=== PATIENT | female | born 1955 | race Caucasian/White ===

== ENCOUNTER 2016-10-30 13:35 | Inpatient (IN) | payer OTHER ==
[~2016-10-30] VITALS: Ht 157.5 cm; Wt 95.8 kg
[~2016-10-30 13:35] MED LIST: AMIT50TA3 PO; ASPI-391; INSUINJ4 SQ; INSUINJ7 SC; IRON PO; LEVO88TA PO; LISI-729 PO; METF1000 PO; MINO100C22 PO; RANI300T2 PO; SIMV20TA2 PO
[2016-10-30] MEDS ORDERED: ONDANSETRON INJ 2 MG/ML 2 ML VIAL IV STA (13:48)
[2016-10-30] MEDS ORDERED: SODIUM CHLORIDE 0.9% 1000ML 500 ML IV STA (13:48)
--- NOTE | 2016-10-30 13:57 | EMERGENCY ROOM VISIT NOTE ---
History Report prepared by Shonibvidal: Ember Francis Under the Supervision of: Dr. Topher Hayes M.D. First contact with patient: 13:40 Chief Complaint: ABDOMINAL PAIN Stated Complaint: ABD PAIN/ NAUSEA History of Present Illness The patient is a 60 year old female who presents to the Emergency Room with complaints of persistent abdominal pain for the past 2 weeks. She has also been nauseous and experiencing "dry heaves", but has not actually vomited. She underwent hernia surgery on October 07, 2016, by Dr. Sheth at [facility] in [place]. She saw him this morning for a recheck and states he told her the surgical incisions look good and she was not given any specific instructions for her abdominal pain and nausea. She notes she was placed on water pills 1 week ago for increased edema after surgery. She has been moving her bowels normally. She denies any fevers or urinary symptoms. The patient does admit to some increased coughing. She denies taking any daily blood thinners and denies any history of PE's or DVT's. The patient is diabetic and notes ever since her hernia surgery, her BSG has been running "over 200 in the mornings". 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 A total of 10 systems reviewed and were otherwise negative. Past Medical & Surgical Medical Problems: (1) Diabetes mellitus, type 2 (2) Diastolic CHF, chronic (3) Dyslipidemia (4) Dyspepsia (5) Fatty liver (6) GERD (gastroesophageal reflux disease) (7) Hiatal hernia (8) History of gastric ulcer (9) Hypertension (10) Hypothyroidism (11) Iron deficiency anemia (12) Migraine headache (13) Osteoarthritis (14) Rosacea (15) Sleep apnea Surgical Problems: (1) Status post bilateral oophorectomy (2) Status post cholecystectomy (3) Status post hernia repair (4) Status post hysterectomy (5) Status post panniculectomy (6) Status post repair of ventral hernia (7) Status post tonsillectomy Family History Cancer Diabetes mellitus Gallbladder disease Heart disease Hypertension Social History Smoking Status: Never Smoker Alcohol Use: none Drug Use: none Marital Status: single Housing Status: lives with family Occupation Status: unemployed Current/Historical Medications Scheduled Amitriptyline Hcl (Amitriptyline Hcl), 100 MG PO HS Ferrous Sulfate (Ferrous Sulfate), 325 MG PO DAILY Furosemide (Furosemide), 20 MG PO DAILY Insulin Aspart (Novolog), UNITS SC TIDM Insulin Glargine (Lantus), 28 UNITS SC QPM Levothyroxine Sodium (Synthroid), 100 MCG PO DAILY Lisinopril (Zestril), 5 MG PO QAM Metformin Hcl (Glucophage), 1,000 MG PO BID Minocycline (Minocin), 100 MG PO QAM Mupirocin 2% (Bactroban 2%), 1 APPLN EXT UD Simvastatin (Zocor), 20 MG PO HS Scheduled PRN Acetaminophen (Tylenol), 1,000 MG PO Q8 PRN for Pain Ibuprofen (Motrin), 600 MG PO TID PRN for Pain Ranitidine Hcl (Zantac), 300 MG PO DAILY PRN for Heartburn Tramadol (Ultram), 50 MG PO Q6 PRN for Pain Miscellaneous Medications Triamcinolone Acetonide (Topic (Triamcinolone Acet 0.025%) Allergies Coded Allergies: Doxycycline (Verified Allergy, Unknown, Hives., 10/30/16) Reported by PT/[facility] record. Metronidazole (Verified Allergy, Unknown, Hives., 10/30/16) Reported by PT/[facility] record. Naproxen (Verified Allergy, Unknown, ., 10/30/16) Physical Exam Vital Signs Date Time Temp Pulse Resp B/P (MAP) Pulse Ox O2 Delivery O2 Flow Rate FiO2 10/30/16 19:43 89 18 109/71 100 Room Air 10/30/16 18:50 95 18 121/73 100 Room Air 10/30/16 16:50 103 18 124/71 100 Room Air 10/30/16 14:30 91 24 109/69 100 Room Air 10/30/16 13:43 99 10/30/16 13:40 36.8 98 22 107/78 100 Room Air Physical Exam GENERAL: Patient is in no acute distress. HEENT: No acute trauma, normocephalic atraumatic, mucous membranes moist, no nasal congestion, no scleral icterus. NECK: No stridor, no adenopathy, no meningismus, trachea is midline. LUNGS: Scattered crackles, breath sounds equal, no wheezing. HEART: 2/6 systolic murmur with a mild tachycardia, and regular rhythm. ABDOMEN: Large lower abdominal wall incision stretching from left to right. In the center, over the pelvis, there is erythema and some warmth, with a fullness , consistent with a possible hematoma, no drainage seen. Abdomen is otherwise soft and nontender. Bowel sounds are positive. MICKY drains to both lateral aspects of her incision with serous fluid drainage. EXTREMITIES: No cyanosis, moderate bilateral pedal edema without cellulitis, full range of motion of all the joints without pain or difficulty, no signs for acute trauma. NEUROLOGIC: Oriented x 3, no acute motor or sensory deficits, no focal weakness. SKIN: No rash, no jaundice, no diaphoresis. Medical Decision & Procedures ER Provider Diagnostic Interpretation: Radiology results as stated below per my review and radiologist interpretation: CHEST ONE VIEW PORTABLE CLINICAL HISTORY: ABDOMINAL PAIN/GI pain COMPARISON STUDY: 12/25/2013 FINDINGS: Fixed lateral hernia. Small left pleural effusion. Lungs otherwise appear clear. IMPRESSION: Hiatal hernia. Very small left effusion. Electronically signed by: Kenneth Johnson M.D. 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 Edema. surgery, edema COMPARISON STUDY: None. FINDINGS: There is normal compressibility, flow, and augmentation within the bilateral lower extremity deep venous systems. IMPRESSION: No DVT within the right or left lower extremity. Electronically signed by: Kenneth Johnson M.D. 10/30/2016 3:[address] OF THE ABDOMEN AND PELVIS WITH CONTRAST CLINICAL HISTORY: Abdominal pain. Possible abscess. COMPARISON STUDY: None. TECHNIQUE: Following IV administration of 93 mL of Optiray-320, axial images of the abdomen and pelvis were obtained from the lung bases to the proximal femurs. Images were reviewed in the axial, sagittal, and coronal planes. IV contrast was administered without complication. CT DOSE: 1416.66 mGy.cm FINDINGS: Visualized portions of the lower chest demonstrate a large hiatal hernia with intrathoracic stomach. Lower lobe opacity suggests atelectasis. There is a possible segmental pulmonary embolus within the right middle lobe shown on image 13 of 476. There is fatty infiltration of the liver. There is no biliary ductal dilatation status post cholecystectomy. There is borderline splenomegaly. The adrenal glands, kidneys and pancreas are unremarkable. No peripancreatic infiltration. There is pancreatic glandular atrophy. There is no hydronephrosis. There are extensive post surgical findings of the anterior abdominal wall with surgical drains in place. There is extensive subcutaneous edema as well as edema along anterior abdominal wall. There is no soft tissue gas. No rim-enhancing fluid collection is identified to suggest an abscess. There is sigmoid diverticulosis without evidence for acute diverticulitis. No suspicious osseous lesions are identified. Apparent filling defects within the groin veins favor mixing artifact. The pannus was not imaged in its entirety. IMPRESSION: 1. Extensive postoperative findings of the anterior abdominal wall with surgical drains in place. Subcutaneous edema and edema along the anterior abdominal wall with no rim-enhancing fluid collection to suggest abscess. The edema may reflect postsurgical change or cellulitis. 2. Possible segmental pulmonary embolus within the right middle lobe. A PE protocol CT could be obtained. 3. Large hiatal hernia with intrathoracic stomach. 4. Apparent filling defects within bilateral groin veins. The symmetry favors mixing artifact. Thrombus could appear similar although is considered less likely given symmetry. Electronically signed by: Gael Esquivel M.D. 10/30/2016 5:05 PM Laboratory Results 10/30/16 13:20 Red Blood Count 3.75, Mean Corpuscular Volume 80.3, Mean Corpuscular Hemoglobin 24.5, Mean Corpuscular Hemoglobin Concent 30.6, Mean Platelet Volume 10.8, Neutrophils (%) (Auto) 84.1, Lymphocytes (%) (Auto) 6.2, Monocytes (%) (Auto) 7.8, Eosinophils (%) (Auto) 1.4, Basophils (%) (Auto) 0.1, Neutrophils # (Auto) 7.19, Lymphocytes # (Auto) 0.53, Monocytes # (Auto) 0.67, Eosinophils # (Auto) 0.12, Basophils # (Auto) 0.01 10/30/16 13:20 Test 10/30/16 13:20 10/30/16 14:15 10/30/16 14:25 White Blood Count 8.55 K/uL (4.8-10.8) Red Blood Count 3.75 M/uL (4.2-5.4) Hemoglobin 9.2 g/dL (12.0-16.0) Hematocrit 30.1 % (37-47) Mean Corpuscular Volume 80.3 fL (80-100) Mean Corpuscular Hemoglobin 24.5 pg (25-34) Mean Corpuscular Hemoglobin Concent 30.6 g/dl (32-36) Platelet Count 292 K/uL (130-400) Mean Platelet Volume 10.8 fL (7.4-10.4) Neutrophils (%) (Auto) 84.1 % Lymphocytes (%) (Auto) 6.2 % Monocytes (%) (Auto) 7.8 % Eosinophils (%) (Auto) 1.4 % Basophils (%) (Auto) 0.1 % Neutrophils # (Auto) 7.19 K/uL (1.4-6.5) Lymphocytes # (Auto) 0.53 K/uL (1.2-3.4) Monocytes # (Auto) 0.67 K/uL (0.11-0.59) Eosinophils # (Auto) 0.12 K/uL (0-0.5) Basophils # (Auto) 0.01 K/uL (0-0.2) RDW Standard Deviation 44.5 fL (36.4-46.3) RDW Coefficient of Variation 15.2 % (11.5-14.5) Immature Granulocyte % (Auto) 0.4 % Immature Granulocyte # (Auto) 0.03 K/uL (0.00-0.02) Prothrombin Time 11.0 SECONDS (9.0-12.0) Prothromb Time International Ratio 1.0 (0.9-1.1) Activated Partial Thromboplast Time 26.1 SECONDS (21.0-31.0) Partial Thromboplastin Ratio 1.0 Anion Gap 12.0 mmol/L (3-11) Est Creatinine Clear Calc Drug Dose 49.1 ml/min Estimated GFR () 51.3 Estimated GFR (Non- 44.2 BUN/Creatinine Ratio 9.5 (10-20) Calcium Level 7.7 mg/dl (8.5-10.1) Total Bilirubin 0.3 mg/dl (0.2-1) Aspartate Amino Transf (AST/SGOT) 19 U/L (15-37) Alanine Aminotransferase (ALT/SGPT) 12 U/L (12-78) Alkaline Phosphatase 84 U/L (45-117) Troponin I < 0.015 ng/ml (0-0.045) Total Protein 6.8 gm/dl (6.4-8.2) Albumin 2.1 gm/dl (3.4-5.0) Globulin 4.7 gm/dl (2.5-4.0) Albumin/Globulin Ratio 0.4 (0.9-2) Lipase 80 U/L (73-393) Chemistry Specimen Hemolysis Bedside Lactic Acid Venous 1.61 mmol/L (0.90-1.70) Urine Color DK YELLOW Urine Appearance CLOUDY (CLEAR) Urine pH 5.0 (4.5-7.5) Urine Specific [place] 1.027 (1.000-1.030) Urine Protein 1+ (NEG) Urine Glucose (UA) NEG (NEG) Urine Ketones TRACE (NEG) Urine Occult Blood NEG (NEG) Urine Nitrite NEG (NEG) Urine Bilirubin NEG (NEG) Urine Urobilinogen NEG (NEG) Urine Leukocyte Esterase NEG (NEG) Urine WBC (Auto) 5-10 /hpf (0-5) Urine RBC (Auto) 0-4 /hpf (0-4) Urine Hyaline Casts (Auto) >30 /lpf (0-5) Urine Epithelial Cells (Auto) >30 /lpf (0-5) Urine Bacteria (Auto) NEG (NEG) Urine Renal Epithelial Cells 0-5 /lpf (0-5) Urine Pathogenic Casts 1-5 WBC CASTS /lpf (0) Laboratory results reviewed by me. Medications Administered Medications (Trade) Dose Ordered Sig/Kamla Route Start Time Stop Time Status Last Admin Dose Admin Sodium Chloride 500 ml @ 999 mls/hr Q31M STAT IV 10/30/16 13:48 10/30/16 14:18 DC 10/30/16 14:42 999 MLS/HR Ondansetron HCl (Zofran Inj) 4 mg NOW STAT IV 10/30/16 13:48 10/30/16 13:51 DC 10/30/16 14:43 4 MG Piperacillin Sod/ Tazobactam Sod (Zosyn Iv) 4.5 gm NOW STAT IV 10/30/16 17:27 10/30/16 17:29 DC 10/30/16 17:49 4.5 GM Tramadol HCl (Ultram Tab) 50 mg STK-MED ONCE .ROUTE 10/30/16 19:47 10/30/16 19:48 DC 10/30/16 19:47 50 MG ECG Indication: abdominal pain Rate (beats per minute): 97 Rhythm: normal sinus (normal sinus rhythm) Findings: no acute ischemic change, no ectopy ED Course 1344: The patient was evaluated in room A10. A complete history and physical exam was performed. 1348: Zofran 4 mg IV, NSS 500 ml @ 999 mls/hr IV. 1720: I reevaluated the patient. She is resting comfortably. I discussed my recommendation that she remain in the hospital for further evaluation and management and she verbalized complete understanding and agreement. 1727: Zosyn 4.5 gm IV. 1803: I discussed the patients case with Dr. Mcghee, [facility] Hospitalist. The patient will be further evaluated. Medical Decision Medication Reconciliation: I attest that I have personally reviewed the patient' s current medication list. Blood Pressure Screening: Patient was found to have normal blood pressure on screening and does not require follow-up. The differential diagnoses considered include bowel obstruction, intraabdominal abscess, abdominal wall hematoma, UTI, pneumonia, pancreatitis, DVT and musculoskeletal pain. There is no leukocytosis. The patient is anemic with a hemoglobin of 9-this is a drop for her based on our previous testing. There was no significant electrolyte abnormality or kidney failure. No hepatitis. There was no coagulopathy. Urinalysis shows contamination, no obvious infection. Blood cultures are pending. Chest x-ray does not show pneumonia or CHF. EKG shows a normal sinus rhythm, no acute ischemia. Cardiac enzyme testing times one is not consistent with acute cardiac injury. Lower extremity ultrasound does not show evidence for DVT. Abdominal and pelvis CT shows a possible hematoma or seroma along the abdominal wall, cellulitis was questioned. No evidence for bowel obstruction or for intra-abdominal abscess. A possible PE was noted on the abdominal and pelvis CT scan. Lactic acid level was not elevated making bowel ischemia less likely. There is no evidence for pancreatitis. The patient received IV saline, IV Zofran. She was given IV Zosyn as antibiotic coverage. The patient appears to have a cellulitis in the area of her surgical wound. There may be an underlying hematoma or phlegmon. She is anemic. She has a possible PE by CT scan. Further workup in the hospital, further care in the hospital is required. I did speak to the patient and case management. The on- call hospitalist was consulted. Consults Time Called: 174 Consulting Physician: Hattie Lester Hospitalist Returned Call: [phone] I discussed the patients case with Hattie Lester. The patient will be further evaluated. Impression Primary Impression: Abdominal wall cellulitis Additional Impressions: Anemia Pulmonary embolism Scribe Attestation The scribe's documentation has been prepared under my direction and personally reviewed by me in its entirety. I confirm that the note above accurately reflects all work, treatment, procedures, and medical decision making performed by me. Departure Information Dispostion Being Evaluated By Hospitalist Referrals Moni Mejía M.D. (PCP) Patient Instructions [facility] Problem Qualifiers
[2016-10-30] MEDS ORDERED: OPTIRAY 320 IV PRN (14:00)
[2016-10-30 14:10] LABS: BASO % 0.1 %; BASO ABS # 0.01 K/uL (0-0.2); COMPLETE YES; EOS % 1.4 %; HEMATOCRIT 30.1 % (37-47); IG% 0.4 %; LYMPH % 6.2 %; LYMPH ABS # 0.53 K/uL (1.2-3.4); MEAN CELL VOLUME 80.3 fL (80-100); MEAN CORPUSCULAR HEMOGLOBIN 24.5 pg (25-34); MEAN CORPUSCULAR HGB CONC 30.6 g/dl (32-36); MEAN PLATELET VOLUME 10.8 fL (7.4-10.4); MONO % 7.8 %; NEUT % 84.1 %; PLATELET COUNT 292 K/uL (130-400); RED BLOOD COUNT 3.75 M/uL (4.2-5.4); WHITE BLOOD COUNT 8.55 K/uL (4.8-10.8)
[2016-10-30] MEDS ORDERED: IBUP-1450 PO (14:20)
[2016-10-30] MEDS ORDERED: TRIA0.022 (14:20)
[2016-10-30] MEDS ORDERED: INSDGI SC (14:20)
[2016-10-30] MEDS ORDERED: TRAM-10 PO (14:20)
[2016-10-30] MEDS ORDERED: BCTCR/30 EXT (14:20)
[2016-10-30] MEDS ORDERED: NVLG SC (14:20)
[2016-10-30] MEDS ORDERED: LEVO100T PO (14:20)
[2016-10-30] MEDS ORDERED: FERR325T5 PO (14:20)
[2016-10-30] MEDS ORDERED: ACET-1256 PO (14:20)
[2016-10-30 14:33] LABS: ALB/GLOB RATIO 0.4 (0.9-2); ALKALINE PHOSPHATASE 84 U/L (45-117); ALT/SGPT 12 U/L (12-78); AST/SGOT 19 U/L (15-37); BLOOD UREA NITROGEN 12 mg/dl (7-18); BUN/CREATININE RATIO 9.5 (10-20); CARBON DIOXIDE 26 mmol/L (21-32); CHLORIDE 96 mmol/L (98-107); GLUCOSE 205 mg/dl (70-99); POTASSIUM 4.4 mmol/L (3.5-5.1); SODIUM 134 mmol/L (136-145)
--- NOTE | 2016-10-30 14:38 | DIAGNOSTIC IMAGING REPORT ---
CHEST ONE VIEW PORTABLE CLINICAL HISTORY: ABDOMINAL PAIN/GI pain COMPARISON STUDY: 12/25/2013 FINDINGS: Fixed lateral hernia. Small left pleural effusion. Lungs otherwise appear clear. IMPRESSION: Hiatal hernia. Very small left effusion. Electronically signed by: Kenneth Johnson M.D. 10/30/2016 2:36 PM Dictated Date/Time: 10/30/2016 2:36 PM
[2016-10-30 15:05] LABS: URINE APPEARANCE CLOUDY (CLEAR); URINE COLOR DK YELLOW; URINE EPITHELIAL CELL AUTO >30 /lpf (0-5); URINE NITRITE NEG (NEG); URINE SPECIFIC GRAVITY 1.027 (1.000-1.030); UROBILINOGEN NEG (NEG); ZZURINE CULT IF INDIC CATH NO
[2016-10-30 15:13] LABS: REVIEW REQ? YES
[2016-10-30 15:14] LABS: MANUAL MICROSCOPIC REQUIRED? NO
[2016-10-30 15:15] LABS: URINE BILIRUBIN NEG (NEG)
[2016-10-30 15:33] LABS: URINE PATH CASTS 1-5 WBC CASTS /lpf (0)
--- NOTE | 2016-10-30 15:38 | DIAGNOSTIC IMAGING REPORT ---
BILATERAL LOWER EXTREMITY VENOUS DOPPLER HISTORY: Pain. Edema. surgery, edema COMPARISON STUDY: None. FINDINGS: There is normal compressibility, flow, and augmentation within the bilateral lower extremity deep venous systems. IMPRESSION: No DVT within the right or left lower extremity. Electronically signed by: Kenneth Johnson M.D. 10/30/2016 3:37 PM Dictated Date/Time: 10/30/2016 3:36 PM
--- NOTE | 2016-10-30 17:06 | DIAGNOSTIC IMAGING REPORT ---
CT OF THE ABDOMEN AND PELVIS WITH CONTRAST CLINICAL HISTORY: Abdominal pain. Possible abscess. COMPARISON STUDY: None. TECHNIQUE: Following IV administration of 93 mL of Optiray-320, axial images of the abdomen and pelvis were obtained from the lung bases to the proximal femurs. Images were reviewed in the axial, sagittal, and coronal planes. IV contrast was administered without complication. CT DOSE: 1416.66 mGy.cm FINDINGS: Visualized portions of the lower chest demonstrate a large hiatal hernia with intrathoracic stomach. Lower lobe opacity suggests atelectasis. There is a possible segmental pulmonary embolus within the right middle lobe shown on image 13 of 476. There is fatty infiltration of the liver. There is no biliary ductal dilatation status post cholecystectomy. There is borderline splenomegaly. The adrenal glands, kidneys and pancreas are unremarkable. No peripancreatic infiltration. There is pancreatic glandular atrophy. There is no hydronephrosis. There are extensive post surgical findings of the anterior abdominal wall with surgical drains in place. There is extensive subcutaneous edema as well as edema along anterior abdominal wall. There is no soft tissue gas. No rim-enhancing fluid collection is identified to suggest an abscess. There is sigmoid diverticulosis without evidence for acute diverticulitis. No suspicious osseous lesions are identified. Apparent filling defects within the groin veins favor mixing artifact. The pannus was not imaged in its entirety. IMPRESSION: 1. Extensive postoperative findings of the anterior abdominal wall with surgical drains in place. Subcutaneous edema and edema along the anterior abdominal wall with no rim-enhancing fluid collection to suggest abscess. The edema may reflect postsurgical change or cellulitis. 2. Possible segmental pulmonary embolus within the right middle lobe. A PE protocol CT could be obtained. 3. Large hiatal hernia with intrathoracic stomach. 4. Apparent filling defects within bilateral groin veins. The symmetry favors mixing artifact. Thrombus could appear similar although is considered less likely given symmetry. Electronically signed by: Gael Esquivel M.D. 10/30/2016 5:05 PM Dictated Date/Time: 10/30/2016 4:46 PM
[2016-10-30 17:16] LABS: CALCIUM 7.7 mg/dl (8.5-10.1)
[2016-10-30] MEDS ORDERED: PIPERACILLIN/TAZOBACTAM 4.5 GM/100ML D5W IV STA (17:27)
[2016-10-30] MEDS ORDERED: ONDANSETRON INJ 2 MG/ML 2 ML VIAL IV PRN (18:15)
[2016-10-30] MEDS ORDERED: LSX20 PO (18:58)
--- NOTE | 2016-10-30 19:40 | History and Physical ---
History & Physical Date & Time of Service: Oct 30, 2016 at 18:15 . Chief Complaint: chills, nausea, weakness . Primary Care Physician: Moni Mejía M.D. . History of Present Illness Source: patient, family, clinic records, hospital records 60-year-old female followed by Dr. Mejía. History of diastolic CHF, hypertension, diabetes mellitus type 2, and other problems noted below. Ventral hernia repair and panniculectomy performed at [facility] on 10/07/16. Patient was discharged to home on 10/16/16 on antibiotics and bilateral abdominal drains. Antibiotics were discontinued about a week ago due to diarrhea. Seen in clinic last week because of lower extremity edema and started on furosemide. This morning she was seen for postsurgical follow-up in Surgery Clinic in [place]. On the way home she felt weak, nauseated, experienced chills. She came to the ED for evaluation. Family noted that drainage from abdominal drains is somewhat cloudy at times. Family notes erythema around left abdominal drain and around lower abdominal incision. No drainage from incision. No apparent fever at home. Diarrhea has improved since stopping antibiotics last week, but she had loose stools in the ED today. No melena or hematochezia. No dysuria or hematuria. She has noted occasional nonproductive cough and some dyspnea on exertion. No angina or pleuritic chest pain. Lower extremity edema has improved since starting furosemide last week. . Past Medical/Surgical History Chronic and Resolved Medical Problems: (1) Diabetes mellitus, type 2 Status: Chronic (2) Diastolic CHF, chronic Status: Chronic (3) Dyslipidemia Status: Chronic (4) Dyspepsia Status: Chronic (5) Fatty liver Status: Chronic (6) GERD (gastroesophageal reflux disease) Status: Chronic (7) Hiatal hernia Status: Chronic (8) History of gastric ulcer Status: Chronic (9) Hypertension Status: Chronic (10) Hypothyroidism Status: Chronic (11) Iron deficiency anemia Status: Chronic (12) Migraine headache Status: Chronic (13) Osteoarthritis Status: Chronic (14) Rosacea Status: Chronic (15) Sleep apnea Status: Chronic Surgical Problems: (1) Status post bilateral oophorectomy Status: Chronic (2) Status post cholecystectomy Status: Chronic (3) Status post hernia repair Permanent Comment: ventral hernia repairs 2008 + 2016 Status: Chronic (4) Status post hysterectomy Status: Chronic (5) Status post [place]ic[place] [facility] [place]. Christensen Status: Chronic (6) Status post repair of ventral hernia [place] [facility] [place]. Rivera Status: Chronic (7) Status post tonsillectomy Status: Chronic . Family History Cancer Diabetes mellitus Gallbladder disease Heart disease Hypertension Social History Smoking Status: Never Smoker Alcohol Use: none Drug Use: none Marital Status: single Occupational Status: unemployed Immunizations History of Influenza Vaccine: Yes History of Pneumococcal: Yes Multi-Drug Resistant Organisms History of MDRO: No Allergies Coded Allergies: Doxycycline (Verified Allergy, Unknown, Hives., 10/30/16) Reported by PT/[facility] record. Metronidazole (Verified Allergy, Unknown, Hives., 10/30/16) Reported by PT/[facility] record. Naproxen (Verified Allergy, Unknown, ., 10/30/16) Home Medications Scheduled Amitriptyline Hcl (Amitriptyline Hcl), 100 MG PO HS Ferrous Sulfate (Ferrous Sulfate), 325 MG PO DAILY Furosemide (Furosemide), 20 MG PO DAILY Insulin Aspart (Novolog), UNITS SC TIDM Insulin Glargine (Lantus), 28 UNITS SC QPM Levothyroxine Sodium (Synthroid), 100 MCG PO DAILY Lisinopril (Zestril), 5 MG PO QAM Metformin Hcl (Glucophage), 1,000 MG PO BID Minocycline (Minocin), 100 MG PO QAM Mupirocin 2% (Bactroban 2%), 1 APPLN EXT UD Simvastatin (Zocor), 20 MG PO HS Scheduled PRN Acetaminophen (Tylenol), 1,000 MG PO Q8 PRN for Pain Ibuprofen (Motrin), 600 MG PO TID PRN for Pain Ranitidine Hcl (Zantac), 300 MG PO DAILY PRN for Heartburn Tramadol (Ultram), 50 MG PO Q6 PRN for Pain Miscellaneous Medications Triamcinolone Acetonide (Topic (Triamcinolone Acet 0.025%) Review of Systems Constitutional: + chills, No fever Eyes: No worsening of vision, No diplopia ENT: No nasal symptoms, No sore throat Respiratory: + problem reported (as noted above in HPI) Cardiovascular: + problem reported (as noted above in HPI) Abdomen: + problem reported (as noted above in HPI) Musculoskeletal: + joint pain, + muscle pain Genitourinary - Female: + problem reported (as noted above in HPI) Neurologic: + problem reported (migraine headaches, diabetic neuropathy) Psychiatric: + insomnia Endocrine: + problem reported (blood sugars running high), No excessive thirst , No excessive urination Integumentary: + problem reported (as noted above in HPI) Physical Exam Vital Signs Date Time Temp Pulse Resp B/P (MAP) Pulse Ox O2 Delivery O2 Flow Rate FiO2 10/30/16 18:50 95 18 121/73 100 Room Air 10/30/16 16:50 103 18 124/71 100 Room Air 10/30/16 14:30 91 24 109/69 100 Room Air 10/30/16 13:43 99 10/30/16 13:40 36.8 98 22 107/78 100 Room Air General Appearance: no apparent distress, + obese Head: normocephalic, atraumatic Eyes: normal inspection, PERRL, EOMI, sclerae normal, + pertinent finding ( conjunctivae pale) ENT: hearing grossly normal, pharynx normal, + pertinent finding (upper dentures) Neck: supple, no adenopathy, thyroid normal, trachea midline Respiratory/Chest: lungs clear, normal breath sounds, no respiratory distress, no accessory muscle use Cardiovascular: regular rate, rhythm, normal peripheral pulses, + systolic murmur (II/ systolic murmur at base), + pertinent finding (neck veins difficult to assess; 3+ pretibial edema; capillary refill toes ~ 2 sec) Abdomen/GI: normal bowel sounds, non tender, soft, no organomegaly (no palpable masses), + pertinent finding (bilateral surgical drains) Extremities/Musculoskelatal: + pertinent finding (no calf tenderness) Neurologic/Psych: arc welder II-XII nml as tested (PERRL, EOMI, no facial palsy, no dysarthria), no motor/sensory deficits (motor strength extremities grossly intact), alert, oriented x 3 Skin: + pertinent finding (erythema, induration, tenderness surrounding left drain site; lower abdominal incision with eschar and surrounding erythema and induration) Lymphatic: no adenopathy (cervical) Diagnostics Laboratory Results Results Past 24 Hours Test 10/30/16 13:20 10/30/16 14:15 10/30/16 14:25 Range/Units White Blood Count 8.55 4.8-10.8 K/uL Red Blood Count 3.75 4.2-5.4 M/uL Hemoglobin 9.2 12.0-16.0 g/dL Hematocrit 30.1 37-47 % Mean Corpuscular Volume 80.3 80-100 fL Mean Corpuscular Hemoglobin 24.5 25-34 pg Mean Corpuscular Hemoglobin Concent 30.6 32-36 g/dl Platelet Count 292 130-400 K/uL Mean Platelet Volume 10.8 7.4-10.4 fL Neutrophils (%) (Auto) 84.1 % Lymphocytes (%) (Auto) 6.2 % Monocytes (%) (Auto) 7.8 % Eosinophils (%) (Auto) 1.4 % Basophils (%) (Auto) 0.1 % Neutrophils # (Auto) 7.19 1.4-6.5 K/uL Lymphocytes # (Auto) 0.53 1.2-3.4 K/uL Monocytes # (Auto) 0.67 0.11-0.59 K/uL Eosinophils # (Auto) 0.12 0-0.5 K/uL Basophils # (Auto) 0.01 0-0.2 K/uL RDW Standard Deviation 44.5 36.4-46.3 fL RDW Coefficient of Variation 15.2 11.5-14.5 % Immature Granulocyte % (Auto) 0.4 % Immature Granulocyte # (Auto) 0.03 0.00-0.02 K/uL Prothrombin Time 11.0 9.0-12.0 SECONDS Prothromb Time International Ratio 1.0 0.9-1.1 Activated Partial Thromboplast Time 26.1 21.0-31.0 SECONDS Partial Thromboplastin Ratio 1.0 Sodium Level 134 136-145 mmol/L Potassium Level 4.4 3.5-5.1 mmol/L Chloride Level 96 98-107 mmol/L Carbon Dioxide Level 26 21-32 mmol/L Anion Gap 12.0 3-11 mmol/L Blood Urea Nitrogen 12 7-18 mg/dl Creatinine 1.30 0.60-1.20 mg/dl Est Creatinine Clear Calc Drug Dose 49.1 ml/min Estimated GFR () 51.3 Estimated GFR (Non- 44.2 BUN/Creatinine Ratio 9.5 10-20 Random Glucose 205 70-99 mg/dl Calcium Level 7.7 8.5-10.1 mg/dl Total Bilirubin 0.3 0.2-1 mg/dl Aspartate Amino Transf (AST/SGOT) 19 15-37 U/L Alanine Aminotransferase (ALT/SGPT) 12 12-78 U/L Alkaline Phosphatase 84 45-117 U/L Troponin I < 0.015 0-0.045 ng/ml Total Protein 6.8 6.4-8.2 gm/dl Albumin 2.1 3.4-5.0 gm/dl Globulin 4.7 2.5-4.0 gm/dl Albumin/Globulin Ratio 0.4 0.9-2 Lipase 80 73-393 U/L Chemistry Specimen Hemolysis Bedside Lactic Acid Venous 1.61 0.90-1.70 mmol/L Urine Color DK YELLOW Urine Appearance CLOUDY CLEAR Urine pH 5.0 4.5-7.5 Urine Specific [place] 1.027 1.000-1.030 Urine Protein 1+ NEG Urine Glucose (UA) NEG NEG Urine Ketones TRACE NEG Urine Occult Blood NEG NEG Urine Nitrite NEG NEG Urine Bilirubin NEG NEG Urine Urobilinogen NEG NEG Urine Leukocyte Esterase NEG NEG Urine WBC (Auto) 5-10 0-5 /hpf Urine RBC (Auto) 0-4 0-4 /hpf Urine Hyaline Casts (Auto) >30 0-5 /lpf Urine Epithelial Cells (Auto) >30 0-5 /lpf Urine Bacteria (Auto) NEG NEG Urine Renal Epithelial Cells 0-5 0-5 /lpf Urine Pathogenic Casts 1-5 WBC CASTS 0 /lpf Microbiology Results 10/30/16 Blood Culture, Received Pending 10/30/16 Blood Culture, Received Pending 10/30/16 Urine Culture, Received Pending 10/30/16 Gram Stain, Received Pending 10/30/16 Bacterial Culture, Received Pending 10/30/16 Gram Stain, Received Pending 10/30/16 Bacterial Culture, Received Pending Diagnostic Radiology CHEST ONE VIEW PORTABLE IMPRESSION: Hiatal hernia. Very small left effusion. Electronically signed by: Kenneth Johnson M.D. 10/30/2016 2:[address] ABDOMEN + PELVIS IMPRESSION: 1. Extensive postoperative findings of the anterior abdominal wall with surgical drains in place. Subcutaneous edema and edema along the anterior abdominal wall with no rim-enhancing fluid collection to suggest abscess. The edema may reflect postsurgical change or cellulitis. 2. Possible segmental pulmonary embolus within the right middle lobe. A PE protocol CT could be obtained. 3. Large hiatal hernia with intrathoracic stomach. 4. Apparent filling defects within bilateral groin veins. The symmetry favors mixing artifact. Thrombus could appear similar although is considered less likely given symmetry. Electronically signed by: Gael Esquivel M.D. 10/30/2016 5:05 PM BILATERAL LOWER EXTREMITY VENOUS DOPPLER IMPRESSION: No DVT within the right or left lower extremity. Electronically signed by: Kenneth Johnson M.D. 10/30/2016 3:37 PM . EKG EKG performed at 14:15 reviewed and showed normal sinus rhythm versus possible ectopic atrial rhythm at 97/minute, baseline artifact, no significant ST or T- wave abnormalities. . Impression Assessment and Plan ABDOMINAL WALL CELLULITIS Ventral hernia repair and panniculectomy performed at [facility] on 10/07/16. Patient presented to ED with chills, weakness, nausea. Examination as noted above suggest abdominal wall cellulitis. Does not appear to be septic. No fever or leukocytosis in ED. Serum lactate < 2. Hemodynamically stable. Blood cultures were obtained in ED and patient was started on IV antibiotic with piperacillin/tazobactam. Will add IV daptomycin for broader coverage. Check Gram stain and culture of drainage from surgical drains. Consult Infectious Disease. Consult General Surgery. POSSIBLE UTI No urinary symptoms. UA shows 5-10 WBCs, 15 WBC casts, no apparent bacteria. Check urine culture. IV daptomycin and piperacillin/tazobactam as noted above. POSSIBLE PULMONARY EMBOLISM Possible segmental pulmonary embolism right middle lobe incidentally noted on CT of abdomen. Patient experiencing nonproductive cough and dyspnea, but no pleuritic chest pain. Venous duplex of lower extremities negative for DVT. Cannot do CTA of chest at this time due to contrast demonstration with CT of abdomen and pelvis. Furthermore, patient is on metformin therapy. Therefore, will start anticoagulation with SQ enoxaparin pending additional data and further consultation. DIASTOLIC CHF Chronic left ventricular systolic heart failure per previous echocardiograms. Experiencing increasing lower extremity edema postoperatively. Started on furosemide last week. Edema has improved, but persists. No radiographic evidence of CHF per chest x-ray. Hold furosemide due to current infection and demonstration of IV contrast. Diuresis PRN. HYPERTENSION Continue lisinopril with hold parameters. SLEEP APNEA Continue nocturnal O2. GERD Continue ranitidine. DIARRHEA Check stools for Clostridium difficile. DM TYPE 2 Not well-controlled. Check hemoglobin A1c. Hold metformin. Lantus + NovoLog per protocol. HYPOTHYROIDISM Continue levothyroxine. DYSLIPIDEMIA Hold statin while receiving daptomycin. ANEMIA History of chronic iron deficiency anemia, but H/H lower than baseline probably secondary to recent surgery and apparent infection. Follow H/H. VTE PROPHYLAXIS SQ enoxaparin for possible pulmonary embolism as discussed above. RESUSCITATION STATUS Discussed with patient and her family. She does not have a living will. Her sister has healthcare power of contracts attorney. She would like resuscitation attempted in the event of a cardiopulmonary arrest if there is a reasonable chance of a meaningful recovery, but does not want prolonged extraordinary measures if prognosis is poor. Therefore, code status = "Level 1" (full resuscitation). DISPOSITION Hemodynamically stable. Admit to Med-Surg Unit. Discharge disposition to be determined. Internal Medicine follow-up with Dr. Mejía. Surgery follow-up with Dr. Rivera. . VTE Prophylaxis VTE Risk Assessment Done? Y/N: Yes Risk Level: Moderate Given or contraindicated: Enoxaparin (Lovenox)SQ
[2016-10-30] MEDS ORDERED: TRAMADOL HCL 50 MG TAB ONE (19:47)
[2016-10-30 20:40] VITALS: BP 103/71; PULSE 86; TEMP 36.6; Ht 157.5 cm; Wt 95.8 kg
[2016-10-30 20:57] VITALS: BP 103/71; PULSE 86; TEMP 36.6; O2SAT 100
[2016-10-30] MEDS ORDERED: GLUCAGON FOR INJ 1 MG VIAL SQ PRN (21:00)
[2016-10-30] MEDS ORDERED: GLUCOSE 40% GEL 15 GM TUBE PO PRN (21:00)
[2016-10-30] MEDS ORDERED: GLUCOSE 10 TABS/TUBE PO PRN (21:00)
[2016-10-30] MEDS ORDERED: DEXTROSE 50% 50 ML SYR IV PRN (21:00)
[2016-10-30] MEDS ORDERED: PIPERACILL/TAZOBAC CONSULT ACTIVE PRN (21:30)
[2016-10-30] MEDS: INSULIN ASPART 100 UNITS/ML 3 ML PEN SC SCH (22:00)
[2016-10-30] MEDS ORDERED: ENOXAPARIN 100 MG/1ML SYR SQ SCH (22:00)
[2016-10-30] MEDS: AMITRIPTYLINE HCL 100 MG TAB PO SCH (22:19)
[2016-10-30] MEDS: INSULIN GLARGINE SOLOSTAR 100 UNITS/ML 3 ML PEN SC SCH (22:36)
[2016-10-30 22:59] VITALS: BP 103/69; PULSE 79; TEMP 36.7; O2SAT 98
[2016-10-30] MEDS: DAPTOmycin IV 400 MG in SODIUM CHLORIDE 0.9% 50ML 50 ML IV SCH (22:59)
[2016-10-30] MEDS: PIPERACILL/TAZOBAC IV 4.5 GM in DEXTROSE 5% 100ML 100 ML IV SCH (23:42)
[2016-10-31] MEDS: PIPERACILL/TAZOBAC IV 4.5 GM in DEXTROSE 5% 100ML 100 ML IV SCH ×3 (05:43→22:37)
[2016-10-31] MEDS: LEVOTHYROXINE 100 MCG TAB PO SCH (05:43)
[2016-10-31 06:13] LABS: HEMATOCRIT 27.8 % (37-47); MEAN CELL VOLUME 79.4 fL (80-100); MEAN CORPUSCULAR HGB CONC 30.2 g/dl (32-36); MEAN PLATELET VOLUME 10.5 fL (7.4-10.4); PLATELET COUNT 264 K/uL (130-400); WHITE BLOOD COUNT 4.96 K/uL (4.8-10.8)
[2016-10-31 06:54] LABS: ESTIMATED AVERAGE GLUCOSE 154 mg/dl; HA1C FLAG Normal (Normal)
[2016-10-31 06:55] LABS: BUN/CREATININE RATIO 10.5 (10-20); C-REACTIVE PROTEIN 11.5 mg/dl (0-0.29); CALCIUM 7.1 mg/dl (8.5-10.1); CREATININE 0.86 mg/dl (0.60-1.20); POTASSIUM 3.9 mmol/L (3.5-5.1)
[2016-10-31 07:21] VITALS: BP 112/72; PULSE 101; TEMP 36.8; O2SAT 100
[2016-10-31 07:41] LABS: FERRITIN 37.8 ng/ml (8.0-388.0)
[2016-10-31] MEDS: HEPARIN 25,000 UNIT/500ML D5W 500 ML IV PRN ×5 (08:13→23:05)
[2016-10-31] MEDS: RANITIDINE HCL 150 MG TAB PO SCH (08:17)
[2016-10-31] MEDS: LISINOPRIL 5 MG TAB PO SCH (08:18)
[2016-10-31 08:28] LABS: BASO % 0.2 %; BASO ABS # 0.01 K/uL (0-0.2); EOS % 4.5 %; HEMATOCRIT 27.8 % (37-47); LYMPH % 11.1 %; LYMPH ABS # 0.61 K/uL (1.2-3.4); MEAN CELL VOLUME 79.4 fL (80-100); MEAN CORPUSCULAR HEMOGLOBIN 24.6 pg (25-34); MEAN PLATELET VOLUME 10.3 fL (7.4-10.4); NEUT % 76.2 %; PLATELET COUNT 283 K/uL (130-400); WHITE BLOOD COUNT 5.52 K/uL (4.8-10.8)
[2016-10-31 08:33] LABS: INR 1.1 (0.9-1.1); PARTIAL THROMBOPLASTIN RATIO 1.1; PROTHROMBIN TIME (PATIENT) 11.5 SECONDS (9.0-12.0)
[2016-10-31 08:45] LABS: MEAN CORPUSCULAR HGB CONC 30.9 g/dl (32-36)
[2016-10-31 08:50] LABS: COMPLETE YES
--- NOTE | 2016-10-31 09:11 | Pre-Operative Consultation ---
History General Date of Service: Oct 31, 2016. Stated Complaint: weakness HPI HPI: The patient is a 60 year old female who underwent combined incisional hernia repair/ panniculectomy with Ching Rivera/ Amparo in [place] on 10/07/16. She was on postop abx but stopped these 1 wk ago due to diarrhea. She was seen for her postop appt with Dr. Rivera but on her way home, felt weak, dizzy, lightheaded. Presented to the ER at [facility] for evaluation. No drainage from incisions. She still has MICKY x [address] - output has been too high for removal. Fluid color has been red with occasional clots. No pus that she has noted. Has pain at incision as expected. No fevers noted. Historian: patient Risk Assessment Daily beta zhang use?: Yes Problem List Medical Problems: (1) Abdominal wall cellulitis Status: Acute (2) Anemia Status: Acute Medical & Surgical History Past Medical History: Past Medical/Surgical History Chronic and Resolved Medical Problems: (1) Diabetes mellitus, type 2 Status: Chronic (2) Diastolic CHF, chronic Status: Chronic (3) Dyslipidemia Status: Chronic (4) Dyspepsia Status: Chronic (5) Fatty liver Status: Chronic (6) GERD (gastroesophageal reflux disease) Status: Chronic (7) Hiatal hernia Status: Chronic (8) History of gastric ulcer Status: Chronic (9) Hypertension Status: Chronic (10) Hypothyroidism Status: Chronic (11) Iron deficiency anemia Status: Chronic (12) Migraine headache Status: Chronic (13) Osteoarthritis Status: Chronic (14) Rosacea Status: Chronic (15) Sleep apnea Status: Chronic Past Surgical History: Surgical Problems: (1) Status post bilateral oophorectomy Status: Chronic (2) Status post cholecystectomy Status: Chronic (3) Status post hernia repair Permanent Comment: ventral hernia repairs 2008 + 2016 Status: Chronic (4) Status post hysterectomy Status: Chronic (5) Status post panniculectomy Permanent Comment: [facility] [place]/07/16 Dr. Christensen Status: Chronic (6) Status post repair of ventral hernia Permanent Comment: [facility] [place] 10/07/16 Dr. Rivera Status: Chronic (7) Status post tonsillectomy Status: Chronic Family History Family History: Cancer Diabetes mellitus Gallbladder disease Heart disease Hypertension Social History Hx Tobacco Use In Past Year?: No Smoking Status: Never Smoker Alcohol: none Drug Use: none Marital status: single Occupation status: unemployed Immunizations Have You Had Influenza Vaccine: Yes History of Pneumococcal: Yes Allergies Allergies: Coded Allergies: Doxycycline (Verified Allergy, Unknown, Hives., 10/30/16) Reported by PT/[facility] record. Metronidazole (Verified Allergy, Unknown, Hives., 10/30/16) Reported by PT/[facility] record. Naproxen (Verified Allergy, Unknown, ., 10/30/16) Medications Current Inpatient Medications Current Inpatient Medications Medications (Trade) Dose Ordered Sig/Kamla Route Start Time Stop Time Status Last Admin Dose Admin Ioversol (Optiray 320) 125 ml UD PRN IV 10/30/16 14:00 11/03/16 13:59 Acetaminophen (Tylenol Tab) 650 mg Q4H PRN PO 10/30/16 18:15 11/29/16 18:14 Ondansetron HCl (Zofran Inj) 4 mg Q6H PRN IV 10/30/16 18:15 11/29/16 18:14 Amitriptyline HCl (Elavil Tab) 100 mg HS PO 10/30/16 22:00 11/29/16 21:59 10/30/16 22:19 100 MG Insulin Aspart (novoLOG ASPART) ACHS SC 10/30/16 22:00 11/29/16 21:59 Insulin Glargine (Lantus Solostar Pen) 28 unit HS SC 10/30/16 22:00 11/29/16 21:59 10/30/16 22:36 28 UNIT Levothyroxine Sodium (Synthroid Tab) 100 mcg DAILYBB PO 10/31/16 06:00 11/30/16 05:59 10/31/16 05:43 100 MCG Lisinopril (Zestril Tab) 5 mg QAM PO 10/31/16 09:00 11/30/16 08:59 10/31/16 08:18 5 MG Ranitidine HCl (zANTac TAB) 300 mg DAILY PO 10/31/16 09:00 11/30/16 08:59 10/31/16 08:17 300 MG Tramadol HCl (Ultram Tab) 50 mg Q6H PRN PO 10/30/16 19:15 11/29/16 19:14 Piperacillin Sod/ Tazobactam Sod 4.5 gm/Dextrose 120 ml @ 30 mls/hr Q8H IV 10/30/16 22:00 11/09/16 21:59 10/31/16 05:43 30 MLS/HR Daptomycin 400 mg/ Sodium Chloride 58 ml @ 100 mls/hr DAILY@2100 IV 10/30/16 21:30 11/09/16 21:29 10/30/16 22:59 100 MLS/HR Glucose (Glucose 40% Gel) 15-30 GRAMS 15 GRAMS... UD PRN PO 10/30/16 21:00 11/29/16 20:59 Glucose (Glucose Chew Tab) 4-8 Tablets 4 Tabl... UD PRN PO 10/30/16 21:00 11/29/16 20:59 Dextrose (Dextrose 50% 50ML Syringe) 25-50ML OF 50% DW IV FOR... UD PRN IV 10/30/16 21:00 11/29/16 20:59 Glucagon (Glucagon Inj) 1 mg UD PRN SQ 10/30/16 21:00 11/29/16 20:59 Piperacillin Sod/ Tazobactam Sod (Consult) 1 ea UD PRN N/A 10/30/16 21:30 11/29/16 21:29 Heparin Sodium/ Dextrose 500 ml @ 25 mls/hr Q20H PRN IV 10/31/16 07:45 11/30/16 07:44 10/31/16 08:13 25 MLS/HR Review of Systems Review of Systems Review of Systems ROS: denies productive cough, did have lower extremity swelling following surgery for which she was started on lasix, no chest pain Physical Exam Physical Exam General Appearance: + other (Obese), No distress Ears, Nose, Throat: + normal ENT inspection Respiratory: No accessory muscle use, No decreased breath sounds Cardiovascular: No abnormal rate Neurologic/Psychiatric: No abnormal residential case manager II-XII, No abnormal gait Skin Characteristics: + other (panniculectomy incision with eschar at mid portion, dependent edema, induration and erythema at left MICKY site, no drainable fluid. Maceration of left side of incision. ) Diagnostics Labs Labs Results Past 24 Hours Test 10/30/16 13:20 10/30/16 14:15 10/30/16 14:25 10/30/16 22:25 Range/Units White Blood Count 8.55 4.8-10.8 K/uL Red Blood Count 3.75 4.2-5.4 M/uL Hemoglobin 9.2 12.0-16.0 g/dL Hematocrit 30.1 37-47 % Mean Corpuscular Volume 80.3 80-100 fL Mean Corpuscular Hemoglobin 24.5 25-34 pg Mean Corpuscular Hemoglobin Concent 30.6 32-36 g/dl Platelet Count 292 130-400 K/uL Mean Platelet Volume 10.8 7.4-10.4 fL Neutrophils (%) (Auto) 84.1 % Lymphocytes (%) (Auto) 6.2 % Monocytes (%) (Auto) 7.8 % Eosinophils (%) (Auto) 1.4 % Basophils (%) (Auto) 0.1 % Neutrophils # (Auto) 7.19 1.4-6.5 K/uL Lymphocytes # (Auto) 0.53 1.2-3.4 K/uL Monocytes # (Auto) 0.67 0.11-0.59 K/uL Eosinophils # (Auto) 0.12 0-0.5 K/uL Basophils # (Auto) 0.01 0-0.2 K/uL RDW Standard Deviation 44.5 36.4-46.3 fL RDW Coefficient of Variation 15.2 11.5-14.5 % Immature Granulocyte % (Auto) 0.4 % Immature Granulocyte # (Auto) 0.03 0.00-0.02 K/uL Prothrombin Time 11.0 9.0-12.0 SECONDS Prothromb Time International Ratio 1.0 0.9-1.1 Activated Partial Thromboplast Time 26.1 21.0-31.0 SECONDS Partial Thromboplastin Ratio 1.0 Sodium Level 134 136-145 mmol/L Potassium Level 4.4 3.5-5.1 mmol/L Chloride Level 96 98-107 mmol/L Carbon Dioxide Level 26 21-32 mmol/L Anion Gap 12.0 3-11 mmol/L Blood Urea Nitrogen 12 7-18 mg/dl Creatinine 1.30 0.60-1.20 mg/dl Est Creatinine Clear Calc Drug Dose 49.1 ml/min Estimated GFR () 51.3 Estimated GFR (Non- 44.2 BUN/Creatinine Ratio 9.5 10-20 Random Glucose 205 70-99 mg/dl Calcium Level 7.7 8.5-10.1 mg/dl Total Bilirubin 0.3 0.2-1 mg/dl Aspartate Amino Transf (AST/SGOT) 19 15-37 U/L Alanine Aminotransferase (ALT/SGPT) 12 12-78 U/L Alkaline Phosphatase 84 45-117 U/L Troponin I < 0.015 0-0.045 ng/ml Total Protein 6.8 6.4-8.2 gm/dl Albumin 2.1 3.4-5.0 gm/dl Globulin 4.7 2.5-4.0 gm/dl Albumin/Globulin Ratio 0.4 0.9-2 Lipase 80 73-393 U/L Chemistry Specimen Hemolysis Bedside Lactic Acid Venous 1.61 0.90-1.70 mmol/L Urine Color DK YELLOW Urine Appearance CLOUDY CLEAR Urine pH 5.0 4.5-7.5 Urine Specific Sperry 1.027 1.000-1.030 Urine Protein 1+ NEG Urine Glucose (UA) NEG NEG Urine Ketones TRACE NEG Urine Occult Blood NEG NEG Urine Nitrite NEG NEG Urine Bilirubin NEG NEG Urine Urobilinogen NEG NEG Urine Leukocyte Esterase NEG NEG Urine WBC (Auto) 5-10 0-5 /hpf Urine RBC (Auto) 0-4 0-4 /hpf Urine Hyaline Casts (Auto) >30 0-5 /lpf Urine Epithelial Cells (Auto) >30 0-5 /lpf Urine Bacteria (Auto) NEG NEG Urine Renal Epithelial Cells 0-5 0-5 /lpf Urine Pathogenic Casts 1-5 WBC CASTS 0 /lpf Bedside Glucose 141 70-90 mg/dl Test 10/31/16 05:40 10/31/16 08:00 10/31/16 08:13 Range/Units White Blood Count 4.96 5.52 4.8-10.8 K/uL Red Blood Count 3.50 3.50 4.2-5.4 M/uL Hemoglobin 8.4 8.6 12.0-16.0 g/dL Hematocrit 27.8 27.8 37-47 % Mean Corpuscular Volume 79.4 79.4 80-100 fL Mean Corpuscular Hemoglobin 24.0 24.6 25-34 pg Mean Corpuscular Hemoglobin Concent 30.2 30.9 32-36 g/dl RDW Standard Deviation 43.3 43.7 36.4-46.3 fL RDW Coefficient of Variation 15.1 15.0 11.5-14.5 % Platelet Count 264 283 130-400 K/uL Mean Platelet Volume 10.5 10.3 7.4-10.4 fL Sodium Level 136 136-145 mmol/L Potassium Level 3.9 3.5-5.1 mmol/L Chloride Level 99 98-107 mmol/L Carbon Dioxide Level 28 21-32 mmol/L Anion Gap 9.0 3-11 mmol/L Blood Urea Nitrogen 9 7-18 mg/dl Creatinine 0.86 0.60-1.20 mg/dl Est Creatinine Clear Calc Drug Dose 74.2 ml/min Estimated GFR () 84.5 Estimated GFR (Non- 72.9 BUN/Creatinine Ratio 10.5 10-20 Random Glucose 133 70-99 mg/dl Estimated Average Glucose 154 mg/dl Hemoglobin A1c 7.0 4.5-5.6 % Calcium Level 7.1 8.5-10.1 mg/dl Iron Level 17 35-150 mcg/dl Total Iron Binding Capacity 223 250-450 mcg/dl Transferrin 169 200-360 mg/dl Transferrin % Saturation 7 15-50 % Ferritin 37.8 8.0-388.0 ng/ml C-Reactive Protein 11.50 0-0.29 mg/dl Neutrophils (%) (Auto) 76.2 % Lymphocytes (%) (Auto) 11.1 % Monocytes (%) (Auto) 8.0 % Eosinophils (%) (Auto) 4.5 % Basophils (%) (Auto) 0.2 % Neutrophils # (Auto) 4.21 1.4-6.5 K/uL Lymphocytes # (Auto) 0.61 1.2-3.4 K/uL Monocytes # (Auto) 0.44 0.11-0.59 K/uL Eosinophils # (Auto) 0.25 0-0.5 K/uL Basophils # (Auto) 0.01 0-0.2 K/uL Immature Granulocyte % (Auto) 0.0 % Immature Granulocyte # (Auto) 0.00 0.00-0.02 K/uL Red Blood Cell Morphology Unremarkable Prothrombin Time 11.5 9.0-12.0 SECONDS Prothromb Time International Ratio 1.1 0.9-1.1 Activated Partial Thromboplast Time 27.3 21.0-31.0 SECONDS Partial Thromboplastin Ratio 1.1 D-Dimer 5350 0-500 ug/L FEU Bedside Glucose 262 70-90 mg/dl Microbiology Results 10/30/16 Blood Culture, Received Pending 10/30/16 Blood Culture, Received Pending 10/30/16 Urine Culture, Received Pending 10/30/16 Gram Stain - Final, Resulted 10/30/16 Bacterial Culture, Resulted Pending 10/30/16 Gram Stain - Final, Resulted 10/30/16 Bacterial Culture, Resulted Pending Lab Interpretation Lab Interpretation: labs were reviewed Diagnostic Radiology Diagnostic Radiology CT scan shows no sign of abscess. As expected, postop change with swelling/ induration in lower abdomen - ? cellulitis. Impression Assessment and Plan Assessment and Plan 60 yr old woman s/p panniculectomy/ incisional hernia repair on 10/07/16 with cellulitis. No sign of abscess or drainable fluid. Incision is getting macerated from skin on skin while she is sitting. Would replace dry dressings over incision. Drains are not infected currently and output is too high to remove. Agree with IV abx with plans to convert to PO when her cellulitis improves. Thank you for the consult.
--- NOTE | 2016-10-31 09:17 | PULMONARY CONSULTATION ---
DATE OF CONSULTATION: 10/31/2016 DATE OF CONSULTATION: 10/31/2016. TIME: 8:00 a.m. REPORT OF CONSULTATION: The patient was seen in room 352 bed 2. HISTORY OF PRESENT ILLNESS: She is a 60-year-old female who is being seen for possible pulmonary embolism. Her history is that she underwent an abdominal hernia repair and panniculectomy on 10/07/2016 at [facility]. She has been having recurring episodes of abdominal pain for the last couple of weeks. She has had some nausea and dry heaves. She had noticed some increased peripheral edema. This was treated initially with diuretic. She saw her surgeon yesterday. Subsequently, later in the day, she was feeling very weak. She also had nausea and some chills. This prompted her coming to the Emergency Room. As part of her evaluation, she underwent a CAT scan of the abdomen and pelvis. This study was done with contrast and had suggested the possibility of a pulmonary embolism in the right middle lobe. The patient admits to being more short of breath than normal since her surgery. She states that at home she has a large stairway of about 20 steps. Whereas she used to be able to walk up the steps without stopping, she is now stopping 3-[address] up. Likewise, she is also somewhat short of breath walking from room to room in her home. This was not the case prior to surgery. She has not had any chest pain. She has noticed a cough since surgery. It is dry. It is generally worse during the day. She has noticed some pain in her right and left calf area. She did have a venous Doppler last evening that was negative. The patient has not had any prior pulmonary problems. There is no history of deep vein thrombosis or pulmonary embolism. She denies asthma, emphysema, tuberculosis, pneumonia or pleurisy. She does carry a history of sleep apnea but is only using nighttime oxygen. PAST MEDICAL HISTORY: 1. Hypertension. 2. Hyperlipidemia. 3. Diabetes type 2. 4. Diastolic CHF. 5. GERD. 6. Hiatal hernia. 7. Gastric ulcer about 4 years ago. 8. Fatty liver. 9. Hypothyroidism. 10. Anemia which was iron deficiency. 11. Migraine headaches. 12. DJD. 13. Sleep apnea as noted previously. PAST SURGICAL HISTORY: 1. Hysterectomy. 2. Right and left oophorectomy. 3. Cholecystectomy. 4. Tonsillectomy. 5. Hernia repair 2008. 6. Hernia and panniculectomy September 2016. SOCIAL HISTORY: Tobacco never. ETOH -- None. ALLERGIES: LISTED ALLERGIES TO DOXYCYCLINE, METRONIDAZOLE, NAPROXEN. FAMILY HISTORY: Father age 60 thyroid cancer and had a brain aneurysm. Mother age 62 heart disease. REVIEW OF SYSTEMS: GENERAL: The patient's energy level has been lower than normal since surgery. There has been no syncope or near syncope. She has had no difficulty with urination. Remainder of the review of systems is otherwise negative except as noted above in history of present illness. MEDICATIONS AT HOME: 1. Tylenol p.r.n. 2. Amitriptyline 100 mg at bedtime. 3. Ferrous sulfate 325 mg daily. 4. Furosemide 20 mg daily. 5. Ibuprofen p.r.n. 6. NovoLog insulin. 7. Lantus insulin. 8. Levothyroxine 100 mcg daily. 9. Lisinopril 5 mg daily. 10. Metformin 1000 mg b.i.d. 11. Minocycline 100 mg daily. 12. Bactroban. 13. Ranitidine 300 mg p.r.n. 14. Simvastatin 20 mg at bedtime. 15. Tramadol 50 mg p.r.n. 16. Triamcinolone topical. PHYSICAL EXAMINATION: VITAL SIGNS: The patient is a pleasant 60-year-old female who was cooperative, alert and oriented. She did not appear short of breath and she did not appear in any distress. Her weight is 95.8 kilograms with a BMI of 38.6. HEAD, EYES, EARS, NOSE, AND THROAT: Pupils were reactive to light. She appears to be developing cataracts. Nares were clear. Mouth exam showed dentures on top. She has a few of her own teeth on the bottom. There is moderate crowding in the posterior pharynx. NECK: She has a very short neck. No lymphadenopathy was palpable. CHEST: Normal expansion. HEART: Heart rate was 96 per minute. The rhythm was regular. Blood pressure is 112/72. Her respiratory rate was 18 breaths per minute. LUNGS: The lung millan were clear bilaterally. Oxygen saturation on room air was 97% taken by myself. ABDOMEN: Obese. She has a very large scar across the lower abdominal region from side to side and there are drains on each side. There is also a more vertical scar near the midline. There is moderate erythema in the area of the incisions. Bowel sounds were heard. The upper abdomen was fairly soft. The degree of tenderness in the abdomen seemed appropriate for someone with surgery recently with a very large scar. EXTREMITIES: Revealed +1 to +2 edema bilaterally. She does complain of some tenderness in the area of the calves. There is no pain however with dorsiflexion of the foot. The patient's chest x-ray showed a hiatal hernia. One cannot clearly visualize the left hemidiaphragm and the possibility of an effusion exists. A CAT scan of the abdomen and pelvis was done. This showed extensive postoperative findings of the anterior abdominal wall with some degree of subcutaneous edema. The possibility of pulmonary embolism in the right middle lobe was noted. Hiatal hernia was noted with stomach essentially in the thoracic area. LABORATORY DATA: Admission white count was 8.55. Hemoglobin was 9.2. Platelets were 292,000. Today CBC shows a white count of 4.96 with a hemoglobin of 8.4 and platelets 264,000. Coags were normal. Urinalysis showed +1 protein, 5-10 WBCs, greater than 30 hyaline casts, negative bacteria. Electrolytes today show sodium 136, potassium 3.9, chloride 99, bicarbonate 28. BUN was 9 with a creatinine of 0.86. C-reactive protein was elevated at 11.5. Serum iron was 17 with total iron binding capacity of 223. Ferritin was 37.8. Hemoglobin A1c was 7.0. Troponin was negative. EKG showed a possible ectopic atrial rhythm. There was nonspecific ST and T-wave changes. This was unchanged compared with 2014. IMPRESSIONS: 1. Possible right middle lobe pulmonary embolism. 2. Status post ventral hernia repair and panniculectomy. 3. Obesity. 4. Obstructive sleep apnea by history. COMMENTS AND RECOMMENDATIONS: The patient seems clinically stable. She is not tachycardic. She is not hypoxic. She does complain of dyspnea with exertion. I agree with the plan of waiting until it is safe to do a CT angio of the chest. This likely requires at least 48 hours. I think that study should be done to make a definitive determination if she has had pulmonary embolism or not. I am going to order a D-dimer which I do not think has been done. It likely will be elevated as would be expected under her postoperative circumstances. However, if D-dimer is absolutely normal, it would certainly make it much less likely that she has pulmonary embolic disease. Would continue with the anticoagulants until a definitive determination has been made. Thank you for asking me to assist in her care.
--- NOTE | 2016-10-31 09:51 | Progress Note ---
Progress Note Date of Service Oct 31, 2016. Progress Note ID Consult Dictated #[id number] A/P: 1. Abd wound infection -Continue current abx, follow culture results -Surgery consult pending -Will follow, thank you
--- NOTE | 2016-10-31 10:36 | INFECT. DISEASE CONSULTATION ---
DATE OF CONSULTATION: 10/31/2016 DATE OF CONSULTATION: 10/31/2016. REQUESTING PHYSICIAN: Dr. Mcghee. HISTORY OF PRESENT ILLNESS: This is a 60-year-old female who was admitted after she had weakness while coming back from a surgical appointment in [place]. She recently underwent a ventral hernia repair as well as panniculectomy on 10/07/2016. She has had surgical drains in place. She was reportedly on Keflex at home but stopped about a week ago secondary to diarrhea. Within the last week she has had worsening lethargy and she has noted that the drainage has become more cloudy. She recently had a followup with her surgeons in [place] but was not placed back on antibiotics. She is complaining of abdominal pain. She denies any fevers or chills. Because of her weakness she was sent to the ER for evaluation. Her drains remain in place. She was started empirically on Zosyn and daptomycin. She is tolerating these antibiotics well. She currently denies any nausea, vomiting, diarrhea or abdominal pain. She is eating breakfast on my examination and appears comfortable. She denies any chest pain, cough or shortness of breath. A Gram stain from the wound culture obtained in the ER is showing many gram negative rods, but is pending. Blood and urine cultures are pending as well. Her white blood cell count is within normal limits. Her urinalysis has only 5-10 WBCs with no bacteria. The CAT scan did show edema but no drainable collection. All remaining review of systems are reviewed and are unremarkable. PAST MEDICAL HISTORY: Significant for type 2 diabetes, CHF, dyslipidemia, dyspepsia, fatty liver, GERD, hiatal hernia, gastric ulcers, hypertension, hypothyroidism, iron deficiency anemia, migraines, osteoarthritis, rosacea and obstructive sleep apnea. PAST SURGICAL HISTORY: Significant for bilateral nephrectomy, cholecystectomy, hernia repair, hysterectomy, panniculectomy, ventral hernia repair and tonsillectomy. FAMILY HISTORY: Noncontributory. SOCIAL HISTORY: Negative for alcohol use, drug use and tobacco use. ALLERGIES: DOXYCYCLINE, METRONIDAZOLE, AND NAPROXEN. CURRENT MEDICATIONS: Include lisinopril, Zantac, Synthroid, Elavil, insulin, Zosyn, daptomycin, tramadol, Tylenol, Zofran. PHYSICAL EXAMINATION: VITAL SIGNS: She is afebrile, pulse 101, respiratory rate is 18, blood pressure is 112/72, oxygen saturation is 100% on room air. GENERAL: She is awake, alert and oriented x3. She is in no acute distress. HEAD, EYES, EARS, NOSE, AND THROAT: Mucous membranes are moist. Extraocular muscles are intact. HEART: Regular. LUNGS: Clear. ABDOMEN: Abdomen is soft and nondistended. Abdominal binder is in place. This was removed. Drains do have cloudy fluid. There is no open area of wound dehiscence. There is minimal erythema suprapubically. This is nontender to palpation. LABORATORY STUDIES: CBC today reveals a white blood cell count of 5.5, hemoglobin 8.6, platelets are 283. Chemistry panel reveals a sodium of 136, potassium 3.9, chloride 99, bicarbonate 28, BUN 9, creatinine 0.8, glucose is 133. CRP is 11.5. LFTs were within normal limits on admission. Urinalysis is unremarkable. Wound cultures, blood cultures and urine cultures are pending. Venous Dopplers were negative for DVT. CT of the abdomen is as reviewed previously. ASSESSMENT AND PLAN: Abdominal wound infection with gram negative rods. She will be maintained on broad-spectrum antibiotics pending the results of further cultures. A surgical evaluation is pending as well. Thank you for this consultation.
[2016-10-31] MEDS: INSULIN ASPART 100 UNITS/ML 3 ML PEN SC SCH ×4 (10:51→21:33)
[2016-10-31 14:32] LABS: PARTIAL THROMBOPLASTIN RATIO 1.2
[2016-10-31] MEDS ORDERED: HEPARIN IV BOLUS 5,000 UNIT in SYRINGE 0 ML IV ONE (15:00)
[2016-10-31 15:26] VITALS: BP 104/69; PULSE 95; TEMP 36.6; O2SAT 100
--- NOTE | 2016-10-31 20:31 | Progress Note ---
Medicine Progress Note Date & Time of Visit: Oct 31, 2016 at 15:17 . Subjective Feels better today. No fever or chills. Cough improved. No dyspnea. No pleuritic chest pain. No anginal symptoms. Nausea resolved. No emesis. Diarrhea improved. No urinary symptoms. . Objective Last 8 Hrs Date Time Temp Pulse Resp B/P (MAP) Pulse Ox O2 Delivery O2 Flow Rate FiO2 10/31/16 07:26 Room Air 10/31/16 07:21 36.8 101 18 112/72 (85) 100 Room Air Physical Exam: General- no distress Neck- Lungs- clear to auscultation Heart- regular, no gallop appreciated Abdomen- obese, soft, nontender; lower abdominal incision and drain sites bandaged Extremities- 3+ pretibial edema Neuro- alert, oriented . Laboratory Results: Last 24 Hours Test 10/30/16 22:25 10/31/16 05:40 10/31/16 08:00 10/31/16 08:13 Bedside Glucose 141 mg/dl 262 mg/dl White Blood Count 4.96 K/uL 5.52 K/uL Red Blood Count 3.50 M/uL 3.50 M/uL Hemoglobin 8.4 g/dL 8.6 g/dL Hematocrit 27.8 % 27.8 % Mean Corpuscular Volume 79.4 fL 79.4 fL Mean Corpuscular Hemoglobin 24.0 pg 24.6 pg Mean Corpuscular Hemoglobin Concent 30.2 g/dl 30.9 g/dl RDW Standard Deviation 43.3 fL 43.7 fL RDW Coefficient of Variation 15.1 % 15.0 % Platelet Count 264 K/uL 283 K/uL Mean Platelet Volume 10.5 fL 10.3 fL Sodium Level 136 mmol/L Potassium Level 3.9 mmol/L Chloride Level 99 mmol/L Carbon Dioxide Level 28 mmol/L Anion Gap 9.0 mmol/L Blood Urea Nitrogen 9 mg/dl Creatinine 0.86 mg/dl Est Creatinine Clear Calc Drug Dose 74.2 ml/min Estimated GFR () 84.5 Estimated GFR (Non- 72.9 BUN/Creatinine Ratio 10.5 Random Glucose 133 mg/dl Estimated Average Glucose 154 mg/dl Hemoglobin A1c 7.0 % Calcium Level 7.1 mg/dl Iron Level 17 mcg/dl Total Iron Binding Capacity 223 mcg/dl Transferrin 169 mg/dl Transferrin % Saturation 7 % Ferritin 37.8 ng/ml C-Reactive Protein 11.50 mg/dl Neutrophils (%) (Auto) 76.2 % Lymphocytes (%) (Auto) 11.1 % Monocytes (%) (Auto) 8.0 % Eosinophils (%) (Auto) 4.5 % Basophils (%) (Auto) 0.2 % Neutrophils # (Auto) 4.21 K/uL Lymphocytes # (Auto) 0.61 K/uL Monocytes # (Auto) 0.44 K/uL Eosinophils # (Auto) 0.25 K/uL Basophils # (Auto) 0.01 K/uL Immature Granulocyte % (Auto) 0.0 % Immature Granulocyte # (Auto) 0.00 K/uL Red Blood Cell Morphology Unremarkable Prothrombin Time 11.5 SECONDS Prothromb Time International Ratio 1.1 Activated Partial Thromboplast Time 27.3 SECONDS Partial Thromboplastin Ratio 1.1 D-Dimer 5350 ug/L FEU Vitamin B12 Level 180 pg/mL Folate 13.08 ng/mL Test 10/31/16 09:50 10/31/16 12:00 10/31/16 14:15 Stool Occult Blood NEGATIVE Bedside Glucose 175 mg/dl Activated Partial Thromboplast Time 31.3 SECONDS Partial Thromboplastin Ratio 1.2 Date/Time Source Procedure Growth Status 10/31/16 09:50 Stool C.difficile Toxin B Gene (PCR) - Final No C. difficile toxin B gene detected Complete 10/30/16 18:55 Drainage-Deep Abdomin, Right Lower Quadrant Gram Stain - Final Resulted 10/30/16 18:55 Bacterial Culture - Preliminary Gram Negative Bacilli Resulted 10/30/16 18:55 Drainage-Deep Abdomen, Left Lower Quadrant Gram Stain - Final Resulted 10/30/16 18:55 Bacterial Culture - Preliminary Probable Pseudomonas Species Resulted Assessment & Plan ABDOMINAL WALL CELLULITIS Ventral hernia repair and panniculectomy performed at [facility] on 10/07/16. Patient presented to ED with chills, weakness, nausea. Examination suggested abdominal wall cellulitis. Did not appear to be septic. Blood cultures were obtained in ED and patient was started on IV antibiotic with piperacillin/tazobactam. IV daptomycin added for broader coverage. Check Gram stain and culture of drainage from surgical drains. Infectious Disease and General Surgery consulted. Afebrile today. Continue IV daptomycin and piperacillin/tazobactam pending culture results. POSSIBLE UTI No urinary symptoms. UA shows 5-10 WBCs, 15 WBC casts, no apparent bacteria. Urine culture pending. Continue IV daptomycin and piperacillin/tazobactam pending culture results. POSSIBLE PULMONARY EMBOLISM Possible segmental pulmonary embolism right middle lobe incidentally noted on CT of abdomen. Patient experiencing nonproductive cough and dyspnea, but no pleuritic chest pain. Venous duplex of lower extremities negative for DVT. Cannot do CTA of chest at this time due to contrast demonstration with CT of abdomen and pelvis. Furthermore, patient is on metformin therapy. Therefore, started anticoagulation with SQ enoxaparin pending additional data and further consultation. H/H fell this morning, so anticoagulation changed to IV heparin in case patient is experiencing any GI blood loss. DIASTOLIC CHF Chronic left ventricular systolic heart failure per previous echocardiograms. Experiencing increasing lower extremity edema postoperatively. Started on furosemide last week. Edema has improved, but persists. No radiographic evidence of CHF per chest x-ray. Hold furosemide due to current infection and demonstration of IV contrast. Diuresis PRN. HYPERTENSION Continue lisinopril with hold parameters. SLEEP APNEA Continue nocturnal O2. GERD Continue ranitidine. DIARRHEA Stool specimen for -[id number]- C. difficile negative. [correction MARIBETH 08:33] DM TYPE 2 Not recently well-controlled. Hemoglobin A1c = 7. Hold metformin. Lantus + NovoLog per protocol. HYPOTHYROIDISM Continue levothyroxine. DYSLIPIDEMIA Hold statin while receiving daptomycin. ANEMIA History of chronic iron deficiency anemia, but H/H lower than baseline probably secondary to recent surgery and apparent infection. Serum iron and transferrin saturation low. B12 low. Stool heme-negative. Continue iron supplementation. Initiate -a- -1-2- B12 supplementation. [correction MARIBETH 11/01/16 08:33] Follow H/H. VTE PROPHYLAXIS Initially received SQ enoxaparin for possible pulmonary embolism as discussed above. Now receiving IV unfractionated heparin. RESUSCITATION STATUS Full code as outlined in admission H&P. DISPOSITION Expected discharge to home. Internal Medicine follow-up with Dr. Mejía. Surgery follow-up with Dr. Rivera. . Current Inpatient Medications: Current Inpatient Medications Medications (Trade) Dose Ordered Sig/Kamla Route Start Time Stop Time Status Last Admin Dose Admin Ioversol (Optiray 320) 125 ml UD PRN IV 10/30/16 14:00 11/03/16 13:59 Acetaminophen (Tylenol Tab) 650 mg Q4H PRN PO 10/30/16 18:15 11/29/16 18:14 Ondansetron HCl (Zofran Inj) 4 mg Q6H PRN IV 10/30/16 18:15 11/29/16 18:14 Amitriptyline HCl (Elavil Tab) 100 mg HS PO 10/30/16 22:00 11/29/16 21:59 10/30/16 22:19 100 MG Insulin Aspart (novoLOG ASPART) ACHS SC 10/30/16 22:00 11/29/16 21:59 10/31/16 12:48 2 UNITS Insulin Glargine (Lantus Solostar Pen) 28 unit HS SC 10/30/16 22:00 11/29/16 21:59 10/30/16 22:36 28 UNIT Levothyroxine Sodium (Synthroid Tab) 100 mcg DAILYBB PO 10/31/16 06:00 11/30/16 05:59 10/31/16 05:43 100 MCG Lisinopril (Zestril Tab) 5 mg QAM PO 10/31/16 09:00 11/30/16 08:59 10/31/16 08:18 5 MG Ranitidine HCl (zANTac TAB) 300 mg DAILY PO 10/31/16 09:00 11/30/16 08:59 10/31/16 08:17 300 MG Tramadol HCl (Ultram Tab) 50 mg Q6H PRN PO 10/30/16 19:15 11/29/16 19:14 Piperacillin Sod/ Tazobactam Sod 4.5 gm/Dextrose 120 ml @ 30 mls/hr Q8H IV 10/30/16 22:00 11/09/16 21:59 10/31/16 13:55 30 MLS/HR Daptomycin 400 mg/ Sodium Chloride 58 ml @ 100 mls/hr DAILY@2100 IV 10/30/16 21:30 11/09/16 21:29 10/30/16 22:59 100 MLS/HR Glucose (Glucose 40% Gel) 15-30 GRAMS 15 GRAMS... UD PRN PO 10/30/16 21:00 11/29/16 20:59 Glucose (Glucose Chew Tab) 4-8 Tablets 4 Tabl... UD PRN PO 10/30/16 21:00 11/29/16 20:59 Dextrose (Dextrose 50% 50ML Syringe) 25-50ML OF 50% DW IV FOR... UD PRN IV 10/30/16 21:00 11/29/16 20:59 Glucagon (Glucagon Inj) 1 mg UD PRN SQ 10/30/16 21:00 11/29/16 20:59 Piperacillin Sod/ Tazobactam Sod (Consult) 1 ea UD PRN N/A 10/30/16 21:30 11/29/16 21:29 Heparin Sodium/ Dextrose 500 ml @ 30 mls/hr [id number] PRN IV 10/31/16 07:45 11/30/16 07:44 10/31/16 15:02 30 MLS/HR
[2016-10-31 21:23] LABS: PARTIAL THROMBOPLASTIN RATIO 1.4
[2016-10-31] MEDS: AMITRIPTYLINE HCL 100 MG TAB PO SCH (21:29)
[2016-10-31] MEDS: INSULIN GLARGINE SOLOSTAR 100 UNITS/ML 3 ML PEN SC SCH (21:33)
[2016-10-31] MEDS: DAPTOmycin IV 400 MG in SODIUM CHLORIDE 0.9% 50ML 50 ML IV SCH (21:36)
[2016-10-31] MEDS ORDERED: HEPARIN IV BOLUS 5,000 UNIT in SYRINGE 0 ML IV STA (22:16)
[2016-10-31 22:56] VITALS: BP 99/65; PULSE 95; TEMP 36.5; O2SAT 100
[2016-11-01] MEDS: HEPARIN 25,000 UNIT/500ML D5W 500 ML IV PRN ×4 (01:24→23:08)
[2016-11-01 04:27] LABS: HEMATOCRIT 27.2 % (37-47); MEAN CELL VOLUME 79.3 fL (80-100); MEAN CORPUSCULAR HEMOGLOBIN 23.6 pg (25-34); MEAN CORPUSCULAR HGB CONC 29.8 g/dl (32-36); MEAN PLATELET VOLUME 10.5 fL (7.4-10.4); PLATELET COUNT 277 K/uL (130-400); RED BLOOD COUNT 3.43 M/uL (4.2-5.4); WHITE BLOOD COUNT 5.37 K/uL (4.8-10.8)
[2016-11-01 04:42] LABS: BUN/CREATININE RATIO 8.4 (10-20); CALCIUM 7.3 mg/dl (8.5-10.1); CREATININE 0.88 mg/dl (0.60-1.20); POTASSIUM 4.3 mmol/L (3.5-5.1)
[2016-11-01 04:48] LABS: PARTIAL THROMBOPLASTIN RATIO 1.9
[2016-11-01] MEDS: PIPERACILL/TAZOBAC IV 4.5 GM in DEXTROSE 5% 100ML 100 ML IV SCH ×3 (05:54→21:17)
[2016-11-01] MEDS: LEVOTHYROXINE 100 MCG TAB PO SCH (05:58)
[2016-11-01 07:37] VITALS: BP 107/67; PULSE 76; TEMP 36.8; O2SAT 98
--- NOTE | 2016-11-01 08:32 | Progress Note ---
Medicine Progress Note Date & Time of Visit: Nov 01, 2016 at 07:40 . Subjective Afebrile. Occasional nonproductive cough. No SOB. No pleuritic chest pain. No anginal symptoms. Persistent dependent edema. No N/V. Persistent loose stools. No urinary symptoms. . Objective Last 8 Hrs Date Time Temp Pulse Resp B/P (MAP) Pulse Ox O2 Delivery O2 Flow Rate FiO2 11/01/16 07:37 36.8 76 16 107/67 (80) 98 Room Air 11/01/16 07:20 Room Air Physical Exam: General- no distress Neck- no JVD Lungs- clear to auscultation Heart- regular, no gallop appreciated Abdomen- obese, soft, nontender; lower abdominal incision and drain sites bandaged Extremities- 3+ pretibial edema; no calf tenderness Neuro- alert, oriented . Laboratory Results: Last 24 Hours Test 10/31/16 09:50 10/31/16 12:00 10/31/16 14:15 10/31/16 16:58 Stool Occult Blood NEGATIVE Bedside Glucose 175 mg/dl 152 mg/dl Activated Partial Thromboplast Time 31.3 SECONDS Partial Thromboplastin Ratio 1.2 Test 10/31/16 20:37 10/31/16 21:00 11/01/16 04:15 Bedside Glucose 199 mg/dl Activated Partial Thromboplast Time 35.8 SECONDS 49.0 SECONDS Partial Thromboplastin Ratio 1.4 1.9 White Blood Count 5.37 K/uL Red Blood Count 3.43 M/uL Hemoglobin 8.1 g/dL Hematocrit 27.2 % Mean Corpuscular Volume 79.3 fL Mean Corpuscular Hemoglobin 23.6 pg Mean Corpuscular Hemoglobin Concent 29.8 g/dl RDW Standard Deviation 44.0 fL RDW Coefficient of Variation 15.0 % Platelet Count 277 K/uL Mean Platelet Volume 10.5 fL Sodium Level 138 mmol/L Potassium Level 4.3 mmol/L Chloride Level 101 mmol/L Carbon Dioxide Level 32 mmol/L Anion Gap 5.0 mmol/L Blood Urea Nitrogen 7 mg/dl Creatinine 0.88 mg/dl Est Creatinine Clear Calc Drug Dose 72.5 ml/min Estimated GFR () 82.2 Estimated GFR (Non- 70.9 BUN/Creatinine Ratio 8.4 Random Glucose 119 mg/dl Calcium Level 7.3 mg/dl Date/Time Source Procedure Growth Status 10/31/16 09:50 Stool C.difficile Toxin B Gene (PCR) - Final No C. difficile toxin B gene detected Complete Assessment & Plan ABDOMINAL WALL CELLULITIS Ventral hernia repair and panniculectomy performed at [facility] on 10/07/16. Patient presented to ED with chills, weakness, nausea. Examination suggested abdominal wall cellulitis. Did not appear to be septic. Blood cultures were obtained in ED and patient was started on IV antibiotic with piperacillin/tazobactam. IV daptomycin added for broader coverage. Infectious Disease and General Surgery consulted. No drainable abscess. Blood cultures negative so far. Urine culture negative so far. Cultures from abdominal surgical drains growing probable Pseudomonas sp. Afebrile today. Continue IV daptomycin and piperacillin/tazobactam pending culture results. Day # 3. POSSIBLE UTI No urinary symptoms. UA shows 5-10 WBCs, 15 WBC casts, no apparent bacteria. Urine culture negative so far. Continue IV daptomycin and piperacillin/tazobactam pending final culture results. POSSIBLE PULMONARY EMBOLISM Possible segmental pulmonary embolism right middle lobe incidentally noted on CT of abdomen. Patient experiencing nonproductive cough and dyspnea, but no pleuritic chest pain. Venous duplex of lower extremities negative for DVT. Could not do CTA of chest immediately due to contrast demonstration with CT of abdomen and pelvis. Started anticoagulation with SQ enoxaparin pending additional data and further consultation. Changed to IV heparin in case patient is experiencing any GI blood loss. Serum creatinine stable. Check CTA today to clarify whether or not patient has thromboembolic disease. DIASTOLIC CHF Chronic left ventricular systolic heart failure per previous echocardiograms. Experiencing increasing lower extremity edema postoperatively. Started on furosemide last week. Edema has improved, but persists. No radiographic evidence of CHF per chest x-ray. Hold furosemide due to current infection and demonstration of IV contrast. Diurese PRN. HYPERTENSION Continue lisinopril with hold parameters. SLEEP APNEA Continue nocturnal O2. GERD Continue ranitidine. DIARRHEA Stool specimen for C. difficile negative. DM TYPE 2 Not recently well-controlled, probably due to infection. Hemoglobin A1c = 7. Hold metformin. Lantus + NovoLog per protocol. FBS today = 119. HYPOTHYROIDISM Continue levothyroxine. DYSLIPIDEMIA Hold statin while receiving daptomycin. ANEMIA History of chronic iron deficiency anemia, but H/H lower than baseline probably secondary to recent surgery and apparent infection. Serum iron and transferrin saturation low. B12 low. Stool heme-negative. Continue iron supplementation. Initiate B 12 supplementation. Hgb this morning = 8.1. Follow H/H. VTE PROPHYLAXIS Initially received SQ enoxaparin for possible pulmonary embolism as discussed above. Now receiving IV unfractionated heparin. RESUSCITATION STATUS Full code as outlined in admission H&P. DISPOSITION Expected discharge to home. Internal Medicine follow-up with Dr. Mejía. Surgery follow-up with Dr. Rivera. . Consultants: ID with Dr. Lewis General Surgery with Dr. Ace Pulmonary with Dr. Hdz . Procedures: CT abdomen + pelvis venous duplex lower extremities IV antibiotics . Current Inpatient Medications: Current Inpatient Medications Medications (Trade) Dose Ordered Sig/Kamla Route Start Time Stop Time Status Last Admin Dose Admin Ioversol (Optiray 320) 125 ml UD PRN IV 10/30/16 14:00 11/03/16 13:59 Acetaminophen (Tylenol Tab) 650 mg Q4H PRN PO 10/30/16 18:15 11/29/16 18:14 Ondansetron HCl (Zofran Inj) 4 mg Q6H PRN IV 10/30/16 18:15 11/29/16 18:14 Amitriptyline HCl (Elavil Tab) 100 mg HS PO 10/30/16 22:00 11/29/16 21:59 10/31/16 21:29 100 MG Insulin Aspart (novoLOG ASPART) ACHS SC 10/30/16 22:00 11/29/16 21:59 10/31/16 21:33 1 UNITS Insulin Glargine (Lantus Solostar Pen) 28 unit HS SC 10/30/16 22:00 11/29/16 21:59 10/31/16 21:33 28 UNIT Levothyroxine Sodium (Synthroid Tab) 100 mcg DAILYBB PO 10/31/16 06:00 11/30/16 05:59 11/01/16 05:58 100 MCG Lisinopril (Zestril Tab) 5 mg QAM PO 10/31/16 09:00 11/30/16 08:59 10/31/16 08:18 5 MG Ranitidine HCl (zANTac TAB) 300 mg DAILY PO 10/31/16 09:00 11/30/16 08:59 10/31/16 08:17 300 MG Tramadol HCl (Ultram Tab) 50 mg Q6H PRN PO 10/30/16 19:15 11/29/16 19:14 Piperacillin Sod/ Tazobactam Sod 4.5 gm/Dextrose 120 ml @ 30 mls/hr Q8H IV 10/30/16 22:00 11/09/16 21:59 11/01/16 05:54 30 MLS/HR Daptomycin 400 mg/ Sodium Chloride 58 ml @ 100 mls/hr DAILY@2100 IV 10/30/16 21:30 11/09/16 21:29 10/31/16 21:36 100 MLS/HR Glucose (Glucose 40% Gel) 15-30 GRAMS 15 GRAMS... UD PRN PO 10/30/16 21:00 11/29/16 20:59 Glucose (Glucose Chew Tab) 4-8 Tablets 4 Tabl... UD PRN PO 10/30/16 21:00 11/29/16 20:59 Dextrose (Dextrose 50% 50ML Syringe) 25-50ML OF 50% DW IV FOR... UD PRN IV 10/30/16 21:00 11/29/16 20:59 Glucagon (Glucagon Inj) 1 mg UD PRN SQ 10/30/16 21:00 11/29/16 20:59 Piperacillin Sod/ Tazobactam Sod (Consult) 1 ea UD PRN N/A 10/30/16 21:30 11/29/16 21:29 Heparin Sodium/ Dextrose 500 ml @ 35 mls/hr [id number] PRN IV 10/31/16 07:45 11/30/16 07:44 11/01/16 06:57 35 MLS/HR
[2016-11-01] MEDS: RANITIDINE HCL 150 MG TAB PO SCH (08:58)
[2016-11-01] MEDS: LISINOPRIL 5 MG TAB PO SCH (08:58)
[2016-11-01] MEDS: INSULIN ASPART 100 UNITS/ML 3 ML PEN SC SCH ×4 (09:02→20:48)
[2016-11-01] MEDS: TRAMADOL HCL 50 MG TAB PO PRN (09:58)
--- NOTE | 2016-11-01 10:40 | Surgery Progress Note ---
Surgery Progress Note Date of Service Nov 01, 2016. Subjective Feels better. Admitting symptoms of weakness/ dizziness resolved. No fevers. No wound drainage. Objective Vital Signs: Date Time Temp Pulse Resp B/P (MAP) Pulse Ox O2 Delivery O2 Flow Rate FiO2 11/01/16 07:37 36.8 76 16 107/67 (80) 98 Room Air 11/01/16 07:20 Room Air 10/31/16 23:30 Room Air 10/31/16 22:56 36.5 95 20 99/65 (76) 100 Room Air 10/31/16 15:45 Room Air 10/31/16 15:26 36.6 95 16 104/69 (81) 100 Room Air Physical Exam: MICKY drainage (serosanguinous) Incision(s): findings (improved erythema and induration at left MICKY and mid abdomen site.) Laboratory Results: Results Past 24 Hours Test 10/31/16 12:00 10/31/16 14:15 10/31/16 16:58 10/31/16 20:37 Range/Units Bedside Glucose 175 152 199 70-90 mg/dl Activated Partial Thromboplast Time 31.3 21.0-31.0 SECONDS Partial Thromboplastin Ratio 1.2 Test 10/31/16 21:00 11/01/16 04:15 11/01/16 08:22 Range/Units Activated Partial Thromboplast Time 35.8 49.0 21.0-31.0 SECONDS Partial Thromboplastin Ratio 1.4 1.9 White Blood Count 5.37 4.8-10.8 K/uL Red Blood Count 3.43 4.2-5.4 M/uL Hemoglobin 8.1 12.0-16.0 g/dL Hematocrit 27.2 37-47 % Mean Corpuscular Volume 79.3 80-100 fL Mean Corpuscular Hemoglobin 23.6 25-34 pg Mean Corpuscular Hemoglobin Concent 29.8 32-36 g/dl RDW Standard Deviation 44.0 36.4-46.3 fL RDW Coefficient of Variation 15.0 11.5-14.5 % Platelet Count 277 130-400 K/uL Mean Platelet Volume 10.5 7.4-10.4 fL Sodium Level 138 136-145 mmol/L Potassium Level 4.3 3.5-5.1 mmol/L Chloride Level 101 98-107 mmol/L Carbon Dioxide Level 32 21-32 mmol/L Anion Gap 5.0 3-11 mmol/L Blood Urea Nitrogen 7 7-18 mg/dl Creatinine 0.88 0.60-1.20 mg/dl Est Creatinine Clear Calc Drug Dose 72.5 ml/min Estimated GFR () 82.2 Estimated GFR (Non- 70.9 BUN/Creatinine Ratio 8.4 10-20 Random Glucose 119 70-99 mg/dl Calcium Level 7.3 8.5-10.1 mg/dl Bedside Glucose 121 70-90 mg/dl Assessment & Plan Improving cellulitis. Continue IV abx and then can switch to PO on discharge. Emphasized importance of staying on abx while her drains are in place. continue dry dressings over the wound. OK to d/c from surgical standpoint once medical issues resolved.
--- NOTE | 2016-11-01 11:12 | PULMONARY PROGRESS NOTE ---
DATE: 11/01/2016 TIME: 07:50 a.m. SUBJECTIVE: The patient is not experiencing any shortness of breath. She denies any cough or sputum production. She did not sleep well last night. She describes herself as a very light sleeper. I discussed with her the fact that having sleep apnea often results in disturbed nocturnal sleep. She does not believe it was an anxiety related situation. OBJECTIVE: GENERAL: The patient appears comfortable. Temperature is 36.8. ENT: Exam is unchanged from prior. HEART: Heart rate is 76 per minute. The rhythm is regular. Blood pressure is 107/67. LUNGS: Lung millan were clear bilaterally. Saturation today is 98% on room air. ABDOMEN: The upper abdomen is relatively soft. Bowel sounds are present. The drains are in place in the lower abdominal regions bilaterally. It is notable that the drainage cultures are positive for gram negative bacilli and suggestive for a probable pseudomonas. EXTREMITIES: Reveal +1 nonpitting edema bilaterally. LABORATORY DATA: White count today is 5.37. Hemoglobin is 8.1. Platelets are 277,000. PTT this morning is 49. D-dimer done yesterday was 5350. BUN today is 7 with a creatinine of 0.88. Electrolytes show sodium 138, potassium 4.3, chloride 101, bicarbonate 32. IMPRESSIONS: 1. Rule out pulmonary embolism. 2. Shortness of breath since her surgery. 3. Obesity. 4. Obstructive sleep apnea-untreated. COMMENTS: The patient clinically seems stable today. Case was discussed with Dr. Mcghee. She will be scheduled for the CT angio of the chest later today. Her creatinines are normal and it will have been almost 48 hours since her prior CAT scan of the abdomen. This should answer the question as to whether she has pulmonary embolic disease or not.
[2016-11-01] MEDS ORDERED: OPTIRAY 320 IV PRN (13:15)
--- NOTE | 2016-11-01 14:49 | DIAGNOSTIC IMAGING REPORT ---
CHEST CTA for PULMONARY ARTERIES CT DOSE: 720.14 mGy.cm HISTORY: Atypical chest pain. TECHNIQUE: Multiaxial CT images of the chest were performed following the intravenous administration of contrast to evaluate the pulmonary arteries. Maximal intensity projection images were also obtained. COMPARISON STUDY: Abdomen and pelvis CT 10/30/2016. FINDINGS: There are few small scattered nonocclusive filling defects seen within the segmental pulmonary arteries of the right upper lobe and right middle lobe. These demonstrate a peripheral location and may represent chronic rather than acute pulmonary embolus. No evidence for an aortic dissection. Hepatic steatosis. The visualized spleen and right adrenal gland are unremarkable. The left adrenal gland is not identified. Large hiatus hernia containing the entire stomach. No mediastinal or hilar lymphadenopathy. No fractures within the visualized osseous structures. No pleural effusions. No pneumothorax. Bibasilar linear densities likely represent subsegmental atelectasis. IMPRESSION: There are few small scattered nonocclusive filling defects seen within the segmental pulmonary arteries of the right upper lobe and right middle lobe. These demonstrate a peripheral location and may represent chronic rather than acute pulmonary embolus. Electronically signed by: Sarbjit Giron M.D. 11/01/2016 2:48 PM Dictated Date/Time: 11/01/2016 2:42 PM
[2016-11-01 15:08] VITALS: BP 113/73; PULSE 89; TEMP 36.8; O2SAT 99
[2016-11-01] MEDS: DAPTOmycin IV 400 MG in SODIUM CHLORIDE 0.9% 50ML 50 ML IV SCH (20:35)
[2016-11-01] MEDS: AMITRIPTYLINE HCL 100 MG TAB PO SCH (20:35)
[2016-11-01] MEDS: INSULIN GLARGINE SOLOSTAR 100 UNITS/ML 3 ML PEN SC SCH (20:47)
[2016-11-01 23:08] VITALS: BP 127/79; PULSE 75; TEMP 36.8; O2SAT 95
[2016-11-01 23:16] VITALS: BP 107/70; PULSE 80; TEMP 36.7; O2SAT 98
[2016-11-02 06:00] LABS: HEMATOCRIT 25.8 % (37-47); MEAN CELL VOLUME 79.9 fL (80-100); MEAN CORPUSCULAR HEMOGLOBIN 24.8 pg (25-34); MEAN PLATELET VOLUME 10.6 fL (7.4-10.4); PLATELET COUNT 290 K/uL (130-400); RED BLOOD COUNT 3.23 M/uL (4.2-5.4)
[2016-11-02 06:08] LABS: PARTIAL THROMBOPLASTIN RATIO 1.4
[2016-11-02] MEDS: LEVOTHYROXINE 100 MCG TAB PO SCH (06:26)
[2016-11-02] MEDS: PIPERACILL/TAZOBAC IV 4.5 GM in DEXTROSE 5% 100ML 100 ML IV SCH (06:26)
[2016-11-02 06:33] LABS: BUN/CREATININE RATIO 5.5 (10-20); CALCIUM 7.7 mg/dl (8.5-10.1); CREATININE 0.84 mg/dl (0.60-1.20); POTASSIUM 4.3 mmol/L (3.5-5.1)
[2016-11-02] MEDS: HEPARIN 25,000 UNIT/500ML D5W 500 ML IV PRN ×7 (06:41→23:06)
[2016-11-02] MEDS ORDERED: HEPARIN IV BOLUS 5,000 UNIT in SYRINGE 0 ML IV STA (06:55)
[2016-11-02 07:50] VITALS: BP 137/84; PULSE 94; TEMP 36.4; O2SAT 98
[2016-11-02 08:53] VITALS: BP 117/76
[2016-11-02] MEDS: LISINOPRIL 5 MG TAB PO SCH (08:53)
[2016-11-02] MEDS: INSULIN ASPART 100 UNITS/ML 3 ML PEN SC SCH ×4 (08:58→20:50)
[2016-11-02] MEDS: RANITIDINE HCL 150 MG TAB PO SCH (08:59)
--- NOTE | 2016-11-02 10:04 | Pulmonology Progress Note ---
Pulmonary Progress Note Date of Service Nov 02, 2016. Attending Dr. Berry Subjective Denies any symptoms of dyspnea with the exception of chronic orthopnea for which she states she wear O2 via NC at home. Refuses CPAP or nasal mask. Denies any cough or chest pain. Reports some abdominal pain today. Anxious for MICKY drain removal. Objective 60-yo female admitted through the ER 10/30/16 with 2-week h/o abdominal pain and nausea s/p hernia repair and panniculectomy 10/07/16. Prior records were reviewed. PMHx includes: DM II, diastolic HF, DLD, GERD, h/o gastric ulcer, HTN, Hypothyroid, Fe-deficiency anemia, migraine headache and sleep apnea (on nocturnal O2). She is a life-long non-smoker. 10/07/16 patient underwent abdominal hernia [place] [facility] [place] [facility]16[place]16. She presented to [facility] ER with 2-week h/o abdominal pain and nausea. W/U suggestive abdominal cellulitis with wound culture + gama sensitive pseudominas. GI w/u noted filling defects in the pulmonary arteries and CTA completed ? acute vs chronic right middle lobe segmental PE (as below) - CXR 10/30/16: hiatal hernia, small left sided pleural effusion. - Venous Doppler 10/30/16: 10/30/16: no DVT - CT Abdomen/Pelvis: post-operative changes with subQ edema. Possible segmental PE in the RML. Large hiatal hernia. Filling defects in bilateral groind veins favoring mixing artifact. - CTA 11/01/16: few small scattered nonocclusive filling defects in the segmental pulmonary arteries of the RUL and RML - may be chronic rather than acute PE. Large hiatal hernia> No adenopathy. -Abdominal cultures: RLQ/LLQ: pseudomonas aeruginosa - gama sensitive Today: - 98% RA - Afebrile, HD stable - Hgb/Hct/Plts: 4.10/8/25.8/290 Physical Exam: Constitutional: WDWN obese elderly female sitting in chair at bedside. No acute distress. Head: + facial symmetry Eyes: Pale conjunctiva. EOMi, PERRLA, no injection Mouth: Moist mucous membranes Respiratory: Incorrect use of bedside incentive spirometer. No wheeze, rales or rhonchi. BS equal bilaterally. CV: RRR, no MRG.Warm and perfused peripherally : Bilateral MICKY drain + serosanguineous fluid MSK/Extremities: moving and developed symmetrically. Bilateral +1 edema. Non- tender. No erythema. Neurologic: A&O. Good data recall. Appropriate affect. Assessment & Plan 60-yo female admitted with pseudomonas cultured from post-surgical abdominal wound. W/U with incidental finding of chronic RML PE: 1. Unable to determine if chronic vs acute RML PE but this would be provoked with recent surgery and infection - would recommend minimum 3-month anticoagulation 2. Sleep apnea: re-trial treatment recommended, patient refused and will continue nocturnal nasal cannula as prescribed 3. Patient imaging consistent with very large hiatal hernia - would recommend f/ u with GI as outpatient Case discussed with Dr. Berry Patient reviewed and plan agreed with. Data Medications: Current Inpatient Medications Medications (Trade) Dose Ordered Sig/Kamla Route Start Time Stop Time Status Last Admin Dose Admin Ioversol (Optiray 320) 125 ml UD PRN IV 10/30/16 14:00 11/03/16 13:59 Acetaminophen (Tylenol Tab) 650 mg Q4H PRN PO 10/30/16 18:15 11/29/16 18:14 Ondansetron HCl (Zofran Inj) 4 mg Q6H PRN IV 10/30/16 18:15 11/29/16 18:14 Amitriptyline HCl (Elavil Tab) 100 mg HS PO 10/30/16 22:00 11/29/16 21:59 11/01/16 20:35 100 MG Insulin Aspart (novoLOG ASPART) ACHS SC 10/30/16 22:00 11/29/16 21:59 11/02/16 08:58 3 UNITS Insulin Glargine (Lantus Solostar Pen) 28 unit HS SC 10/30/16 22:00 11/29/16 21:59 11/01/16 20:47 28 UNIT Levothyroxine Sodium (Synthroid Tab) 100 mcg DAILYBB PO 10/31/16 06:00 11/30/16 05:59 11/02/16 06:26 100 MCG Lisinopril (Zestril Tab) 5 mg QAM PO 10/31/16 09:00 11/30/16 08:59 10/31/16 08:18 5 MG Ranitidine HCl (zANTac TAB) 300 mg DAILY PO 10/31/16 09:00 11/30/16 08:59 11/02/16 08:59 300 MG Tramadol HCl (Ultram Tab) 50 mg Q6H PRN PO 10/30/16 19:15 11/29/16 19:14 11/01/16 09:58 50 MG Piperacillin Sod/ Tazobactam Sod 4.5 gm/Dextrose 120 ml @ 30 mls/hr Q8H IV 10/30/16 22:00 11/09/16 21:59 11/02/16 06:26 30 MLS/HR Daptomycin 400 mg/ Sodium Chloride 58 ml @ 100 mls/hr DAILY@2100 IV 10/30/16 21:30 11/09/16 21:29 11/01/16 20:35 100 MLS/HR Glucose (Glucose 40% Gel) 15-30 GRAMS 15 GRAMS... UD PRN PO 10/30/16 21:00 11/29/16 20:59 Glucose (Glucose Chew Tab) 4-8 Tablets 4 Tabl... UD PRN PO 10/30/16 21:00 11/29/16 20:59 Dextrose (Dextrose 50% 50ML Syringe) 25-50ML OF 50% DW IV FOR... UD PRN IV 10/30/16 21:00 11/29/16 20:59 Glucagon (Glucagon Inj) 1 mg UD PRN SQ 10/30/16 21:00 11/29/16 20:59 Piperacillin Sod/ Tazobactam Sod (Consult) 1 ea UD PRN N/A 10/30/16 21:30 11/29/16 21:29 Heparin Sodium/ Dextrose 500 ml @ 40 mls/hr [id number] PRN IV 10/31/16 07:45 11/30/16 07:44 11/02/16 07:19 40 MLS/HR Ioversol (Optiray 320) 111 ml UD PRN IV 11/01/16 13:15 11/05/16 13:14 Vital Signs: Date Time Temp Pulse Resp B/P (MAP) Pulse Ox O2 Delivery O2 Flow Rate FiO2 11/02/16 08:53 117/76 (90) 11/02/16 07:50 36.4 94 20 137/84 (101) 98 Room Air 11/02/16 07:22 Room Air 11/01/16 23:55 Nasal Cannula 2.0 11/01/16 23:16 36.7 80 16 107/70 (82) 98 Nasal Cannula 2.0 11/01/16 15:40 Room Air 11/01/16 15:08 36.8 89 16 113/73 (86) 99 Room Air Laboratory Results: Last 24 Hours Test 11/01/16 12:34 11/01/16 17:07 11/01/16 20:39 11/02/16 05:20 Bedside Glucose 164 mg/dl 202 mg/dl 219 mg/dl White Blood Count 4.10 K/uL Red Blood Count 3.23 M/uL Hemoglobin 8.0 g/dL Hematocrit 25.8 % Mean Corpuscular Volume 79.9 fL Mean Corpuscular Hemoglobin 24.8 pg Mean Corpuscular Hemoglobin Concent 31.0 g/dl RDW Standard Deviation 44.4 fL RDW Coefficient of Variation 15.1 % Platelet Count 290 K/uL Mean Platelet Volume 10.6 fL Activated Partial Thromboplast Time 37.4 SECONDS Partial Thromboplastin Ratio 1.4 Sodium Level 138 mmol/L Potassium Level 4.3 mmol/L Chloride Level 102 mmol/L Carbon Dioxide Level 29 mmol/L Anion Gap 7.0 mmol/L Blood Urea Nitrogen 5 mg/dl Creatinine 0.84 mg/dl Est Creatinine Clear Calc Drug Dose 75.9 ml/min Estimated GFR () 86.9 Estimated GFR (Non- 75.0 BUN/Creatinine Ratio 5.5 Random Glucose 179 mg/dl Calcium Level 7.7 mg/dl Test 11/02/16 08:10 Bedside Glucose 202 mg/dl
[2016-11-02] MEDS: TRAMADOL HCL 50 MG TAB PO PRN ×2 (10:06→21:14)
--- NOTE | 2016-11-02 11:25 | Progress Note ---
Subjective Date of Service: Nov 02, 2016. Subjective Pt evaluation today including: conversation w/ patient, physical exam, chart review, lab review pt OOB to chair, some pain llq but otherwise pt has no complaints. afebrile. tolerating abx. still with loose stool but c diff negative. culture from abd growing pseudomonas x 2. blood cultures negative. afebrile. no cp, sob, n/v, denies bloody stool. pt unclear if she is to follow with surgery in [place] for drain removal. states less drainage from b/l abd drains. all remaining ros reviewed and are negative. cta done, ? chronic pe. Problem List Medical Problems: (1) Abdominal wall cellulitis Status: Acute (2) Anemia Status: Acute (3) Pulmonary embolism Status: Acute Objective Vital Signs Date Time Temp Pulse Resp B/P (MAP) Pulse Ox O2 Delivery O2 Flow Rate FiO2 11/02/16 08:53 117/76 (90) 11/02/16 07:50 36.4 94 20 137/84 (101) 98 Room Air 11/02/16 07:22 Room Air 11/01/16 23:55 Nasal Cannula 2.0 11/01/16 23:16 36.7 80 16 107/70 (82) 98 Nasal Cannula 2.0 11/01/16 15:40 Room Air 11/01/16 15:08 36.8 89 16 113/73 (86) 99 Room Air Physical Exam General Appearance: WD/WN, no apparent distress Eyes: normal inspection, EOMI Neck: supple Respiratory/Chest: lungs clear, normal breath sounds, no respiratory distress Cardiovascular: regular rate, rhythm, no edema Abdomen: non tender, soft Extremities: non-tender, normal inspection, no pedal edema Neurologic/Psychiatric: alert, oriented x 3 Skin: normal color Comments: abd drain in place, min serosang draiange, no purulence noted. dressing c/d/i, no surrounding erythema, warmth, tenderness Laboratory Results Item Value Date Time Blood Culture - Preliminary Resulted 10/30/16 1405 Blood NO GROWTH TO DATE. Blood Culture - Preliminary Resulted 10/30/16 1410 Blood NO GROWTH TO DATE. Gram Stain - Final Resulted 10/30/16 1855 Drainage-Deep Abdomen, Left Lower Quadrant Gram Stain - Final Resulted 10/30/16 1855 Drainage-Deep Abdomin, Right Lower Quadrant C.difficile Toxin B Gene (PCR) - Final Complete 10/31/16 0950 Stool No C. difficile toxin B gene detected Gram Stain - Final Resulted 10/30/16 1855 Drainage-Deep Abdomin, Right Lower Quadrant Gram Stain - Final Resulted 10/30/16 1855 Drainage-Deep Abdomen, Left Lower Quadrant Last 24 Hours Test 11/01/16 12:34 11/01/16 17:07 11/01/16 20:39 11/02/16 05:20 Bedside Glucose 164 mg/dl 202 mg/dl 219 mg/dl White Blood Count 4.10 K/uL Red Blood Count 3.23 M/uL Hemoglobin 8.0 g/dL Hematocrit 25.8 % Mean Corpuscular Volume 79.9 fL Mean Corpuscular Hemoglobin 24.8 pg Mean Corpuscular Hemoglobin Concent 31.0 g/dl RDW Standard Deviation 44.4 fL RDW Coefficient of Variation 15.1 % Platelet Count 290 K/uL Mean Platelet Volume 10.6 fL Activated Partial Thromboplast Time 37.4 SECONDS Partial Thromboplastin Ratio 1.4 Sodium Level 138 mmol/L Potassium Level 4.3 mmol/L Chloride Level 102 mmol/L Carbon Dioxide Level 29 mmol/L Anion Gap 7.0 mmol/L Blood Urea Nitrogen 5 mg/dl Creatinine 0.84 mg/dl Est Creatinine Clear Calc Drug Dose 75.9 ml/min Estimated GFR () 86.9 Estimated GFR (Non- 75.0 BUN/Creatinine Ratio 5.5 Random Glucose 179 mg/dl Calcium Level 7.7 mg/dl Test 11/02/16 08:10 Bedside Glucose 202 mg/dl Assessment and Plan (1) Post-operative infection Assessment & Plan: will change abx to levaquin and leiws for ? anaerobic involvement. will give min 14days, encourage probiotics. will need outpt surgery eval, likely in [place], to address drains. ok for d/c when medically stable. (2) Panniculitis
[2016-11-02] MEDS: ACETAMINOPHEN 325 MG TAB PO PRN (11:40)
[2016-11-02] MEDS: LEVOFLOXACIN 500 MG TAB PO SCH (12:44)
[2016-11-02 13:47] LABS: PARTIAL THROMBOPLASTIN RATIO 1.6
[2016-11-02] MEDS ORDERED: HEPARIN IV BOLUS 3,000 UNIT in SYRINGE 0 ML IV SCH (14:30)
[2016-11-02 14:57] VITALS: BP 119/78; PULSE 85; TEMP 36.5; O2SAT 100
[2016-11-02] MEDS ORDERED: WARFARIN SOD 10 MG TAB PO ONE (16:00)
[2016-11-02] MEDS ORDERED: FUROSEMIDE INJ 40 MG in SYRINGE 0 ML IV SCH (16:00)
[2016-11-02] MEDS: AMITRIPTYLINE HCL 100 MG TAB PO SCH (20:29)
[2016-11-02] MEDS: INSULIN GLARGINE SOLOSTAR 100 UNITS/ML 3 ML PEN SC SCH (20:52)
[2016-11-02 21:07] LABS: PARTIAL THROMBOPLASTIN RATIO 1.7
[2016-11-02] MEDS ORDERED: HEPARIN IV BOLUS 3,000 UNIT in SYRINGE 0 ML IV ONE (21:30)
[2016-11-02 22:47] VITALS: BP 124/89; PULSE 76; TEMP 36.7; O2SAT 100
--- NOTE | 2016-11-02 22:54 | Progress Note ---
Medicine Progress Note Date & Time of Visit: Nov 02, 2016 at 15:24 . Subjective Generally feels much better. No fever or chills. Minimal cough, no dyspnea. No pleuritic chest pain. No chest pain. Persistent dependent edema. No nausea, vomiting, diarrhea. No dysuria or hematuria. . Objective Last 8 Hrs Date Time Temp Pulse Resp B/P (MAP) Pulse Ox O2 Delivery O2 Flow Rate FiO2 11/02/16 14:57 36.5 85 18 119/78 (92) 100 Room Air 11/02/16 08:53 117/76 (90) 11/02/16 07:50 36.4 94 20 137/84 (101) 98 Room Air Physical Exam: General- no distress Neck- no JVD Lungs- clear to auscultation Heart- regular, no gallop appreciated Abdomen- obese, soft, nontender; lower abdominal incision and drain sites bandaged Extremities- 3+ pretibial edema; no calf tenderness Neuro- alert, oriented . Laboratory Results: Last 24 Hours Test 11/01/16 17:07 11/01/16 20:39 11/02/16 05:20 11/02/16 08:10 Bedside Glucose 202 mg/dl 219 mg/dl 202 mg/dl White Blood Count 4.10 K/uL Red Blood Count 3.23 M/uL Hemoglobin 8.0 g/dL Hematocrit 25.8 % Mean Corpuscular Volume 79.9 fL Mean Corpuscular Hemoglobin 24.8 pg Mean Corpuscular Hemoglobin Concent 31.0 g/dl RDW Standard Deviation 44.4 fL RDW Coefficient of Variation 15.1 % Platelet Count 290 K/uL Mean Platelet Volume 10.6 fL Activated Partial Thromboplast Time 37.4 SECONDS Partial Thromboplastin Ratio 1.4 Sodium Level 138 mmol/L Potassium Level 4.3 mmol/L Chloride Level 102 mmol/L Carbon Dioxide Level 29 mmol/L Anion Gap 7.0 mmol/L Blood Urea Nitrogen 5 mg/dl Creatinine 0.84 mg/dl Est Creatinine Clear Calc Drug Dose 75.9 ml/min Estimated GFR () 86.9 Estimated GFR (Non- 75.0 BUN/Creatinine Ratio 5.5 Random Glucose 179 mg/dl Calcium Level 7.7 mg/dl Test 11/02/16 11:59 11/02/16 13:20 Bedside Glucose 214 mg/dl Activated Partial Thromboplast Time 41.6 SECONDS Partial Thromboplastin Ratio 1.6 Assessment & Plan ABDOMINAL WALL CELLULITIS Ventral hernia repair and panniculectomy performed at [facility] on 10/07/16. Patient presented to ED with chills, weakness, nausea. Examination suggested abdominal wall cellulitis. Did not appear to be septic. Blood cultures were obtained in ED and patient was started on IV antibiotic with piperacillin/tazobactam. IV daptomycin added for broader coverage. Infectious Disease and General Surgery consulted. Blood cultures negative. Cultures from both abdominal drains growing Pseudomonas aeruginosa, sensitive to quinolones and other antibiotics tested. Transition to oral therapy with levofloxacin recommended; recommended duration of treatment at least 14 days or longer if surgical drains remain in place. ABNORMAL UA No urinary symptoms. UA shows 5-10 WBCs, 15 WBC casts, no apparent bacteria. Urine culture negative. POSSIBLE PULMONARY EMBOLISM Possible segmental pulmonary embolism right middle lobe incidentally noted on CT of abdomen. Patient experiencing nonproductive cough and dyspnea, but no pleuritic chest pain. Venous duplex of lower extremities negative for DVT. Could not do CTA of chest initially because of IV contrast administered with CT of abdomen and pelvis. Therefore, started anticoagulation with SQ enoxaparin pending additional data and further consultation. H/H fell, so anticoagulation changed to IV heparin. CTA 11/01 demonstrated bilateral segmental thrombi. Discuss with Pulmonary Medicine. Anticoagulation recommended for 3 months. Treatment options discussed with patient and her sister. Warfarin therapy preferred over DOACs due to lower-cost and reversibility. Start warfarin today. Continue IV heparin for now with tentative transition to SQ enoxaparin if H/H remained stable. Will need at least 5 days of overlapping therapy with warfarin / IV heparin-SQ enoxaparin. DIASTOLIC CHF Chronic left ventricular systolic heart failure per previous echocardiograms. May have component of right-sided heart failure as well from underlying pulmonary disease. Started on furosemide the week prior to admission. No radiographic evidence of CHF per chest x-ray. Held furosemide due to current infection and demonstration of IV contrast. Persistent 3+ edema. Restart furosemide, initially intravenously. HYPERTENSION Continue lisinopril with hold parameters. SLEEP APNEA Continue nocturnal O2. GERD Continue ranitidine. DIARRHEA Stool specimen for C. difficile negative. DM TYPE 2 Not recently well-controlled. Hemoglobin A1c = 7. Hold metformin. Lantus + NovoLog per protocol. Fasting blood sugar today = 202. HYPOTHYROIDISM Continue levothyroxine. DYSLIPIDEMIA Hold statin while receiving daptomycin. ANEMIA History of chronic iron deficiency anemia, but H/H lower than baseline probably secondary to recent surgery and apparent infection. Serum iron and transferrin saturation low. B12 low. Stool heme-negative on 10/31. Last colonoscopy 2014. Continue iron supplementation. Initiate B12 supplementation. Follow H/H closely while receiving anticoagulants. VTE PROPHYLAXIS Initially received SQ enoxaparin for possible pulmonary embolism as discussed above. Now receiving IV unfractionated heparin. RESUSCITATION STATUS Full code as outlined in admission H&P. DISPOSITION Expected discharge to home. Internal Medicine follow-up with Dr. Mejía. Surgery follow-up with Dr. Rivera. . Consultants: ID with Dr. Lewis General Surgery with Dr. Ace Pulmonary with Dr. Hdz . Procedures: CT abdomen + pelvis venous duplex lower extremities IV antibiotics . Current Inpatient Medications: Current Inpatient Medications Medications (Trade) Dose Ordered Sig/Kamla Route Start Time Stop Time Status Last Admin Dose Admin Ioversol (Optiray 320) 125 ml UD PRN IV 10/30/16 14:00 11/03/16 13:59 Acetaminophen (Tylenol Tab) 650 mg Q4H PRN PO 10/30/16 18:15 11/29/16 18:14 11/02/16 11:40 650 MG Ondansetron HCl (Zofran Inj) 4 mg Q6H PRN IV 10/30/16 18:15 11/29/16 18:14 Amitriptyline HCl (Elavil Tab) 100 mg HS PO 10/30/16 22:00 11/29/16 21:59 11/01/16 20:35 100 MG Insulin Aspart (novoLOG ASPART) ACHS SC 10/30/16 22:00 11/29/16 21:59 11/02/16 12:47 5 UNITS Insulin Glargine (Lantus Solostar Pen) 28 unit HS SC 10/30/16 22:00 11/29/16 21:59 11/01/16 20:47 28 UNIT Levothyroxine Sodium (Synthroid Tab) 100 mcg DAILYBB PO 10/31/16 06:00 11/30/16 05:59 11/02/16 06:26 100 MCG Lisinopril (Zestril Tab) 5 mg QAM PO 10/31/16 09:00 11/30/16 08:59 10/31/16 08:18 5 MG Ranitidine HCl (zANTac TAB) 300 mg DAILY PO 10/31/16 09:00 11/30/16 08:59 11/02/16 08:59 300 MG Tramadol HCl (Ultram Tab) 50 mg Q6H PRN PO 10/30/16 19:15 11/29/16 19:14 11/02/16 10:06 50 MG Glucose (Glucose 40% Gel) 15-30 GRAMS 15 GRAMS... UD PRN PO 10/30/16 21:00 11/29/16 20:59 Glucose (Glucose Chew Tab) 4-8 Tablets 4 Tabl... UD PRN PO 10/30/16 21:00 11/29/16 20:59 Dextrose (Dextrose 50% 50ML Syringe) 25-50ML OF 50% DW IV FOR... UD PRN IV 10/30/16 21:00 11/29/16 20:59 Glucagon (Glucagon Inj) 1 mg UD PRN SQ 10/30/16 21:00 11/29/16 20:59 Heparin Sodium/ Dextrose 500 ml @ 43 mls/hr [id number] PRN IV 10/31/16 07:45 11/30/16 07:44 11/02/16 15:20 43 MLS/HR Ioversol (Optiray 320) 111 ml UD PRN IV 11/01/16 13:15 11/05/16 13:14 Levofloxacin (Levaquin Tab) 500 mg DAILY@11 PO 11/02/16 12:00 11/12/16 11:59 11/02/16 12:44 500 MG Heparin Sodium (Porcine) 3000 unit/Syringe 3 ml @ 10 mls/min TODAY@1430 IV 11/02/16 14:30 11/02/16 16:00 11/02/16 14:36 10 MLS/MIN
[2016-11-03 04:13] LABS: INR 1.1 (0.9-1.1); PARTIAL THROMBOPLASTIN RATIO 2.5
[2016-11-03 04:18] LABS: BUN/CREATININE RATIO 4.9 (10-20); CREATININE 0.92 mg/dl (0.60-1.20); POTASSIUM 4.7 mmol/L (3.5-5.1)
[2016-11-03] MEDS: LEVOTHYROXINE 100 MCG TAB PO SCH (05:27)
[2016-11-03] MEDS: HEPARIN 25,000 UNIT/500ML D5W 500 ML IV PRN ×3 (07:12→18:57)
[2016-11-03 07:57] VITALS: BP 122/70; PULSE 80; TEMP 36.6; O2SAT 100
[2016-11-03 08:00] VITALS: O2SAT 100
[2016-11-03 08:50] VITALS: O2SAT 100
[2016-11-03] MEDS: RANITIDINE HCL 150 MG TAB PO SCH (09:11)
[2016-11-03] MEDS: LISINOPRIL 5 MG TAB PO SCH (09:11)
[2016-11-03] MEDS: FUROSEMIDE INJ 40 MG in SYRINGE 0 ML IV SCH ×2 (09:12→15:13)
[2016-11-03] MEDS: CYANOCOBALAMIN 500 MCG TAB (VIT B-12) PO SCH (09:12)
[2016-11-03 09:15] VITALS: BP 129/82
[2016-11-03] MEDS: INSULIN ASPART 100 UNITS/ML 3 ML PEN SC SCH ×4 (09:22→21:09)
[2016-11-03] MEDS: LEVOFLOXACIN 500 MG TAB PO SCH (11:18)
[2016-11-03] MEDS: FERROUS SULFATE 325 MG TAB PO SCH (11:18)
[2016-11-03] MEDS: ACETAMINOPHEN 325 MG TAB PO PRN (15:13)
[2016-11-03] MEDS: WARFARIN SOD 5 MG TAB PO SCH (15:13)
[2016-11-03 15:37] VITALS: BP 106/71; PULSE 94; TEMP 36.9; O2SAT 100
--- NOTE | 2016-11-03 16:13 | Progress Note ---
Internal Med Progress Note Date of Service: Nov 03, 2016. Provider Documentation: SUBJECTIVE: sitting on the chair comfortably afebrile no sob eating ok no cough OBJECTIVE: Vital Signs-as noted below Exam: General-alert and oriented. Not in distress ENT-normal hearing Neck-no neck masses Lungs-cta b/l no wheezing or crackles Heart-s1 and s2 heard regular no murmurs Abdomen-soft bowel sounds present has drains and dressing no distension Extremities-no edema no erythema Neuro-alert and oriented moves extremities Lab data as noted below. ASSESSMENT & PLAN: ABDOMINAL WALL CELLULITIS s/p Ventral hernia repair and panniculectomy performed at [facility] on 10/07/16 and still has drains. Supposed to follow at [facility] .. presented with abdominal wall cellulitis was started on Zosyn and daptomycin cultures from both drains growing pseudomonas ID on board and recommended 14 days of Levaquin and longer if drains are still kept. ABNORMAL UA No urinary symptoms. Urine culture negative. POSSIBLE PULMONARY EMBOLISM Possible segmental pulmonary embolism right middle lobe incidentally noted on CT of abdomen. Patient experiencing nonproductive cough and dyspnea, but no pleuritic chest pain. Venous duplex of lower extremities - No DVT. CTA 11/01 demonstrated bilateral segmental thrombi. Dr. Mcghee Discussed with Pulmonary Medicine and anticoagulation recommended for 3 months. on iv heparin and Coumadin Plan for Lovenox bridge on discharge DIASTOLIC CHF Chronic left ventricular diastolic heart failure per previous echocardiograms. possible right-sided heart failure as well from underlying pulmonary disease. Recently started on furosemide the week prior to admission. initially Lasix was held due to current infection and demonstration of IV contrast. Persistent 3+ edema. Restarted with iv Lasix. Will monitor HYPERTENSION On lisinopril with hold parameters. SLEEP APNEA Continue nocturnal O2. GERD Continue ranitidine. DIARRHEA Stool specimen for C. difficile negative. DM TYPE 2 Hemoglobin A1c = 7. Holding metformin. On Lantus + NovoLog per protocol. Fasting blood sugar today = 165. Will monitor HYPOTHYROIDISM Continue levothyroxine. DYSLIPIDEMIA Holding statin ANEMIA History of chronic iron deficiency anemia, but H/H lower than baseline could be secondary to recent surgery and apparent infection. Serum iron and transferrin saturation low. B12 low at 180. Stool heme-negative on 10/31. Last colonoscopy 2014. Continue iron supplementation. Initiated B12 supplementation. Will follow H/H closely while receiving anticoagulants. VTE PROPHYLAXIS currently on IV unfractionated heparin. RESUSCITATION STATUS Full code as outlined in admission H&P. DISPOSITION possible d/c in am on lovenox bridge Internal Medicine follow-up with Dr. Mejía. Surgery follow-up with Dr. Rivera. . Consultants: ID with Dr. Lewis General Surgery with Dr. Ace Pulmonary with Dr. Hdz . Vital Signs: Date Time Temp Pulse Resp B/P (MAP) Pulse Ox O2 Delivery O2 Flow Rate FiO2 11/03/16 09:15 129/82 (98) 11/03/16 08:50 100 Room Air 11/03/16 08:00 100 Room Air 11/03/16 07:57 36.6 80 16 122/70 (87) 100 Room Air 11/02/16 23:45 Nasal Cannula 2.0 11/02/16 22:47 36.7 76 14 124/89 (101) 100 Nasal Cannula 2.0 11/02/16 17:00 Room Air Lab Results: Results Past 24 Hours Test 11/02/16 16:56 11/02/16 20:17 11/02/16 20:38 11/03/16 03:45 Range/Units Bedside Glucose 181 225 70-90 mg/dl Activated Partial Thromboplast Time 44.3 64.1 21.0-31.0 SECONDS Partial Thromboplastin Ratio 1.7 2.5 Prothrombin Time 12.0 9.0-12.0 SECONDS Prothromb Time International Ratio 1.1 0.9-1.1 Sodium Level 138 136-145 mmol/L Potassium Level 4.7 3.5-5.1 mmol/L Chloride Level 100 98-107 mmol/L Carbon Dioxide Level 33 21-32 mmol/L Anion Gap 5.0 3-11 mmol/L Blood Urea Nitrogen 5 7-18 mg/dl Creatinine 0.92 0.60-1.20 mg/dl Est Creatinine Clear Calc Drug Dose 69.3 ml/min Estimated GFR () 77.9 Estimated GFR (Non- 67.2 BUN/Creatinine Ratio 4.9 10-20 Random Glucose 165 70-99 mg/dl Calcium Level 8.0 8.5-10.1 mg/dl Test 11/03/16 07:56 11/03/16 11:53 Range/Units Bedside Glucose 164 224 70-90 mg/dl
--- NOTE | 2016-11-03 17:30 | Pulmonology Progress Note ---
Pulmonary Progress Note Date of Service Nov 03, 2016. Attending Dr. Del Castillo Subjective Feels ok, up in chair, no respiratory difficulty Objective General: Obese, NAD HEENT: NC/AT Lungs: clear, distant breath sounds CVS: distant heart sounds, regular Abd: Obese, 2 MICKY drains in inferior part Ext: B/l trace edema Assessment & Plan 60-yo female admitted with pseudomonas cultured from post-surgical abdominal wound. W/U with incidental finding of chronic RML and RUL PE: Plan: Needs anticoagulation for three months Currently on heparin drip, started on Coumadin To be discharged on Lovenox bridging to Coumadin Reconsult pulmonary as needed. Data Medications: Current Inpatient Medications Medications (Trade) Dose Ordered Sig/Kamla Route Start Time Stop Time Status Last Admin Dose Admin Acetaminophen (Tylenol Tab) 650 mg Q4H PRN PO 10/30/16 18:15 11/29/16 18:14 11/03/16 15:13 650 MG Ondansetron HCl (Zofran Inj) 4 mg Q6H PRN IV 10/30/16 18:15 11/29/16 18:14 Amitriptyline HCl (Elavil Tab) 100 mg HS PO 10/30/16 22:00 11/29/16 21:59 11/02/16 20:29 100 MG Insulin Aspart (novoLOG ASPART) ACHS SC 10/30/16 22:00 11/29/16 21:59 11/03/16 13:33 5 UNITS Insulin Glargine (Lantus Solostar Pen) 28 unit HS SC 10/30/16 22:00 11/29/16 21:59 11/02/16 20:52 28 UNIT Levothyroxine Sodium (Synthroid Tab) 100 mcg DAILYBB PO 10/31/16 06:00 11/30/16 05:59 11/03/16 05:27 100 MCG Lisinopril (Zestril Tab) 5 mg QAM PO 10/31/16 09:00 11/30/16 08:59 11/03/16 09:11 5 MG Ranitidine HCl (zANTac TAB) 300 mg DAILY PO 10/31/16 09:00 11/30/16 08:59 11/03/16 09:11 300 MG Tramadol HCl (Ultram Tab) 50 mg Q6H PRN PO 10/30/16 19:15 11/29/16 19:14 11/02/16 21:14 50 MG Glucose (Glucose 40% Gel) 15-30 GRAMS 15 GRAMS... UD PRN PO 10/30/16 21:00 11/29/16 20:59 Glucose (Glucose Chew Tab) 4-8 Tablets 4 Tabl... UD PRN PO 10/30/16 21:00 11/29/16 20:59 Dextrose (Dextrose 50% 50ML Syringe) 25-50ML OF 50% DW IV FOR... UD PRN IV 10/30/16 21:00 11/29/16 20:59 Glucagon (Glucagon Inj) 1 mg UD PRN SQ 10/30/16 21:00 11/29/16 20:59 Heparin Sodium/ Dextrose 500 ml @ 46 mls/hr [id number] PRN IV 10/31/16 07:45 11/30/16 07:44 11/03/16 15:06 46 MLS/HR Ioversol (Optiray 320) 111 ml UD PRN IV 11/01/16 13:15 11/05/16 13:14 Levofloxacin (Levaquin Tab) 500 mg DAILY@11 PO 11/02/16 12:00 11/12/16 11:59 11/03/16 11:18 500 MG Furosemide 40 mg/ Syringe 4 ml @ 4 mls/min BID@0900,1500 IV 11/03/16 09:00 12/03/16 08:59 11/03/16 15:13 4 MLS/MIN Warfarin Sodium (Coumadin Tab) 5 mg DAILY@16 PO 11/03/16 16:00 12/03/16 15:59 11/03/16 15:13 5 MG Ferrous Sulfate (Feosol Tab) 325 mg DAILY@1200 PO 11/03/16 12:00 12/03/16 11:59 11/03/16 11:18 325 MG Cyanocobalamin (Vitamin B-12 Tab) 1,000 mcg QAM PO 11/03/16 09:00 12/03/16 08:59 11/03/16 09:12 1,000 MCG I & O: 24-Hour Column 11/04/16 08:00 Intake Total 1142 ml Output Total 830 ml Balance 312 ml Vital Signs: Date Time Temp Pulse Resp B/P (MAP) Pulse Ox O2 Delivery O2 Flow Rate FiO2 11/03/16 15:37 36.9 94 16 106/71 (83) 100 Room Air 11/03/16 09:15 129/82 (98) 11/03/16 08:50 100 Room Air 11/03/16 08:00 100 Room Air 11/03/16 07:57 36.6 80 16 122/70 (87) 100 Room Air 11/02/16 23:45 Nasal Cannula 2.0 11/02/16 22:47 36.7 76 14 124/89 (101) 100 Nasal Cannula 2.0 Laboratory Results: Last 24 Hours Test 11/02/16 20:17 11/02/16 20:38 11/03/16 03:45 11/03/16 07:56 Bedside Glucose 225 mg/dl 164 mg/dl Activated Partial Thromboplast Time 44.3 SECONDS 64.1 SECONDS Partial Thromboplastin Ratio 1.7 2.5 Prothrombin Time 12.0 SECONDS Prothromb Time International Ratio 1.1 Sodium Level 138 mmol/L Potassium Level 4.7 mmol/L Chloride Level 100 mmol/L Carbon Dioxide Level 33 mmol/L Anion Gap 5.0 mmol/L Blood Urea Nitrogen 5 mg/dl Creatinine 0.92 mg/dl Est Creatinine Clear Calc Drug Dose 69.3 ml/min Estimated GFR () 77.9 Estimated GFR (Non- 67.2 BUN/Creatinine Ratio 4.9 Random Glucose 165 mg/dl Calcium Level 8.0 mg/dl Test 11/03/16 11:53 Bedside Glucose 224 mg/dl
[2016-11-03] MEDS: TRAMADOL HCL 50 MG TAB PO PRN (20:58)
[2016-11-03] MEDS: AMITRIPTYLINE HCL 100 MG TAB PO SCH (20:58)
[2016-11-03] MEDS: INSULIN GLARGINE SOLOSTAR 100 UNITS/ML 3 ML PEN SC SCH (21:09)
[2016-11-03 23:13] VITALS: BP 101/69; PULSE 97; TEMP 36.4; O2SAT 100
[2016-11-04] MEDS: LEVOTHYROXINE 100 MCG TAB PO SCH (05:29)
[2016-11-04] MEDS: HEPARIN 25,000 UNIT/500ML D5W 500 ML IV PRN ×2 (05:43→07:14)
[2016-11-04 07:16] LABS: HEMATOCRIT 29.3 % (37-47); MEAN CELL VOLUME 79.4 fL (80-100); MEAN CORPUSCULAR HEMOGLOBIN 23.8 pg (25-34); MEAN PLATELET VOLUME 10.6 fL (7.4-10.4); PLATELET COUNT 328 K/uL (130-400); RED BLOOD COUNT 3.69 M/uL (4.2-5.4); WHITE BLOOD COUNT 5.38 K/uL (4.8-10.8)
[2016-11-04 07:37] VITALS: BP 108/72; PULSE 90; TEMP 36.7; O2SAT 98
[2016-11-04 07:39] VITALS: O2SAT 98
[2016-11-04 07:47] LABS: INR 1.5 (0.9-1.1); PARTIAL THROMBOPLASTIN RATIO 2.5; PROTHROMBIN TIME (PATIENT) 15.9 SECONDS (9.0-12.0)
[2016-11-04 07:54] LABS: BUN/CREATININE RATIO 6.9 (10-20); CALCIUM 8.3 mg/dl (8.5-10.1); CREATININE 0.94 mg/dl (0.60-1.20); POTASSIUM 4.1 mmol/L (3.5-5.1)
[2016-11-04] MEDS: FUROSEMIDE INJ 40 MG in SYRINGE 0 ML IV SCH ×2 (08:41→15:00)
[2016-11-04] MEDS: CYANOCOBALAMIN 500 MCG TAB (VIT B-12) PO SCH (08:41)
[2016-11-04] MEDS: RANITIDINE HCL 150 MG TAB PO SCH (08:41)
[2016-11-04] MEDS: LISINOPRIL 5 MG TAB PO SCH (08:45)
[2016-11-04] MEDS: INSULIN ASPART 100 UNITS/ML 3 ML PEN SC SCH ×2 (08:48→13:22)
[2016-11-04] MEDS: LEVOFLOXACIN 500 MG TAB PO SCH (10:31)
[2016-11-04] MEDS ORDERED: ENOXAPARIN 150 MG/1ML SYR SQ ONE (11:15)
[2016-11-04] MEDS: FERROUS SULFATE 325 MG TAB PO SCH (11:33)
[2016-11-04] MEDS ORDERED: CMD5 PO (13:56)
[2016-11-04] MEDS ORDERED: VTMB12 PO (13:56)
[2016-11-04] MEDS ORDERED: LVQ500 PO (13:56)
--- NOTE | 2016-11-04 14:04 | Discharge Instructions ---
Discharge Instructions Date of Service Nov 04, 2016. Admission Reason for Admission: Abdominal Wall Cellulitis Discharge Discharge Diagnosis / Problem: abdominal wall cellulitis Discharge Goals Goal(s): Decrease discomfort, Improve function Activity Recommendations Activity Limitations: resume your previous activity . Instructions / Follow-Up Instructions / Follow-Up FOLLOWUP WITH FAMILY DOCTOR ON October AT 9:05AM FOLLOWUP WITH SURGERY AT [place] SCHEDULED TOMORROW. TO CONTINUE ANTIBIOTIC LEVAQUIN FOR TOTAL 14 DAYS AND LONGER IF DRAINS ARE NOT REMOVED. COUMADIN 5MG PO DAILY UNTIL FURTHER ADVICE FROM COUMADIN CLINIC. LOVENOX SHOTS 150MG SUBCUTANEOUS DAILY UNTIL ADVISED TO STOP BY COUMADIN CLINIC. LAB: PT/INR IN 2 DAYS AND FOLLOW RESULTS WITH COUMADIN CLINIC. WILL NOTIFY COUMADIN CLINIC. TO TAKE IRON SUPPLEMENTS AND VITAMIN B12 SUPPLEMENTS FOR IRON AND VITAMIN B12 DEFICIENCY AND ANEMIA Call your Primary Care doctor if any of the following symptoms or problems start or get worse: * Shortness of breath or difficulty breathing * Wake up at night short of breath * Chest pain * Cough * Swelling of your hands, feet, or legs * More fatigued or tired with your normal activity * Palpitations - sudden fast heart beats WEIGHT * Weigh yourself every morning after using the bathroom. * Use the same scale. * Wear the same amount of clothing. * Write your weight down on a chart. * Call your Primary Care doctor if you gain more than 2-3 pounds in 1-2 days. MEDICATIONS * Use this discharge instruction sheet for medication instructions. * Take your medications at the time your doctor ordered. * Do not skip a dose of your medicines. * If you miss a dose of medicine, take it as soon as possible, but DO NOT DOUBLE A DOSE. * Read your medicine information when you get home. * Know all of the side effects of your medicine. If in doubt, ask your pharmacist * Call your Primary Care doctor's office if you have any side effects. * Be sure all of your doctors know what medicine and herbs you take (including cold, flu, and herbal medicine). Take the following with you to your follow-up doctor appointments: * Weight Chart * Medication List * List of questions Do not drink excessive alcohol, beer or wine. Current Hospital Diet Patient's current hospital diet: Diabetes Type 2 Diet Discharge Diet Recommended Diet: Diabetes Type 2 Diet Pending Studies Studies pending at discharge: no Laboratory Results Hemoglobin A1c Test 10/31/16 05:40 Range/Units Estimated Average Glucose 154 mg/dl Hemoglobin A1c 7.0 H 4.5-5.6 % Medical Emergencies . Who to Call and When: Call 911 or go to the Emergency Room if: * If at any time you feel your situation is an emergency * You have tightness or pain in your chest that does not go away with rest or Nitroglycerin * You are very short of breath even with rest . Non-Emergent Contact Non-Emergency issues call your: Primary Care Provider . . "Provider Documentation" section prepared by Zac Olson. . VTE Core Measure Inpt VTE Proph given/why not?: Enoxaparin (Lovenox)SQ
[2016-11-04] MEDS ORDERED: LVNIS150 SC (14:06)
[2016-11-04 15:08] VITALS: BP 111/76; PULSE 100; TEMP 36.7; O2SAT 98
[2016-11-04 15:43] VITALS: BP 111/76; PULSE 100; TEMP 36.7; O2SAT 98
[2016-11-04] MEDS: WARFARIN SOD 5 MG TAB PO SCH (16:04)
--- NOTE | 2016-11-04 18:35 | Progress Note ---
Internal Med Progress Note Date of Service: Nov 04, 2016. Provider Documentation: SUBJECTIVE: sitting on the chair comfortably afebrile eating ok no sob one of the drains came out yesterday ok for discharge OBJECTIVE: Vital Signs-as noted below Exam: General-alert and oriented. Not in distress ENT-normal hearing Neck-no neck masses Lungs-cta b/l no wheezing or crackles Heart-s1 and s2 heard regular no murmurs Abdomen-soft bowel sounds present has drains and dressing no distension Extremities-no edema no erythema Neuro-alert and oriented moves extremities Lab data as noted below. ASSESSMENT & PLAN: ABDOMINAL WALL CELLULITIS s/p Ventral hernia repair and panniculectomy performed at [facility] on 10/07/16 and still has drains. Supposed to follow at [facility] .. presented with abdominal wall cellulitis was started on Zosyn and daptomycin cultures from both drains growing pseudomonas ID on board and recommended 14 days of Levaquin and longer if drains are still kept. f/u with pcp ABNORMAL UA No urinary symptoms. Urine culture negative. POSSIBLE PULMONARY EMBOLISM Possible segmental pulmonary embolism right middle lobe incidentally noted on CT of abdomen. Patient experiencing nonproductive cough and dyspnea, but no pleuritic chest pain. Venous duplex of lower extremities - No DVT. CTA 11/01 demonstrated bilateral segmental thrombi. Dr. Mcghee Discussed with Pulmonary Medicine and anticoagulation recommended for 3 months. on iv heparin and Coumadin discharged on Lovenox bridge and Coumadin close f/u with Coumadin clinic DIASTOLIC CHF Chronic left ventricular diastolic heart failure per previous echocardiograms. possible right-sided heart failure as well from underlying pulmonary disease. Recently started on furosemide the week prior to admission. initially Lasix was held due to current infection and demonstration of IV contrast. Persistent 3+ edema. Restarted with iv Lasix. d/c on home lasix f/u with pcp HYPERTENSION On lisinopril with hold parameters. SLEEP APNEA Continue nocturnal O2. GERD Continue ranitidine. DIARRHEA Stool specimen for C. difficile negative. DM TYPE 2 Hemoglobin A1c = 7. Holding metformin. On Lantus + NovoLog per protocol. d/c on home meds HYPOTHYROIDISM Continue levothyroxine. DYSLIPIDEMIA statin ANEMIA History of chronic iron deficiency anemia, but H/H lower than baseline could be secondary to recent surgery and apparent infection. Serum iron and transferrin saturation low. B12 low at 180. Stool heme-negative on 10/31. Last colonoscopy 2014. Continue iron supplementation. Initiated B12 supplementation. Will follow H/H closely while receiving anticoagulants. Discharged home with home health f/u with [facility] in am followup with pcp Vital Signs: Date Time Temp Pulse Resp B/P (MAP) Pulse Ox O2 Delivery O2 Flow Rate FiO2 11/04/16 15:43 36.7 100 16 98 Room Air 11/04/16 15:08 36.7 100 16 111/76 (88) 98 Room Air 11/04/16 08:15 Room Air 11/04/16 07:39 98 Room Air 11/04/16 07:37 36.7 90 16 108/72 (84) 98 Room Air 11/03/16 23:13 36.4 97 16 101/69 (80) 100 Nasal Cannula 2.0 11/03/16 19:00 Room Air Lab Results: Results Past 24 Hours Test 11/03/16 20:45 11/04/16 06:55 11/04/16 08:02 11/04/16 11:59 Range/Units Bedside Glucose 273 185 186 70-90 mg/dl White Blood Count 5.38 4.8-10.8 K/uL Red Blood Count 3.69 4.2-5.4 M/uL Hemoglobin 8.8 12.0-16.0 g/dL Hematocrit 29.3 37-47 % Mean Corpuscular Volume 79.4 80-100 fL Mean Corpuscular Hemoglobin 23.8 25-34 pg Mean Corpuscular Hemoglobin Concent 30.0 32-36 g/dl RDW Standard Deviation 42.8 36.4-46.3 fL RDW Coefficient of Variation 14.9 11.5-14.5 % Platelet Count 328 130-400 K/uL Mean Platelet Volume 10.6 7.4-10.4 fL Prothrombin Time 15.9 9.0-12.0 SECONDS Prothromb Time International Ratio 1.5 0.9-1.1 Activated Partial Thromboplast Time 66.1 21.0-31.0 SECONDS Partial Thromboplastin Ratio 2.5 Sodium Level 137 136-145 mmol/L Potassium Level 4.1 3.5-5.1 mmol/L Chloride Level 98 98-107 mmol/L Carbon Dioxide Level 29 21-32 mmol/L Anion Gap 10.0 3-11 mmol/L Blood Urea Nitrogen 6 7-18 mg/dl Creatinine 0.94 0.60-1.20 mg/dl Est Creatinine Clear Calc Drug Dose 67.9 ml/min Estimated GFR () 75.9 Estimated GFR (Non- 65.5 BUN/Creatinine Ratio 6.9 10-20 Random Glucose 193 70-99 mg/dl Calcium Level 8.3 8.5-10.1 mg/dl
--- NOTE | 2016-11-04 19:08 | Discharge Summary ---
Discharge Summary Date of Service Nov 04, 2016. Discharge Summary Admission Date: Oct 30, 2016 at 18:15 Discharge Date: Nov 04, 2016 Discharge Disposition: Home Principal Diagnosis: ABDOMINAL WALL CELLULITIS PULMONARY EMBOLISM Secondary Diagnoses/Problems: (1) Diabetes mellitus, type 2 Status: Chronic (2) Diastolic CHF, chronic Status: Chronic (3) Dyslipidemia Status: Chronic (4) Dyspepsia Status: Chronic (5) Fatty liver Status: Chronic (6) GERD (gastroesophageal reflux disease) Status: Chronic (7) Hiatal hernia Status: Chronic (8) History of gastric ulcer Status: Chronic (9) Hypertension Status: Chronic (10) Hypothyroidism Status: Chronic (11) Iron deficiency anemia Status: Chronic (12) Migraine headache Status: Chronic (13) Osteoarthritis Status: Chronic (14) Rosacea Status: Chronic (15) Sleep apnea Status: Chronic Procedures: CT abdomen + pelvis venous duplex lower extremities IV antibiotics . Consultations: ID with Dr. Lewis General Surgery with Dr. Ace Pulmonary with Dr. Hdz . Medication Reconciliation New Medications: Enoxaparin (Lovenox) 150 Mg/1 Ml Inj 150 MG SC DAILY for 7 Days Cyanocobalamin (Vitamin B-12) 500 Mcg Tab 1000 MCG PO QAM, #30 TAB 3 Refills Levofloxacin (Levofloxacin) 500 Mg Tab 500 MG PO DAILY@11 for 12 Days, TAB Warfarin Sod (Coumadin) 5 Mg Tab 5 MG PO DAILY@16, #30 TAB 2 Refills Continued Medications: Acetaminophen (Tylenol) 500 Mg Tab 1000 MG PO Q8 PRN for Pain, TAB Amitriptyline Hcl (Amitriptyline Hcl) 50 Mg Tab 100 MG PO HS Ferrous Sulfate (Ferrous Sulfate) 325 Mg Tab 325 MG PO DAILY Furosemide (Furosemide) 20 Mg Tab 20 MG PO DAILY Insulin Aspart (Novolog) 100 Units/Ml Inj UNITS SC TIDM SLIDING SCALE Insulin Glargine (Lantus) 100 Unit/Ml Inj 28 UNITS SC QPM Levothyroxine Sodium (Synthroid) 100 Mcg Tab 100 MCG PO DAILY, TAB Lisinopril (Zestril) 5 Mg Tab 5 MG PO QAM, TAB Metformin Hcl (Glucophage) 1,000 Mg Tab 1000 MG PO BID, TAB Mupirocin 2% (Bactroban 2%) 30 Gm Cr 1 APPLN EXT UD, TUBE Ranitidine Hcl (Zantac) 300 Mg Tab 300 MG PO DAILY PRN for Heartburn, TAB Simvastatin (Zocor) 20 Mg Tab 20 MG PO HS, TAB Tramadol (Ultram) 50 Mg Tab 50 MG PO Q6 PRN for Pain, TAB Triamcinolone Acetonide (Topic (Triamcinolone Acet 0.025%) 0.025 % Lot Discontinued Medications: Ibuprofen (Motrin) 600 Mg Tab 600 MG PO TID PRN for Pain, #15 TAB Minocycline (Minocin) 100 Mg Cap 100 MG PO QAM, CAP Admission Information HPI (per Admitting provider): 60-year-old female followed by Dr. Mejía. History of diastolic CHF, hypertension, diabetes mellitus type 2, and other problems noted below. Ventral hernia repair and panniculectomy performed at [facility] on 10/07/16. Patient was discharged to home on 10/16/16 on antibiotics and bilateral abdominal drains. Antibiotics were discontinued about a week ago due to diarrhea. Seen in clinic last week because of lower extremity edema and started on furosemide. This morning she was seen for postsurgical follow-up in Surgery Clinic in [place]. On the way home she felt weak, nauseated, experienced chills. She came to the ED for evaluation. Family noted that drainage from abdominal drains is somewhat cloudy at times. Family notes erythema around left abdominal drain and around lower abdominal incision. No drainage from incision. No apparent fever at home. Diarrhea has improved since stopping antibiotics last week, but she had loose stools in the ED today. No melena or hematochezia. No dysuria or hematuria. She has noted occasional nonproductive cough and some dyspnea on exertion. No angina or pleuritic chest pain. Lower extremity edema has improved since starting furosemide last week. . Physical Exam (per Admitting): General Appearance: no apparent distress, + obese Head: normocephalic, atraumatic Eyes: normal inspection, PERRL, EOMI, sclerae normal, + pertinent finding ( conjunctivae pale) ENT: hearing grossly normal, pharynx normal, + pertinent finding (upper dentures) Neck: supple, no adenopathy, thyroid normal, trachea midline Respiratory/Chest: lungs clear, normal breath sounds, no respiratory distress, no accessory muscle use Cardiovascular: regular rate, rhythm, normal peripheral pulses, + systolic murmur (II/ systolic murmur at base), + pertinent finding (neck veins difficult to assess; 3+ pretibial edema; capillary refill toes ~ 2 sec) Abdomen/GI: normal bowel sounds, non tender, soft, no organomegaly (no palpable masses), + pertinent finding (bilateral surgical drains) Extremities/Musculoskelatal: + pertinent finding (no calf tenderness) Neurologic/Psych: ultrasonic hand solderer II-XII nml as tested (PERRL, EOMI, no facial palsy, no dysarthria), no motor/sensory deficits (motor strength extremities grossly intact), alert, oriented x 3 Skin: + pertinent finding (erythema, induration, tenderness surrounding left drain site; lower abdominal incision with eschar and surrounding erythema and induration) Lymphatic: no adenopathy (cervical) Hospital Course ABDOMINAL WALL CELLULITIS s/p Ventral hernia repair and panniculectomy performed at [facility] on 10/07/16 and still has drains. Supposed to follow at [place] coming .. presented with abdominal wall cellulitis was started on Zosyn and daptomycin cultures from both drains growing pseudomonas ID on board and recommended 14 days of Levaquin and longer if drains are still kept. f/u with pcp ABNORMAL UA No urinary symptoms. Urine culture negative. POSSIBLE PULMONARY EMBOLISM Possible segmental pulmonary embolism right middle lobe incidentally noted on CT of abdomen. Patient experiencing nonproductive cough and dyspnea, but no pleuritic chest pain. Venous duplex of lower extremities - No DVT. CTA 11/01 demonstrated bilateral segmental thrombi. Dr. Mcghee Discussed with Pulmonary Medicine and anticoagulation recommended for 3 months. on iv heparin and Coumadin discharged on Lovenox bridge and Coumadin close f/u with Coumadin clinic DIASTOLIC CHF Chronic left ventricular diastolic heart failure per previous echocardiograms. possible right-sided heart failure as well from underlying pulmonary disease. Recently started on furosemide the week prior to admission. initially Lasix was held due to current infection and demonstration of IV contrast. Persistent 3+ edema. Restarted with iv Lasix. d/c on home lasix f/u with pcp HYPERTENSION On lisinopril with hold parameters. SLEEP APNEA Continue nocturnal O2. GERD Continue ranitidine. DIARRHEA Stool specimen for C. difficile negative. DM TYPE 2 Hemoglobin A1c = 7. Holding metformin. On Lantus + NovoLog per protocol. d/c on home meds HYPOTHYROIDISM Continue levothyroxine. DYSLIPIDEMIA statin ANEMIA History of chronic iron deficiency anemia, but H/H lower than baseline could be secondary to recent surgery and apparent infection. Serum iron and transferrin saturation low. B12 low at 180. Stool heme-negative on 10/31. Last colonoscopy 2014. Continue iron supplementation. Initiated B12 supplementation. Will follow H/H closely while receiving anticoagulants. Discharged home with home health f/u with [place] surgery in am followup with pcp Total time spent on discharge = 40 MINUTES This includes examination of the patient, discharge planning, medication reconciliation, and communication with other providers. Discharge Instructions Discharge Instructions Date of Service Nov 04, 2016. Admission Reason for Admission: Abdominal Wall Cellulitis Discharge Discharge Diagnosis / Problem: abdominal wall cellulitis Discharge Goals Goal(s): Decrease discomfort, Improve function Activity Recommendations Activity Limitations: resume your previous activity . Instructions / Follow-Up Instructions / Follow-Up FOLLOWUP WITH FAMILY DOCTOR ON October AT 9:05AM FOLLOWUP WITH SURGERY AT [place] [place] SCHEDULED TOMORROW. TO CONTINUE ANTIBIOTIC LEVAQUIN FOR TOTAL 14 DAYS AND LONGER IF DRAINS ARE NOT REMOVED. COUMADIN 5MG PO DAILY UNTIL FURTHER ADVICE FROM COUMADIN CLINIC. LOVENOX SHOTS 150MG SUBCUTANEOUS DAILY UNTIL ADVISED TO STOP BY COUMADIN CLINIC. LAB: PT/INR IN 2 DAYS AND FOLLOW RESULTS WITH COUMADIN CLINIC. WILL NOTIFY COUMADIN CLINIC. TO TAKE IRON SUPPLEMENTS AND VITAMIN B12 SUPPLEMENTS FOR IRON AND VITAMIN B12 DEFICIENCY AND ANEMIA Call your Primary Care doctor if any of the following symptoms or problems start or get worse: * Shortness of breath or difficulty breathing * Wake up at night short of breath * Chest pain * Cough * Swelling of your hands, feet, or legs * More fatigued or tired with your normal activity * Palpitations - sudden fast heart beats WEIGHT * Weigh yourself every morning after using the bathroom. * Use the same scale. * Wear the same amount of clothing. * Write your weight down on a chart. * Call your Primary Care doctor if you gain more than 2-3 pounds in 1-2 days. MEDICATIONS * Use this discharge instruction sheet for medication instructions. * Take your medications at the time your doctor ordered. * Do not skip a dose of your medicines. * If you miss a dose of medicine, take it as soon as possible, but DO NOT DOUBLE A DOSE. * Read your medicine information when you get home. * Know all of the side effects of your medicine. If in doubt, ask your pharmacist * Call your Primary Care doctor's office if you have any side effects. * Be sure all of your doctors know what medicine and herbs you take (including cold, flu, and herbal medicine). Take the following with you to your follow-up doctor appointments: * Weight Chart * Medication List * List of questions Do not drink excessive alcohol, beer or wine. Current Hospital Diet Patient's current hospital diet: Diabetes Type 2 Diet Discharge Diet Recommended Diet: Diabetes Type 2 Diet Pending Studies Studies pending at discharge: no Laboratory Results Hemoglobin A1c Test 10/31/16 05:40 Range/Units Estimated Average Glucose 154 mg/dl Hemoglobin A1c 7.0 H 4.5-5.6 % Medical Emergencies . Who to Call and When: Call 911 or go to the Emergency Room if: * If at any time you feel your situation is an emergency * You have tightness or pain in your chest that does not go away with rest or Nitroglycerin * You are very short of breath even with rest . Non-Emergent Contact Non-Emergency issues call your: Primary Care Provider . . "Provider Documentation" section prepared by Zac Olson. . VTE Core Measure Inpt VTE Proph given/why not?: Enoxaparin (Lovenox)SQ
--- NOTE | 2016-11-05 12:51 | EDITING REQUIRED CODING QUERY ---
CODING QUERY To promote full compliance with coding requirements relating to patient care, provider participation is requested in all cases of dependency case manager uncertainty. Please assist us with the question(s) below: Coding Question(s): Please clarify regarding the Pulmonary Embolism. ( ) The Pulmonary Embolism is Acute ( ) This is a complication resulting from the recent surgery ( ) This is not a complication resulting from the recent surgery ( ) The Pulmonary Embolism is Chronic but provoked to be Acute by the surgery ( ) This is a complication resulting from the recent surgery ( ) This is not a complication resulting from the recent surgery ( x ) The Pulmonary Embolism is Chronic only Physician's Response(s): Thank you Porsha Lozano Principal Diagnosis: "_that condition established after study, to be chiefly responsible for occasioning the admission of the patient to the hospital for care." Co-Existing Principal Diagnosis: "_when two or more diagnoses equally meet the criteria for principal diagnosis as determined by the circumstances of admission, diagnostic work up, and/or therapy provided, and the Alphabetic Index, Tabular List, or another coding guideline does not provide sequencing direction, any one of the diagnoses may be sequenced first." "When the physician has documented what appears to be a current diagnosis in the body of the record, but has not included the diagnosis in the final diagnostic statement, the physician should be asked whether the diagnosis should be added." (Source Coding [facility] 2 QTR90. p3-4)
--- NOTE | 2016-11-05 12:52 | EDITING REQUIRED CODING QUERY ---
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 Please assist us with the question(s) below: Coding Question(s): Please clarify regarding the Abdominal Wall Cellulitis. ( ) This is a complication of the recent surgery (x ) This is not a complication of the recent surgery Physician's Response(s): Thank you Porsha Lozano Principal Diagnosis: "_that condition established after study, to be chiefly responsible for occasioning the admission of the patient to the hospital for care." Co-Existing Principal Diagnosis: "_when two or more diagnoses equally meet the criteria for principal diagnosis as determined by the circumstances of admission, diagnostic work up, and/or therapy provided, and the Alphabetic Index, Tabular List, or another coding guideline does not provide sequencing direction, any one of the diagnoses may be sequenced first." "When the physician has documented what appears to be a current diagnosis in the body of the record, but has not included the diagnosis in the final diagnostic statement, the physician should be asked whether the diagnosis should be added." ([facility] 2 QTR90. p3-4)
[2017-01-27] MEDS ORDERED: LEVO-17 PO (23:49)
== END 2016-11-04 16:07 | disposition home health service (06) | DRG 176 ==
LOC: EDBD 13:35 → C.EDA 13:38 → C.MSW 18:15 → CANRESERV 18:29 → ENRESERV 18:29
PROVIDERS: ADMIT Hospitalist; ATTEND Internal Medicine
DX: I27.82 Chronic pulmonary embolism (principal); L03.311 Cellulitis of abdominal wall; I50.32 Chronic diastolic (congestive) heart failure; M79.3 Panniculitis, unspecified; B96.5 Pseudomonas (aeruginosa) (mallei) (pseudomallei) as the cause of diseases classified elsewhere; R19.7 Diarrhea, unspecified; D50.9 Iron deficiency anemia, unspecified; E11.9 Type 2 diabetes mellitus without complications; I11.0 Hypertensive heart disease with heart failure; E78.5 Hyperlipidemia, unspecified; E03.9 Hypothyroidism, unspecified; L71.9 Rosacea, unspecified; G43.909 Migraine, unspecified, not intractable, without status migrainosus; K21.9 Gastro-esophageal reflux disease without esophagitis; G47.33 Obstructive sleep apnea (adult) (pediatric); E66.9 Obesity, unspecified; Z51.81 Encounter for therapeutic drug level monitoring; Z79.899 Other long term (current) drug therapy; Z68.38 Body mass index [BMI] 38.0-38.9, adult; Z79.4 Long term (current) use of insulin; Z83.3 Family history of diabetes mellitus; Z82.49 Family history of ischemic heart disease and other diseases of the circulatory system

== ENCOUNTER 2016-11-06 22:25 | Emergency (ER) | payer OTHER ==
[~2016-11-06] VITALS: Ht 157.5 cm; Wt 91.1 kg
[~2016-11-06 22:25] MED LIST changes: +ACET-1256 PO; -ASPI-391; +BCTCR/30 EXT; +CMD5 PO; +FERR325T5 PO; +INSDGI SC; -INSUINJ4 SQ; -INSUINJ7 SC; -IRON PO; +LEVO100T PO; -LEVO88TA PO; +LSX20 PO; +LVNIS150 SC; +LVQ500 PO; -MINO100C22 PO; +NVLG SC; +TRAM-10 PO; +TRIA0.022; +VTMB12 PO
[2016-11-06 22:41] VITALS: TEMP 36.5; Ht 157.5 cm; Wt 91.1 kg
[2016-11-06] MEDS ORDERED: ONDANSETRON INJ 2 MG/ML 2 ML VIAL IV STA (22:45)
[2016-11-06] MEDS ORDERED: FENTANYL CITRATE INJ 50 MCG/1 ML 2 ML VIAL IV STA (22:45)
[2016-11-06 22:51] VITALS: O2SAT 96
[2016-11-06] MEDS ORDERED: OPTIRAY 320 IV PRN (23:00)
--- NOTE | 2016-11-06 23:08 | DIAGNOSTIC IMAGING REPORT ---
SINGLE VIEW CHEST CLINICAL HISTORY: Upper abdominal pain. FINDINGS: An AP, portable, upright chest radiograph is compared to study dated 10/30/2016 and correlated with chest CT dated 11/01/2016. The examination is degraded by portable technique, large body habitus, and patient rotation. The cardiomediastinal silhouette is unremarkable. There is atherosclerotic calcification of the thoracic aorta. A large hiatal hernia is unchanged. There are low lung volumes with basilar atelectasis. Chronic interstitial thickening is unchanged. No airspace consolidation, large pleural effusion, or pneumothorax is seen. The skeletal structures are osteopenic. The bony thorax is grossly intact. Cholecystectomy clips are seen in the right upper quadrant. IMPRESSION: 1. Low lung volumes with no acute cardiopulmonary abnormality. 2. Large hiatal hernia. Electronically signed by: Topher Stuart M.D. 11/06/2016 11:07 PM Dictated Date/Time: 11/06/2016 11:05 PM
[2016-11-06 23:13] LABS: BASO % 0.3 %; BASO ABS # 0.02 K/uL (0-0.2); COMPLETE YES; EOS % 3.2 %; IG% 0.8 %; LYMPH % 15.1 %; LYMPH ABS # 1.19 K/uL (1.2-3.4); MEAN CELL VOLUME 77.5 fL (80-100); MEAN CORPUSCULAR HGB CONC 29.7 g/dl (32-36); MEAN PLATELET VOLUME 10.2 fL (7.4-10.4); MONO % 9.5 %; NEUT % 71.1 %; PLATELET COUNT 361 K/uL (130-400); WHITE BLOOD COUNT 7.89 K/uL (4.8-10.8)
[2016-11-06 23:31] LABS: INR 2.2 (0.9-1.1); PARTIAL THROMBOPLASTIN RATIO 1.8; PROTHROMBIN TIME (PATIENT) 24.7 SECONDS (9.0-12.0)
[2016-11-06 23:34] LABS: BLOOD UREA NITROGEN 12 mg/dl (7-18); BUN/CREATININE RATIO 11.5 (10-20); CALCIUM 8.5 mg/dl (8.5-10.1); CARBON DIOXIDE 24 mmol/L (21-32); CHLORIDE 101 mmol/L (98-107); GLUCOSE 144 mg/dl (70-99); MAGNESIUM 1.3 mg/dl (1.8-2.4); POTASSIUM 3.9 mmol/L (3.5-5.1); SODIUM 136 mmol/L (136-145)
[2016-11-06 23:39] LABS: ALB/GLOB RATIO 0.5 (0.9-2); ALKALINE PHOSPHATASE 74 U/L (45-117); ALT/SGPT 11 U/L (12-78); AST/SGOT 10 U/L (15-37)
--- NOTE | 2016-11-07 00:35 | DIAGNOSTIC IMAGING REPORT ---
CT SCAN OF THE ABDOMEN AND PELVIS WITH IV CONTRAST CLINICAL HISTORY: Nausea. Recent hernia surgery. COMPARISON STUDY: Abdominal CT dated 10/30/2016. TECHNIQUE: Following the IV administration of 93 cc of Optiray 320, CT scan of the abdomen and pelvis is performed from the lung bases to the proximal femora. Images are reviewed in the axial, sagittal, and coronal planes. IV contrast was administered without complication. Automated dose control exposure was utilized. The examination is degraded by streak artifact from the patient's arms which could not be elevated above the abdomen or pelvis. CT DOSE: 1891.93 mGy.cm FINDINGS: Lung bases: The heart is normal in size and without pericardial effusion. The coronary arteries are densely calcified. There is atelectasis at the left lung base secondary to a large hiatal hernia. The lung bases are otherwise clear. Segmental pulmonary emboli are again seen in the right middle lobe. These are better characterized on prior examinations. Liver: The contrast-enhanced liver is mildly enlarged measuring over 18 cm in length. The liver demonstrates diffusely diminished attenuation consistent with hepatic steatosis. There is no intrahepatic biliary ductal dilatation. The hepatic veins and portal veins are patent. Gallbladder: Surgically absent noting clips in the gallbladder fossa. Spleen: The spleen is enlarged, measuring 15.7 cm in length. Pancreas: Atrophic and grossly unremarkable. Adrenal glands: Unremarkable. Kidneys: The contrast enhanced kidneys demonstrate cortical atrophy and are without hydronephrosis. The kidneys enhance symmetrically. Abdominal vasculature: The abdominal aorta is normal in course and caliber noting mild atherosclerotic calcification. Apparent filling defects are identified within the right common femoral vein. Stomach and bowel: There is a large hiatal hernia, with the majority of the stomach located in the thoracic cavity. The duodenum is normal in configuration. There is no bowel obstruction. The appendix is not well visualized. Peritoneum: There is no intraperitoneal free air or abdominal ascites. Abdominal wall: Again seen is extensive postoperative change involving the ventral pelvic wall. Surgical drains have been removed from 10/30/2016. Foci of subcutaneous gas are now identified within the ventral abdominopelvic pannus and there is associated inflammatory stranding within the subcutaneous fat. There is a pocket of fluid in the right ventral pelvic pannus seen on axial image #361 which measures approximately 7.5 x 3 cm. A pocket of fluid in the left ventral pelvic pannus image #353 measures approximately 6.5 x 2 cm. There is induration and soft tissue thickening seen overlying the hips an in the gluteal region bilaterally. Lymphadenopathy: None. Pelvic viscera: The bladder is normal as visualized. The uterus is surgically absent. No adnexal lesion is seen. Skeletal structures: The skeletal structures are osteopenic. There is mild lumbosacral spondylosis. No lytic or blastic lesions are seen. IMPRESSION: 1. Again seen is extensive postoperative change involving the ventral pelvic wall. Surgical drains have been removed from 10/30/2016. 2. There is significant subcutaneous gas present throughout the ventral pelvic pannus, new from previous. There are also pockets of fluid identified within the ventral pelvic pannus bilaterally as detailed above. These are located at the sites of the previous surgical drains, and although these likely represent seromas/liquefied hematomas the sterility cannot be assessed by CT and abscess would be impossible to exclude. Clinical correlation will be required. 3. No acute intraperitoneal abnormality is seen. 4. Hepatomegaly and hepatic steatosis. 5. Splenomegaly. 6. Large hiatal hernia with intrathoracic stomach. 7. An apparent filling defect is again seen within the right common femoral vein. This may represent mixing artifact. A recent ultrasound for DVT was negative. 8. Segmental right middle lobe pulmonary emboli are again noted. 9. Additional findings as above. Electronically signed by: Topher Stuart M.D. 11/07/2016 12:34 AM Dictated Date/Time: 11/07/2016 12:17 AM
[2016-11-07] MEDS ORDERED: PIPERACILLIN/TAZOBACTAM 4.5 GM/100ML D5W IV STA (00:58)
[2016-11-07] MEDS ORDERED: MAGNESIUM SULFATE 1GM / D5W 1 GM BAG IV STA (03:32)
--- NOTE | 2016-11-07 04:38 | EMERGENCY ROOM VISIT NOTE ---
History First contact with patient: 22:34 Chief Complaint: ABDOMINAL PAIN Stated Complaint: AB PAIN, NAUSEA Nursing Triage Summary: NAUSEA WITH ABD PAIN WORSE TODAY HAD HERNIA SURGERY IN [place]PT[place] AT [facility] History of Present Illness The patient is a 60 year old female who presents to the Emergency Room with complaints of right-sided abdominal pain with nausea and subjective fever and chills today who had hernia surgery on October 07 at [place] with a panniculectomy. Patient was discharged in an antibiotics and then stopped them initiate diarrhea and then developed a cellulitis to the abdominal wall and was hospitalized in this facility for several days and discharged on the . Patient is currently on Levaquin. She also is on Coumadin as they saw blood clots in her lung while in the hospital. She describes pain as aching, ranging in severity 7 out of 10 and nothing makes it better or worse. Patient denies chest pain, dyspnea, cough, congestion, neck pain, urinary symptoms. She states the cellulitis on the abdominal wall is improving. Both MICKY drains are out now. The last one fell out yesterday. Review of Systems See HPI for pertinent positives & negatives. A total of 10 systems reviewed and were otherwise negative. Past Medical/Surgical History Medical Problems: (1) Diabetes mellitus, type 2 (2) Diastolic CHF, chronic (3) Dyslipidemia (4) Dyspepsia (5) Fatty liver (6) GERD (gastroesophageal reflux disease) (7) Hiatal hernia (8) History of gastric ulcer (9) Hypertension (10) Hypothyroidism (11) Iron deficiency anemia (12) Migraine headache (13) Osteoarthritis (14) Panniculitis (15) Post-operative infection (16) Rosacea (17) Sleep apnea Surgical Problems: (1) Status post bilateral oophorectomy (2) Status post cholecystectomy (3) Status post hernia repair (4) Status post hysterectomy (5) Status post panniculectomy (6) Status post repair of ventral hernia (7) Status post tonsillectomy Family History Cancer Diabetes mellitus Gallbladder disease Heart disease Hypertension Social History Smoking Status: Never Smoker Alcohol Use: none Drug Use: none Marital Status: single Housing Status: lives with family Occupation Status: unemployed Current/Historical Medications Scheduled Amitriptyline Hcl (Amitriptyline Hcl), 100 MG PO HS Cyanocobalamin (Vitamin B-12), 1,000 MCG PO QAM Enoxaparin (Lovenox), 150 MG SC DAILY Ferrous Sulfate (Ferrous Sulfate), 325 MG PO DAILY Furosemide (Furosemide), 20 MG PO DAILY Insulin Aspart (Novolog), UNITS SC TIDM Insulin Glargine (Lantus), 28 UNITS SC QPM Levofloxacin (Levofloxacin), 500 MG PO DAILY@11 Levothyroxine Sodium (Synthroid), 100 MCG PO DAILY Lisinopril (Zestril), 5 MG PO QAM Metformin Hcl (Glucophage), 1,000 MG PO BID Mupirocin 2% (Bactroban 2%), 1 APPLN EXT UD Simvastatin (Zocor), 20 MG PO HS Warfarin Sod (Coumadin), 5 MG PO DAILY@16 Scheduled PRN Acetaminophen (Tylenol), 1,000 MG PO Q8 PRN for Pain Ranitidine Hcl (Zantac), 300 MG PO DAILY PRN for Heartburn Tramadol (Ultram), 50 MG PO Q6 PRN for Pain Miscellaneous Medications Triamcinolone Acetonide (Topic (Triamcinolone Acet 0.025%) Allergies Coded Allergies: Doxycycline (Verified Allergy, Intermediate, Hives., 11/06/16) Reported by PT/[facility] record. Metronidazole (Verified Allergy, Intermediate, Hives., 11/06/16) Reported by PT/[facility] record. Naproxen (Verified Allergy, Unknown, ., 11/06/16) Physical Exam Vital Signs Date Time Temp Pulse Resp B/P (MAP) Pulse Ox O2 Delivery O2 Flow Rate FiO2 11/07/16 04:08 100 20 105/79 99 Room Air 11/07/16 02:55 100 11/07/16 02:23 100 20 111/74 97 Room Air 11/07/16 01:39 102 20 114/78 99 Room Air 11/07/16 00:17 102 96 122/73 96 Room Air 11/06/16 23:11 97 20 116/69 93 Room Air 11/06/16 22:51 96 Room Air 11/06/16 22:41 36.5 109 16 116/60 96 Room Air 11/06/16 22:37 98 Physical Exam VITALS: Vitals are noted on the nurse's note and reviewed by myself. Vital signs mile tachycardic. GENERAL: Pleasant female who appears in pain, in no acute distress, nondiaphoretic, well-developed well-nourished. SKIN: The skin was without rashes, erythema, edema, or bruising. There is no tenting of the skin. Capillary reflex less than 2 seconds. HEAD: Normocephalic atraumatic. EARS: External auditory canals clear, tympanic membranes pearly moran without erythema or effusion bilaterally. EYES: Pupils equal round and reactive to light and accommodation. Conjunctivae without injection, sclerae without icterus. Extraocular movements intact. NOSE: Patent, turbinates without inflammation or discharge. No sinus tenderness. MOUTH: Mucous membranes moist. Pharynx without erythema or exudate. Uvula midline. Airway patent. Tongue does not deviate. NECK: Supple without nuchal rigidity. No lymphadenopathy. No thyromegaly. Cervical spine is nontender. No JVD. HEART: Regular rate and rhythm LUNGS: Clear to auscultation bilaterally without wheezes, rales or rhonchi. No dullness to percussion. No retractions or accessory muscle use. ABDOMEN: Positive bowel sounds x 4. Normal tympanic percussion. Soft, tender to palpation right side of abdomen with surgical site to the pannus erythematous improved per patient, without masses or organomegaly. Hagen sign negative. No guarding or rebound tenderness. MUSCULOSKELETAL: No muscle atrophy, erythema, noted. NEURO: Patient was alert and oriented to person place and time. Normal sensation to light and sharp touch. No focal neurological deficits. Medical Decision & Procedures Laboratory Results 11/06/16 23:00 Red Blood Count 4.00, Mean Corpuscular Volume 77.5, Mean Corpuscular Hemoglobin 23.0, Mean Corpuscular Hemoglobin Concent 29.7, Mean Platelet Volume 10.2, Neutrophils (%) (Auto) 71.1, Lymphocytes (%) (Auto) 15.1, Monocytes (%) (Auto) 9.5, Eosinophils (%) (Auto) 3.2, Basophils (%) (Auto) 0.3, Neutrophils # (Auto) 5.62, Lymphocytes # (Auto) 1.19, Monocytes # (Auto) 0.75, Eosinophils # (Auto) 0.25, Basophils # (Auto) 0.02 11/06/16 23:00 Test 11/06/16 23:00 11/06/16 23:05 White Blood Count 7.89 K/uL (4.8-10.8) Red Blood Count 4.00 M/uL (4.2-5.4) Hemoglobin 9.2 g/dL (12.0-16.0) Hematocrit 31.0 % (37-47) Mean Corpuscular Volume 77.5 fL (80-100) Mean Corpuscular Hemoglobin 23.0 pg (25-34) Mean Corpuscular Hemoglobin Concent 29.7 g/dl (32-36) Platelet Count 361 K/uL (130-400) Mean Platelet Volume 10.2 fL (7.4-10.4) Neutrophils (%) (Auto) 71.1 % Lymphocytes (%) (Auto) 15.1 % Monocytes (%) (Auto) 9.5 % Eosinophils (%) (Auto) 3.2 % Basophils (%) (Auto) 0.3 % Neutrophils # (Auto) 5.62 K/uL (1.4-6.5) Lymphocytes # (Auto) 1.19 K/uL (1.2-3.4) Monocytes # (Auto) 0.75 K/uL (0.11-0.59) Eosinophils # (Auto) 0.25 K/uL (0-0.5) Basophils # (Auto) 0.02 K/uL (0-0.2) RDW Standard Deviation 43.0 fL (36.4-46.3) RDW Coefficient of Variation 15.1 % (11.5-14.5) Immature Granulocyte % (Auto) 0.8 % Immature Granulocyte # (Auto) 0.06 K/uL (0.00-0.02) Prothrombin Time 24.7 SECONDS (9.0-12.0) Prothromb Time International Ratio 2.2 (0.9-1.1) Activated Partial Thromboplast Time 45.7 SECONDS (21.0-31.0) Partial Thromboplastin Ratio 1.8 Anion Gap 11.0 mmol/L (3-11) Est Creatinine Clear Calc Drug Dose 62.0 ml/min Estimated GFR () 70.4 Estimated GFR (Non- 60.8 BUN/Creatinine Ratio 11.5 (10-20) Calcium Level 8.5 mg/dl (8.5-10.1) Magnesium Level 1.3 mg/dl (1.8-2.4) Total Bilirubin 0.2 mg/dl (0.2-1) Aspartate Amino Transf (AST/SGOT) 10 U/L (15-37) Alanine Aminotransferase (ALT/SGPT) 11 U/L (12-78) Alkaline Phosphatase 74 U/L (45-117) Troponin I < 0.015 ng/ml (0-0.045) Total Protein 6.5 gm/dl (6.4-8.2) Albumin 2.3 gm/dl (3.4-5.0) Globulin 4.2 gm/dl (2.5-4.0) Albumin/Globulin Ratio 0.5 (0.9-2) Bedside Lactic Acid Venous 1.37 mmol/L (0.90-1.70) Medications Administered Medications (Trade) Dose Ordered Sig/Kamla Route Start Time Stop Time Status Last Admin Dose Admin Fentanyl Citrate (Fentanyl Inj) 50 mcg NOW STAT IV 11/06/16 22:45 11/06/16 22:48 DC 11/06/16 23:10 50 MCG Ondansetron HCl (Zofran Inj) 4 mg NOW STAT IV 11/06/16 22:45 11/06/16 22:49 DC 11/06/16 23:09 4 MG Piperacillin Sod/ Tazobactam Sod (Zosyn Iv) 4.5 gm NOW STAT IV 11/07/16 00:58 11/07/16 00:59 DC 11/07/16 01:39 4.5 GM Magnesium Sulfate (Magnesium Sulfate) 2 gm NOW STAT IV 11/07/16 03:32 11/07/16 03:33 DC 11/07/16 03:32 2 GM ED Course Prior records/ancillary studies reviewed. Triage Nursing notes reviewed. Additional history obtained from family. The patient's history was concerning for abdominal pain. Differential diagnosis: Etiologies such as a surgical complication, appendicitis, diverticulitis, PUD, biliary pathology, UTI, pancreatitis, obstruction, mesenteric ischemia, aortic pathology, infections, inflammatory bowel disease, renal colic, as well as others were entertained. Physical examination findings: As above. ER treatment provided: Zosyn, fentanyl, Zofran On reassessment the patient felt better. Diagnostics interpreted by me: ECG: Normal sinus, no acute ST-T wave changes, occasional PVC, rate of 96. Impression normal sinus rhythm with occasional PVCs interpreted by myself The labs revealed improving H&H with mild anemia. No leukocytosis Imaging studies: Chest x-ray with no acute consolidation, pneumothorax or free air CT SCAN OF THE ABDOMEN AND PELVIS WITH IV CONTRAST CLINICAL HISTORY: Nausea. Recent hernia surgery. COMPARISON STUDY: Abdominal CT dated 10/30/2016. TECHNIQUE: Following the IV administration of 93 cc of Optiray 320, CT scan of the abdomen and pelvis is performed from the lung bases to the proximal femora. Images are reviewed in the axial, sagittal, and coronal planes. IV contrast was administered without complication. Automated dose control exposure was utilized. The examination is degraded by streak artifact from the patient's arms which could not be elevated above the abdomen or pelvis. CT DOSE: 1891.93 mGy.cm FINDINGS: Lung bases: The heart is normal in size and without pericardial effusion. The coronary arteries are densely calcified. There is atelectasis at the left lung base secondary to a large hiatal hernia. The lung bases are otherwise clear. Segmental pulmonary emboli are again seen in the right middle lobe. These are better characterized on prior examinations. Liver: The contrast-enhanced liver is mildly enlarged measuring over 18 cm in length. The liver demonstrates diffusely diminished attenuation consistent with hepatic steatosis. There is no intrahepatic biliary ductal dilatation. The hepatic veins and portal veins are patent. Gallbladder: Surgically absent noting clips in the gallbladder fossa. Spleen: The spleen is enlarged, measuring 15.7 cm in length. Pancreas: Atrophic and grossly unremarkable. Adrenal glands: Unremarkable. Kidneys: The contrast enhanced kidneys demonstrate cortical atrophy and are without hydronephrosis. The kidneys enhance symmetrically. Abdominal vasculature: The abdominal aorta is normal in course and caliber noting mild atherosclerotic calcification. Apparent filling defects are identified within the right common femoral vein. Stomach and bowel: There is a large hiatal hernia, with the majority of the stomach located in the thoracic cavity. The duodenum is normal in configuration. There is no bowel obstruction. The appendix is not well visualized. Peritoneum: There is no intraperitoneal free air or abdominal ascites. Abdominal wall: Again seen is extensive postoperative change involving the ventral pelvic wall. Surgical drains have been removed from 10/30/2016. Foci of subcutaneous gas are now identified within the ventral abdominopelvic pannus and there is associated inflammatory stranding within the subcutaneous fat. There is a pocket of fluid in the right ventral pelvic pannus seen on axial image #361 which measures approximately 7.5 x 3 cm. A pocket of fluid in the left ventral pelvic pannus image #353 measures approximately 6.5 x 2 cm. There is induration and soft tissue thickening seen overlying the hips an in the gluteal region bilaterally. Lymphadenopathy: None. Pelvic viscera: The bladder is normal as visualized. The uterus is surgically absent. No adnexal lesion is seen. Skeletal structures: The skeletal structures are osteopenic. There is mild lumbosacral spondylosis. No lytic or blastic lesions are seen. IMPRESSION: 1. Again seen is extensive postoperative change involving the ventral pelvic wall. Surgical drains have been removed from 10/30/2016. 2. There is significant subcutaneous gas present throughout the ventral pelvic pannus, new from previous. There are also pockets of fluid identified within the ventral pelvic pannus bilaterally as detailed above. These are located at the sites of the previous surgical drains, and although these likely represent seromas/liquefied hematomas the sterility cannot be assessed by CT and abscess would be impossible to exclude. Clinical correlation will be required. 3. No acute intraperitoneal abnormality is seen. 4. Hepatomegaly and hepatic steatosis. 5. Splenomegaly. 6. Large hiatal hernia with intrathoracic stomach. 7. An apparent filling defect is again seen within the right common femoral vein. This may represent mixing artifact. A recent ultrasound for DVT was negative. 8. Segmental right middle lobe pulmonary emboli are again noted. 9. Additional findings as above. Electronically signed by: Topher Stuart M.D. Consultation: A consultation was placed with the Dr. Franklin. The case was discussed and diagnostics were reviewed. He recommends transfer to [place] where the initial surgery was done. I spoke to [place] surgery, Dr. Prater and accepts transfer of this patient. Patient is transferred to [place] in stable condition. Exam and history seem consistent with abdominal pain most likely postsurgical infection and complication. Patient was started on antibiotics. There are new fluid collections on CT imaging. She is exquisitely tender to palpation on the abdominal exam. She is medicated as above and felt much better. She was transferred to [place] the [facility] in stable condition. Patient was agreeable to treatment plan.By the evaluation outlined above emergent etiologies such as appendicitis, diverticulitis, PUD, biliary pathology, UTI, pancreatitis, obstruction, mesenteric ischemia, aortic pathology, inflammatory bowel disease , renal colic, as well as others were deemed relatively unlikely. The pt informed about the findings as listed above. All questions were answered and pleased with the treatment. Case reviewed with my attending Medical Decision As above Impression Primary Impression: Postoperative infection Additional Impressions: Abdominal pain Intra-abdominal infection Departure Information Dispostion Transfer Acute Care Facility Condition [facility] Referrals Moni Mejía M.D. (PCP) Patient Instructions My [facility] Problem Qualifiers Primary Impression: Postoperative infection Encounter type: initial encounter Qualified Codes: T81.4XXA - Infection following a procedure, initial encounter
[2016-11-07 07:40] VITALS: BP 104/69; PULSE 93; O2SAT 98
[2017-01-27] MEDS ORDERED: LEVO-17 PO (23:49)
== END 2016-11-07 07:42 | disposition short-term general hospital (02) ==
LOC: EDBD 22:25 → C.EDB 22:27
DX: T81.4XXA Infection following a procedure, initial encounter (principal); Y83.8 Other surgical procedures as the cause of abnormal reaction of the patient, or of later complication, without mention of misadventure at the time of the procedure; Z79.01 Long term (current) use of anticoagulants; Z79.2 Long term (current) use of antibiotics; E11.9 Type 2 diabetes mellitus without complications; I50.32 Chronic diastolic (congestive) heart failure; E78.5 Hyperlipidemia, unspecified; K76.0 Fatty (change of) liver, not elsewhere classified; K21.9 Gastro-esophageal reflux disease without esophagitis; I10 Essential (primary) hypertension; E03.9 Hypothyroidism, unspecified; M19.90 Unspecified osteoarthritis, unspecified site; G47.30 Sleep apnea, unspecified; Z90.49 Acquired absence of other specified parts of digestive tract; Z90.710 Acquired absence of both cervix and uterus; Z80.9 Family history of malignant neoplasm, unspecified; Z83.3 Family history of diabetes mellitus; Z82.49 Family history of ischemic heart disease and other diseases of the circulatory system; Z79.4 Long term (current) use of insulin; Z79.899 Other long term (current) drug therapy

== ENCOUNTER 2016-11-23 23:03 | Emergency (ER) | payer OTHER ==
[~2016-11-23] VITALS: Ht 157.5 cm; Wt 86.0 kg
[2016-11-23 23:13] VITALS: TEMP 36.8; Ht 157.5 cm; Wt 86.0 kg
[2016-11-23] MEDS ORDERED: METOCLOPRAMIDE HCL INJ 5 MG/ML 2 ML VIAL IV STA (23:39)
[2016-11-23] MEDS ORDERED: SODIUM CHLORIDE 0.9% 1000ML 1,000 ML IV STA (23:39)
--- NOTE | 2016-11-23 23:39 | EMERGENCY ROOM VISIT NOTE ---
History Report prepared by Lorraine: Snow Regalado Under the Supervision of: Dr. Jason Wray M.D. First contact with patient: 23:09 Chief Complaint: ABDOMINAL PAIN Stated Complaint: BACK PAIN Nursing Triage Summary: patient presents via EMS with c/o RLQ abdominal pain / redness. patient states in September she had hernia repair. Patient states last week she was here and diagnosed with sepsis at repair site and was sent to [place] and placed on antibiotics. patient states she is done taking antibiotics but drainage from hernia repair site has been increasing and patient has increased pain. History of Present Illness The patient is a 60 year old female who presents to the Emergency Room with complaints of constant right lower quadrant abdominal pain. She states that she had a hernia repair in September and that her abdomen has been weeping from that area. She states that the weeping has been so bad that it runs down her legs and her bandage had to be changed 9 times today. The patient also complains of lower back pain. She takes Coumadin for blood clots in her lungs but did not take the medication today. She has been diaphoretic but denies having a fever. Source of History: patient Position: abdomen (RLQ) Quality: other (hernia repair) Timing: constant Associated Symptoms: + diaphoresis, + back pain (lower), No fevers Review of Systems See HPI for pertinent positives & negatives. A total of 10 systems reviewed and were otherwise negative. Past Medical & Surgical Medical Problems: (1) Diabetes mellitus, type 2 (2) Diastolic CHF, chronic (3) Dyslipidemia (4) Dyspepsia (5) Fatty liver (6) GERD (gastroesophageal reflux disease) (7) Hiatal hernia (8) History of gastric ulcer (9) Hypertension (10) Hypothyroidism (11) Iron deficiency anemia (12) Migraine headache (13) Osteoarthritis (14) Panniculitis (15) Post-operative infection (16) Rosacea (17) Sleep apnea Surgical Problems: (1) Status post bilateral oophorectomy (2) Status post cholecystectomy (3) Status post hernia repair (4) Status post hysterectomy (5) Status post panniculectomy (6) Status post repair of ventral hernia (7) Status post tonsillectomy Family History Cancer Diabetes mellitus Gallbladder disease Heart disease Hypertension Social History Smoking Status: Never Smoker Alcohol Use: none Drug Use: none Marital Status: single Housing Status: lives with family Occupation Status: unemployed Current/Historical Medications Scheduled Amitriptyline Hcl (Amitriptyline Hcl), 100 MG PO HS Cyanocobalamin (Vitamin B-12), 1,000 MCG PO DAILY Ferrous Sulfate (Ferrous Sulfate), 325 MG PO DAILY Furosemide (Furosemide), 20 MG PO DAILY Insulin Aspart (Novolog), UNITS SC TIDM Insulin Glargine (Lantus), 28 UNITS SC QPM Levothyroxine Sodium (Synthroid), 100 MCG PO DAILY Lisinopril (Zestril), 5 MG PO QAM Metformin Hcl (Glucophage), 1,000 MG PO BID Mupirocin 2% (Bactroban 2%), 1 APPLN EXT UD Simvastatin (Zocor), 20 MG PO HS Triamcinolone Acetonide (Topic (Triamcinolone Acet 0.025%), 1 APPLN TOP BID Warfarin Sodium (Coumadin), 5 MG PO Q2D Warfarin Sodium (Coumadin), 2.5 MG PO Q2D Scheduled PRN Acetaminophen (Tylenol), 1,000 MG PO Q8 PRN for Pain Ranitidine Hcl (Zantac), 300 MG PO DAILY PRN for Heartburn Tramadol (Ultram), 50 MG PO Q6 PRN for Pain Allergies Coded Allergies: Doxycycline (Verified Allergy, Intermediate, Hives., 11/23/16) Reported by PT/[facility] record. Metronidazole (Verified Allergy, Intermediate, Hives., 11/23/16) Reported by PT/[facility] record. Naproxen (Verified Allergy, Unknown, ., 11/23/16) Physical Exam Vital Signs Date Time Temp Pulse Resp B/P (MAP) Pulse Ox O2 Delivery O2 Flow Rate FiO2 11/24/16 02:41 99 20 126/89 100 11/24/16 02:13 99 20 121/80 100 Room Air 11/24/16 01:01 90 20 142/80 99 Room Air 11/23/16 23:41 107 11/23/16 23:13 36.8 105 20 126/84 94 Room Air Physical Exam GENERAL: Patient is a healthy-appearing well-nourished female HEAD: Normocephalic atraumatic EYES: Ocular movements intact pupils equal and react to light OROPHARYNX mucous membranes are moist no exudates present no erythema or edema present NECK: Supple no nuchal rigidity CHEST: Good equal expansion LUNGS: Clear and equal to auscultation CARDIAC: Normal S1 and S2 ABDOMEN: Soft nontender no guarding. Serosanguineous fluid leaking out of abdomen. BACK: No CVA tenderness EXTREMITIES: No pain upon palpation normal muscle strength in all groups no clubbing cyanosis or edema NEURO: Patient is following commands and answering questions appropriately. Alert and oriented x3 Cranial Nerves 2-12 grossly intact Medical Decision & Procedures ER Provider Diagnostic Interpretation: Radiology results as stated below per my review and radiologist interpretation: CT ABDOMEN & PELVIS: Prior 11/07/16. CT L spine also today. Stable large hiatal hernia. Normal small appendix. No free air, free fluid. No bowel obstruction. Fatty liver, cholecystectomy, splenomegaly. Hysterectomy. As on the prior, soft tissue gas and edema of the pannus. Gas collections and small amount of fluid collections in the lateral aspect of the pannus bilaterally have mildly decreased. Similar lower body wall edema. Radiology results as stated below per my review and radiologist interpretation: CT L SPINE: CT abdomen and pelvis today and 11/07/16. No acute fracture or malalignment. Mild multilevel degenerative changes. mild anterolisthesis of L4 on 5. No severe central canal or foraminal stenosis. Moderate central canal stenosis at L4-5. Small sclerotic lesion in the L4 vertebral body, likely benign. Laboratory Results 11/24/16 00:05 Red Blood Count 4.31, Mean Corpuscular Volume 73.1, Mean Corpuscular Hemoglobin 21.8, Mean Corpuscular Hemoglobin Concent 29.8, Mean Platelet Volume 10.2, Neutrophils (%) (Auto) 67.3, Lymphocytes (%) (Auto) 21.8, Monocytes (%) (Auto) 7.9, Eosinophils (%) (Auto) 2.5, Basophils (%) (Auto) 0.3, Neutrophils # (Auto) 4.01, Lymphocytes # (Auto) 1.30, Monocytes # (Auto) 0.47, Eosinophils # (Auto) 0.15, Basophils # (Auto) 0.02 11/24/16 00:05 Test 11/24/16 00:05 11/24/16 00:13 11/24/16 03:20 White Blood Count 5.96 K/uL (4.8-10.8) Red Blood Count 4.31 M/uL (4.2-5.4) Hemoglobin 9.4 g/dL (12.0-16.0) Hematocrit 31.5 % (37-47) Mean Corpuscular Volume 73.1 fL (80-100) Mean Corpuscular Hemoglobin 21.8 pg (25-34) Mean Corpuscular Hemoglobin Concent 29.8 g/dl (32-36) Platelet Count 353 K/uL (130-400) Mean Platelet Volume 10.2 fL (7.4-10.4) Neutrophils (%) (Auto) 67.3 % Lymphocytes (%) (Auto) 21.8 % Monocytes (%) (Auto) 7.9 % Eosinophils (%) (Auto) 2.5 % Basophils (%) (Auto) 0.3 % Neutrophils # (Auto) 4.01 K/uL (1.4-6.5) Lymphocytes # (Auto) 1.30 K/uL (1.2-3.4) Monocytes # (Auto) 0.47 K/uL (0.11-0.59) Eosinophils # (Auto) 0.15 K/uL (0-0.5) Basophils # (Auto) 0.02 K/uL (0-0.2) RDW Standard Deviation 42.0 fL (36.4-46.3) RDW Coefficient of Variation 15.6 % (11.5-14.5) Immature Granulocyte % (Auto) 0.2 % Immature Granulocyte # (Auto) 0.01 K/uL (0.00-0.02) Red Blood Cell Morphology Unremarkable Prothrombin Time 22.2 SECONDS (9.0-12.0) Prothromb Time International Ratio 2.0 (0.9-1.1) Est Creatinine Clear Calc Drug Dose 78.1 ml/min Estimated GFR () 96.6 Estimated GFR (Non- 83.3 BUN/Creatinine Ratio 13.1 (10-20) Calcium Level 8.7 mg/dl (8.5-10.1) Total Bilirubin 0.1 mg/dl (0.2-1) Direct Bilirubin < 0.1 mg/dl (0-0.2) Aspartate Amino Transf (AST/SGOT) 10 U/L (15-37) Alanine Aminotransferase (ALT/SGPT) 15 U/L (12-78) Alkaline Phosphatase 76 U/L (45-117) Total Protein 6.6 gm/dl (6.4-8.2) Albumin 2.6 gm/dl (3.4-5.0) Lipase 158 U/L (73-393) Bedside Hemoglobin 9.9 g/dl (12.0-16.0) Bedside Hematocrit 29 % (37-47) Bedside Sodium 138 mEq/L (135-144) Bedside Potassium 4.0 mEq/L (3.3-5.0) Bedside Chloride 98 mEq/L (101-112) Bedside Total CO2 26 mEq/l (24-31) Anion Gap 19.0 mmol/L (16-25) Bedside Blood Urea Nitrogen 10 mg/dl (7-18) Bedside Creatinine 0.7 mg/dl (0.6-1.3) Bedside Glucose (other) 95 mg/dl (70-99) Bedside Ionized Calcium (Camille) 1.09 mmol/l (1.12-1.32) Labs reviewed by ED physician. Medications Administered Medications (Trade) Dose Ordered Sig/[facility] Route Start Time Stop Time Status Last Admin Dose Admin Sodium Chloride 1,000 ml @ 999 mls/hr Q1H1M STAT IV 11/23/16 23:39 11/24/16 00:39 DC 11/24/16 00:44 999 MLS/HR Metoclopramide HCl (Reglan Inj) 10 mg NOW STAT IV 11/23/16 23:39 11/23/16 23:42 DC 11/24/16 00:43 10 MG ED Course 2331: Past medical records reviewed. The patient was evaluated in room C6. A complete history and physical examination was performed. 2339: Ordered Reglan Inj 10 mg IV, Sodium Chloride 1,000 ml @ 999 mls/hr IV. 0256: I discussed the patient's case with Dr. Ragsdale, he has agreed to evaluate the patient for further management and care. He will accept the patient in [place]. Medical Decision Differential diagnosis: Etiologies such as appendicitis, diverticulitis, PUD, biliary pathology, UTI, pancreatitis, obstruction, mesenteric ischemia, aortic pathology, infections, inflammatory bowel disease, renal colic, as well as others were entertained. This 60-year-old female who presents emergency department complaining of leaking fluid from her pannus. The patient has had change her bandages 9 times today and there is free fluid flowing on exam. This was sent for culture. An IV was established, patient given normal saline bolus, Zofran, morphine. Repeat examination revealed improvement patient's symptoms. The patient was on the way to [facility] however came to [facility] due to the vomiting. She was sent for a CAT scan the abdomen pelvis. This was delayed due to a large delay in stat read reading films. I did discuss the patient's case with the surgical team and [place] who readily accepted the patient. Consults Time Called: 0230 Consulting Physician: Dr. Ragsdale Returned Call: 0256 I discussed the patient's case with Dr. Ragsdale, he has agreed to evaluate the patient for further management and care. He will accept the patient in [place]. Impression Primary Impression: Panniculitis Scribe Attestation The scribe's documentation has been prepared under my direction and personally reviewed by me in its entirety. I confirm that the note above accurately reflects all work, treatment, procedures, and medical decision making performed by me. Departure Information Dispostion Transfer Acute Care Facility Referrals Trina Dial D.O. (PCP) Patient Instructions [facility]
[2016-11-23] MEDS ORDERED: OPTIRAY 320 IV PRN (23:45)
[2016-11-23] MEDS ORDERED: WARF5TAB90 PO (23:58)
[2016-11-23] MEDS ORDERED: CYAN10005 PO (23:59)
[2016-11-24] MEDS ORDERED: TRMO2580 TOP (00:01)
[2016-11-24 00:26] LABS: ISTAT CREATININE 0.7 mg/dl (0.6-1.3); ISTAT HEMOGLOBIN 9.9 g/dl (12.0-16.0); ISTAT IONIZED CALCIUM 1.09 mmol/l (1.12-1.32)
[2016-11-24 00:49] LABS: PROTHROMBIN TIME (PATIENT) 22.2 SECONDS (9.0-12.0)
[2016-11-24 00:55] LABS: BASO % 0.3 %; BASO ABS # 0.02 K/uL (0-0.2); EOS % 2.5 %; HEMATOCRIT 31.5 % (37-47); IG% 0.2 %; LYMPH % 21.8 %; MEAN CELL VOLUME 73.1 fL (80-100); MEAN CORPUSCULAR HEMOGLOBIN 21.8 pg (25-34); MEAN CORPUSCULAR HGB CONC 29.8 g/dl (32-36); MEAN PLATELET VOLUME 10.2 fL (7.4-10.4); MONO % 7.9 %; NEUT % 67.3 %; PLATELET COUNT 353 K/uL (130-400); RED BLOOD COUNT 4.31 M/uL (4.2-5.4); WHITE BLOOD COUNT 5.96 K/uL (4.8-10.8)
[2016-11-24 01:01] LABS: ALT/SGPT 15 U/L (12-78); BLOOD UREA NITROGEN 10 mg/dl (7-18); BUN/CREATININE RATIO 13.1 (10-20); CALCIUM 8.7 mg/dl (8.5-10.1); CARBON DIOXIDE 27 mmol/L (21-32); CHLORIDE 103 mmol/L (98-107); CREATININE 0.77 mg/dl (0.60-1.20); GLUCOSE 94 mg/dl (70-99); POTASSIUM 4.1 mmol/L (3.5-5.1); SODIUM 140 mmol/L (136-145)
[2016-11-24 01:04] LABS: ALKALINE PHOSPHATASE 76 U/L (45-117); AST/SGOT 10 U/L (15-37)
[2016-11-24 01:27] LABS: COMPLETE YES
[2016-11-24 03:32] LABS: URINE APPEARANCE CLEAR (CLEAR); URINE BILIRUBIN NEG (NEG); URINE COLOR YELLOW; URINE NITRITE NEG (NEG); URINE SPECIFIC GRAVITY > 1.045 (1.000-1.030); UROBILINOGEN NEG (NEG)
[2016-11-24] MEDS ORDERED: MoRPHine SULFATE 4 MG/ML 1 ML CARP\\VIAL IV STA (03:40)
[2016-11-24] MEDS ORDERED: ONDANSETRON INJ 2 MG/ML 2 ML VIAL IV STA (03:40)
[2016-11-24 03:50] LABS: MANUAL MICROSCOPIC REQUIRED? NO; REVIEW REQ? NO
[2016-11-24 06:21] VITALS: O2SAT 97
--- NOTE | 2016-11-24 07:00 | DIAGNOSTIC IMAGING REPORT ---
LUMBAR SPINE WITHOUT HISTORY:60 yearsFemalePt c/o low back pain COMPARISON: CT abdomen and pelvis 10/30/2016 TECHNIQUE: Multiple axial CT images of the lumbar spine were obtained without contrast. Coronal and sagittal reformatted images were obtained from the axial data set and submitted for review. FINDINGS: The bones are moderately demineralized. There is 4 mm anterolisthesis of L4 on L5, likely on a degenerative basis as there is moderate to severe facet arthropathy at this interspace. Mild to moderate intervertebral disc space narrowing is seen at several levels along with endplate spurring. No compression deformity. The transverse processes are intact. The imaged sacrum also appears intact. Degenerative changes are present at the sacroiliac joints. 9 x 9 mm sclerotic lesion involving the central posterior aspect of the L4 vertebral body appears benign without aggressive features. There is atherosclerosis of the aorta. No gross intra-abdominal or intrapelvic abnormality identified. T11-T12: Facet arthropathy and small broad-based posterior disc bulge without significant central canal stenosis. There is resultant mild foraminal narrowing bilaterally. T12-L1: Mild intervertebral disc space narrowing with broad-based posterior disc bulge and facet arthropathy causes effacement of the ventral thecal sac without central canal or foraminal narrowing identified. L1-L2: Mild intervertebral disc space narrowing with facet arthropathy. No central canal or foraminal narrowing. L2-L3: Circumferential annular disc bulge with facet arthropathy causes mild central canal narrowing. The neuroforamen appear patent. L3-L4: Intervertebral disc space narrowing with circumferential annular disc bulge, posterior spondylitic spurring and moderate facet arthropathy causes effacement of the ventral thecal sac. No central canal or foraminal narrowing. L4-L5: Disc space uncovering with anterolisthesis as above. Broad-based posterior disc bulge and moderate to severe facet arthropathy is present along with ligamentum flavum redundancy causing mild to moderate central canal and mild inferior right foraminal narrowing. The left foramen appears patent. L5-S1: Mild intervertebral disc space narrowing with posterior spondylitic spurring, ligamentum flavum redundancy and moderate to severe facet arthropathy. No central canal or foraminal narrowing. IMPRESSION: 1. No acute fracture or dislocation of the lumbar spine. 2. 4 mm anterolisthesis of L4 on L5 is likely on a degenerative basis as there is moderate to severe facet arthropathy at this level. 3. Multilevel discogenic degeneration as above without severe stenosis identified. The above report was generated using voice recognition software. It may contain grammatical, syntax or spelling errors. Electronically signed by: Lewis Moreno 11/24/2016 6:59 AM Dictated Date/Time: 11/24/2016 6:51 AM
[2016-11-24 07:25] VITALS: BP 133/100; PULSE 84
--- NOTE | 2016-11-24 07:30 | DIAGNOSTIC IMAGING REPORT ---
ABD/PELVIS IV CONTRAST ONLY HISTORY:60 yearsFemalePt c/o large amount of fluid leakage COMPARISON: CT abdomen and pelvis 11/07/2016 and 10/30/2016. TECHNIQUE: Multiple axial CT images of the abdomen and pelvis were obtained following the intravenous administration of 125 mL Optiray 320. FINDINGS: There is mild subsegmental atelectasis and/or pleural parenchymal scarring of the basal left lower lobe. Coronary arterial calcifications are partially imaged. There is no gross pneumoperitoneum. Prior cholecystectomy. Spleen is mildly enlarged measuring up to 13 cm in length. There is moderate to severe pancreatic atrophy. Right adrenal gland appears normal. There is a 10 x 8 mm soft tissue attenuating nodule of the left adrenal gland which is nonspecific and unchanged from comparison. Statistically this favors a benign entity. Bilateral kidneys are within normal limits. Urinary bladder is unremarkable. Prior hysterectomy. The abdominal aorta is mildly tortuous with moderate degree of atherosclerotic plaquing. There is no bulky retroperitoneal adenopathy identified. There is a large hiatal hernia containing mesenteric fat and the majority of the stomach. This appears unchanged. There is no bowel obstruction. Prior appendectomy. Multiple postsurgical changes are again seen along the abdominal wall. Air beneath the handiness over the central and bilateral aspects of the abdominal wall are again seen with associated phlegmonous change. No drainable collections are identified. These findings have slightly improved from comparison study dated 11/07/2016. The bones appear intact. There is 4 mm anterolisthesis of L4 on L5 which is likely on a degenerative basis. IMPRESSION: 1. No acute intra-abdominal or intrapelvic abnormality identified. 2. Large amount of subcutaneous air and phlegmonous change along the lower anterior abdominal wall has mildly improved from comparison study dated 11/07/2016. No drainable fluid collections are identified at this time. 3. Unchanged large hiatal hernia with partially intrathoracic stomach. 4. 10 x 8 mm soft tissue attenuating nodule of the left adrenal gland is nonspecific. Statistically this would favor a benign etiology. 5. Additional incidental findings as above. The above report was generated using voice recognition software. It may contain grammatical, syntax or spelling errors. Electronically signed by: Lewis Moreno 11/24/2016 7:29 AM Dictated Date/Time: 11/24/2016 7:20 AM
--- NOTE | 2016-11-25 14:52 | Pharmacy Progress Note ---
ED Pharmacist Culture FollowUp Date of Service: Nov 25, 2016. 1 of 2 BLCX's is growing gram positive cocci, preliminary cx reported to be alpha-hemolytic strep (not strep pn or enterococcus), thus likely viridans strep. The patient had been transferred to [facility] yesterday for RLQ abdominal pain, redness and increased drainage following hernia repair site infection. I contacted [facility] today to determine if the patient was still admitted there which she was. I spoke with RN on unit [id number] and faxed both these BLCX results along with wound cx results (fax: [phone]). No further action required from ED standpoint.
--- NOTE | 2016-11-26 11:15 | Pharmacy Progress Note ---
ED Pharmacist Culture FollowUp Date of Service: Nov 26, 2016. Abdominal wound cx finalized today. It grew staph aureus which finalized today as MRSA. Corynebacterium sp is also growing in the culture. Yesterday I had faxed the preliminary wound cx results and blood cx results to [facility]. I did contact [facility] again today and spoke with staff in Dr Rivera 's office (surgery). The patient is still an inpatient. I faxed the finalized wound cx (which has sensitivities reported) to Dr Rivera's office (fax: ). No further action required.
[2017-01-27] MEDS ORDERED: LEVO-17 PO (23:49)
== END 2016-11-24 07:44 | disposition short-term general hospital (02) ==
LOC: EDBD 23:03 → C.EDC 23:05 → C.EDA 11-24 07:44
DX: M79.3 Panniculitis, unspecified (principal); E11.9 Type 2 diabetes mellitus without complications; K76.0 Fatty (change of) liver, not elsewhere classified; I11.0 Hypertensive heart disease with heart failure; K21.9 Gastro-esophageal reflux disease without esophagitis; K44.9 Diaphragmatic hernia without obstruction or gangrene; D50.9 Iron deficiency anemia, unspecified; G43.909 Migraine, unspecified, not intractable, without status migrainosus; M19.90 Unspecified osteoarthritis, unspecified site; G47.30 Sleep apnea, unspecified; Z80.9 Family history of malignant neoplasm, unspecified; Z83.3 Family history of diabetes mellitus; Z83.79 Family history of other diseases of the digestive system; Z82.49 Family history of ischemic heart disease and other diseases of the circulatory system; Z79.4 Long term (current) use of insulin; Z79.01 Long term (current) use of anticoagulants; Z79.899 Other long term (current) drug therapy

== ENCOUNTER 2017-02-08 22:39 | Emergency (ER) | payer OTHER ==
[~2017-02-08] VITALS: Ht 157.5 cm; Wt 75.4 kg
[~2017-02-08 22:39] MED LIST changes: -CMD5 PO; +CYAN10005 PO; +LEVO-17 PO; -LVNIS150 SC; -LVQ500 PO; -TRIA0.022; +TRMO2580 TOP; -VTMB12 PO; +WARF5TAB90 PO
[2017-02-08 22:51] VITALS: TEMP 36.9; Ht 157.5 cm; Wt 75.4 kg
[2017-02-08 23:34] LABS: BASO % 0.3 %; BASO ABS # 0.02 K/uL (0-0.2); EOS % 2.2 %; HEMATOCRIT 31.5 % (37-47); IG% 0.1 %; LYMPH % 12.1 %; LYMPH ABS # 0.92 K/uL (1.2-3.4); MEAN CELL VOLUME 71.3 fL (80-100); MEAN CORPUSCULAR HEMOGLOBIN 22.6 pg (25-34); MEAN CORPUSCULAR HGB CONC 31.7 g/dl (32-36); MEAN PLATELET VOLUME 10.2 fL (7.4-10.4); NEUT % 78.3 %; PLATELET COUNT 276 K/uL (130-400); RED BLOOD COUNT 4.42 M/uL (4.2-5.4); WHITE BLOOD COUNT 7.59 K/uL (4.8-10.8)
[2017-02-08] MEDS ORDERED: INSDGIPEN SC (23:38)
[2017-02-08] MEDS ORDERED: FURO20TA PO (23:38)
[2017-02-08] MEDS ORDERED: CYAN500T PO (23:43)
[2017-02-08] MEDS ORDERED: SENN-61 PO (23:43)
[2017-02-08] MEDS ORDERED: FERR325T5 PO (23:44)
[2017-02-08] MEDS ORDERED: OXGN (23:44)
[2017-02-08 23:45] LABS: POINT OF CARE TROPONIN I < 0.030 ng/ml (0-0.045)
[2017-02-08] MEDS ORDERED: ACET325T96 PO (23:47)
[2017-02-08] MEDS ORDERED: ASCO500C43 PO (23:50)
[2017-02-08 23:52] LABS: ALT/SGPT 15 U/L (12-78); AST/SGOT 10 U/L (15-37); BLOOD UREA NITROGEN 30 mg/dl (7-18); BUN/CREATININE RATIO 21.7 (10-20); CALCIUM 8.6 mg/dl (8.5-10.1); CARBON DIOXIDE 26 mmol/L (21-32); CHLORIDE 107 mmol/L (98-107); GLUCOSE 144 mg/dl (70-99); SODIUM 142 mmol/L (136-145)
[2017-02-08 23:57] LABS: ALB/GLOB RATIO 0.6 (0.9-2); ALKALINE PHOSPHATASE 72 U/L (45-117)
[2017-02-08] MEDS ORDERED: SODIUM CHLORIDE 0.9% 1000ML 1,000 ML IV STA (23:57)
[2017-02-09 00:20] LABS: ANISOCYTOSIS PRESENT; COMPLETE YES; MICROCYTOSIS PRESENT; POLYCHROMASIA 1+
[2017-02-09 00:38] VITALS: BP 110/65; PULSE 96; O2SAT 100
[2017-02-09] MEDS ORDERED: OXYC-57 PO (00:39)
--- NOTE | 2017-02-09 00:41 | EMERGENCY ROOM VISIT NOTE ---
History First contact with patient: 22:57 Chief Complaint: SHOULDER PAIN Stated Complaint: PAIN IN LF SHOULDER INTO LF SIDE OF NECK History of Present Illness The patient is a 61 year old female who presents to the Emergency Room with complaints of left neck and shoulder pain. The patient states that she has had pain radiating from the left neck into the shoulder and anterior chest for the past few days. She reports the pain is slightly worse with movement of the shoulder. She reports she also has right lower abdominal pain. She had a hiatal hernia surgery in September and now has a wound VAC in the right lower abdomen. She states she has had pain since the wound VAC was placed and this is unchanged. She saw wound care in [facility] today and they stated that everything seems to be healing appropriately. She does report a history of blood clots in the lungs which were found during her hospitalization. She stopped her anticoagulants a few days ago. She denies any recent leg pain or swelling. She is not a smoker. Review of Systems A complete 10 point review of systems was reviewed with the patient with pertinent positives and negatives as per history of present illness. All else were negative. Past Medical/Surgical History Medical Problems: (1) Diabetes mellitus, type 2 (2) Diastolic CHF, chronic (3) Dyslipidemia (4) Dyspepsia (5) Fatty liver (6) GERD (gastroesophageal reflux disease) (7) Hiatal hernia (8) History of gastric ulcer (9) Hypertension (10) Hypothyroidism (11) Iron deficiency anemia (12) Migraine headache (13) Osteoarthritis (14) Panniculitis (15) Post-operative infection (16) Rosacea (17) Sleep apnea Surgical Problems: (1) Status post bilateral oophorectomy (2) Status post cholecystectomy (3) Status post hernia repair (4) Status post hysterectomy (5) Status post panniculectomy (6) Status post repair of ventral hernia (7) Status post tonsillectomy Family History Cancer Diabetes mellitus Gallbladder disease Heart disease Hypertension Social History Smoking Status: Never Smoker Alcohol Use: none Drug Use: none Marital Status: single Housing Status: lives with family Occupation Status: unemployed Current/Historical Medications Scheduled Amitriptyline Hcl (Amitriptyline Hcl), 100 MG PO HS Ascorbic Acid (Vitamin C 500 mg), 500 MG PO DAILY Cyanocobalamin (Vitamin B-12), 500 MCG PO DAILY Ferrous Sulfate (Ferrous Sulfate), 325 MG PO BID Furosemide (Lasix), 20 MG PO DAILY Home O2 Therapy (Oxygen), 2 LITERS NA HS Insulin Aspart (Novolog), 10 UNITS SC TIDM Insulin Glargine (Lantus Solostar), 28 UNITS SC QPM Levofloxacin (Levaquin), 1 TAB PO DAILY Levothyroxine Sodium (Synthroid), 100 MCG PO DAILY Lisinopril (Zestril), 5 MG PO QAM Metformin Hcl (Glucophage), 1,000 MG PO BID Senna (Senokot), 1 TAB PO DAILY Simvastatin (Zocor), 20 MG PO HS Scheduled PRN Acetaminophen Tab (Tylenol), 650 MG PO UD PRN for Pain Oxycodone/Acetaminophen 5MG/325MG (Percocet 5MG/325MG), 1 TAB PO Q4H PRN for Pain Ranitidine Hcl (Zantac), 300 MG PO DAILY PRN for Heartburn Allergies Coded Allergies: Doxycycline (Verified Allergy, Intermediate, Hives., 02/08/17) Reported by PT/[facility] record. Metronidazole (Verified Allergy, Intermediate, Hives., 02/08/17) Reported by PT/[facility] record. Naproxen (Verified Allergy, Unknown, ., 02/08/17) Physical Exam Vital Signs Date Time Temp Pulse Resp B/P (MAP) Pulse Ox O2 Delivery O2 Flow Rate FiO2 02/09/17 00:38 96 18 110/65 100 Room Air 02/09/17 00:04 99 18 110/65 97 Room Air 02/08/17 22:51 36.9 108 18 107/75 100 Room Air Physical Exam VITALS: Vitals are noted on the nurse's note and reviewed by myself. Vital signs stable. GENERAL: This is a 61-year-old female, in no acute distress, nondiaphoretic, well-developed well-nourished. SKIN: There is a wound VAC in place in the right lower abdomen. No surrounding erythema or swelling. EARS: External auditory canals clear, tympanic membranes pearly moran without erythema or effusion bilaterally. EYES: Pupils equal round and reactive to light and accommodation. Conjunctivae without injection, sclerae without icterus. MOUTH: Mucous membranes moist. Tonsils are not enlarged. Pharynx without erythema or exudate. NECK: Supple without nuchal rigidity. No lymphadenopathy. No tenderness of the cervical spine. There is vague tenderness of the left cervical paraspinal muscles. HEART: Regular rate and rhythm without murmurs gallops or rubs. LUNGS: Clear to auscultation bilaterally without wheezes, rales or rhonchi. No retractions or accessory muscle use. ABDOMEN: Soft, no significant tenderness to palpation. Wound VAC in place in the right lower abdomen. MUSCULOSKELETAL: Vague tenderness in the left anterior shoulder. Full range of motion of the shoulder. NEURO: Patient was alert and oriented to person place and time. Normal sensation to light and sharp touch. Medical Decision & Procedures ER Provider Diagnostic Interpretation: CHEST X-RAY: Cardiomegaly. No infiltrate. Appears unchanged from previous. Laboratory Results 02/08/17 23:20 Red Blood Count 4.42, Mean Corpuscular Volume 71.3, Mean Corpuscular Hemoglobin 22.6, Mean Corpuscular Hemoglobin Concent 31.7, Mean Platelet Volume 10.2, Neutrophils (%) (Auto) 78.3, Lymphocytes (%) (Auto) 12.1, Monocytes (%) (Auto) 7.0, Eosinophils (%) (Auto) 2.2, Basophils (%) (Auto) 0.3, Neutrophils # (Auto) 5.94, Lymphocytes # (Auto) 0.92, Monocytes # (Auto) 0.53, Eosinophils # (Auto) 0.17, Basophils # (Auto) 0.02 02/08/17 23:20 Test 02/08/17 23:20 02/08/17 23:28 White Blood Count 7.59 K/uL (4.8-10.8) Red Blood Count 4.42 M/uL (4.2-5.4) Hemoglobin 10.0 g/dL (12.0-16.0) Hematocrit 31.5 % (37-47) Mean Corpuscular Volume 71.3 fL (80-100) Mean Corpuscular Hemoglobin 22.6 pg (25-34) Mean Corpuscular Hemoglobin Concent 31.7 g/dl (32-36) Platelet Count 276 K/uL (130-400) Mean Platelet Volume 10.2 fL (7.4-10.4) Neutrophils (%) (Auto) 78.3 % Lymphocytes (%) (Auto) 12.1 % Monocytes (%) (Auto) 7.0 % Eosinophils (%) (Auto) 2.2 % Basophils (%) (Auto) 0.3 % Neutrophils # (Auto) 5.94 K/uL (1.4-6.5) Lymphocytes # (Auto) 0.92 K/uL (1.2-3.4) Monocytes # (Auto) 0.53 K/uL (0.11-0.59) Eosinophils # (Auto) 0.17 K/uL (0-0.5) Basophils # (Auto) 0.02 K/uL (0-0.2) RDW Standard Deviation 57.5 fL (36.4-46.3) RDW Coefficient of Variation 22.4 % (11.5-14.5) Immature Granulocyte % (Auto) 0.1 % Immature Granulocyte # (Auto) 0.01 K/uL (0.00-0.02) Polychromasia 1+ Anisocytosis PRESENT Microcytosis PRESENT Anion Gap 9.0 mmol/L (3-11) Est Creatinine Clear Calc Drug Dose 39.6 ml/min Estimated GFR () 46.6 Estimated GFR (Non- 40.2 BUN/Creatinine Ratio 21.7 (10-20) Calcium Level 8.6 mg/dl (8.5-10.1) Total Bilirubin 0.2 mg/dl (0.2-1) Aspartate Amino Transf (AST/SGOT) 10 U/L (15-37) Alanine Aminotransferase (ALT/SGPT) 15 U/L (12-78) Alkaline Phosphatase 72 U/L (45-117) Total Creatine Kinase 35 U/L (26-192) Creatine Kinase MB < 0.5 ng/ml (0.5-3.6) Creatine Kinase MB Ratio (0-3.0) Total Protein 7.5 gm/dl (6.4-8.2) Albumin 2.9 gm/dl (3.4-5.0) Globulin 4.6 gm/dl (2.5-4.0) Albumin/Globulin Ratio 0.6 (0.9-2) Lipase 193 U/L (73-393) Bedside D-Dimer 245 ng/mlFEU (0-450) Bedside Troponin I < 0.030 ng/ml (0-0.045) Medications Administered Medications (Trade) Dose Ordered Sig/Kamla Route Start Time Stop Time Status Last Admin Dose Admin Sodium Chloride 1,000 ml @ 999 mls/hr Q1H1M STAT IV 02/08/17 23:57 02/09/17 00:57 DC 02/09/17 00:04 999 MLS/HR Oxycodone/ Acetaminophen (Percocet 5/ 325MG Home Pack) 1 homepack UD ONCE PO 02/09/17 00:45 02/09/17 00:46 DC 02/09/17 00:54 1 HOMEPACK ECG Rate (beats per minute): 102 Rhythm: sinus tachycardia Findings: no acute ischemic change, no ectopy ED Course The patient was evaluated as above. Labs were drawn and IV access was obtained. Patient was medicated with 1 L normal saline solution. Patient was reevaluated and findings were discussed. Discharge instructions were reviewed with the patient. The patient verbalized understanding of my assessment and treatment plan and was discharged home in good condition. Medical Decision Differential diagnosis includes ACS, PE, musculoskeletal pain, referred abdominal pain, infection, among others. The patient is a 61-year-old female who presents today complaining of left shoulder pain. Labs were unremarkable for the patient. She does have a stable anemia. Creatinine is mildly elevated 1.4 and patient was advised to have this rechecked. A d-dimer was checked due to the patient's tachycardia and history of pulmonary embolism and was not elevated. Troponin was not elevated. EKG showed no acute ischemic changes. Pain is reproducible on palpation and may be due to cervical radiculopathy or muscular strain. Patient was given a home pack of OxyIR and a prescription for this as well. She was referred to her primary care provider for further evaluation and encouraged to return if she has any worsening or new/concerning symptoms. The patient's case was reviewed with Dr. Jean, ED attending physician, who agreed with my assessment and treatment plan. Based on the patient's presentation and work up, I feel the patient is stable for outpatient treatment. The patient was educated to return to the emergency department for any worsening of their current condition or new/concerning symptoms. She will follow up with her PCP. Medication reconciliation: I attest that I have personally reviewed the patient 's current medication list. Blood pressure screening: Patient was found to have normal blood pressure on screening and does not require follow-up. [place] Drug Monitoring Program Search Results: patient reviewed within database Impression Primary Impression: Left shoulder pain Departure Information Dispostion Home / Self-Care Condition GOOD Prescriptions Oxycodone/Acetaminophen 5MG/325MG (PERCOCET 5MG/325MG) Tab 1 TAB PO Q4H Y for Pain, #12 TAB For Initial Treatment Prov: Staci Hawthorne PA-C 02/09/17 Referrals Trina Dial D.O. (PCP) Patient Instructions [facility] Additional Instructions You have been prescribed Percocet to be used for pain control. Take 1-2 tablets every 4-6 hours as needed for pain. This is a narcotic medication. You cannot drive or consume alcohol while on this medicine. This medicine should only be used for pain that cannot be controlled with [id number] pain medicines. Drink plenty of fluids. Your creatinine was found to be elevated and should be rechecked by her primary care provider. Call your primary care provider tomorrow morning to schedule a follow-up appointment. Return to the emergency department with any worsening or new/concerning symptoms. Problem Qualifiers Primary Impression: Left shoulder pain Chronicity: acute Qualified Codes: M25.512 - Pain in left shoulder
[2017-02-09] MEDS ORDERED: PERCOCET HOME PACK PO ONE (00:45)
--- NOTE | 2017-02-09 06:03 | DIAGNOSTIC IMAGING REPORT ---
CHEST ONE VIEW PORTABLE CLINICAL HISTORY: left shoulder/ neck pain pain COMPARISON STUDY: 11/06/2016 FINDINGS: Fixed hiatal hernia. Possible small left effusion. Mild cardiomegaly. Lungs otherwise are clear. IMPRESSION: Hiatal hernia. Mildly cardio megaly. Small left effusion. The above report was generated using voice recognition software. It may contain grammatical, syntax or spelling errors. Electronically signed by: Kenneth Johnson M.D. 02/09/2017 6:02 AM Dictated Date/Time: 02/09/2017 6:01 AM
== END 2017-02-09 00:55 | disposition home or self-care (01) ==
LOC: C.EDB 22:40 → C.EDC 02-09 00:55
DX: M25.512 Pain in left shoulder (principal); E11.9 Type 2 diabetes mellitus without complications; I50.32 Chronic diastolic (congestive) heart failure; I11.0 Hypertensive heart disease with heart failure; E78.5 Hyperlipidemia, unspecified; K21.9 Gastro-esophageal reflux disease without esophagitis; K76.0 Fatty (change of) liver, not elsewhere classified; E03.9 Hypothyroidism, unspecified; M19.90 Unspecified osteoarthritis, unspecified site; G47.30 Sleep apnea, unspecified; L71.9 Rosacea, unspecified; Z90.710 Acquired absence of both cervix and uterus; Z90.49 Acquired absence of other specified parts of digestive tract; Z90.722 Acquired absence of ovaries, bilateral; Z80.9 Family history of malignant neoplasm, unspecified; Z83.3 Family history of diabetes mellitus; Z82.49 Family history of ischemic heart disease and other diseases of the circulatory system; Z79.4 Long term (current) use of insulin; Z79.899 Other long term (current) drug therapy

== ENCOUNTER 2021-08-16 19:56 | Inpatient (IN) ==
[2021-08-16] MEDS: NITROGLYCERIN SL 0.4 MG/TAB TAB SL PRN ×2 (20:25→20:43)
[2021-08-16 20:30] LABS: Basophils # (auto) 0.02 K/uL (0-0.2); Basophils % (auto) 0.3 %; Eosinophils # (auto) 0.22 K/uL (0-0.5); Eosinophils % (auto) 2.9 %; Hematocrit (blood only) 43.7 % (37-47); Hemoglobin 14.8 g/dL (12.0-16.0); Immature Granulocytes # (auto) 0.02 K/uL (0.00-0.02); Immature Granulocytes % (auto) 0.3 %; Lymphocytes # (auto) 1.69 K/uL (1.2-3.4); Lymphocytes % (auto) 22.6 %; Mean Corpuscular Hemoglobin 29.5 pg (25-34); Mean Corpuscular Hgb Conc 33.9 g/dL (32-36); Mean Corpuscular Volume 87.1 fL (80-100); Mean Platelet Volume 11.6 fL (7.4-10.4); Monocytes # (auto) 0.49 K/uL (0.11-0.59); Monocytes % (auto) 6.5 %; Neutrophils # (auto) 5.05 K/uL (1.4-6.5); Neutrophils % (auto) 67.4 %; Platelet Count 228 K/uL (130-400); RDW Coefficient of Variation 13.8 % (11.5-14.5); RDW Standard Deviation 43.2 fL (36.4-46.3); Red Blood Count 5.02 M/uL (4.2-5.4); White Blood Count 7.49 K/uL (4.8-10.8)
--- NOTE | 2021-08-16 20:33 | XRay Report ---
XR chest 1V portable HISTORY: 65 years-old Female Chest Pain acute atypical chest pain COMPARISON: Chest radiograph 02/25/2020, CT abdomen and pelvis 11/10/2018. TECHNIQUE: Portable AP view of the chest FINDINGS: Cardiomegaly. Large hiatal hernia with chronic left hemidiaphragmatic elevation. Atherosclerosis of t he thoracic aorta. There is no pneumothorax, large pleural effusion or overt pulmonary edema. There i s unchanged blunting of the lateral left costophrenic angle. IMPRESSION: 1. Cardiomegaly without acute process. 2. Large hiatal hernia with chronic left hemidiaphragmatic elevation. ACT 112: Negative or not required by law. The above report was generated using voice recognition software. It may contain grammatical, syntax o r spelling errors. Electronically signed by: Tomas Moreno M.D. 08/16/2021 8:31 PM
--- NOTE | 2021-08-16 20:39 | Emergency Department Note ---
History of Present Illness General Chief Complaint: Chest Pain Stated Complaint: CHEST PAIN Time Seen by Provider: 08/16/21 20:02 History of Present Illness Provider Complaint: chest pain Onset (ago): day(s) 3 Duration: intermittent Onset: during rest Pain Location: left chest Pain Radiation: none Severity: moderate Current Pain Intensity: 8 Quality: + aching and + dull Relieved By: + nothing Exacerbated By: + nothing Context: + history of DVT/PE; no recent illness, no recent surgery, no recent immobilization, no recent travel or no trauma/injury Associated symptoms: no vomiting, no diaphoresis, no dyspnea, no syncope, no palpitations, no fever, no cough or no leg swelling Treatments prior to arrival: aspirin Home Medications Medication Instructions Recorded Confirmed Type amitriptyline 100 mg tablet 100 mg PO HS 11/09/18 08/16/21 History atorvastatin 20 mg tablet 20 mg PO DAILY 11/09/18 08/16/21 History furosemide 20 mg tablet (Lasix) 20 mg PO QAM 11/09/18 08/16/21 History insulin aspart U-100 100 unit/mL 14 unit SUBCUT TIDM 11/09/18 08/16/21 History subcutaneous solution (Novolog U-100 Insulin aspart) insulin glargine 100 unit/mL 50 unit SUBCUT HS 11/09/18 08/16/21 History subcutaneous solution (Lantus U-100 Insulin) levothyroxine 100 mcg tablet 100 mcg PO DAILYBB 11/09/18 08/16/21 History metformin 500 mg tablet 500 mg PO BIDM 11/09/18 08/16/21 History minocycline 100 mg tablet 100 mg PO QAM 11/09/18 08/16/21 History dicyclomine 10 mg capsule 10 mg PO TID PRN 02/25/20 08/16/21 History omeprazole 20 mg capsule,delayed 20 mg PO QAM 02/25/20 08/16/21 History release docusate sodium 100 mg capsule 100 mg PO BID 08/16/21 08/16/21 History ferrous sulfate 325 mg (65 mg 325 mg PO DAILY 08/16/21 08/16/21 History iron) tablet (iron) lisinopril 10 mg tablet 10 mg PO QAM 08/16/21 08/16/21 History polyethylene glycol 3350 17 17 g PO DAILY PRN 08/16/21 08/16/21 History gram/dose oral powder (Miralax) Allergies Allergy/AdvReac Type Severity Reaction Status Date / Time adhesive tape Allergy Intermediate large welts Verified 08/16/21 20:30 doxycycline Allergy Intermediate Hives Verified 08/16/21 20:30 lactose Allergy Intermediate Gastrointestinal Verified 08/16/21 20:30 Upset lorazepam Allergy Intermediate elevated Verified 08/16/21 20:30 BS, elevated BP, Dry Heaves metronidazole Allergy Intermediate Hives Verified 08/16/21 20:30 naproxen Allergy Intermediate Hives Verified 08/16/21 20:30 Past Med/Surg History Medical History (Updated 08/16/21 @ 22:05 by Joe Nava) Anemia Chronic diarrhea reason for colonoscopy Congestive heart failure Depression Diabetes type 2, controlled Dyslipidemia Fatty liver Gastric ulcer GERD (gastroesophageal reflux disease) Hiatal hernia Hypertension Hypothyroidism Migraine On home oxygen therapy 2L at hs via N/C Osteoarthritis Osteoporosis Sleep apnea 2L at hs via N/C Surgical History History of colonoscopy History of dilatation and curettage History of esophagogastroduodenoscopy (EGD) History of hysterectomy with unilateral oophorectomy History of surgical removal of ganglion cyst right wrist History of tonsillectomy History of tooth extraction all upper teeth removed/most of lower teeth removed History of ventral hernia repair x2 S/P cholecystectomy Family History Father Family history of diabetes mellitus Mother Family history of diabetes mellitus Other No family history of adverse response to anesthesia Social History Smoking Status: Never smoker Second Hand Exposure: No; Hx Alcohol Use: No Hx Substance Use: No Preferred Language: [place] Communication Ability: Effective 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 Beliefs That Will Affect Care: None Current Living Situation: Family Feels Safe at Home: Yes Assistive Devices: Denture - Upper, Glasses and Oxygen - at Night Review of Systems A total of 10 systems reviewed and were otherwise negative Physical Exam Vital Signs Vital Signs - 24 hr 08/16/21 20:10 08/16/21 20:12 08/16/21 20:30 Temperature 36.8 C Temperature Source Oral Pulse Rate 112 H 99 H 111 H Pulse Rate from SpO2 Sensor 98 H Respiratory Rate 15 20 21 Respiratory Effort / Characteristics Respiratory Depth Respiratory Pattern Blood Pressure 147/102 H 139/78 Blood Pressure Mean 117 98 Blood Pressure Position Lying Pulse Oximetry 100 99 100 Oxygen Delivery Method Room Air Room Air Sepsis Recent Fever Within 48 Hours No Sepsis New/Unexplained Change in Mental Status No Sepsis Action Taken by Nursing No Action Required 08/16/21 20:37 08/16/21 20:45 08/16/21 21:30 Temperature Temperature Source Pulse Rate 106 H Pulse Rate from SpO2 Sensor Respiratory Rate 18 18 Respiratory Effort / Characteristics Non-Labored Respiratory Depth Normal Respiratory Pattern Regular Blood Pressure 118/80 Blood Pressure Mean 92 Blood Pressure Position Pulse Oximetry 100 99 Oxygen Delivery Method Room Air Room Air Sepsis Recent Fever Within 48 Hours Sepsis New/Unexplained Change in Mental Status Sepsis Action Taken by Nursing Physical Exam GENERAL: She is oriented to person, place, and time. She appears well-developed and well-nourished. She does not appear distressed. HENT: Exam performed. -Head: Normocephalic and atraumatic. -Right Ear: External ear normal. No mastoid tenderness. -Left Ear: External ear normal. No mastoid tenderness. -Mouth/Throat: The oropharynx is clear and moist. No trismus in the jaw. No dental abscesses or uvula swelling. No oropharyngeal exudate or tonsillar abscesses. EYES: Conjunctivae and EOM are normal. Pupils are equal, round, and reactive to light. Right eye exhibits no discharge. Left eye exhibits no discharge. No scleral icterus. NECK: Normal range of motion. Neck supple. No JVD present. No spinous process tenderness present. No carotid bruit present. No rigidity. No tracheal deviation and normal range of motion present. No Brudzinski's sign and no Kernig's sign noted. CV: Normal rate, regular rhythm, normal heart sounds and intact distal pulses. There is no peripheral edema. Palpable radial pulses bue. PULM/CHEST: Effort normal and breath sounds normal. No respiratory distress. No stridor. She has no wheezes. She has no rales. -Chest Wall: She exhibits no tenderness. ABD: The abdomen is soft. Bowel sounds are normal. She has no distension. No mass is present. There is no tenderness. There is no rebound, no guarding, no Hagen's sign and no tenderness at McBurney's point. Rovsig negative MUSC/SKEL: Normal range of motion. There is no peripheral edema, tenderness or deformity. LYMPH: No cervical adenopathy. NEURO: She is alert and oriented to person, place, and time. She has normal strength. No cranial nerve deficit or sensory deficit. Coordination and gait normal. GCS eye subscore is 4. GCS verbal subscore is 5. GCS motor subscore is 6. Cerebellar tests wnl. SKIN: Skin is warm and dry. She is not diaphoretic. PSYCH: She has a normal mood and affect. Behavior is normal. Judgment and thought content normal. Course Course 2002: The patient was evaluated in room A11. A complete history and physical exam was performed Cardiac monitoring: An order was placed for continuous cardiac monitoring. The monitor shows a rate of 100 with sinus rhythm 2200: Vital signs stable. Labs within normal limits with the exception of a positive D-dimer, CTA of the chest negative for PE. Patient's pain got better after sublingual nitroglycerin. [facility] notified Administered Medications Nitroglycerin (Nitroglycerin Sl 0.4 Mg/Tab Tab) 0.4 mg SL UD PRN PRN Reason: Chest Pain Stop: 09/15/21 20:08 Last Admin: 08/16/21 20:43 Dose: 0.4 mg Documented by: [id number] Admin: 08/16/21 20:25 Dose: 0.4 mg Documented by: [id number] Discontinued Medications Ioversol (Optiray 320 125ml) 120 ml IV ONCE ONE Stop: 08/16/21 21:09 Last Admin: 08/16/21 21:09 Dose: 120 ml Documented by: [id number] Morphine Sulfate (Morphine Sulfate 2 Mg/Ml Carp) 2 mg IV NOW STA Stop: 08/16/21 21:24 Last Admin: 08/16/21 21:32 Dose: 2 mg Documented by: [id number] Medical Decision Making Laboratory Data Result diagrams: 08/16/21 20:18 08/16/21 20:18 Labs: Lab Results 08/16/21 08/16/21 08/16/21 Range/Units 20:18 20:18 20:18 WBC 7.49 (4.8-10.8) K/uL RBC 5.02 (4.2-5.4) M/uL Hgb 14.8 (12.0-16.0) g/dL Hct 43.7 (37-47) % MCV 87.1 (80-100) fL MCH 29.5 (25-34) pg MCHC 33.9 (32-36) g/dL RDW Std Deviation 43.2 (36.4-46.3) fL RDW Coeff of Primitivo 13.8 (11.5-14.5) % Plt Count 228 (130-400) K/uL MPV 11.6 H (7.4-10.4) fL Immature Gran % (Auto) 0.3 % Neut % (Auto) 67.4 % Lymph % (Auto) 22.6 % Kemper % (Auto) 6.5 % Eos % (Auto) 2.9 % Baso % (Auto) 0.3 % Neut # (Auto) 5.05 (1.4-6.5) K/uL Lymph # (Auto) 1.69 (1.2-3.4) K/uL Kemper # (Auto) 0.49 (0.11-0.59) K/uL Eos # (Auto) 0.22 (0-0.5) K/uL Baso # (Auto) 0.02 (0-0.2) K/uL Immature Gran # (Auto) 0.02 (0.00-0.02) K/uL PT 9.7 (9.0-12.0) Seconds INR 0.9 (0.9-1.1) APTT 22.8 (21.0-31.0) Seconds PTT Ratio 0.8 D-Dimer 1310 H* (0-500) ug/L FEU Sodium 138 (136-145) mmol/L Potassium 3.8 (3.5-5.1) mmol/L Chloride 102 (98-107) mmol/L Carbon Dioxide 27 (21-32) mmol/L Anion Gap 9 (3-11) BUN 23 (6-23) mg/dl Creatinine 1.48 H (0.6-1.2) mg/dl Est Cr Clr Drug Dosing Not Reportable Est GFR ( Amer) 42.3 ml/min Est GFR (Non-Af Amer) 36.5 ml/min BUN/Creatinine Ratio 15.5 (10-20) Glucose 105 H (70-99(Fasting)) mg/dl Calcium 9.0 (8.5-10.1) mg/dl Total Creatine Kinase 69 (26-192) U/L Troponin I < 0.03 (0-0.04) ng/ml Lipase 50 (11-82) U/L SARS-CoV-2, RNA, NAAT (NEGATIVE) 08/16/21 Range/Units 21:37 WBC (4.8-10.8) K/uL RBC (4.2-5.4) M/uL Hgb (12.0-16.0) g/dL Hct (37-47) % MCV (80-100) fL MCH (25-34) pg MCHC (32-36) g/dL RDW Std Deviation (36.4-46.3) fL RDW Coeff of Primitivo (11.5-14.5) % Plt Count (130-400) K/uL MPV (7.4-10.4) fL Immature Gran % (Auto) % Neut % (Auto) % Lymph % (Auto) % Kemper % (Auto) % Eos % (Auto) % Baso % (Auto) % Neut # (Auto) (1.4-6.5) K/uL Lymph # (Auto) (1.2-3.4) K/uL Kemper # (Auto) (0.11-0.59) K/uL Eos # (Auto) (0-0.5) K/uL Baso # (Auto) (0-0.2) K/uL Immature Gran # (Auto) (0.00-0.02) K/uL PT (9.0-12.0) Seconds INR (0.9-1.1) APTT (21.0-31.0) Seconds PTT Ratio D-Dimer (0-500) ug/L FEU Sodium (136-145) mmol/L Potassium (3.5-5.1) mmol/L Chloride (98-107) mmol/L Carbon Dioxide (21-32) mmol/L Anion Gap (3-11) BUN (6-23) mg/dl Creatinine (0.6-1.2) mg/dl Est Cr Clr Drug Dosing Est GFR ( Amer) ml/min Est GFR (Non-Af Amer) ml/min BUN/Creatinine Ratio (10-20) Glucose (70-99(Fasting)) mg/dl Calcium (8.5-10.1) mg/dl Total Creatine Kinase (26-192) U/L Troponin I (0-0.04) ng/ml Lipase (11-82) U/L SARS-CoV-2, RNA, NAAT NEGATIVE (NEGATIVE) Imaging Data Chest x-ray: Radiologist's impression: XR chest 1V portable HISTORY: 65 years-old Female Chest Pain acute atypical chest pain COMPARISON: Chest radiograph 02/25/2020, CT abdomen and pelvis 11/10/2018. TECHNIQUE: Portable AP view of the chest FINDINGS: Cardiomegaly. Large hiatal hernia with chronic left hemidiaphragmatic elevation. Atherosclerosis of the thoracic aorta. There is no pneumothorax, large pleural effusion or overt pulmonary edema. There is unchanged blunting of the lateral left costophrenic angle. IMPRESSION: 1. Cardiomegaly without acute process. 2. Large hiatal hernia with chronic left hemidiaphragmatic elevation. ACT 112: Negative or not required by law. The above report was generated using voice recognition software. It may contain grammatical, syntax or spelling errors. Electronically signed by: Tomas Moreno M.D. 08/16/2021 8:31 PM Dictated:08/16/212028 Transcribed: 08/16/212028 CT scan - chest: Radiologist's impression: CT angio chest PE protocol CT DOSE: 674.75 mGy.cm HISTORY: 65 years-old Female with ro PE. Acute shortness of breath TECHNIQUE: Multiple CTA images of the chest were obtained after the intravenous administration of 120 ml Optiray. Coronal and sagittal MIPS were obtained from the axial data set and were submitted for review. All measurements were obtained according to NASCET criteria. A dose lowering technique was utilized adhering to the principles of ALARA. COMPARISON: Chest radiograph of same day, CTA chest 11/10/2018 FINDINGS: CTA: The heart is normal in size. There is no pericardial effusion. Extensive coronary artery calcifications. Atherosclerosis of the thoracic aorta without aneurysm or dissection. Unremarkable pulmonary artery. CT CHEST: No thyroid nodule. Nonspecific mildly enlarged paratracheal lymph node on image 154 measures 10 mm, likely physiologic. No pneumothorax, large pleural effusion or overt pulmonary edema. Chronic left hemidiaphragmatic elevation with large hiatal hernia. Left basilar atelectasis. No suspicious pulmonary nodules identified. There are a few fissural nodules measuring up to 3 mm which are likely benign. Central airways are patent. No acute process of the imaged upper abdomen. Hepatomegaly with probable hepatic steatosis. Unremarkable soft tissues. Degenerative changes of the shoulders and spine. No acute fracture or destructive bone lesion. IMPRESSION: 1. No acute intrathoracic abnormality. No pulmonary emboli. 2. Chronic left hemidiaphragmatic elevation with large hiatal hernia. 3. Mild left basilar atelectasis. ACT 112: Negative or not required by law. The above report was generated using voice recognition software. It may contain grammatical, syntax or spelling errors. Electronically signed by: Tomas Moreno M.D. 08/16/2021 9:22 PM Dictated:08/16/212115 Transcribed: 08/16/212115 ECG Data Additional Comments: EKG #1 at 2002: Sinus arrhythmia with a rate of 97. NE 176 QRS [address] elevation or ST depression. EKG #2 at 2030: Sinus arrhythmia with a rate of 107. NE 178 QRS [address] elevation or ST depression. MDM Narrative Vital signs stable. Labs within normal limits with the exception of a positive D-dimer, CTA of the chest negative for PE. Patient's pain got better after sublingual nitroglycerin. Patient will be admitted to the [facility] hospitalist team Dr. Olson notified Impression & Plan Chest pain Discharge Plan Visit Data Chief Complaint: Chest Pain Stated Complaint: CHEST PAIN ED Provider: Joe Nava Discharge Problem: Chest pain Patient Disposition: Being Evaluated by Hospitalist Forms Stand Alone Forms: [facility] Prescriptions Prescriptions: No Action omeprazole 20 mg capsule,delayed release(DR/EC) 20 mg PO QAM RF: 0 dicyclomine 10 mg capsule 10 mg PO TID PRN (Reason: ABD PAIN) RF: 0 metformin 500 mg Tablet 500 mg PO BIDM RF: 0 atorvastatin 20 mg Tablet 20 mg PO DAILY RF: 0 Lantus U-100 Insulin 100 unit/mL Solution 50 unit SUBCUT HS RF: 0 levothyroxine 100 mcg Tablet 100 mcg PO DAILYBB RF: 0 insulin aspart U-100 [Novolog U-100 Insulin aspart] 100 unit/mL Solution 14 unit SUBCUT TIDM RF: 0 furosemide [Lasix] 20 mg Tablet 20 mg PO QAM RF: 0 amitriptyline 100 mg Tablet 100 mg PO HS RF: 0 minocycline 100 mg Tablet 100 mg PO QAM RF: 0 ferrous sulfate [iron] 325 mg (65 mg iron) Tablet 325 mg PO DAILY RF: 0 lisinopril 10 mg tablet 10 mg PO QAM RF: 0 docusate sodium 100 mg Capsule 100 mg PO BID RF: 0 polyethylene glycol 3350 [Miralax] 17 gram/dose Powder 17 g PO DAILY PRN (Reason: Constipation) RF: 0 Referrals Referrals: Trina Dial DO [Primary Care Provider] -
[2021-08-16 20:42] LABS: INR 0.9 (0.9-1.1); Partial Thromboplastin Ratio 0.8; Partial Thromboplastin Time 22.8 Seconds (21.0-31.0); Prothrombin Time 9.7 Seconds (9.0-12.0)
[2021-08-16 20:43] LABS: D Dimer 1310 ug/L FEU (0-500)
[2021-08-16 20:50] LABS: Anion Gap 9 (3-11); BUN Creatinine Ratio 15.5 (10-20); Blood Urea Nitrogen 23 mg/dl (6-23); Carbon Dioxide 27 mmol/L (21-32); Chloride 102 mmol/L (98-107); Creatine Kinase 69 U/L (26-192); Est GFR (African American) 42.3 ml/min; Est GFR (Non-African American) 36.5 ml/min; Glucose 105 mg/dl (70-99(Fasting)); Lipase 50 U/L (11-82); Potassium 3.8 mmol/L (3.5-5.1); Sodium 138 mmol/L (136-145)
[2021-08-16 20:52] LABS: Troponin I < 0.03 ng/ml (0-0.04)
[2021-08-16] MEDS ORDERED: OPTIRAY 320 125ml IV ONE (21:08)
[2021-08-16] MEDS ORDERED: MoRPHine SULFATE 2 MG/ML CARP IV STA (21:23)
--- NOTE | 2021-08-16 21:24 | CT Scan Report ---
CT angio chest PE protocol CT DOSE: 674.75 mGy.cm HISTORY: 65 years-old Female with ro PE. Acute shortness of breath TECHNIQUE: Multiple CTA images of the chest were obtained after the intravenous administration of 120 ml Optiray. Coronal and sagittal MIPS were obtained from the axial data set and were submitted for review. All measurements were obtained according to NASCET criteria. A dose lowering technique was u tilized adhering to the principles of ALARA. COMPARISON: Chest radiograph of same day, CTA chest 11/10/2018 FINDINGS: CTA: The heart is normal in size. There is no pericardial effusion. Extensive coronary artery calcificatio ns. Atherosclerosis of the thoracic aorta without aneurysm or dissection. Unremarkable pulmonary jhonny ry. CT CHEST: No thyroid nodule. Nonspecific mildly enlarged paratracheal lymph node on image 154 measures 10 mm, l ikely physiologic. No pneumothorax, large pleural effusion or overt pulmonary edema. Chronic left hem idiaphragmatic elevation with large hiatal hernia. Left basilar atelectasis. No suspicious pulmonary nodules identified. There are a few fissural nodules measuring up to 3 mm which are likely benign. Ce ntral airways are patent. No acute process of the imaged upper abdomen. Hepatomegaly with probable hepatic steatosis. Unremarka ble soft tissues. Degenerative changes of the shoulders and spine. No acute fracture or destructive b one lesion. IMPRESSION: 1. No acute intrathoracic abnormality. No pulmonary emboli. 2. Chronic left hemidiaphragmatic elevation with large hiatal hernia. 3. Mild left basilar atelectasis. ACT 112: Negative or not required by law. The above report was generated using voice recognition software. It may contain grammatical, syntax o r spelling errors. Electronically signed by: Tomas Moreno M.D. 08/16/2021 9:22 PM
[2021-08-16] MEDS ORDERED: ONDANSETRON INJ 2 MG/ML 2 ML VIAL IV STA (21:59)
[2021-08-16] MEDS ORDERED: ACETAMINOPHEN 325 MG TAB PO PRN (23:42)
[2021-08-16] MEDS ORDERED: NITROGLYCERIN SL 0.4 MG/TAB TAB SL PRN (23:42)
[2021-08-16] MEDS ORDERED: DICYCLOMINE HCL 10 MG CAP PO PRN (23:42)
[2021-08-16] MEDS ORDERED: POLYETHYLENE (MIRALAX) 17 GM PACK PO PRN ×2 (23:42)
[2021-08-16] MEDS ORDERED: MoRPHine SULFATE 2 MG/ML CARP IV PRN (23:42)
[2021-08-16] MEDS ORDERED: Nursing to Pharmacy Communication SCH (23:45)
[2021-08-16] MEDS ORDERED: INSULIN GLARGINE SOLOSTAR 100 UNITS/ML 3 ML PEN SC STA (23:53)
[2021-08-17] MEDS ORDERED: CARBOHYDRATES FOR HYPOGLYCEMIA PO PRN (00:15)
[2021-08-17] MEDS ORDERED: DEXTROSE 50% 50 ML SYRINGE IV PRN (00:15)
[2021-08-17] MEDS ORDERED: GLUCOSE 40% GEL 15 GM TUBE PO PRN (00:15)
[2021-08-17] MEDS ORDERED: GLUCAGON FOR INJ 1 MG VIAL IM PRN (00:15)
[2021-08-17] MEDS ORDERED: GLUCOSE 10 TABS/TUBE PO PRN (00:15)
[2021-08-17] MEDS: INSULIN ASPART PER UNIT SC SCH ×5 (00:36→20:54)
[2021-08-17] MEDS ORDERED: INSULIN ASPART PER UNIT SC SCH (01:00)
--- NOTE | 2021-08-17 01:17 | History and Physical Report ---
DATE OF ADMISSION: 08/16/2021. CHIEF COMPLAINT: Chest pain. HISTORY OF PRESENT ILLNESS: This is a 65-year-old female with a past medical history significant for type 2 diabetes, hyperlipidemia, hypothyroidism, obesity hypoventilation syndrome, diastolic CHF, hypertension, sinus arrhythmia, GERD, nonalcoholic fatty liver disease, stage III chronic kidney disease, hiatal hernia, osteoporosis, migraine, obesity, who presents with chest pain. The patient says for the last 3 days, she is having left-sided chest pain, constant sharp pain, about 8/10 in severity, associated with some nausea. In the ER, initial workup was negative. She was treated with morphine and nitro. The pain is improving. She has always had headaches, no dizziness, no blurred visions, no earache, no runny nose, no sore throat, no cough, no fevers. She gets short of breath on exertion. Once in a while she gets sweating. No abdominal pain. She has ongoing constipation and diarrhea, uses stool softener. Denies any blood in stool or black stool. Normal bladder movements. No swelling in the legs. Sleeping okay. ALLERGIES: TO ADHESIVE TAPE, DOXYCYCLINE, LACTULOSE, LORAZEPAM, METRONIDAZOLE, NAPROXEN. PAST MEDICAL HISTORY: As mentioned above. PAST SURGICAL HISTORY: Colonoscopy, drainage of abdominal abscess, EGD with biopsy, excision of excessive skin and subcutaneous tissue including lipectomy, abdominal infraumbilical panniculectomy, implantation of mesh with incisional ventral hernia, laparoscopic cholecystectomy, right wrist ganglion cyst removed, bilateral removal of the ovaries, tonsillectomy, total hysterectomy. MEDICATIONS: The patient is on amitriptyline 100 mg p.o. at bedtime, atorvastatin 20 mg p.o. daily, dicyclomine 10 mg p.o. t.i.d. p.r.n., Colace 100 mg p.o. b.i.d., ferrous sulfate 325 mg p.o. daily, Lasix 20 mg p.o. a.m., insulin NovoLog 40 units subcutaneous t.i.d. with meals, Lantus 50 units subcutaneous at bedtime, levothyroxine 100 mcg p.o. daily, lisinopril 10 mg p.o. a.m., metformin 500 mg p.o. b.i.d., minocycline 100 mg p.o. a.m., omeprazole 20 mg p.o. daily, MiraLax 17 g p.o. daily p.r.n. FAMILY HISTORY: Significant for father had thyroid cancer, heart disorder; mother has heart disorder, diabetes. SOCIAL HISTORY: Lives with her sister. No smoking, no alcohol, no drug use. REVIEW OF SYSTEMS: As per HPI. Rest of review of systems is negative. PHYSICAL EXAMINATION: GENERAL: The patient is obese, not in acute distress. VITAL SIGNS: Temperature 36.8, pulse 106, respiratory rate 18, blood pressure 113/88, oxygen 100% on room air. HEENT: Pupils equal, round and reactive to light. Oral mucosa moist. NECK: No JVD, no neck masses. CARDIOVASCULAR: S1 and S2 heard. Regular rate and rhythm. No murmur, no gallop. RESPIRATORY SYSTEM: Normal AP diameter. No accessory muscle use. No wheezing, no crackles. ABDOMEN: Soft, bowel sounds present, nontender, no distention. CENTRAL NERVOUS SYSTEM: Cranial nerves II through XII grossly intact, nonfocal. EXTREMITIES: No edema, no erythema. LABORATORY DATA: WBC 7.4, hemoglobin 14.8, hematocrit 43.7, platelets 228. PT 9.7, INR 0.9, APTT 22.8. D-dimer 1310. Sodium 138, potassium 3.8, chloride 102, bicarbonate 27, BUN 23, creatinine 1.4, serum glucose 105, calcium 9, total creatine kinase 69. Troponin I less than 0.03, lipase 50. SARS-CoV-2 rapid test negative. IMAGING DATA: CT of the chest, no PE, chronic left hemidiaphragmatic elevation with large hiatal hernia, mild left basilar atelectasis. Chest x-ray, cardiomegaly without acute process. Large hiatal hernia with chronic left hemidiaphragmatic elevation. EKG: Sinus tachycardia with premature supraventricular complexes, rate of 107. ASSESSMENT AND PLAN: This 65-year-old female presents with chest pain. 1. Chest pain: Rule out acute coronary syndrome. Initial workup is negative. D-dimer is elevated, but CT chest, no PE. Risk factors of age, obesity, diabetes, hypertension. Will follow serial enzymes, echo. Keep her n.p.o. Consult cardiology in the a.m. for further recommendations. 2. History of diabetes: Placed on insulin sliding scale. Continue Lantus 50 units subcutaneous at bedtime. If the patient continues to be n.p.o., we will cut her Lantus dose Follow HbA1c level. Follow the blood sugars. 3. Hypertension: Continue lisinopril. We will monitor blood pressure. 4. Gastroesophageal reflux disease: On omeprazole. 5. Hyperlipidemia: Continue statin. 6. Diastolic congestive heart failure: on Lasix and lisinopril We will monitor for any volume overload. 7. Chronic kidney disease stage III: Presently with creatinine of 1.4. Baseline creatinine is 1.3. We will follow the repeat labs. 8. Deep venous thrombosis prophylaxis: SCDs. DISPOSITION: Monitor in the med tele. PT/OT prior to discharge. Social service to help with discharge planning. Job ID: [id number] JAYRO
[2021-08-17] MEDS: ONDANSETRON INJ 2 MG/ML 2 ML VIAL IV PRN ×2 (05:26→12:43)
[2021-08-17] MEDS: LEVOTHYROXINE SODIUM 100 MCG TABLET PO SCH (05:28)
[2021-08-17 05:29] LABS: Basophils # (auto) 0.02 K/uL (0-0.2); Basophils % (auto) 0.3 %; Eosinophils # (auto) 0.19 K/uL (0-0.5); Eosinophils % (auto) 2.6 %; Hematocrit (blood only) 40.6 % (37-47); Hemoglobin 13.5 g/dL (12.0-16.0); Immature Granulocytes # (auto) 0.02 K/uL (0.00-0.02); Immature Granulocytes % (auto) 0.3 %; Lymphocytes % (auto) 26.4 %; Mean Corpuscular Hgb Conc 33.3 g/dL (32-36); Mean Corpuscular Volume 87.1 fL (80-100); Mean Platelet Volume 11.7 fL (7.4-10.4); Monocytes % (auto) 8.3 %; Neutrophils # (auto) 4.48 K/uL (1.4-6.5); Neutrophils % (auto) 62.1 %; Platelet Count 220 K/uL (130-400); RDW Coefficient of Variation 13.9 % (11.5-14.5); RDW Standard Deviation 43.6 fL (36.4-46.3); Red Blood Count 4.66 M/uL (4.2-5.4); White Blood Count 7.21 K/uL (4.8-10.8)
[2021-08-17 06:19] LABS: BUN Creatinine Ratio 17.1 (10-20); Calcium 8.3 mg/dl (8.5-10.1); Creatinine Clr Calc Pharmacy 46.9 ml/min; Est GFR (African American) 52.9 ml/min; Est GFR (Non-African American) 45.7 ml/min; Magnesium 1.6 mg/dl (1.7-2.4); Potassium 4.2 mmol/L (3.5-5.1)
[2021-08-17] MEDS: ATORVASTATIN 20 MG TAB PO SCH (08:54)
[2021-08-17] MEDS: FERROUS SULFATE 325 MG TAB PO SCH (08:54)
[2021-08-17] MEDS: FUROSEMIDE 20 MG TAB PO SCH (08:54)
[2021-08-17] MEDS: DOCUSATE SODIUM 100 MG CAP PO SCH ×3 (08:54→20:57)
[2021-08-17] MEDS: PANTOprazole 40 MG TAB PO SCH (08:55)
[2021-08-17] MEDS: lisinopril 10 MG TAB PO SCH (08:55)
--- NOTE | 2021-08-17 10:08 | Electrocardiogram Report ---
Test Reason : Blood Pressure : / mmHG Vent. Rate : 107 BPM Atrial Rate : 107 BPM P-R Int : 178 ms QRS Dur : 078 ms QT Int : 346 ms P-R-T Axes : 031 004 073 degrees QTc Int : 461 ms Sinus tachycardia with Premature supraventricular complexes Septal infarct (cited on or before 06-NOV-2016) Abnormal ECG When compared with ECG of 16-AUG-2021 20:03, (unconfirmed) Premature supraventricular complexes are now Present Confirmed by José Jean ([id number]) on 08/17/2021 10:08:44 AM Referred By: REFERRED SELF Confirmed By:José Jean
--- NOTE | 2021-08-17 10:08 | Electrocardiogram Report ---
Test Reason : Blood Pressure : / mmHG Vent. Rate : 097 BPM Atrial Rate : 097 BPM P-R Int : 176 ms QRS Dur : 072 ms QT Int : 348 ms P-R-T Axes : -20 -09 064 degrees QTc Int : 441 ms Normal sinus rhythm with sinus arrhythmia Possible Septal infarct (cited on or before 06-NOV-2016) Abnormal ECG When compared with ECG of 25-FEB-2020 05:40, No significant change was found Confirmed by José Jean ([id number]) on 08/17/2021 10:08:31 AM Referred By: REFERRED SELF Confirmed By:José Jean
--- NOTE | 2021-08-17 10:16 | Electrocardiogram Report ---
Test Reason : Blood Pressure : / mmHG Vent. Rate : 095 BPM Atrial Rate : 095 BPM P-R Int : 188 ms QRS Dur : 078 ms QT Int : 380 ms P-R-T Axes : 000 032 074 degrees QTc Int : 477 ms Sinus rhythm with PVC's in a trigeminal pattern Low voltage QRS Septal infarct (cited on or before 06-NOV-2016) Abnormal ECG When compared with ECG of 16-AUG-2021 20:31, (unconfirmed) Premature ventricular complexes are now Present Premature supraventricular complexes are no longer Present Confirmed by José Jean ([id number]) on 08/17/2021 10:16:46 AM Referred By: REFERRED SELF Confirmed By:José Jean
--- NOTE | 2021-08-17 13:46 | Cardiology Consultation ---
Date of Consultation August 17, 2021 Assessment & Plan (1) Chest pain: (2) Diabetes mellitus, type 2: The patient's cardiac markers are negative. Her EKG shows no acute changes. Echocardiogram although not the best quality shows normal LV function. Her chest pain has been going on for 3 to 4 days and is very reproducible with palpation of the left chest wall and she states it increases with deep inspiration and movement. I think this is noncardiac. I do not believe any additional cardiac testing is indicated at this time. She does have a large hiatal hernia on the left side which I do not believe at this time is contributing. I would start her on analgesics and nonsteroidals for chest wall pain. Please reconsult us if necessary otherwise the patient can be discharged per the hospitalist service. History of Present Illness Attending Physician: José Luis Tinoco MD History of Present Illness This is a 65-year-old diabetic female with a history of a large hiatal hernia with left hemidiaphragm elevation who has had continuous left-sided chest pain for the past 3 to 4 days nonstop. She describes it as a dull ache. It is increased with inspiration and movement. No shortness of breath or dyspnea. No heart palpitations or tachycardia. Since admission her cardiac markers have been negative. Echocardiogram indicates normal LV function and no wall motion abnormalities. EKG shows acute changes that would suggest cardiac ischemia. There are a few PVCs which are unifocal and most likely benign on the EKGs. She has had no significant arrhythmias on telemetry. Her pain is very reproducible with palpation of the anterior and left-side of her chest. Allergies Allergy/AdvReac Type Severity Reaction Status Date / Time adhesive tape Allergy Intermediate large welts Verified 08/16/21 20:30 doxycycline Allergy Intermediate Hives Verified 08/16/21 20:30 lactose Allergy Intermediate Gastrointestinal Verified 08/16/21 20:30 Upset lorazepam Allergy Intermediate elevated Verified 08/16/21 20:30 BS, elevated BP, [place]aves metronidazole Allergy Intermediate Hives Verified 08/16/21 20:30 naproxen Allergy Intermediate Hives Verified 08/16/21 20:30 Home Medications Medication Instructions Recorded Confirmed Type amitriptyline 100 mg tablet 100 mg PO HS 11/09/18 08/16/21 History atorvastatin 20 mg tablet 20 mg PO DAILY 11/09/18 08/16/21 History furosemide 20 mg tablet (Lasix) 20 mg PO QA 11/09/18 08/16/21 History insulin aspart U-100 100 unit/mL 14 unit SUBCUT TIDM 11/09/18 08/16/21 History subcutaneous solution (Novolog U-100 Insulin aspart) insulin glargine 100 unit/mL 50 unit SUBCUT HS 11/09/18 08/16/21 History subcutaneous solution (Lantus U-100 Insulin) levothyroxine 100 mcg tablet 100 mcg PO DAILYBB 11/09/18 08/16/21 History metformin 500 mg tablet 500 mg PO BIDM 11/09/18 08/16/21 History minocycline 100 mg tablet 100 mg PO QAM 11/09/18 08/16/21 History dicyclomine 10 mg capsule 10 mg PO TID PRN 02/25/20 08/16/21 History omeprazole 20 mg capsule,delayed 20 mg PO QAM 02/25/20 08/16/21 History release docusate sodium 100 mg capsule 100 mg PO BID 08/16/21 08/16/21 History ferrous sulfate 325 mg (65 mg 325 mg PO DAILY 08/16/21 08/16/21 History iron) tablet (iron) lisinopril 10 mg tablet 10 mg PO QAM 08/16/21 08/16/21 History polyethylene glycol 3350 17 17 g PO DAILY PRN 08/16/21 08/16/21 History gram/dose oral powder (Miralax) Patient History Medical History Anemia Chronic diarrhea reason for colonoscopy Congestive heart failure Depression Diabetes type 2, controlled Dyslipidemia Fatty liver Gastric ulcer GERD (gastroesophageal reflux disease) Hiatal hernia Hypertension Hypothyroidism Migraine On home oxygen therapy 2L at hs via N/C Osteoarthritis Osteoporosis Sleep apnea 2L at hs via N/C Surgical History History of colonoscopy History of dilatation and curettage History of esophagogastroduodenoscopy (EGD) History of hysterectomy with unilateral oophorectomy History of surgical removal of ganglion cyst right wrist History of tonsillectomy History of tooth extraction all upper teeth removed/most of lower teeth removed History of ventral hernia repair x2 S/P cholecystectomy Family History Father Family history of diabetes mellitus Mother Family history of diabetes mellitus Other No family history of adverse response to anesthesia Social History Smoking Status: Never smoker Second Hand Exposure: No; Hx Alcohol Use: No Hx Substance Use: No Preferred Language: Sami Communication Ability: Effective 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 All other 10 point review of systems are negative. Physical Exam Physical Exam: General: no acute distress and stated age Head: normocephalic, no masses, lesions, tenderness or abnormalities Eyes: conjunctiva are pink and non-injected, sclera clear Neck: supple, no adenopathy, no bruits, normal jugular venous pulse, no hepatojugular reflux Chest: normal shape and normal respiratory effort Lungs: clear to auscultation and percussion Cardiac Exam: - regular rate & rhythm, no murmurs gallops or rubs - normal S1, normal S2 Pulses: 2(+) throughout Abdomen: abdomen soft, non-tender, no abnormal masses and no hepatosplenomegaly Musculoskeletal: no gait disturbance, no joint inflammation, no deforming arthritis Extremities: no edema and no cyanosis Neuro: grossly normal exam Results & Data ([facility]) Vital Signs (Past 12 Hours) Vital Signs Temp Pulse Pulse Resp BP Pulse Ox 08/17/21 11:11 36.7 C 86 18 121/75 100 08/17/21 07:57 95 H 08/17/21 07:24 36.4 C L 85 18 106/67 100 08/17/21 02:28 36.8 C 97 H 18 94/62 L 99 Laboratory Results Laboratory Results - last 24 hr 08/16/21 08/16/21 08/16/21 20:18 20:18 20:18 WBC 7.49 RBC 5.02 Hgb 14.8 Hct 43.7 MCV 87.1 MCH 29.5 MCHC 33.9 RDW Std Deviation 43.2 RDW Coeff of Primitivo 13.8 Plt Count 228 MPV 11.6 H Immature Gran % (Auto) 0.3 Neut % (Auto) 67.4 Lymph % (Auto) 22.6 Orange % (Auto) 6.5 Eos % (Auto) 2.9 Baso % (Auto) 0.3 Neut # (Auto) 5.05 Lymph # (Auto) 1.69 Orange # (Auto) 0.49 Eos # (Auto) 0.22 Baso # (Auto) 0.02 Immature Gran # (Auto) 0.02 PT 9.7 INR 0.9 APTT 22.8 PTT Ratio 0.8 D-Dimer 1310 H* Sodium 138 Potassium 3.8 Chloride 102 Carbon Dioxide 27 Anion Gap 9 BUN 23 Creatinine 1.48 H Est Cr Clr Drug Dosing Not Reportable Est GFR ( Amer) 42.3 Est GFR (Non-Af Amer) 36.5 BUN/Creatinine Ratio 15.5 Glucose 105 H POC Glucose Estimat Average Glucose Hemoglobin A1c Calcium 9.0 Magnesium Total Creatine Kinase 69 Troponin I < 0.03 Lipase 50 SARS-CoV-2, RNA, NAAT 08/16/21 08/16/21 08/17/21 21:37 23:31 05:15 WBC RBC Hgb Hct MCV MCH MCHC RDW Std Deviation RDW Coeff of Primitivo Plt Count MPV Immature Gran % (Auto) Neut % (Auto) Lymph % (Auto) Orange % (Auto) Eos % (Auto) Baso % (Auto) Neut # (Auto) Lymph # (Auto) Orange # (Auto) Eos # (Auto) Baso # (Auto) Immature Gran # (Auto) PT INR APTT PTT Ratio D-Dimer Sodium Potassium Chloride Carbon Dioxide Anion Gap BUN Creatinine Est Cr Clr Drug Dosing Est GFR ( Amer) Est GFR (Non-Af Amer) BUN/Creatinine Ratio Glucose POC Glucose 180 H Estimat Average Glucose Hemoglobin A1c Calcium Magnesium Total Creatine Kinase Troponin I < 0.03 Lipase SARS-CoV-2, RNA, NAAT NEGATIVE 08/17/21 08/17/21 08/17/21 05:15 05:15 05:15 WBC 7.21 RBC 4.66 Hgb 13.5 Hct 40.6 MCV 87.1 MCH 29.0 MCHC 33.3 RDW Std Deviation 43.6 RDW Coeff of Primitivo 13.9 Plt Count 220 MPV 11.7 H Immature Gran % (Auto) 0.3 Neut % (Auto) 62.1 Lymph % (Auto) 26.4 Orange % (Auto) 8.3 Eos % (Auto) 2.6 Baso % (Auto) 0.3 Neut # (Auto) 4.48 Lymph # (Auto) 1.90 Orange # (Auto) 0.60 H Eos # (Auto) 0.19 Baso # (Auto) 0.02 Immature Gran # (Auto) 0.02 PT INR APTT PTT Ratio D-Dimer Sodium 140 Potassium 4.2 Chloride 105 Carbon Dioxide 26 Anion Gap 9 BUN 21 Creatinine 1.23 H Est Cr Clr Drug Dosing 46.9 Est GFR ( Amer) 52.9 Est GFR (Non-Af Amer) 45.7 BUN/Creatinine Ratio 17.1 Glucose 133 H POC Glucose Estimat Average Glucose Pending Hemoglobin A1c Pending Calcium 8.3 L Magnesium 1.6 L Total Creatine Kinase Troponin I Lipase SARS-CoV-2, RNA, NAAT 08/17/21 08/17/21 08/17/21 05:27 08:49 11:32 WBC RBC Hgb Hct MCV MCH MCHC RDW Std Deviation RDW Coeff of Primitivo Plt Count MPV Immature Gran % (Auto) Neut % (Auto) Lymph % (Auto) Orange % (Auto) Eos % (Auto) Baso % (Auto) Neut # (Auto) Lymph # (Auto) Orange # (Auto) Eos # (Auto) Baso # (Auto) Immature Gran # (Auto) PT INR APTT PTT Ratio D-Dimer Sodium Potassium Chloride Carbon Dioxide Anion Gap BUN Creatinine Est Cr Clr Drug Dosing Est GFR ( Amer) Est GFR (Non-Af Amer) BUN/Creatinine Ratio Glucose POC Glucose 143 H 165 H Estimat Average Glucose Hemoglobin A1c Calcium Magnesium Total Creatine Kinase Troponin I < 0.03 Lipase SARS-CoV-2, RNA, NAAT Medications Administered Current Inpatient Medications Acetaminophen (Acetaminophen 325 Mg Tab) 650 mg PO Q4H PRN PRN Reason: Pain or Fever Stop: 09/15/21 23:41 Amitriptyline HCl (Amitriptyline Hcl 100 Mg Tab) 100 mg PO HS RUFINO Stop: 09/16/21 20:59 Atorvastatin Calcium (Atorvastatin 20 Mg Tab) 20 mg PO DAILY [facility] Stop: 09/16/21 08:59 Last Admin: 08/17/21 08:54 Dose: 20 mg Documented by: Dextrose (Dextrose 50% 50 Ml Syringe) 25 - 50 ml IV UD PRN; Protocol PRN Reason: Hypoglycemia Protocol Stop: 09/16/21 00:14 Dicyclomine HCl (Dicyclomine Hcl 10 Mg Cap) 10 mg PO TID PRN PRN Reason: ABD PAIN Stop: 09/15/21 23:41 Docusate Sodium (Docusate Sodium 100 Mg Cap) 100 mg PO BID RUFINO Stop: 09/16/21 08:59 Last Admin: 08/17/21 08:56 Dose: Not Given Documented by: Ferrous Sulfate (Ferrous Sulfate 325 Mg Tab) 325 mg PO DAILY [facility] Stop: 09/16/21 08:59 Last Admin: 08/17/21 08:54 Dose: 325 mg Documented by: Furosemide (Furosemide 20 Mg Tab) 20 mg PO QAM [facility] Stop: 09/16/21 08:59 Last Admin: 08/17/21 08:54 Dose: 20 mg Documented by: Glucagon (Glucagon For Inj 1 Mg Vial) 1 mg IM UD PRN; Protocol PRN Reason: Hypoglycemia Protocol Stop: 09/16/21 00:14 Glucose (Glucose 40% Gel 15 Gm Tube) 15 - 30 gm PO UD PRN; Protocol PRN Reason: Hypoglycemia Protocol Stop: 09/16/21 00:14 Glucose (Glucose 10 Tabs/Tube) 4 - 8 tabs PO UD PRN; Protocol PRN Reason: Hypoglycemia Protocol Stop: 09/16/21 00:14 Insulin Aspart (Insulin Aspart Per Unit) 0 units SC Q6 [facility] Stop: 09/16/21 00:29 Last Admin: 08/17/21 12:37 Dose: 4 units Documented by: Insulin Glargine (Insulin Glargine Solostar 100 Units/Ml 3 Ml Pen) 50 units SQ HS [facility] Stop: 09/16/21 20:59 Levothyroxine Sodium (Levothyroxine Sodium 100 Mcg Tablet) 100 mcg PO DAILYBB [facility] Stop: 09/16/21 06:29 Last Admin: 08/17/21 05:28 Dose: 100 mcg Documented by: Lisinopril (Lisinopril 10 Mg Tab) 10 mg PO QAM [facility] Stop: 09/16/21 08:59 Last Admin: 08/17/21 08:55 Dose: 10 mg Documented by: Miscellaneous (Minocycline - Order Awaiting Action) 1 ea N/A QS [facility] Stop: 09/16/21 07:59 Last Admin: 08/17/21 08:54 Dose: Not Given Documented by: Miscellaneous (Carbohydrates For Hypoglycemia ) 15 - 30 gm PO UD PRN PRN Reason: Hypoglycemia Treatment Stop: 09/16/21 00:14 Morphine Sulfate (Morphine Sulfate 2 Mg/Ml Carp) 2 mg IV Q4H PRN PRN Reason: Pain Stop: 08/30/21 23:41 Last Admin: 08/17/21 05:31 Dose: 2 mg Documented by: Nitroglycerin (Nitroglycerin Sl 0.4 Mg/Tab Tab) 0.4 mg SL UD PRN PRN Reason: Chest Pain Stop: 09/15/21 23:41 Ondansetron HCl (Ondansetron Inj 2 Mg/Ml 2 Ml Vial) 4 mg IV Q6H PRN PRN Reason: Nausea Stop: 09/15/21 23:41 Last Admin: 08/17/21 12:43 Dose: 4 mg Documented by: Pantoprazole Sodium (Pantoprazole 40 Mg Tab) 40 mg PO QAM [facility] Stop: 09/16/21 08:59 Last Admin: 08/17/21 08:55 Dose: 40 mg Documented by: Polyethylene Glycol (Polyethylene (Miralax) 17 Gm Pack) 17 gm PO DAILY PRN PRN Reason: Constipation Stop: 09/15/21 23:41
--- NOTE | 2021-08-17 13:58 | Hospitalist Progress Note ---
Date of Service August 17, 2021 Assessment & Plan (1) Atypical chest pain: Plan: Presented with left lateral chest wall pain for the last 2 to 3 days Localized tenderness of the left upper lateral chest wall Serial cardiac enzymes, EKG unremarkable Echo of the heart-technically limited study with grossly normal valvular structure and function. LV size is normal, systolic function 60 to 65%, RV systolic function is normal, LA size is normal and right atrium is not visualized Appreciate cardiology input and recommendation Likely noncardiac chest pain No change in her medication PT and OT evaluation Obesity Sleep apnea Strongly advised to lose weight (2) Diabetes mellitus, type 2: Plan: We will hold any oral medications Continue with SSI We will check hemoglobin A1c (3) Diastolic CHF, chronic: Plan: No evidence of fluid overload (4) Hypertension: Plan: Blood pressure seems to be controlled (5) Hypothyroidism: Plan: Continue supplement (6) Hiatal hernia: Plan: Has used hiatal hernia May be contributing some of the chest symptoms DVT prophylaxis SCDs Increase ambulation PT and OT evaluation for discharge CODE STATUS Full Admission and Anticipated Discharge Date Admission Date: August 16, 2021 Subjective 08/17/2021 The patient was seen and examined in medical telemetry unit She has been complaining of left lateral chest pain which has been going on for the last 2 to 3 days Pain is all the time the and not aggravated by activities Associated with minimal shortness of breath but no sweating and there is no radiation of the pain Some time pain could be aggravated with deep respiration No other associated symptoms Review of Systems Review of Systems: All systems reviewed and are unremarkable except as noted below Respiratory: No shortness of breath at rest Cardiovascular: Additional Comments: Denies any palpitation and/or chest pain at rest Physical Exam Physical Exam: Lying in bed comfortably Constitutional: well developed, well nourished and + obese; not ill appearing Eyes: PERRL, conjunctivae normal, anicteric sclerae ENMT: external ear and nose normal, oropharynx normal Neck: trachea midline, no thyromegaly Respiratory: + respiratory distress (Minimal distress at rest) Auscultation: + diminished lung sounds and + crackles (Minimal crackles at the bases) Localized tenderness at the upper left lateral chest wall with palpation Cardiovascular: Rate/Rhythm: regular rate and regular rhythm; not tachycardic Heart Sounds: normal S1 and normal S2; no murmur Extremities: + edema (Trace edema bilaterally) Gastrointestinal (Abdomen): Inspection/Auscultation: normal bowel sounds; abdomen not distended Percussion/Palpation: abdomen soft; abdomen nontender Musculoskeletal: No acute arthritis in any joint Neurologic: Alert, awake and oriented x3. No focal sensory and motor deficit appreciated Results & Data Results & Data ([facility]) Vital Signs (Past 12 Hours) Vital Signs Temp Pulse Pulse Resp BP Pulse Ox 08/17/21 11:11 36.7 C 86 18 121/75 100 08/17/21 07:57 95 H 08/17/21 07:24 36.4 C L 85 18 106/67 100 08/17/21 02:28 36.8 C 97 H 18 94/62 L 99 Laboratory Results Short CBC 08/16/21 08/17/21 Range/Units 20:18 05:15 WBC 7.49 7.21 (4.8-10.8) K/uL Hgb 14.8 13.5 (12.0-16.0) g/dL Hct 43.7 40.6 (37-47) % Plt Count 228 220 (130-400) K/uL BMP 08/16/21 08/17/21 20:18 05:15 Sodium 138 140 Potassium 3.8 4.2 Chloride 102 105 Carbon Dioxide 27 26 BUN 23 21 Creatinine 1.48 H 1.23 H Glucose 105 H 133 H Calcium 9.0 8.3 L Cardiac Enzymes 08/16/21 08/17/21 08/17/21 Range/Units 20:18 05:15 08:49 Total Creatine Kinase 69 (26-192) U/L Troponin I < 0.03 < 0.03 < 0.03 (0-0.04) ng/ml Medications Administered Current Inpatient Medications Acetaminophen (Acetaminophen 325 Mg Tab) 650 mg PO Q4H PRN PRN Reason: Pain or Fever Stop: 09/15/21 23:41 Amitriptyline HCl (Amitriptyline Hcl 100 Mg Tab) 100 mg PO HS [facility] Stop: 09/16/21 20:59 Atorvastatin Calcium (Atorvastatin 20 Mg Tab) 20 mg PO DAILY [facility] Stop: 09/16/21 08:59 Last Admin: 08/17/21 08:54 Dose: 20 mg Documented by: Dextrose (Dextrose 50% 50 Ml Syringe) 25 - 50 ml IV UD PRN; Protocol PRN Reason: Hypoglycemia Protocol Stop: 09/16/21 00:14 Dicyclomine HCl (Dicyclomine Hcl 10 Mg Cap) 10 mg PO TID PRN PRN Reason: ABD PAIN Stop: 09/15/21 23:41 Docusate Sodium (Docusate Sodium 100 Mg Cap) 100 mg PO BID [facility] Stop: 09/16/21 08:59 Last Admin: 08/17/21 08:56 Dose: Not Given Documented by: Ferrous Sulfate (Ferrous Sulfate 325 Mg Tab) 325 mg PO DAILY [facility] Stop: 09/16/21 08:59 Last Admin: 08/17/21 08:54 Dose: 325 mg Documented by: Furosemide (Furosemide 20 Mg Tab) 20 mg PO QAM [facility] Stop: 09/16/21 08:59 Last Admin: 08/17/21 08:54 Dose: 20 mg Documented by: Glucagon (Glucagon For Inj 1 Mg Vial) 1 mg IM UD PRN; Protocol PRN Reason: Hypoglycemia Protocol Stop: 09/16/21 00:14 Glucose (Glucose 40% Gel 15 Gm Tube) 15 - 30 gm PO UD PRN; Protocol PRN Reason: Hypoglycemia Protocol Stop: 09/16/21 00:14 Glucose (Glucose 10 Tabs/Tube) 4 - 8 tabs PO UD PRN; Protocol PRN Reason: Hypoglycemia Protocol Stop: 09/16/21 00:14 Insulin Aspart (Insulin Aspart Per Unit) 0 units SC Q6 [facility] Stop: 09/16/21 00:29 Last Admin: 08/17/21 12:37 Dose: 4 units Documented by: Insulin Glargine (Insulin Glargine Solostar 100 Units/Ml 3 Ml Pen) 50 units SQ HS [facility] Stop: 09/16/21 20:59 Levothyroxine Sodium (Levothyroxine Sodium 100 Mcg Tablet) 100 mcg PO DAILYBB [facility] Stop: 09/16/21 06:29 Last Admin: 08/17/21 05:28 Dose: 100 mcg Documented by: Lisinopril (Lisinopril 10 Mg Tab) 10 mg PO QAM [facility] Stop: 09/16/21 08:59 Last Admin: 08/17/21 08:55 Dose: 10 mg Documented by: Miscellaneous (Minocycline - Order Awaiting Action) 1 ea N/A QS [facility] Stop: 09/16/21 07:59 Last Admin: 08/17/21 08:54 Dose: Not Given Documented by: Miscellaneous (Carbohydrates For Hypoglycemia ) 15 - 30 gm PO UD PRN PRN Reason: Hypoglycemia Treatment Stop: 09/16/21 00:14 Morphine Sulfate (Morphine Sulfate 2 Mg/Ml Carp) 2 mg IV Q4H PRN PRN Reason: Pain Stop: 08/30/21 23:41 Last Admin: 08/17/21 05:31 Dose: 2 mg Documented by: Nitroglycerin (Nitroglycerin Sl 0.4 Mg/Tab Tab) 0.4 mg SL UD PRN PRN Reason: Chest Pain Stop: 09/15/21 23:41 Ondansetron HCl (Ondansetron Inj 2 Mg/Ml 2 Ml Vial) 4 mg IV Q6H PRN PRN Reason: Nausea Stop: 09/15/21 23:41 Last Admin: 08/17/21 12:43 Dose: 4 mg Documented by: Pantoprazole Sodium (Pantoprazole 40 Mg Tab) [facility] [place] [place] Stop: 09/16/21 08:59 Last Admin: 08/17/21 08:55 Dose: 40 mg Documented by: Polyethylene Glycol (Polyethylene (Miralax) 17 Gm Pack) 17 gm PO DAILY PRN PRN Reason: Constipation Stop: 09/15/21 23:41
[2021-08-17] MEDS ORDERED: Nursing to Pharmacy Communication SCH (14:45)
[2021-08-17] MEDS: INSULIN GLARGINE SOLOSTAR 100 UNITS/ML 3 ML PEN SQ SCH (20:55)
[2021-08-17] MEDS: AMITRIPTYLINE HCL 100 MG TAB PO SCH (20:57)
[2021-08-18] MEDS: LEVOTHYROXINE SODIUM 100 MCG TABLET PO SCH (05:55)
[2021-08-18 06:39] LABS: Estimated Average Glucose 154 mg/dl
[2021-08-18 07:24] LABS: Basophils # (auto) 0.02 K/uL (0-0.2); Basophils % (auto) 0.3 %; Eosinophils # (auto) 0.22 K/uL (0-0.5); Eosinophils % (auto) 3.2 %; Hematocrit (blood only) 37.8 % (37-47); Immature Granulocytes # (auto) 0.01 K/uL (0.00-0.02); Immature Granulocytes % (auto) 0.1 %; Lymphocytes # (auto) 1.14 K/uL (1.2-3.4); Lymphocytes % (auto) 16.4 %; Mean Corpuscular Hemoglobin 30.2 pg (25-34); Mean Corpuscular Hgb Conc 34.4 g/dL (32-36); Mean Corpuscular Volume 87.7 fL (80-100); Mean Platelet Volume 11.6 fL (7.4-10.4); Monocytes # (auto) 0.46 K/uL (0.11-0.59); Monocytes % (auto) 6.6 %; Neutrophils # (auto) 5.11 K/uL (1.4-6.5); Neutrophils % (auto) 73.4 %; Platelet Count 191 K/uL (130-400); RDW Coefficient of Variation 13.8 % (11.5-14.5); RDW Standard Deviation 44.7 fL (36.4-46.3); Red Blood Count 4.31 M/uL (4.2-5.4); White Blood Count 6.96 K/uL (4.8-10.8)
[2021-08-18 07:46] LABS: BUN Creatinine Ratio 14.8 (10-20); Calcium 8.5 mg/dl (8.5-10.1); Creatinine Clr Calc Pharmacy 45.6 ml/min; Est GFR (African American) 50.4 ml/min; Est GFR (Non-African American) 43.5 ml/min; Magnesium 1.6 mg/dl (1.7-2.4)
[2021-08-18] MEDS: FERROUS SULFATE 325 MG TAB PO SCH (08:17)
[2021-08-18] MEDS: lisinopril 10 MG TAB PO SCH (08:17)
[2021-08-18] MEDS: PANTOprazole 40 MG TAB PO SCH (08:17)
[2021-08-18] MEDS: DOCUSATE SODIUM 100 MG CAP PO SCH ×2 (08:18→21:12)
[2021-08-18] MEDS: FUROSEMIDE 20 MG TAB PO SCH (08:18)
[2021-08-18] MEDS: INSULIN ASPART PER UNIT SC SCH ×4 (08:26→21:11)
[2021-08-18] MEDS: ATORVASTATIN 20 MG TAB PO SCH (09:51)
[2021-08-18] MEDS ORDERED: POLYETHYLENE (MIRALAX) 17 GM PACK PO ONE (13:05)
[2021-08-18] MEDS: INSULIN GLARGINE SOLOSTAR 100 UNITS/ML 3 ML PEN SQ SCH (21:11)
[2021-08-18] MEDS: AMITRIPTYLINE HCL 100 MG TAB PO SCH (21:12)
--- NOTE | 2021-08-18 21:44 | Hospitalist Progress Note ---
Date of Service August 18, 2021 Assessment & Plan (1) Atypical chest pain: Plan: Presented with left lateral chest wall pain for the last 2 to 3 days Localized tenderness of the left upper lateral chest wall Serial cardiac enzymes, EKG unremarkable Echo of the heart-technically limited study with grossly normal valvular structure and function. LV size is normal, systolic function 60 to 65%, RV systolic function is normal, LA size is normal and right atrium is not visualized Appreciate cardiology input and recommendation Likely noncardiac chest pain No change in her medication PT and OT evaluation Obesity Sleep apnea Strongly advised to lose weight (2) Diabetes mellitus, type 2: Plan: Most Hba1c 7 on 08/17/21 PO diabetes med on hold Continue with SSI Continue monitor BS (3) Urinary retention: Plan: Might be related to constipation Denies any symptoms of UTI Continue bladder scan and if scan showed more than 400cc, will straight cath Continue monitor (4) Diastolic CHF, chronic: Plan: No evidence of fluid overload (5) Hypertension: Plan: Blood pressure seems to be controlled (6) Hypothyroidism: Plan: Continue supplement (7) Hiatal hernia: Plan: Has used hiatal hernia May be contributing some of the chest symptoms DVT prophylaxis SCDs Increase ambulation PT and OT evaluation for discharge CODE STATUS Full Admission and Anticipated Discharge Date Admission Date: August 16, 2021 Subjective Pt was seen and examined for follow up of chest pain Sitting in chair with no acute distress Pt said that chest pain improves She said that she develops urinary retention that is new Pt is also constipated and she usually takes miralax Denies any chest pain, palpitation, dizziness and SOB Review of Systems Review of Systems: All systems reviewed & are unremarkable except as noted in Subjective Physical Exam Physical Exam: General- No acute distress Head- atraumatic Eyes- PERRL, EOMI, ENT- oropharynx clear Neck- supple, no JVD Lungs- clear to auscultation Heart- regular rhythm; no murmur Abdomen- normal bowel sounds, soft, nontender Extremities- no calf tenderness, +trace edema Neuro- alert, oriented x 3; PERRL, EOMI; no facial palsy; no dysarthria Skin- warm & dry Results & Data Results & Data ([facility]) Vital Signs (Past 12 Hours) Vital Signs Temp Pulse Pulse Resp BP Pulse Ox Pulse Ox 08/18/21 19:00 36.6 C 92 H 20 119/77 96 08/18/21 15:04 36.7 C 84 20 98/64 L 100 08/18/21 11:53 99 08/18/21 10:30 36.5 C 98 H 16 118/68 100
[2021-08-19] MEDS: LEVOTHYROXINE SODIUM 100 MCG TABLET PO SCH (06:19)
--- NOTE | 2021-08-19 06:46 | Electrocardiogram Report ---
Test Reason : Blood Pressure : / mmHG Vent. Rate : 091 BPM Atrial Rate : 091 BPM P-R Int : 174 ms QRS Dur : 074 ms QT Int : 356 ms P-R-T Axes : 032 011 071 degrees QTc Int : 437 ms Normal sinus rhythm Low voltage QRS Septal infarct (cited on or before 06-NOV-2016) Abnormal ECG When compared with ECG of 17-AUG-2021 05:37, No significant change was found Confirmed by Duane Moseley ([id number]) on 08/19/2021 6:46:16 AM Referred By: REFERRED SELF Confirmed By:Duane Moseley
--- NOTE | 2021-08-19 06:55 | Electrocardiogram Report ---
Test Reason : Blood Pressure : / mmHG Vent. Rate : 088 BPM Atrial Rate : 088 BPM P-R Int : 186 ms QRS Dur : 076 ms QT Int : 370 ms P-R-T Axes : 067 043 068 degrees QTc Int : 447 ms Sinus rhythm with occasional Premature ventricular complexes Low voltage QRS Borderline ECG When compared with ECG of 17-AUG-2021 18:03, (unconfirmed) Premature ventricular complexes are now Present Confirmed by Duane Moseley ([id number]) on 08/19/2021 6:54:38 AM Referred By: REFERRED SELF Confirmed By:Duane Moseley
[2021-08-19] MEDS: PANTOprazole 40 MG TAB PO SCH (09:43)
[2021-08-19] MEDS: ATORVASTATIN 20 MG TAB PO SCH (09:43)
[2021-08-19] MEDS: DOCUSATE SODIUM 100 MG CAP PO SCH ×2 (09:43→20:55)
[2021-08-19] MEDS: lisinopril 10 MG TAB PO SCH (09:46)
[2021-08-19] MEDS: FUROSEMIDE 20 MG TAB PO SCH (09:47)
[2021-08-19] MEDS: FERROUS SULFATE 325 MG TAB PO SCH (09:47)
[2021-08-19] MEDS: INSULIN ASPART PER UNIT SC SCH ×4 (09:49→20:55)
[2021-08-19] MEDS ORDERED: bisacodyL 5 MG TABEC PO ONE (10:32)
[2021-08-19] MEDS ORDERED: bisacodyL 10 MG SUPP PR STA (14:59)
--- NOTE | 2021-08-19 17:54 | Hospitalist Progress Note ---
Date of Service August 19, 2021 Assessment & Plan (1) Atypical chest pain: Plan: Presented with left lateral chest wall pain for the last 2 to 3 days Localized tenderness of the left upper lateral chest wall Serial cardiac enzymes, EKG unremarkable Echo of the heart-technically limited study with grossly normal valvular structure and function. LV size is normal, systolic function 60 to 65%, RV systolic function is normal, LA size is normal and right atrium is not visualized Cardiology on board Likely noncardiac chest pain No additional cardiac testing is indicated at this time as per cardiology No change in her medication PT and OT evaluation resolved Obesity Sleep apnea Strongly advised to lose weight (2) Diabetes mellitus, type 2: Plan: Most Hba1c 7 on 08/17/21 PO diabetes med on hold Continue with SSI Continue monitor BS (3) Urinary retention: Plan: Might be related to constipation Denies any symptoms of UTI Continue bladder scan and if scan showed more than 400cc, will straight cath Discussed about placing a roque cath, but pt refused it for now Continue monitor (4) Diastolic CHF, chronic: Plan: No evidence of fluid overload (5) Hypertension: Plan: Blood pressure seems to be controlled (6) Hypothyroidism: Plan: Continue supplement (7) Hiatal hernia: Plan: Has used hiatal hernia May be contributing some of the chest symptoms DVT prophylaxis SCDs/ ambulation PT/OT eval CODE STATUS Full Disposition Plan to discharge home once able to have a BM and void Admission and Anticipated Discharge Date Admission Date: August 18, 2021 Subjective Pt was seen and examined for follow up of chest pain Sitting in chair with no acute distress Pt said that chest pain resolved Her main concerns are constipation and urinary retention She has been taking laxative and stool softener and she still has not had a bowel movement yet Denies any chest pain, palpitation, dizziness and SOB Review of Systems Review of Systems: All systems reviewed & are unremarkable except as noted in Subjective Physical Exam Physical Exam: General- No acute distress Head- atraumatic Eyes- PERRL, EOMI, ENT- oropharynx clear Neck- supple, no JVD Lungs- clear to auscultation Heart- regular rhythm; no murmur Abdomen- normal bowel sounds, soft, nontender Extremities- no calf tenderness, +trace edema Neuro- alert, oriented x 3; PERRL, EOMI; no facial palsy; no dysarthria Skin- warm & dry Results & Data Results & Data ([place]) Vital Signs (Past 12 Hours) Vital Signs Temp Pulse Pulse Pulse Resp BP BP 08/19/21 15:42 37.0 C 84 18 121/82 08/19/21 14:18 85 08/19/21 11:15 36.8 C 78 18 116/78 08/19/21 07:00 36.5 C 79 18 94/60 L 08/19/21 06:14 87 Pulse Ox 08/19/21 15:42 94 08/19/21 14:18 08/19/21 11:15 100 08/19/21 07:00 99 08/19/21 06:14
[2021-08-19] MEDS: INSULIN GLARGINE SOLOSTAR 100 UNITS/ML 3 ML PEN SQ SCH (20:55)
[2021-08-19] MEDS: AMITRIPTYLINE HCL 100 MG TAB PO SCH (20:55)
[2021-08-20] MEDS: LEVOTHYROXINE SODIUM 100 MCG TABLET PO SCH (05:41)
[2021-08-20] MEDS: ATORVASTATIN 20 MG TAB PO SCH (09:00)
[2021-08-20] MEDS: DOCUSATE SODIUM 100 MG CAP PO SCH (09:00)
[2021-08-20] MEDS: PANTOprazole 40 MG TAB PO SCH (09:01)
[2021-08-20] MEDS: FERROUS SULFATE 325 MG TAB PO SCH (09:01)
[2021-08-20] MEDS: FUROSEMIDE 20 MG TAB PO SCH (09:01)
[2021-08-20] MEDS: lisinopril 10 MG TAB PO SCH (09:01)
[2021-08-20] MEDS: INSULIN ASPART PER UNIT SC SCH ×2 (09:08→12:28)
[2021-08-20] MEDS ORDERED: bisacodyL 5 MG TABEC PO ONE (11:11)
--- NOTE | 2021-08-20 12:36 | Discharge Summary ---
Date of Service August 20, 2021 Admission HPI Per Admitting Provider CHIEF COMPLAINT: Chest pain. HISTORY OF PRESENT ILLNESS: This is a 65-year-old female with a past medical history significant for type 2 diabetes, hyperlipidemia, hypothyroidism, obesity hypoventilation syndrome, diastolic CHF, hypertension, sinus arrhythmia, GERD, nonalcoholic fatty liver disease, stage III chronic kidney disease, hiatal hernia, osteoporosis, migraine, obesity, who presents with chest pain. The p atient says for the last 3 days, she is having left-sided chest pain, constant sharp pain, about 8/10 in severity, associated with some nausea. In the ER, initial workup was negative. She was treated with morphine and nitro. The pain is improving. She has always had headaches, no dizziness, no blurred visions, no earache, no runny nose, no sore throat, no cough, no fevers. She gets short of breath on exertion. Once in a while she gets sweating. No abdominal pain. She has ongoing constipation and diarrhea, uses stool softener. Denies any blood in stool or black stool. Normal bladder movements. No swelling in the legs. Sleeping okay. Admission Exam Per Admitting Provider GENERAL: The patient is obese, not in acute distress. VITAL SIGNS: Temperature 36.8, pulse 106, respiratory rate 18, blood pressure 113/88, oxygen 100% on room air. HEENT: Pupils equal, round and reactive to light. Oral mucosa moist. NECK: No JVD, no neck masses. CARDIOVASCULAR: S1 and S2 heard. Regular rate and rhythm. No murmur, no gallop. RESPIRATORY SYSTEM: Normal AP diameter. No accessory muscle use. No wheezing, no crackles. ABDOMEN: Soft, bowel sounds present, nontender, no distention. CENTRAL NERVOUS SYSTEM: Cranial nerves II through XII grossly intact, nonfocal. EXTREMITIES: No edema, no erythema. Principal Diagnosis Atypical chest pain: Urinary retention: Hiatal hernia: Constipation Diabetes Discharge Exam General- No acute distress Head- atraumatic Eyes- PERRL, EOMI, ENT- oropharynx clear Neck- supple, no JVD Lungs- clear to auscultation Heart- regular rhythm; no murmur Abdomen- normal bowel sounds, soft, nontender Extremities- no calf tenderness, +trace edema Neuro- alert, oriented x 3; PERRL, EOMI; no facial palsy; no dysarthria Skin- warm & dry Discharge Data Allergies Allergy/AdvReac Type Severity Reaction Status Date / Time adhesive tape Allergy Intermediate large welts Verified 08/16/21 20:30 doxycycline Allergy Intermediate Hives Verified 08/16/21 20:30 lactose Allergy Intermediate Gastrointestinal Verified 08/16/21 20:30 Upset lorazepam Allergy Intermediate elevated Verified 08/16/21 20:30 BS, elevated BP, Dry Heaves metronidazole Allergy Intermediate Hives Verified 08/16/21 20:30 naproxen Allergy Intermediate Hives Verified 08/16/21 20:30 Consultations 08/16/21 21:45 ED Decision to Admit Stat 08/17/21 08:00 Consult Cardiology Routine Ordered Studies 08/16/21 20:43 CT angio chest PE protocol Stat CT angio chest PE protocol CT DOSE: 674.75 mGy.cm HISTORY: 65 years-old Female with ro PE. Acute shortness of breath TECHNIQUE: Multiple CTA images of the chest were obtained after the intravenous administration of 120 ml Optiray. Coronal and sagittal MIPS were obtained from the axial data set and were submitted for review. All measurements were obtained according to NASCET criteria. A dose lowering technique was utilized adhering to the principles of ALARA. COMPARISON: Chest radiograph of same day, CTA chest 11/10/2018 FINDINGS: CTA: The heart is normal in size. There is no pericardial effusion. Extensive coronary artery calcifications. Atherosclerosis of the thoracic aorta without aneurysm or dissection. Unremarkable pulmonary artery. CT CHEST: No thyroid nodule. Nonspecific mildly enlarged paratracheal lymph node on image 154 measures 10 mm, likely physiologic. No pneumothorax, large pleural effusion or overt pulmonary edema. Chronic left hemidiaphragmatic elevation with large hiatal hernia. Left basilar atelectasis. No suspicious pulmonary nodules identified. There are a few fissural nodules measuring up to 3 mm which are likely benign. Central airways are patent. No acute process of the imaged upper abdomen. Hepatomegaly with probable hepatic steatosis. Unremarkable soft tissues. Degenerative changes of the shoulders and spine. No acute fracture or destructive bone lesion. IMPRESSION: 1. No acute intrathoracic abnormality. No pulmonary emboli. 2. Chronic left hemidiaphragmatic elevation with large hiatal hernia. 3. Mild left basilar atelectasis. ACT 112: Negative or not required by law. The above report was generated using voice recognition software. It may contain grammatical, syntax or spelling errors. Electronically signed by: Tomas Moreno M.D. 08/16/2021 9:22 PM Dictated:08/16/212115 Transcribed: 08/16/212115 XR chest 1V portable HISTORY: 65 years-old Female Chest Pain acute atypical chest pain COMPARISON: Chest radiograph 02/25/2020, CT abdomen and pelvis 11/10/2018. TECHNIQUE: Portable AP view of the chest FINDINGS: Cardiomegaly. Large hiatal hernia with chronic left hemidiaphragmatic elevation. Atherosclerosis of the thoracic aorta. There is no pneumothorax, large pleural effusion or overt pulmonary edema. There is unchanged blunting of the lateral left costophrenic angle. IMPRESSION: 1. Cardiomegaly without acute process. 2. Large hiatal hernia with chronic left hemidiaphragmatic elevation. ACT 112: Negative or not required by law. The above report was generated using voice recognition software. It may contain grammatical, syntax or spelling errors. Electronically signed by: Tomas Moreno M.D. 08/16/2021 8:31 PM Dictated:08/16/212028 Transcribed: 08/16/212028 Hospital Course (1) Atypical chest pain: Presented with left lateral chest wall pain for the last 2 to 3 days Localized tenderness of the left upper lateral chest wall Serial cardiac enzymes, EKG unremarkable Echo of the heart-technically limited study with grossly normal valvular structure and function. LV size is normal, systolic function 60 to 65%, RV systolic function is normal, LA size is normal and right atrium is not visualized Cardiology on board Likely noncardiac chest pain No additional cardiac testing is indicated at this time as per cardiology No change in her medication PT and OT evaluation resolved Obesity Sleep apnea Strongly advised to lose weight (2) Diabetes mellitus, type 2: Most Hba1c 7 on 08/17/21 PO diabetes med on hold, will resume on discharge On with SSI during the hospital course Continue monitor BS (3) Urinary retention: Might be related to constipation Denies any symptoms of UTI Continue bladder scan and if scan showed more than 400cc, will straight cath Discussed about placing a roque cath, but pt refused it for now She was able to avoid without any discomfort Continue monitor (4) Diastolic CHF, chronic: No evidence of fluid overload (5) Hypertension: Blood pressure seems to be controlled (6) Hypothyroidism: Continue supplement (7) Hiatal hernia: Has used hiatal hernia May be contributing some of the chest symptoms DVT prophylaxis SCDs/ ambulation PT/OT eval CODE STATUS Full Disposition Plan to discharge home today Total Time Total Time Spent Total Time Spent (In Minutes): 35 minutes Discharge Plan Discharge Items Patient Disposition: Home - Self-Care Reason For Visit: CHEST PAIN Discharge Diagnosis: Atypical chest pain: Urinary retention: Hiatal hernia: Constipation Diabetes Activity: Resume your previous activity Non-emergency contact: Primary Care Provider Call non-emergency contact if: you have any medication questions Follow-up/Referrals: Trina Dial DO [Primary Care Provider] - (Date & Time 08/22/2021 11:10 AM Provider Trina Dial DO Department Family Medicine [facility] ) Diet: Carb Consistent or DM2 and Heart Healthy Addtl Attending Provider Instructions: Follow up with your your primary care provier on 08/22/2021 @ 11:10 AM Trina Dial DO [facility] Seek medical attention if your develop any urinary retention Fall precaution Pending Studies at Discharge: No Stand-Alone Forms: [facility], Smoking Cessation Medications and DC Order Prescriptions: Continued omeprazole 20 mg capsule,delayed release(DR/EC) 20 mg PO QAM RF: 0 dicyclomine 10 mg capsule 10 mg PO TID PRN (Reason: ABD PAIN) RF: 0 metformin 500 mg Tablet 500 mg PO BIDM RF: 0 atorvastatin 20 mg Tablet 20 mg PO DAILY RF: 0 Lantus U-100 Insulin 100 unit/mL Solution 50 unit SUBCUT HS RF: 0 levothyroxine 100 mcg Tablet 100 mcg PO DAILYBB RF: 0 insulin aspart U-100 [Novolog U-100 Insulin aspart] 100 unit/mL Solution 14 unit SUBCUT TIDM RF: 0 furosemide [Lasix] 20 mg Tablet 20 mg PO QAM RF: 0 amitriptyline 100 mg Tablet 100 mg PO HS RF: 0 minocycline 100 mg Tablet 100 mg PO QAM RF: 0 ferrous sulfate [iron] 325 mg (65 mg iron) Tablet 325 mg PO DAILY RF: 0 lisinopril 10 mg tablet 10 mg PO QAM RF: 0 docusate sodium 100 mg Capsule 100 mg PO BID RF: 0 polyethylene glycol 3350 [Miralax] 17 gram/dose Powder 17 g PO DAILY PRN (Reason: Constipation) RF: 0 Discharge Orders: Discharge Order (Routine); Ordered 08/20/21 Ordered By: Justin Gamble/Other Patient Handouts: Managing Type 2 Diabetes Admission Data Admit Date/Time: 08/18/21 21:46 Attending Provider: Justin Johnson Admit Provider: Zac Olson Primary Care Provider: Trina Dial Other Providers: Zac Olson ; Delroy Meyers ; José Luis Tinoco Other Interventions: Discharge Summary Assessment (RN) Last Done: 08/20/21 12:50
== END 2021-08-20 13:27 | disposition home or self-care (01) | DRG 313 ==
LOC: 2W 19:56 → ED 19:56 → SUATTDRO 22:43 → 2W 23:08

== ENCOUNTER 2022-08-31 15:28 | Inpatient (IN) ==
[2022-08-31] MEDS ORDERED: NITROGLYCERIN SL 0.4 MG/TAB TAB SL STA (15:39)
[2022-08-31] MEDS ORDERED: SODIUM CHLORIDE 0.9% 500 ML IV ONE (15:39)
[2022-08-31] MEDS ORDERED: NITROGLYCERIN 2% OINTMENT 30GM TUBE EXT ONE (16:12)
[2022-08-31] MEDS ORDERED: NITROGLYCERIN 2% OINTMENT 30GM TUBE EXT STA (16:17)
[2022-08-31 16:34] LABS: Albumin Globulin Ratio 1.4 (0.9-2); Albumin Level 3.7 gm/dl (3.4-5.0); BUN Creatinine Ratio 18.8 (10-20); Bilirubin,Total 0.4 mg/dl (0.2-1.0); Creatinine Clr Calc Pharmacy 56.6 ml/min; Est GFR (African American) 66.7 ml/min; Est GFR (Non-African American) 57.6 ml/min; Globulin 2.7 gm/dl (2.5-4.0); Magnesium 1.8 mg/dl (1.7-2.4); Phosphorus 3.7 mg/dl (2.5-4.9); Potassium 4.1 mmol/L (3.5-5.1); Total Protein 6.4 gm/dl (6.0-8.3)
[2022-08-31 16:40] LABS: Troponin I High Sensitivity 14.8 pg/ml (0-14)
[2022-08-31 17:10] LABS: Basophils # (auto) 0.03 K/uL (0-0.2); Basophils % (auto) 0.4 %; Eosinophils # (auto) 0.24 K/uL (0-0.50); Eosinophils % (auto) 3.2 %; Hematocrit (blood only) 41.3 % (37.0-47.0); Hemoglobin 13.6 g/dl (12.0-16.0); Immature Granulocytes # (auto) 0.02 K/uL (0.01-0.20); Immature Granulocytes % (auto) 0.3 %; Lymphocytes # (auto) 1.41 K/uL (1.2-3.4); Mean Corpuscular Hemoglobin 29.5 pg (25.0-34.0); Mean Corpuscular Hgb Conc 32.9 g/dL (32.0-36.0); Mean Corpuscular Volume 89.6 fL (80.0-100.0); Mean Platelet Volume 11.9 fL (9.4-12.4); Monocytes # (auto) 0.46 K/uL (0.11-0.59); Monocytes % (auto) 6.2 %; Neutrophils # (auto) 5.26 K/uL (1.40-6.50); Neutrophils % (auto) 70.9 %; Platelet Count 195 K/uL (130-400); RDW Coefficient of Variation 13.3 % (11.5-14.5); RDW Standard Deviation 43.3 fL (36.4-46.3); Red Blood Count 4.61 M/uL (4.20-5.40); White Blood Count 7.42 K/ul (4.8-10.8)
--- NOTE | 2022-08-31 17:12 | XRay Report ---
XR chest 1V portable CLINICAL HISTORY: Chest pain, nonspecific TECHNIQUE: Single frontal radiograph of the chest was obtained. Comparison: Comparison is made to chest radiograph 09/21/2021 FINDINGS: No lines and tubes are seen. Calcified aortic knob is seen. Prominence and cephalization of the vascu lature is seen. Atelectasis is noted in the left lung base. A prominent hiatal hernia is seen. IMPRESSION: 1. Mild pulmonary edema. 2. Additional findings as above. ACT 112: Negative or not required by law. Electronically signed by: Александр Fernandez M.D. 08/31/2022 5:10 PM
[2022-08-31] MEDS ORDERED: fentaNYL citrate PF 100 MCG/2 ML VIAL IV STA (17:16)
[2022-08-31] MEDS ORDERED: Heparin IV Adult Wt-Based Low-Dose *NO* Bolus Protocol IV ONE (17:16)
[2022-08-31] MEDS ORDERED: METOPROLOL TARTRATE 1 MG/ML VIAL IV STA (17:19)
[2022-08-31] MEDS ORDERED: Heparin IV Adult Wt-Based Low-Dose *NO* Bolus Protocol IV STA (17:27)
[2022-08-31] MEDS ORDERED: HEPARIN SODIUM/DEXTROSE 25,000 UNITS/500 ML BAG IV SCH (17:30)
[2022-08-31] MEDS ORDERED: ONDANSETRON INJ 2 MG/ML 2 ML VIAL ONE (17:53)
[2022-08-31] MEDS ORDERED: OPTIRAY 320 500ml IV ONE (18:08)
--- NOTE | 2022-08-31 18:35 | History & Physical Report ---
Date of Service August 31, 2022 Assessment & Plan (1) PAT (paroxysmal atrial tachycardia): (2) Chest pain: (3) Hypertension: (4) Hypothyroidism: (5) Dyslipidemia: (6) Congestive heart failure: Plan: - Admit to tele - Trend cardiac biomarkers, initial set was 14.8 - EKG reviewed as above showing ? slight depressions in the lateral leads V3-V6 -- likely due to HR in the 130s - Started on a heparin gtt in the ER ( no bolus due to hx of gastric ulcer and GI bleed) - Pt was given lopressor 5 mg IV for paroxysmal atrial tach in the ER, HR fluctuates between 110s and then up to 130s - 140s. Discussed with cards Dr. Galvin -- will give adenosine 6 mg IV, consider second dose of 12 mg if does not break, and also give metoprolol tartrate 25 mg now. If does not work consider ablation. Will make npo at midnight in case needs for such. - Cardiology consulted - appreciate recs - Recent echocardiogram on 08/25/22 which showed LVEF of 64%. Mild to moderate MR and mild to moderate TR with borderline elevated pulmonary systolic pressures. Diastolic dysfunction noted. Her echo from August 2018 showed no significant valvular disease. She has a follow-up with Kenneth Kohler PA-C on 09/09. - PT/OT consulted - Cr. appears to be lower than her usual baseline of 1.1-1.4, today is 1.01 and BUN of 19 - Noted that the patient is on Lasix 20 mg twice per week, there was mention of this in her epic chart that it could be increased-- pt appears short of breath despite having negative CXR and CTA. (7) Diabetes mellitus, type 2: Plan: -Last A1c was 7.6 on 07/16/2022 -ISS with Accu-Cheks ACHS -Continue lantus 40 U HS - may need to reduce - monitor (8) CKD (chronic kidney disease), stage III: Plan: - Cr. appears to be lower than her usual baseline of 1.1-1.4, today is 1.01 and BUN of 19 - Noted that the patient is on Lasix 20 mg twice per week, there was mention of this in her epic chart that it could be increased DVT PPx: - teds, scds ,heparin gtt CODE: DNR/DNI Dispo: From home, likely to remain in the hospital x 1-2 days A total of 76 minutes were spent with greater than 50% of that time face to face with the patient, personally reviewing all current laboratories, imaging studies, past medication reconciliation, outpatient chart review, and discussion with specialists to collaborate care for the patient with attending. Please see attending documentation for corrections and/or additions. History of Present Illness Chief Complaint: Chest pain Primary Care Provider: Trina Dial DO This is a 66-year-old female with PMHx of nonsustained V. tach, HTN, HLD, diastolic CHF, DM type II, obesity hypoventilation syndrome, fatty liver disease, GERD, rosacea, acquired hypothyroidism, history of migraine, CKD stage III who presents to the hospital with intermittent chest pain. Chest complaints have been ongoing since last (4 days ago) with symptoms including burning, heaviness, intermittent palpitations and generalized ill feeling. This occurs with walking and with rest, and does not seem to notice a triggering factor. She has never quite felt like this before. Patient denies any previous cardiac history where she required intervention or cardiac cath. Her metoprolol succinate was recently increased in the past week up to 75 mg daily, and she underwent a echocardiogram last week which was reviewed by her steward/stewardess dining room. She follows with Kenneth Kohler typically as an outpatient. Of note she takes Lasix 20 mg on Mondays and Saturdays, and did take it this morning along with her other home meds. She has had some worsening shortness of breath but denies that it coincides with her chest pain. She has been sleeping with 2 or 3 pillows and admits to orthopnea when lying flat. She wears 2 L O2 at bedtime, but none during the day. Denies any recent cough, congestion, sputum production. Of note she admits to having diarrhea 48 hours ago which lasted for 1 day, and resolved. Nobody else in the household had similar symptoms. Her sister and [id number], whom the patient lives with, are present at bedside who helps support the history. Allergies Allergy/AdvReac Type Severity Reaction Status Date / Time adhesive tape Allergy Intermediate large welts Verified 02/03/22 11:12 doxycycline Allergy Intermediate Hives Verified 02/03/22 11:12 lactose Allergy Intermediate Gastrointestinal Verified 02/03/22 11:12 Upset lorazepam Allergy Intermediate elevated Verified 02/03/22 11:12 BS, elevated BP, [place]aves metronidazole Allergy Intermediate Hives Verified 02/03/22 11:12 naproxen Allergy Intermediate Hives Verified 02/03/22 11:12 Home Medications Medication Instructions Recorded Confirmed Type amitriptyline 100 mg tablet 100 mg PO HS 11/09/18 08/31/22 History atorvastatin 20 mg tablet 20 mg PO HS 11/09/18 08/31/22 History furosemide 20 mg tablet (Lasix) 20 mg PO 2XWK 11/09/18 08/31/22 History insulin glargine 100 unit/mL 40 unit subcut HS 11/09/18 08/31/22 History subcutaneous solution (Lantus U-100 Insulin) levothyroxine 100 mcg tablet 100 mcg PO DAILYBB 11/09/18 08/31/22 History metformin 500 mg tablet 500 mg PO BIDM 11/09/18 08/31/22 History omeprazole 20 mg capsule,delayed 20 mg PO QAM 02/25/20 08/31/22 History release Oxygen Home 02/03/22 08/31/22 History empagliflozin 10 mg tablet 10 mg PO DAILY 02/03/22 08/31/22 History (Jardiance) insulin lispro 100 unit/mL 1 sliding scale dose subcut 02/03/22 08/31/22 History subcutaneous pen USEASDIRECTD lisinopril 10 mg tablet 5 mg PO QAM 02/03/22 08/31/22 History metoprolol succinate 50 mg 75 mg PO DAILY 02/03/22 08/31/22 History tablet,extended release 24 hr (Toprol XL) alendronate 70 mg tablet 70 mg PO WK 08/31/22 08/31/22 History Past Med/Surg History Medical History Anemia Atypical chest pain Chronic diarrhea reason for colonoscopy Congestive heart failure Depression Diabetes mellitus, type 2 Diabetes type 2, controlled Diastolic CHF, chronic Dyslipidemia Fatty liver Gastric ulcer GERD (gastroesophageal reflux disease) Hiatal hernia Hypertension Hypertension Hypothyroidism Hypothyroidism Migraine On home oxygen therapy 2L at hs via N/C Osteoarthritis Osteoporosis Sleep apnea 2L at hs via N/C Urinary retention Surgical History History of colonoscopy History of dilatation and curettage History of esophagogastroduodenoscopy (EGD) History of hysterectomy with unilateral oophorectomy History of surgical removal of ganglion cyst right wrist History of tonsillectomy History of tooth extraction all upper teeth removed/most of lower teeth removed History of ventral hernia repair x2 S/P cholecystectomy Family History Father Family history of diabetes mellitus Mother Family history of diabetes mellitus Other No family history of adverse response to anesthesia Social History Smoking Status: Never smoker Second Hand Exposure: No; Hx Alcohol Use: No Hx Substance Use: No Preferred Language: Kyrgyz Communication Ability: Effective 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 Beliefs That Will Affect Care: None marital status: Single Current Living Situation: Family Current Living Situation Comment: Sister and [id number] How many Children do You have: 0 Feels Safe at Home: Yes Assistive Devices: Oxygen - at Night Review of Systems Review of Systems: Constitutional: No fever, sweats or chills Eyes: No diplopia, no worsening or blurred vision ENT: normal hearing, no trouble swallowing Respiratory: No cough, sputum, dyspnea at rest or on exertion Cardiovascular: As per HPI, + current chest pain and heaviness, tightness and palpitations Abdomen: No pain, nausea, vomiting, diarrhea or constipation Musculoskeletal: No joint pain, calf pain, swelling Neurologic: No weakness, + chronic finger numbness/tingling, no balance problems Psychiatric: No anxiety or depression Skin: No rash or itch Physical Exam Physical Exam: General: awake, alert, no apparent distress, Appears chronically ill and much older than stated age Head: Normocephalic, atraumatic ENT: PERRL, EOMI, no pharyngeal exudate, + Upper denture plate,mucous membranes moist Chest: Clear to auscultation, on room air, O2 sats at 94%, no adventitious breath sounds Cardiac: + Irregular, atrial tachycardia, heart rate fluctuating between 110 up to 130s to 140s while just lying in bed, no murmur, no JVD, normal peripheral pulses, good capillary refill Abdominal: NABS x 4 quadrants, soft, nondistended, nontender to palpation, no rebound or guarding Extremities: Normal inspection, no peripheral edema or erythema, calfs nontender to palpation Psych: Normal mood and affect Neuro: AAO x 3, strength intact bilaterally and rated 5/5, no motor deficits, speech is clear, no peripheral sensory deficits Results & Data Results & Data Vital Signs (Past 12 Hours) Vital Signs Temp Pulse Pulse Resp BP BP Pulse Ox 08/31/22 17:50 113 H 23 97 08/31/22 17:42 130 H 22 100 08/31/22 17:42 107/76 08/31/22 17:40 128 H 21 99 08/31/22 17:30 123 H 17 99 08/31/22 17:30 115/84 08/31/22 17:20 128 H 19 99 08/31/22 17:10 129 H 23 99 08/31/22 17:00 127 H 19 98 08/31/22 17:00 125/90 08/31/22 16:50 117 H 18 100 08/31/22 16:40 124 H 20 100 08/31/22 16:30 126 H 21 99 08/31/22 16:30 134/91 08/31/22 16:20 113 H 19 96 08/31/22 16:17 135/102 H 08/31/22 16:17 105 H 20 100 08/31/22 17:44 131 H 107/76 08/31/22 16:15 112 H 18 98 08/31/22 16:00 127 H 16 98 08/31/22 16:00 97/80 L 08/31/22 15:54 116/94 08/31/22 15:54 122 H 19 97 08/31/22 15:45 117 H 17 97 08/31/22 15:38 128 H 22 100 08/31/22 15:52 124 H 20 130/91 98 08/31/22 15:42 130 H 08/31/22 15:36 100 08/31/22 15:28 36.6 C 127 H 20 130/91 100 O2 Del Method 08/31/22 17:50 08/31/22 17:42 08/31/22 17:42 08/31/22 17:40 08/31/22 17:30 08/31/22 17:30 08/31/22 17:20 08/31/22 17:10 08/31/22 17:00 08/31/22 17:00 08/31/22 16:50 08/31/22 16:40 08/31/22 16:30 08/31/22 16:30 08/31/22 16:20 08/31/22 16:17 08/31/22 16:17 08/31/22 17:44 08/31/22 16:15 08/31/22 16:00 08/31/22 16:00 08/31/22 15:54 08/31/22 15:54 08/31/22 15:45 08/31/22 15:38 08/31/22 15:52 Room Air 08/31/22 15:42 08/31/22 15:36 Room Air 08/31/22 15:28 Room Air Laboratory Results 08/31/22 08/31/22 08/31/22 15:41 15:41 15:40 WBC 7.42 RBC 4.61 Hgb 13.6 Hct 41.3 MCV 89.6 MCH 29.5 MCHC 32.9 RDW Std Deviation 43.3 RDW Coeff of Primitivo 13.3 Plt Count 195 MPV 11.9 Immature Gran % (Auto) 0.3 Neut % (Auto) 70.9 Lymph % (Auto) 19.0 Bacon % (Auto) 6.2 Eos % (Auto) 3.2 Baso % (Auto) 0.4 Neut # (Auto) 5.26 Lymph # (Auto) 1.41 Bacon # (Auto) 0.46 Eos # (Auto) 0.24 Baso # (Auto) 0.03 Immature Gran # (Auto) 0.02 Sodium 141 Potassium 4.1 Chloride 104 Carbon Dioxide 29 Anion Gap 8 BUN 19 Creatinine 1.01 Est Cr Clr Drug Dosing 56.6 Est GFR ( Amer) 66.7 Est GFR (Non-Af Amer) 57.6 BUN/Creatinine Ratio 18.8 Glucose 157 H Calcium 9.0 Phosphorus 3.7 Magnesium 1.8 Total Bilirubin 0.4 AST 11 L ALT 11 Alkaline Phosphatase 58 Troponin I High Sens 14.8 H Total Protein 6.4 Albumin 3.7 Globulin 2.7 Albumin/Globulin Ratio 1.4 Lipase 38 SARS-CoV-2, RNA, NAAT NEGATIVE Diagnostic Findings Chest X-Ray 08/31/22 15:25 XR chest 1V portable CLINICAL HISTORY: Chest pain, nonspecific TECHNIQUE: Single frontal radiograph of the chest was obtained. Comparison: Comparison is made to chest radiograph 09/21/2021 FINDINGS: No lines and tubes are seen. Calcified aortic knob is seen. Prominence and cephalization of the vasculature is seen. Atelectasis is noted in the left lung base. A prominent hiatal hernia is seen. IMPRESSION: 1. Mild pulmonary edema. 2. Additional findings as above. ACT 112: Negative or not required by law. Electronically signed by: Александр Fernandez M.D. 08/31/2022 5:10 PM ECG Additional Comments: 31-AUG-2022 15:34:52 [facility]-EDSTAT ROUTINE RETRIEVAL Sinus tachycardia with Premature atrial complexes with Aberrant conduction Left axis deviation Low voltage QRS Inferior infarct , age undetermined Cannot rule out Anteroseptal infarct , age undetermined Abnormal ECG When compared with ECG of 21-SEP-2021 19:06, Aberrant conduction is now Present Questionable change in QRS duration Minimal criteria for Anteroseptal infarct are now Present ... 25mm/[id number] 241CID: 3Unconfirmed Vent. rate 122 BPM VA interval 136 ms QRS duration 62 ms QT/QTc 330/470 ms Supervising Physician Co-Signing Physician Notes Patient was seen and examined. Chart reviewed. Case discussed with KATHRIN
--- NOTE | 2022-08-31 18:55 | CT Scan Report ---
CT angio chest PE protocol CT DOSE: 715.82 mGy.cm HISTORY: 66 years-old Female with Chest pain, PE. Acute chest pain with shortness of breath TECHNIQUE: Multiple CTA images of the chest were obtained after the intravenous administration of 117 ml Optiray. Coronal and sagittal MIPS were obtained from the axial data set and were submitted for review. All measurements were obtained according to NASCET criteria. A dose lowering technique was u tilized adhering to the principles of ALARA. COMPARISON: Chest CT 09/21/2021 FINDINGS: CTA: Heart is normal in size. Extensive coronary artery calcifications. Suboptimal evaluation of the pulmo nary arterial tree secondary to contrast bolus timing. No central pulmonary emboli identified. CT CHEST: No thyroid nodule identified. Mild nonspecific paratracheal lymphadenopathy with lymph nodes measurin g up to 1.1 cm, stable from prior. No pneumothorax, pleural effusion, airspace consolidation or overt pulmonary edema. Large hiatal andres ia with mild left basilar atelectasis versus scarring. Central airways are patent. No acute process o f the imaged upper abdomen. Unremarkable soft tissues. No acute fracture identified. IMPRESSION: 1. Limited exam secondary to contrast bolus timing with near nondiagnostic evaluation of the pulmonar y arterial tree. No central pulmonary emboli identified. 2. Large hiatal hernia with intrathoracic stomach is unchanged. 3. No pleural effusion or airspace consolidation to suggest pneumonia. ACT 112: Negative or not required by law. The above report was generated using voice recognition software. It may contain grammatical, syntax o r spelling errors. Electronically signed by: Tomas Moreno M.D. 08/31/2022 6:52 PM
[2022-08-31 19:39] LABS: Partial Thromboplastin Ratio 0.8; Partial Thromboplastin Time 23.1 Seconds (21.0-31.0); Prothrombin Time 10.3 Seconds (9.0-12.0)
[2022-08-31] MEDS ORDERED: ADENOSINE IV SOLN 3 MG/ML 2 ML VIAL IV STA (20:05)
[2022-08-31] MEDS ORDERED: METOPROLOL TARTRATE 25 MG TAB PO STA (20:06)
[2022-08-31] MEDS ORDERED: DEXTROSE 50% 50 ML SYRINGE IV PRN (20:39)
[2022-08-31] MEDS ORDERED: GLUCOSE 40% GEL 15 GM TUBE PO PRN (20:39)
[2022-08-31] MEDS ORDERED: ACETAMINOPHEN 325 MG TAB PO PRN (20:39)
[2022-08-31] MEDS ORDERED: ONDANSETRON INJ 2 MG/ML 2 ML VIAL IV PRN (20:39)
[2022-08-31] MEDS ORDERED: CARBOHYDRATES FOR HYPOGLYCEMIA PO PRN (20:39)
[2022-08-31] MEDS ORDERED: GLUCAGON FOR INJ 1 MG VIAL SQ PRN (20:39)
[2022-08-31] MEDS ORDERED: GLUCOSE 10 TAB/TUBE PO PRN (20:39)
[2022-08-31] MEDS ORDERED: ATORVASTATIN 20 MG TAB PO SCH (21:00)
[2022-08-31] MEDS ORDERED: FAMOTIDINE 20 MG in SYRINGE 3 ML IV SCH (21:00)
[2022-08-31] MEDS ORDERED: FAMOTIDINE 20MG/5ML IV PUSH IV SCH (21:00)
[2022-08-31] MEDS ORDERED: INSULIN ASPART PER UNIT CHARGE SC SCH (21:00)
[2022-08-31] MEDS ORDERED: LANTUS PER UNIT CHARGE SQ SCH (21:00)
[2022-08-31] MEDS ORDERED: AMITRIPTYLINE HCL 100 MG TAB PO SCH (21:00)
[2022-08-31] MEDS ORDERED: MoRPHine SULFATE 2 MG/ML CARP IV STA (22:03)
[2022-08-31] MEDS ORDERED: MoRPHine SULFATE 4 MG/ML 1 ML CARP\\VIAL IV STA (22:04)
--- NOTE | 2022-08-31 22:30 | Emergency Department Note ---
Impression & Plan Chest pain, PAT (paroxysmal atrial tachycardia), Elevated troponin ED Provider Note NAME: MADONNA ALMEIDA AGE: 66 SEX: F ARRIVES VIA: Ambulance INFORMANT: Patient ED PROVIDER(S): Prasanna Deleon MD CHIEF COMPLAINT: Chest pain PLAN: Disposition: Admit MEDICAL DECISION MAKING: The patient is a pleasant 66-year-old woman with a past medical history of paroxysmal atrial tachycardia recently demonstrated on outpatient heart monitor, history of diastolic heart failure, CKD, type 2 diabetes, PUD who presents to the emergency department via EMS for evaluation of anterior chest pain/pressure and burning that has been constant since 11 AM this morning when she reports it began suddenly when she was simply sitting on the couch not exerting yourself. Patient reports she has had fluctuating episodes of the symptoms which did initially correlate with minimal exertion. She reports she may have had some episodes when she had a recent heart monitor but for the most part the symptoms developed after her outpatient testing in the past week. She denies any fevers, cough, congestion. She reports she has had diarrhea over the past several days that has been mostly watery brown. She did report a small amount of blood couple of times. Otherwise she denies any black stool. The patient did receive 324 mg of aspirin and 2 sprays of nitroglycerin prior to arrival which she reports did improve her symptoms. On my evaluation the patient is uncomfortable but no acute distress, afebrile with heart rate fluctuating in the 110s-130s and atrial tachycardia. Vital signs are otherwise stable. She appears euvolemic. EKG on arrival demonstrates slightly depressed lateral ST changes which are new when compared to EKG in the [facility] EMR from July of this year. There is no overt ST elevations noted. Repeat EKG performed upon recurrence of pain following initial improvement with nitroglycerin and demonstrated more pronounced ST depressions in the lateral leads. However again no overt ST elevation. WBC, H/H and platelets within normal limits. Chemistry without metabolic acidosis. Electrolytes and LFTs without significant abnormality. Lipase not elevated. Initial high-sensitivity troponin 14.8, marginally above upper limit of normal nonspecific. COVID-19 RNA, YONY test was negative. Chest x-ray initially interpreted to have mild pulmonary edema however better characterized on CTA of the chest. Case was discussed with Dr. Alba, [facility] interventional cardiology. Appreciate consultation and recommendations. Given no discrete STEMI criteria recommends inpatient cardiology consultation to further clarify the patient's history which is not readily available in our EMR. Likely will need catheterization during this hospitalization. Agrees with symptomatic treatment and heparin. Case was discussed with Hattie Malone. Appreciate consultation and recommendations. Given the patient's recent heart monitor demonstrating frequent atrial ectopy with SVT and PAT suspect symptoms likely related to being symptomatic from her tachycardia and so recommends further rate control and also agrees with heparin at this time. Case was discussed with Hattie Ochoa PAC, with Dr. Venita Kuhn hospitalist who will evaluate the patient for admission. CTA of the chest subsequently completed and did not demonstrate pulmonary edema. Unfortunately evaluation for PE was near nondiagnostic however no central pulmonary embolism. Low-dose heparin drip was initiated without bolus given the patient's history of PUD and report of small amount of blood in diarrhea. Triage Nursing notes reviewed and agree them. Prior/outside medical records reviewed Vital Signs: reviewed Differential diagnosis: Cardiac ischemia, aortic dissection, pulmonary embolism, pneumothorax, pneumonia, pericarditis, myocarditis, esophageal rupture, GERD, cholecystitis, pancreatitis, musculoskeletal, as well as other pathologies. ER treatment provided: See below. Diagnostics interpreted by me: ECG 1540: Suspected atrial tachycardia, 123 bpm, the depressed ST segments laterally, no overt ST elevation, QTc 469, QRS 76. ECG 1633: Suspected atrial tachycardia, 125 bpm, more pronounced depressed ST segments laterally, no overt ST elevation, QTc 479, QRS 84 Cardiac Monitoring: An order for continuous cardiac monitoring was placed and d emonstrated Laboratory studies: See below Imaging studies: See below Consultation(s): Dr. Alba, [facility] interventional cardiology Hattie Malone cardiology Hattie Ochoa [facility], with Dr. Venita Kuhn hospitalist. HPI: The patient is a pleasant 66-year-old woman with a past medical history of paroxysmal atrial tachycardia recently demonstrated on outpatient heart monitor, history of diastolic heart failure, CKD, type 2 diabetes, PUD who presents to the emergency department via EMS for evaluation of anterior chest pain/pressure and burning that has been constant since 11 AM this morning when she reports it began suddenly when she was simply sitting on the couch not exerting yourself. Patient reports she has had fluctuating episodes of the symptoms which did initially correlate with minimal exertion. She reports she may have had some episodes when she had a recent heart monitor but for the most part the symptoms developed after her outpatient testing in the past week. She denies any fevers, cough, congestion. She reports she has had diarrhea over the past several days that has been mostly watery brown. She did report a small amount of blood couple of times. Otherwise she denies any black stool. The patient did receive 324 mg of aspirin and 2 sprays of nitroglycerin prior to arrival which she reports did improve her symptoms. ROS: See above HPI for pertinent positives & negatives. A total of 10 systems reviewed and were otherwise negative. VITALS:See Below PHYSICAL EXAMINATION: GENERAL: Awake, alert, uncomfortable-appearing, in no distress HENT: Normocephalic, atraumatic. Oropharynx unremarkable. EYES: Normal conjunctiva. Sclera non-icteric. NECK: Supple. No nuchal rigidity. FROM. No JVD. RESPIRATORY: Clear to auscultation. CARDIAC: Tachycardic rate, irregular rhythm. Extremities warm and well perfused. Pulses equal. ABDOMEN: Soft, non-distended. No tenderness to palpation. No rebound or guarding. No masses. RECTAL: Deferred. MUSCULOSKELETAL: Chest examination reveals no tenderness. The back is symmetrical on inspection without obvious abnormality. There is no CVA tenderness to palpation. No joint edema. LOWER EXTREMITIES: Calves are equal size bilaterally and non-tender. No edema. No discoloration. NEURO: Normal sensorium. No sensory or motor deficits noted. SKIN: No rash or jaundice noted. ED COURSE: Critical Care: I have personally spent greater than 35 minutes of critical care time in the direct management of this patient. This includes bedside care, interpretation of diagnostic studies, and testing, discussion with consultants, patient, and family members, and other required patient management activities. This 35 minutes is in excess of all separately billable procedures. Prasanna Deleon MD Past Med/Surg History Medical History Anemia Atypical chest pain Chronic diarrhea reason for colonoscopy Congestive heart failure Depression Diabetes mellitus, type 2 Diabetes type 2, controlled Diastolic CHF, chronic Dyslipidemia Fatty liver Gastric ulcer GERD (gastroesophageal reflux disease) Hiatal hernia Hypertension Hypertension Hypothyroidism Hypothyroidism Migraine On home oxygen therapy 2L at hs via N/C Osteoarthritis Osteoporosis Sleep apnea 2L at hs via N/C Urinary retention Surgical History History of colonoscopy History of dilatation and curettage History of esophagogastroduodenoscopy (EGD) History of hysterectomy with unilateral oophorectomy History of surgical removal of ganglion cyst right wrist History of tonsillectomy History of tooth extraction all upper teeth removed/most of lower teeth removed History of ventral hernia repair x2 S/P cholecystectomy Family History Father Family history of diabetes mellitus Mother Family history of diabetes mellitus Other No family history of adverse response to anesthesia Social History Smoking Status: Never smoker Second Hand Exposure: No; Do You Dip or Chew Tobacco: No; Tobacco Cessation Education Requested by Patient: No Hx Alcohol Use: No Hx Substance Use: No Preferred Language: Azeri Communication Ability: Effective 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 Beliefs That Will Affect Care: None marital status: Single Current Living Situation: Family Current Living Situation Comment: Sister and [id number] How many Children do You have: 0 Other Information That Helps Us Care for You: No Feels Safe at Home: Yes Safety Concerns: Feels Safe At This Time Assistive Devices: Oxygen - at Night Allergies Allergies Allergy/AdvReac Type Severity Reaction Status Date / Time adhesive tape Allergy Intermediate large welts Verified 02/03/22 11:12 doxycycline Allergy Intermediate Hives Verified 02/03/22 11:12 lactose Allergy Intermediate Gastrointestinal Verified 02/03/22 11:12 Upset lorazepam Allergy Intermediate elevated Verified 02/03/22 11:12 BS, elevated BP, [place] metronidazole Allergy Intermediate Hives Verified 02/03/22 11:12 naproxen Allergy Intermediate Hives Verified 02/03/22 11:12 Home Meds Home Medications Medication Instructions Recorded Confirmed amitriptyline 100 mg tablet 100 mg PO HS 11/09/18 08/31/22 atorvastatin 20 mg tablet 20 mg PO HS 11/09/18 08/31/22 furosemide 20 mg tablet (Lasix) 20 mg PO 2XWK 11/09/18 08/31/22 insulin glargine 100 unit/mL 40 unit subcut HS 11/09/18 08/31/22 subcutaneous solution (Lantus U-100 Insulin) levothyroxine 100 mcg tablet 100 mcg PO DAILYBB 11/09/18 08/31/22 metformin 500 mg tablet 500 mg PO BIDM 11/09/18 08/31/22 omeprazole 20 mg capsule,delayed 20 mg PO QAM 02/25/20 08/31/22 release Oxygen Home 02/03/22 08/31/22 empagliflozin 10 mg tablet 10 mg PO DAILY 02/03/22 08/31/22 (Jardiance) insulin lispro 100 unit/mL 1 sliding scale dose subcut 02/03/22 08/31/22 subcutaneous pen USEASDIRECTD lisinopril 10 mg tablet 5 mg PO QAM 02/03/22 08/31/22 metoprolol succinate 50 mg 75 mg PO DAILY 02/03/22 08/31/22 tablet,extended release 24 hr (Toprol XL) alendronate 70 mg tablet 70 mg PO WK 08/31/22 08/31/22 Results & Data (ED) Vital Signs Vital Signs - 24 hr 08/31/22 15:28 08/31/22 15:36 08/31/22 15:42 Temperature 36.6 C Temperature Source Temporal Artery Scan Pulse Rate 127 H 130 H Pulse Rate [Apical] Pulse Rate from SpO2 Sensor Respiratory Rate 20 Respiratory Effort / Characteristics Non-Labored Respiratory Depth Normal Blood Pressure 130/91 Blood Pressure [Right Arm] Blood Pressure Mean 104 Blood Pressure Mean [Right Arm] Pulse Oximetry 100 100 Oxygen Delivery Method Room Air Room Air Sepsis Recent Fever Within 48 Hours No Sepsis New/Unexplained Change in Mental Status No Sepsis Action Taken by Nursing No Action Required 08/31/22 15:52 08/31/22 15:38 08/31/22 15:45 Temperature Temperature Source Pulse Rate 128 H 117 H Pulse Rate [Apical] 124 H Pulse Rate from SpO2 Sensor 128 H 124 H Respiratory Rate 20 22 17 Respiratory Effort / Characteristics Non-Labored Respiratory Depth Normal Blood Pressure Blood Pressure [Right Arm] 130/91 Blood Pressure Mean Blood Pressure Mean [Right Arm] 104 Pulse Oximetry 98 100 97 Oxygen Delivery Method Room Air Sepsis Recent Fever Within 48 Hours Sepsis New/Unexplained Change in Mental Status Sepsis Action Taken by Nursing 08/31/22 15:54 08/31/22 15:54 08/31/22 16:00 Temperature Temperature Source Pulse Rate 122 H Pulse Rate [Apical] Pulse Rate from SpO2 Sensor 109 H Respiratory Rate 19 Respiratory Effort / Characteristics Respiratory Depth Blood Pressure 116/94 97/80 L Blood Pressure [Right Arm] Blood Pressure Mean 101 85 Blood Pressure Mean [Right Arm] Pulse Oximetry 97 Oxygen Delivery Method Sepsis Recent Fever Within 48 Hours Sepsis New/Unexplained Change in Mental Status Sepsis Action Taken by Nursing 08/31/22 16:00 08/31/22 16:15 08/31/22 17:44 Temperature Temperature Source Pulse Rate 127 H 112 H 131 H Pulse Rate [Apical] Pulse Rate from SpO2 Sensor 127 H 102 H Respiratory Rate 16 18 Respiratory Effort / Characteristics Respiratory Depth Blood Pressure 107/76 Blood Pressure [Right Arm] Blood Pressure Mean Blood Pressure Mean [Right Arm] Pulse Oximetry 98 98 Oxygen Delivery Method Sepsis Recent Fever Within 48 Hours Sepsis New/Unexplained Change in Mental Status Sepsis Action Taken by Nursing 08/31/22 16:17 08/31/22 16:17 08/31/22 16:20 Temperature Temperature Source Pulse Rate 105 H 113 H Pulse Rate [Apical] Pulse Rate from SpO2 Sensor 113 H 108 H Respiratory Rate 20 19 Respiratory Effort / Characteristics Respiratory Depth Blood Pressure 135/102 H Blood Pressure [Right Arm] Blood Pressure Mean 113 Blood Pressure Mean [Right Arm] Pulse Oximetry 100 96 Oxygen Delivery Method Sepsis Recent Fever Within 48 Hours Sepsis New/Unexplained Change in Mental Status Sepsis Action Taken by Nursing 08/31/22 16:30 08/31/22 16:30 08/31/22 16:40 Temperature Temperature Source Pulse Rate 126 H 124 H Pulse Rate [Apical] Pulse Rate from SpO2 Sensor 117 H 124 H Respiratory Rate 21 20 Respiratory Effort / Characteristics Respiratory Depth Blood Pressure 134/91 Blood Pressure [Right Arm] Blood Pressure Mean 105 Blood Pressure Mean [Right Arm] Pulse Oximetry 99 100 Oxygen Delivery Method Sepsis Recent Fever Within 48 Hours Sepsis New/Unexplained Change in Mental Status Sepsis Action Taken by Nursing 08/31/22 16:50 08/31/22 17:00 08/31/22 17:00 Temperature Temperature Source Pulse Rate 117 H 127 H Pulse Rate [Apical] Pulse Rate from SpO2 Sensor 121 H 122 H Respiratory Rate 18 19 Respiratory Effort / Characteristics Respiratory Depth Blood Pressure 125/90 Blood Pressure [Right Arm] Blood Pressure Mean 101 Blood Pressure Mean [Right Arm] Pulse Oximetry 100 98 Oxygen Delivery Method Sepsis Recent Fever Within 48 Hours Sepsis New/Unexplained Change in Mental Status Sepsis Action Taken by Nursing 08/31/22 17:10 08/31/22 17:20 08/31/22 17:30 Temperature Temperature Source Pulse Rate 129 H 128 H Pulse Rate [Apical] Pulse Rate from SpO2 Sensor 129 H 129 H Respiratory Rate 23 19 Respiratory Effort / Characteristics Respiratory Depth Blood Pressure 115/84 Blood Pressure [Right Arm] Blood Pressure Mean 94 Blood Pressure Mean [Right Arm] Pulse Oximetry 99 99 Oxygen Delivery Method Sepsis Recent Fever Within 48 Hours Sepsis New/Unexplained Change in Mental Status Sepsis Action Taken by Nursing 08/31/22 17:30 08/31/22 17:40 08/31/22 17:42 Temperature Temperature Source Pulse Rate 123 H 128 H Pulse Rate [Apical] Pulse Rate from SpO2 Sensor 125 H 128 H Respiratory Rate 17 21 Respiratory Effort / Characteristics Respiratory Depth Blood Pressure 107/76 Blood Pressure [Right Arm] Blood Pressure Mean 86 Blood Pressure Mean [Right Arm] Pulse Oximetry 99 99 Oxygen Delivery Method Sepsis Recent Fever Within 48 Hours Sepsis New/Unexplained Change in Mental Status Sepsis Action Taken by Nursing 08/31/22 17:42 08/31/22 17:50 08/31/22 18:33 Temperature Temperature Source Pulse Rate 130 H 113 H Pulse Rate [Apical] 107 H Pulse Rate from SpO2 Sensor 130 H 83 Respiratory Rate 22 23 21 Respiratory Effort / Characteristics Respiratory Depth Blood Pressure Blood Pressure [Right Arm] 101/77 Blood Pressure Mean Blood Pressure Mean [Right Arm] 85 Pulse Oximetry 100 97 93 Oxygen Delivery Method Room Air Sepsis Recent Fever Within 48 Hours Sepsis New/Unexplained Change in Mental Status Sepsis Action Taken by Nursing Laboratory Data Attestation: I reviewed the patient's lab results. 08/31/22 15:41 08/31/22 15:41 Lab Results 08/31/22 08/31/22 08/31/22 Range/Units 15:40 15:41 15:41 WBC 7.42 (4.8-10.8) K/ul RBC 4.61 (4.20-5.40) M/uL Hgb 13.6 (12.0-16.0) g/dl Hct 41.3 (37.0-47.0) % MCV 89.6 (80.0-100.0) fL MCH 29.5 (25.0-34.0) pg MCHC 32.9 (32.0-36.0) g/dL RDW Std Deviation 43.3 (36.4-46.3) fL RDW Coeff of Primitivo 13.3 (11.5-14.5) % Plt Count 195 (130-400) K/uL MPV 11.9 (9.4-12.4) fL Immature Gran % (Auto) 0.3 % Neut % (Auto) 70.9 % Lymph % (Auto) 19.0 % [place] % (Auto) 6.2 % Eos % (Auto) 3.2 % Baso % (Auto) 0.4 % Neut # (Auto) 5.26 (1.40-6.50) K/uL Lymph # (Auto) 1.41 (1.2-3.4) K/uL [place] # (Auto) 0.46 (0.11-0.59) K/uL Eos # (Auto) 0.24 (0-0.50) K/uL Baso # (Auto) 0.03 (0-0.2) K/uL Immature Gran # (Auto) 0.02 (0.01-0.20) K/uL Sodium 141 (136-145) mmol/L Potassium 4.1 (3.5-5.1) mmol/L Chloride 104 (98-107) mmol/L Carbon Dioxide 29 (21-32) mmol/L Anion Gap 8 (3-11) BUN 19 (6-23) mg/dl Creatinine 1.01 (0.6-1.2) mg/dl Est Cr Clr Drug Dosing 56.6 ml/min Est GFR ( Amer) 66.7 ml/min Est GFR (Non-Af Amer) 57.6 ml/min BUN/Creatinine Ratio 18.8 (10-20) Glucose 157 H (70-99(Fasting)) mg/dl Calcium 9.0 (8.6-10.3) mg/dl Phosphorus 3.7 (2.5-4.9) mg/dl Magnesium 1.8 (1.7-2.4) mg/dl Total Bilirubin 0.4 (0.2-1.0) mg/dl AST 11 L (13-39) U/L ALT 11 (7-52) U/L Alkaline Phosphatase 58 (34-104) U/L Troponin I High Sens 14.8 H (0-14) pg/ml Total Protein 6.4 (6.0-8.3) gm/dl Albumin 3.7 (3.4-5.0) gm/dl Globulin 2.7 (2.5-4.0) gm/dl Albumin/Globulin Ratio 1.4 (0.9-2) Lipase 38 (11-82) U/L SARS-CoV-2, RNA, NAAT NEGATIVE (NEGATIVE) Administered Medications Acetaminophen (Acetaminophen 325 Mg Tab) 650 mg PO Q4H PRN PRN Reason: Moderate Pain (Scale 4, 5, 6) Stop: 09/30/22 20:38 Last Admin: 08/31/22 21:31 Dose: 650 mg Documented By: CASE MANAGEMENT RN Amitriptyline HCl (Amitriptyline Hcl 100 Mg Tab) 100 mg PO [facility] Stop: 09/30/22 20:59 Last Admin: 08/31/22 21:30 Dose: 100 mg Documented By: CASE MANAGEMENT RN Atorvastatin Calcium (Atorvastatin 20 Mg Tab) 20 mg PO [facility] Stop: 09/30/22 20:59 Last Admin: 08/31/22 21:30 Dose: 20 mg Documented By: CASE MANAGEMENT RN Heparin Sodium/Dextrose (Heparin Sodium/Dextrose) 25,000 units in 500 mls @ 16 mls/hr IV .Q24H [facility]; Protocol Stop: 09/30/22 17:29 Last Admin: 08/31/22 19:07 Dose: 800 units/hr, 16 mls/hr Documented By: Co-signed By: THIERRY Famotidine 20 mg/ Syringe 5 mls @ 2.5 mls/min IV BID [facility] Stop: 09/30/22 20:59 Last Admin: 08/31/22 21:31 Dose: 2.5 mls/min Documented By: SOLO Insulin Aspart (Insulin Aspart Per Unit Charge) 0 units SC [facility] Stop: 09/30/22 20:59 Last Admin: 08/31/22 21:24 Dose: 2 units Documented By: SOLO Co-signed By: VIRGIL Insulin Glargine (Lantus Per Unit Charge) 40 units SQ [facility] Stop: 09/30/22 20:59 Last Admin: 08/31/22 21:25 Dose: 40 units Documented By: SOLO Co-signed By: VIRGIL Discontinued Medications Al Hydrox/Mg Hydrox/Simethicone 18 ml/ Lidocaine HCl 6 ml/ BARCODE IDENTIFIER 1 each 0 ml PO ONE ONE Stop: 08/31/22 22:46 Last Admin: 08/31/22 22:52 Dose: 18 ml Documented By: SOLO Fentanyl Citrate (Fentanyl Citrate Pf 100 Mcg/2 Ml Vial) 50 mcg IV NOW STA Stop: 08/31/22 17:17 Last Admin: 08/31/22 17:45 Dose: 50 mcg Documented By: ML Heparin Sodium/Dextrose (Heparin Iv Adult Wt-Based Low-Dose *No* Bolus Protocol) 1 each IV ONE STA; Protocol Stop: 08/31/22 17:28 Last Admin: 08/31/22 19:08 Dose: Not Given Documented By: Sodium Chloride (Nss) 500 mls @ 999 mls/hr IV .Q31M ONE Stop: 08/31/22 16:09 Last Infusion: 08/31/22 16:16 Dose: 0 mls/hr Documented By: Admin: 08/31/22 15:42 Dose: 999 mls/hr Documented By: BEATRICE Sodium Chloride (Nss) 500 mls @ 500 mls/hr IV .Q1H RUFINO Stop: 09/01/22 00:44 Last Admin: 08/31/22 23:50 Dose: 500 mls/hr Documented By: SOLO Ioversol (Optiray 320 500ml) 117 ml IV ONCE ONE Stop: 08/31/22 18:09 Last Admin: 08/31/22 18:09 Dose: 117 ml Documented By: ALIZA Metoprolol Tartrate (Metoprolol Tartrate 1 Mg/Ml Vial) 5 mg IV NOW STA Stop: 08/31/22 17:20 Last Admin: 08/31/22 17:44 Dose: 5 mg Documented By: HUMBERTO Metoprolol Tartrate (Metoprolol Tartrate 25 Mg Tab) 25 mg PO NOW STA Stop: 08/31/22 20:07 Last Admin: 08/31/22 21:48 Dose: 25 mg Documented By: SOLO Nitroglycerin (Nitroglycerin Sl 0.4 Mg/Tab Tab) 0.4 mg SL NOW STA Stop: 08/31/22 15:40 Last Admin: 08/31/22 15:42 Dose: 0.4 mg Documented By: ES Nitroglycerin (Nitroglycerin 2% Ointment 30gm Tube) Confirm Administered Dose 18 inch EXT .STK-MED ONE Stop: 08/31/22 16:13 Last Admin: 08/31/22 16:15 Dose: 1 inch Documented By: HUMBERTO Nitroglycerin (Nitroglycerin 2% Ointment 30gm Tube) 1 inch EXT NOW STA Stop: 08/31/22 16:18 Last Admin: 08/31/22 16:18 Dose: Not Given Documented By: ML Ondansetron HCl (Ondansetron Inj 2 Mg/Ml 2 Ml Vial) Confirm Administered Dose 4 mg .ROUTE .STK-MED ONE Stop: 08/31/22 17:54 Last Admin: 08/31/22 17:56 Dose: 4 mg Documented By: ML Imaging Data Radiologist's Impression: Chest X-Ray 08/31/22 15:25 XR chest 1V portable CLINICAL HISTORY: Chest pain, nonspecific TECHNIQUE: Single frontal radiograph of the chest was obtained. Comparison: Comparison is made to chest radiograph 09/21/2021 FINDINGS: No lines and tubes are seen. Calcified aortic knob is seen. Prominence and cephalization of the vasculature is seen. Atelectasis is noted in the left lung base. A prominent hiatal hernia is seen. IMPRESSION: 1. Mild pulmonary edema. 2. Additional findings as above. ACT 112: Negative or not required by law. Electronically signed by: Александр Fernandez M.D. 08/31/2022 5:10 PM Chest CTA 08/31/22 17:16 CT angio chest PE protocol CT DOSE: 715.82 mGy.cm HISTORY: 66 years-old Female with Chest pain, PE. Acute chest pain with shortness of breath TECHNIQUE: Multiple CTA images of the chest were obtained after the intravenous administration of 117 ml Optiray. Coronal and sagittal MIPS were obtained from the axial data set and were submitted for review. All measurements were obtained according to NASCET criteria. A dose lowering technique was utilized adhering to the principles of ALARA. COMPARISON: Chest CT 09/21/2021 FINDINGS: CTA: Heart is normal in size. Extensive coronary artery calcifications. Suboptimal evaluation of the pulmonary arterial tree secondary to contrast bolus timing. No central pulmonary emboli identified. CT CHEST: No thyroid nodule identified. Mild nonspecific paratracheal lymphadenopathy with lymph nodes measuring up to 1.1 cm, stable from prior. No pneumothorax, pleural effusion, airspace consolidation or overt pulmonary edema. Large hiatal hernia with mild left basilar atelectasis versus scarring. Central airways are patent. No acute process of the imaged upper abdomen. Unremarkable soft tissues. No acute fracture identified. IMPRESSION: 1. Limited exam secondary to contrast bolus timing with near nondiagnostic evaluation of the pulmonary arterial tree. No central pulmonary emboli identifi ed. 2. Large hiatal hernia with intrathoracic stomach is unchanged. 3. No pleural effusion or airspace consolidation to suggest pneumonia. ACT 112: Negative or not required by law. The above report was generated using voice recognition software. It may contain grammatical, syntax or spelling errors. Electronically signed by: Tomas Moreno M.D. 08/31/2022 6:52 PM Discharge Plan Visit Data Chief Complaint: Chest Pain ED Provider: Prasanna Deleon Discharge Problem: Chest pain, PAT (paroxysmal atrial tachycardia), Elevated troponin Patient Disposition: Admitted As Inpatient Discharge Instructions Interventions: ED Discharge Assessment Last Done: 08/31/22 19:54
[2022-08-31] MEDS ORDERED: ALUMINUM/MAGNESIUM SUSP 18 ML, LIDOCAINE VISCOUS 2% SOLN 6 ML, BARCODE IDENTIFIER 1 EACH PO ONE (22:45)
[2022-08-31] MEDS ORDERED: SODIUM CHLORIDE 0.9% 500 ML IV SCH (23:45)
[2022-09-01 01:51] LABS: Partial Thromboplastin Time 27.7 Seconds (21.0-31.0)
[2022-09-01] MEDS ORDERED: HEPARIN SOD (PORCINE) 1000 UNIT/ML IV ONE (02:30)
[2022-09-01] MEDS ORDERED: FUROSEMIDE INJ 20 MG/2 ML VIAL IV ONE (03:00)
[2022-09-01] MEDS ORDERED: FUROSEMIDE 40 MG/4 ML VIAL IV ONE ×2 (04:46→04:49)
[2022-09-01] MEDS ORDERED: MIDAZOLAM HCL 1 MG/ML 2ML VIAL ONE (05:08)
[2022-09-01] MEDS ORDERED: niCARdipine HCL INJ 2.5 MG/ML 10 ML AMP ONE (05:08)
[2022-09-01] MEDS ORDERED: HEPARIN (PORCINE) 1000 UNIT/ML 10 ML (CATH LAB USE ONLY) ONE (05:08)
[2022-09-01] MEDS ORDERED: fentaNYL citrate PF 100 MCG/2 ML VIAL ONE (05:08)
[2022-09-01] MEDS ORDERED: NITROGLYCERIN/D5W 100MCG/ML 20ML SYR ONE (05:09)
--- NOTE | 2022-09-01 05:24 | Cardiology Consultation ---
Date of Consultation September 01, 2022 Assessment & Plan (1) Elevated troponin: (2) Chest pain: (3) Congestive heart failure: (4) CKD (chronic kidney disease), stage III: (5) PAT (paroxysmal atrial tachycardia): Plan 66-year-old female admitted with 4 days or greater continuous chest burning sensation, paroxysmal atrial tachycardia with worsening symptoms hypotension and elevated troponin. Chest x-ray with pulmonary edema versus infiltrate. Currently requiring oxygen and respiratory distress Plan: ICU consulted for respiratory management and patient begun on BiPAP. IV furosemide administered. Patient to go to the [facility] to assess coronary anatomy, elevated troponin. Echocardiogram pending for a.m. Further recommendations pending results of studies with interventional cardiovascular team consulted for urgent Gear [employer] [facility] transfer Pulmonary status improved with initiation of BiPAP History of Present Illness Reason for Consultation: PAT, respiratory distress, elevated troponin Requesting Physician: Dr. Olson Attending Physician: Di Nathan MD History of Present Illness Patient is a 66-year-old female With complex constellation of underlying medical issues which include 1. Longstanding hypertension with hypertensive heart disease 2. Type 2 diabetes mellitus 3. Paroxysmal atrial tachycardia 4. Obesity with hypoventilation syndrome on nocturnal oxygen 5. Large hiatal hernia Patient presents now noting approximately 2 weeks worsening symptoms of palpitations shortness of breath and burning chest pressure sensation x4 days. Symptoms have been gradually worsening. Outpatient evaluation for palpitations included Zio patch event monitor demonstrating large amounts of paroxysmal atrial tachycardia. Echocardiogram demonstrated preserved LV systolic function with mild to moderate mitral tricuspid insufficiency. Yesterday patient sought ER evaluation for worsening symptoms of chest burning and shortness of breath. Initial rhythms PAT with rapid ventricular response rates 120s to 140s. Patient was treated with IV and oral beta-blockers with mild slowing of heart rate. Mild lateral ST depression on EKGs but no acute ST elevation. Patient was admitted and begun on IV heparin but with substantial rise in troponins marginal blood pressures intermittently with patient receiving IV fluids and IV Lasix as well. Cardiology contacted with worsening respiratory distress and chest burning pe rsistent since admission. On examination patient was found to be in respiratory distress breathless sitting on edge of bed. Rhythm now sinus tachycardia without acute ST elevation but troponins elevated Patient without prior history of myocardial infarction, LV dysfunction, severe valvular disease, rheumatic fever scarlet fever. Underwent stress nuclear imaging November 2021 for similar complaints with negative study Medication changes included increase beta-blockers as outpatient. No bleeding or infectious processes. No acute weight gain or edema Currently in respiratory distress with worsening infiltrates/pulmonary edema on the chest x-ray Allergies Allergy/AdvReac Type Severity Reaction Status Date / Time adhesive tape Allergy Intermediate large welts Verified 02/03/22 11:12 doxycycline Allergy Intermediate Hives Verified 02/03/22 11:12 lactose Allergy Intermediate Gastrointestinal Verified 02/03/22 11:12 Upset lorazepam Allergy Intermediate elevated Verified 02/03/22 11:12 BS, elevated BP, Dry Heaves metronidazole Allergy Intermediate Hives Verified 02/03/22 11:12 naproxen Allergy Intermediate Hives Verified 02/03/22 11:12 Home Medications Medication Instructions Recorded Confirmed Type amitriptyline 100 mg tablet 100 mg PO HS 11/09/18 08/31/22 History atorvastatin 20 mg tablet 20 mg PO HS 11/09/18 08/31/22 History furosemide 20 mg tablet (Lasix) 20 mg PO 2XWK 11/09/18 08/31/22 History insulin glargine 100 unit/mL 40 unit subcut HS 11/09/18 08/31/22 History subcutaneous solution (Lantus U-100 Insulin) levothyroxine 100 mcg tablet 100 mcg PO DAILYBB 11/09/18 08/31/22 History metformin 500 mg tablet 500 mg PO BIDM 11/09/18 08/31/22 History omeprazole 20 mg capsule,delayed 20 mg PO QAM 02/25/20 08/31/22 History release Oxygen Home 02/03/22 08/31/22 History empagliflozin 10 mg tablet 10 mg PO DAILY 02/03/22 08/31/22 History (Jardiance) insulin lispro 100 unit/mL 1 sliding scale dose subcut 02/03/22 08/31/22 History subcutaneous pen USEASDIRECTD lisinopril 10 mg tablet 5 mg PO QAM 02/03/22 08/31/22 History metoprolol succinate 50 mg 75 mg PO DAILY 02/03/22 08/31/22 History tablet,extended release 24 hr (Toprol XL) alendronate 70 mg tablet 70 mg PO WK 08/31/22 08/31/22 History Patient History Medical History (Updated 09/01/22 @ 05:32 by Vadim Galvin MD) Anemia Atypical chest pain Chronic diarrhea reason for colonoscopy Congestive heart failure Depression Diabetes mellitus, type 2 Diabetes type 2, controlled Diastolic CHF, chronic Dyslipidemia Fatty liver Gastric ulcer GERD (gastroesophageal reflux disease) Hiatal hernia Hypertension Hypertension Hypothyroidism Hypothyroidism Migraine On home oxygen therapy 2L at hs via N/C Osteoarthritis Osteoporosis Sleep apnea 2L at hs via N/C Urinary retention Surgical History History of colonoscopy History of dilatation and curettage History of esophagogastroduodenoscopy (EGD) History of hysterectomy with unilateral oophorectomy History of surgical removal of ganglion cyst right wrist History of tonsillectomy History of tooth extraction all upper teeth removed/most of lower teeth removed History of ventral hernia repair x2 S/P cholecystectomy Family History Father Family history of diabetes mellitus Mother Family history of diabetes mellitus Other No family history of adverse response to anesthesia Social History Smoking Status: Never smoker Second Hand Exposure: No; Do You Dip or Chew Tobacco: No; Tobacco Cessation Education Requested by Patient: No Hx Alcohol Use: No Hx Substance Use: No Preferred Language: Macedonian Communication Ability: Effective 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 Beliefs That Will Affect Care: None marital status: Single Current Living Situation: Family Current Living Situation Comment: Sister and [id number] How many Children do You have: 0 Other Information That Helps Us Care for You: No Feels Safe at Home: Yes Safety Concerns: Feels Safe At This Time Assistive Devices: Oxygen - at Night Review of Systems Review of Systems: All systems reviewed & are unremarkable except as noted in HPI & below Physical Exam Constitutional: + acute distress and + obese Eyes: PERRL, conjunctivae normal, anicteric sclerae ENMT: external ear and nose normal, oropharynx normal Neck: trachea midline, no thyromegaly Respiratory: + labored breathing, + audible wheezes and + tripod positioning Auscultation: + rales Cardiovascular: Rate/Rhythm: regular rate and + tachycardic Heart Sounds: normal S1 and normal S2; no murmur Gastrointestinal (Abdomen): Percussion/Palpation: abdomen soft; abdomen nontender Musculoskeletal: no cyanosis or clubbing, extremities motor strength 5/5 Skin: no rashes, warm and dry Results & Data Vital Signs (Past 12 Hours) Vital Signs Temp Pulse Pulse Resp BP BP BP 09/01/22 02:30 09/01/22 05:02 09/01/22 04:08 36.0 C L 09/01/22 03:56 112 H 22 100/64 09/01/22 02:31 107/72 09/01/22 02:12 113 H 20 89/73 L 09/01/22 00:13 108 H 18 08/31/22 22:56 37.1 C 118 H 22 98/78 L 08/31/22 21:01 36.6 C 132 H 22 110/83 08/31/22 19:54 08/31/22 19:49 105 H 18 114/87 08/31/22 19:00 108 H 21 103/78 08/31/22 18:33 107 H 21 101/77 08/31/22 17:50 113 H 23 08/31/22 17:42 130 H 22 08/31/22 17:42 107/76 08/31/22 17:40 128 H 21 08/31/22 17:30 123 H 17 08/31/22 17:30 115/84 08/31/22 17:20 128 H 19 08/31/22 17:44 131 H 107/76 Pulse Ox O2 Del Method O2 Flow Rate 09/01/22 02:30 Nasal Cannula 5 09/01/22 05:02 BiPAP 09/01/22 04:08 09/01/22 03:56 95 Nasal Cannula 5 09/01/22 02:31 95 Nasal Cannula 5 09/01/22 02:12 Nasal Cannula 2 09/01/22 00:13 Nasal Cannula 2 08/31/22 22:56 94 Nasal Cannula 2 08/31/22 21:01 93 Room Air 08/31/22 19:54 Room Air 08/31/22 19:49 93 Room Air 08/31/22 19:00 94 Room Air 08/31/22 18:33 93 Room Air 08/31/22 17:50 97 08/31/22 17:42 100 08/31/22 17:42 08/31/22 17:40 99 08/31/22 17:30 99 08/31/22 17:30 08/31/22 17:20 99 08/31/22 17:44 Laboratory Results Laboratory Results - last 24 hr 08/31/22 08/31/22 08/31/22 15:40 15:41 15:41 WBC 7.42 RBC 4.61 Hgb 13.6 Hct 41.3 MCV 89.6 MCH 29.5 MCHC 32.9 RDW Std Deviation 43.3 RDW Coeff of Primitivo 13.3 Plt Count 195 MPV 11.9 Immature Gran % (Auto) 0.3 Neut % (Auto) 70.9 Lymph % (Auto) 19.0 Stanley % (Auto) 6.2 Eos % (Auto) 3.2 Baso % (Auto) 0.4 Neut # (Auto) 5.26 Lymph # (Auto) 1.41 Stanley # (Auto) 0.46 Eos # (Auto) 0.24 Baso # (Auto) 0.03 Immature Gran # (Auto) 0.02 PT INR APTT PTT Ratio Sodium 141 Potassium 4.1 Chloride 104 Carbon Dioxide 29 Anion Gap 8 BUN 19 Creatinine 1.01 Est Cr Clr Drug Dosing 56.6 Est GFR ( Amer) 66.7 Est GFR (Non-Af Amer) 57.6 BUN/Creatinine Ratio 18.8 Glucose 157 H POC Glucose Calcium 9.0 Phosphorus 3.7 Magnesium 1.8 Total Bilirubin 0.4 AST 11 L ALT 11 Alkaline Phosphatase 58 Troponin I High Sens 14.8 H Total Protein 6.4 Albumin 3.7 Globulin 2.7 Albumin/Globulin Ratio 1.4 Lipase 38 SARS-CoV-2, RNA, NAAT NEGATIVE 08/31/22 08/31/22 08/31/22 18:45 20:29 21:46 WBC RBC Hgb Hct MCV MCH MCHC RDW Std Deviation RDW Coeff of Primitivo Plt Count MPV Immature Gran % (Auto) Neut % (Auto) Lymph % (Auto) Stanley % (Auto) Eos % (Auto) Baso % (Auto) Neut # (Auto) Lymph # (Auto) Stanley # (Auto) Eos # (Auto) Baso # (Auto) Immature Gran # (Auto) PT 10.3 INR 1.0 APTT 23.1 PTT Ratio 0.8 Sodium Potassium Chloride Carbon Dioxide Anion Gap BUN Creatinine Est Cr Clr Drug Dosing Est GFR ( Amer) Est GFR (Non-Af Amer) BUN/Creatinine Ratio Glucose POC Glucose 194 H Calcium Phosphorus Magnesium Total Bilirubin AST ALT Alkaline Phosphatase Troponin I High Sens 1109.8 H* D Total Protein Albumin Globulin Albumin/Globulin Ratio Lipase SARS-CoV-2, RNA, NAAT 09/01/22 09/01/22 09/01/22 01:10 01:10 04:01 WBC RBC Hgb Hct MCV MCH MCHC RDW Std Deviation RDW Coeff of Primitivo Plt Count MPV Immature Gran % (Auto) Neut % (Auto) Lymph % (Auto) Stanley % (Auto) Eos % (Auto) Baso % (Auto) Neut # (Auto) Lymph # (Auto) Stanley # (Auto) Eos # (Auto) Baso # (Auto) Immature Gran # (Auto) PT INR APTT 27.7 PTT Ratio 1.0 Sodium Potassium Chloride Carbon Dioxide Anion Gap BUN Creatinine Est Cr Clr Drug Dosing Est GFR ( Amer) Est GFR (Non-Af Amer) BUN/Creatinine Ratio Glucose POC Glucose 226 H Calcium Phosphorus Magnesium Total Bilirubin AST ALT Alkaline Phosphatase Troponin I High Sens 2289.6 H* D Total Protein Albumin Globulin Albumin/Globulin Ratio Lipase SARS-CoV-2, RNA, NAAT 09/01/22 09/01/22 04:58 04:58 WBC Pending RBC Pending Hgb Pending Hct Pending MCV Pending MCH Pending MCHC Pending RDW Std Deviation RDW Coeff of Primitivo Plt Count Pending MPV Immature Gran % (Auto) Neut % (Auto) Lymph % (Auto) Stanley % (Auto) Eos % (Auto) Baso % (Auto) Neut # (Auto) Lymph # (Auto) Stanley # (Auto) Eos # (Auto) Baso # (Auto) Immature Gran # (Auto) PT INR APTT PTT Ratio Sodium Pending Potassium Pending Chloride Pending Carbon Dioxide Pending Anion Gap Pending BUN Pending Creatinine Pending Est Cr Clr Drug Dosing Pending Est GFR ( Amer) Pending Est GFR (Non-Af Amer) Pending BUN/Creatinine Ratio Pending Glucose Pending POC Glucose Calcium Pending Phosphorus Pending Magnesium Pending Total Bilirubin AST ALT Alkaline Phosphatase Troponin I High Sens Total Protein Albumin Globulin Albumin/Globulin Ratio Lipase SARS-CoV-2, RNA, NAAT Diagnostic Findings Echocardiogram 08/25/2022 The qualitative LV ejection fraction is 60-64% (normal). The LV wall thickness is mildly increased (concentric). The left atrium is mildly enlarged (35-41 ml/m^2). Mild to moderate mitral regurgitation. Mild tricuspid regurgitation is present. The estimated pulmonary artery systolic pressure is 35mm Hg Zio patch event monitor 08/27/2022 Final Interpretation 1. Predominant rhythm sinus with an enormous amount of SVT (underlying mechanism probably PAT); average HR 79bpm; slowest HR 45bpm at 4:05am consistent with sinus bradycardia; fastest HR 174bpm at 5:43pm consistent with PAT. 2. Occasional APC; with a significant amount of PAT; the longest episode was 3 minutes; average HR 122bpm (67-174bpm). Some of the PAT was symptomatic. 3. Rare VPC; no runs of NSVT. 4. The patient reported symptoms 2 times while in PAT, SR
[2022-09-01 05:30] LABS: Hematocrit (blood only) 50.2 % (37.0-47.0); Hemoglobin 16.7 g/dl (12.0-16.0); Mean Corpuscular Hemoglobin 29.8 pg (25.0-34.0); Mean Corpuscular Hgb Conc 33.3 g/dL (32.0-36.0); Mean Corpuscular Volume 89.5 fL (80.0-100.0); Mean Platelet Volume 12.2 fL (9.4-12.4); Platelet Count 331 K/uL (130-400); RDW Coefficient of Variation 13.8 % (11.5-14.5); RDW Standard Deviation 44.9 fL (36.4-46.3); Red Blood Count 5.61 M/uL (4.20-5.40)
[2022-09-01 05:39] LABS: BUN Creatinine Ratio 15.7 (10-20); Calcium 9.6 mg/dl (8.6-10.3); Creatinine Clr Calc Pharmacy 43.6 ml/min; Est GFR (African American) 50.6 ml/min; Est GFR (Non-African American) 43.6 ml/min; Magnesium 2.1 mg/dl (1.7-2.4); Phosphorus 4.8 mg/dl (2.5-4.9); Potassium 5.5 mmol/L (3.5-5.1)
[2022-09-01] MEDS ORDERED: DOPamine 400MG / 250ML D5W (Cath Lab Use ONLY) IV ONE (05:46)
--- NOTE | 2022-09-01 05:47 | Critical Care Consultation ---
Date of Consultation September 01, 2022 Assessment & Plan (1) Chest pain: (2) Elevated troponin: (3) CKD (chronic kidney disease), stage III: (4) Congestive heart failure: (5) Hypothyroidism: (6) PAT (paroxysmal atrial tachycardia): (7) Respiratory failure: Plan Reason Critically Ill: 66 YOF with atrial dysrhythmia noted atypical chest pain now with steadily increasing HScTNI and pulmonary edema leading to hypoxic respiratory failure. Patient placed on BiPAP with good results, diuresed, heart alert called. Neuro - No acute needs CAM ICU: Negative Cardiac - NSTEMI, Acute on chronic HF, HX of atrial/ventricular dysrhythmias, atypical chest pain - Patient with acute onset pulmonary edema with increasing HScTNI- although ECG without STEMI or ST depressions- DDX: NSTEMI vs. SCAPE vs. dysrhythmia induced failure - Patient treated well with BIPAP and diuresing - await cardiac cath results - ECHO in morning - Continue with rate control with BB - Ensure mag >2.0 and K >4.0 - Follow renal function with dye load x2 Respiratory - Acute hypoxic respiratory failure secondary to pulmonary edema, obesity hypoventilation syndrome - As above cardiac related - await identification of cardiac evaluation - Continue BiPAP as needed for dyspnea likely able to wean off following diuresing - Continue with night time oxygen GI - No acute needs - Continue PPI RENAL/LYTES - CKD - follow renal function with contrast load x2- difficult to provide hydration in setting of cariogenic pulmonary edema - ICU electrolyte protocol - NO acute needs ENDO - DMII, Hypothyroidism - ICU hyperglycemic protocol- Goal <180mg/dl HEME - No acute needs ID - Currently no concerns for infectious etiology LINES/IV ACCESS - Stephon LUBIN Continue use of these lines DVT PROPHYLAXIS -SCDS DISPO- Morgue ADDENDUM- Patient cardiac arrest in fence laborer during procedure- ACLS and CPR with bradycardic PEA arrest- TOD 0603 I have personally spent 45 minutes of critical care time in the direct management of this patient. This is a life/limb threatening event. This includes time spent evaluating patient, direct bedside care, chart review, placing orders, interpretation of diagnostic studies, discussion with consultants, patient, and family members, as well as other required patient management activities. This time is exclusive of all separately billable procedures, and separate from and in addition to any other critical care service time. Thank you for allowing us to participate in the care of this patient. Please refer to my attending physician's documentation for any further recommendations. History of Present Illness Reason for Consultation: Pulmonary edema, hypoxia Requesting Physician: Zac Olson Attending Physician: Di Nathan MD History of Present Illness 66 YOF admitted 08/31 in the evening for complaints of tachycardia, and atypical chest pain. Patient with medical history of Ventricular dysrhythmia, HTN, HLD, HFpEF, DMII, obesity hypoventilation syndrome (night time oxygen use), NAFLD, GERD, CKD III. Patient originally presented with tachycardia which appears to be MAT/PAT, as well as chest discomfort that has waxed and waned over the last few days. She was admitted to PCU with mildly elevated HScTNI on admission of 14 that increased to 1109 on second set and at 0100 was 2289.6. She was noted to be more dyspneic as well. CXR was repeated which revealed acute pulmonary edema, which was significantly worsened from her admission CXR done at 1600 08/31. Dr[address] Galvin from cardiology was at bedside evaluating patient and requested ICU consultation for dyspnea/pulmonary edema, as well as consult out to cardiology for evaluation for NSTEMI. Patient was evaluated at the bedside accompanied by the home hospitalist team. Briefe history was obtained. Patient was observed sitting on edge of bed with RR >30s and conversationally dyspneic using abdominal muscles to breathe. Interventional Cardiology Dr. Nolasco arrived shortly therafter and decision was made to take her to fence laborer. Prior to fence laborer patient was placed on BiPAP 10/5 with VT 250, this was changed to 12/6 with VT increase to 350s and RR decrease to the low 20s and SPo2 increase to 100% on 40% FIO2. Szymanski was inserted and an additional 40mg of Lasix was requsted. Patient had brisk urine output prior to leaving for fence laborer, and her RR and efforts were much improved, as well as better air movement throughout. Await findings following fence laborer with DDX of: NSTEMI with acute heart failure vs. SCAPE in setting of tachycardia/stress although she was not noted to be hypertensive. COVID- NEGATIVE CODE Status: DNR/DNI Consultations: Cardiology Allergies Allergy/AdvReac Type Severity Reaction Status Date / Time adhesive tape Allergy Intermediate large welts Verified 02/03/22 11:12 doxycycline Allergy Intermediate Hives Verified 02/03/22 11:12 lactose Allergy Intermediate Gastrointestinal Verified 02/03/22 11:12 Upset lorazepam Allergy Intermediate elevated Verified 02/03/22 11:12 BS, elevated BP, [place]aves metronidazole Allergy Intermediate Hives Verified 02/03/22 11:12 naproxen Allergy Intermediate Hives Verified 02/03/22 11:12 Home Medications Medication Instructions Recorded Confirmed Type amitriptyline 100 mg tablet 100 mg PO HS 11/09/18 08/31/22 History atorvastatin 20 mg tablet 20 mg PO HS 11/09/18 08/31/22 History furosemide 20 mg tablet (Lasix) 20 mg PO 2XWK 11/09/18 08/31/22 History insulin glargine 100 unit/mL 40 unit subcut HS 11/09/18 08/31/22 History subcutaneous solution (Lantus U-100 Insulin) levothyroxine 100 mcg tablet 100 mcg PO DAILYBB 11/09/18 08/31/22 History metformin 500 mg tablet 500 mg PO BIDM 11/09/18 08/31/22 History omeprazole 20 mg capsule,delayed 20 mg PO QAM 02/25/20 08/31/22 History release Oxygen Home 02/03/22 08/31/22 History empagliflozin 10 mg tablet 10 mg PO DAILY 02/03/22 08/31/22 History (Jardiance) insulin lispro 100 unit/mL 1 sliding scale dose subcut 02/03/22 08/31/22 History subcutaneous pen USEASDIRECTD lisinopril 10 mg tablet 5 mg PO QAM 02/03/22 08/31/22 History metoprolol succinate 50 mg 75 mg PO DAILY 02/03/22 08/31/22 History tablet,extended release 24 hr (Toprol XL) alendronate 70 mg tablet 70 mg PO WK 08/31/22 08/31/22 History Patient History Medical History (Updated 09/01/22 @ 05:35 by TAM Arango) Anemia Atypical chest pain Chronic diarrhea reason for colonoscopy Congestive heart failure Depression Diabetes mellitus, type 2 Diabetes type 2, controlled Diastolic CHF, chronic Dyslipidemia Fatty liver Gastric ulcer GERD (gastroesophageal reflux disease) Hiatal hernia Hypertension Hypertension Hypothyroidism Hypothyroidism Migraine On home oxygen therapy 2L at hs via N/C Osteoarthritis Osteoporosis Sleep apnea 2L at hs via N/C Urinary retention Surgical History History of colonoscopy History of dilatation and curettage History of esophagogastroduodenoscopy (EGD) History of hysterectomy with unilateral oophorectomy History of surgical removal of ganglion cyst right wrist History of tonsillectomy History of tooth extraction all upper teeth removed/most of lower teeth removed History of ventral hernia repair x2 S/P cholecystectomy Family History Father Family history of diabetes mellitus Mother Family history of diabetes mellitus Other No family history of adverse response to anesthesia Social History Smoking Status: Never smoker Second Hand Exposure: No; Do You Dip or Chew Tobacco: No; Tobacco Cessation Education Requested by Patient: No Hx Alcohol Use: No Hx Substance Use: No Preferred Language: Maltese Communication Ability: Effective Director Erp Required: No Beliefs That Will Affect Care: None marital status: Single Current Living Situation: Family Current Living Situation Comment: Sister and [id number] How many Children do You have: 0 Other Information That Helps Us Care for You: No Feels Safe at Home: Yes Safety Concerns: Feels Safe At This Time Assistive Devices: Oxygen - at Night Review of Systems Review of Systems: REVIEW OF SYSTEMS: Constitutional: No fever, sweats or chills Eyes: No diplopia, no worsening or blurred vision ENT: normal hearing, no trouble swallowing Respiratory: (+) dyspnea at rest and worsened with exertion cough, thin clear secretions, Cardiovascular: (+) chest pain, and palpitations, Abdomen: No pain, nausea, vomiting, diarrhea or constipation Musculoskeletal: No joint pain, calf pain, swelling Neurologic: No weakness, numbness/tingling, or balance problems Psychiatric: No anxiety or depression Skin: No rash or itch Physical Exam Physical Exam: PHYSICAL EXAM: General: awake, alert, fatigued appearing and working to breathe Head: Normocephalic, atraumatic ENT: PERRL, EOMI, no pharyngeal exudate, mucous membranes moist Neuro: AAO x 3, speech clear and appropriate, strength intact bilaterally 5/5, sensation intact and equal all extremities and dermatomes, no pronator drift Chest: equal rise and fall of the chest, accessory muscle use, crackles throughout anterior and posterior on 5L oxymask, Cardiac: Regular rate and rhythm, telemetry reviewed- currently sinus tachycardia no ectopy, no ST elevations, skin cool and dry, cap refill <3 seconds, peripheral pulses +2 no JVD, no murmur, trace edema in lower extremities GI: NABS x 4 quadrants, soft, nontender to palpation, no rebound, guarding or tenderness : Spontaneously voiding, no pain, no CVA tenderness,- Szymanski placed with brisk amount of light urine Psych: Normal mood and affect Skin: no rash or erythema Results & Data Results & Data Vital Signs (Past 12 Hours) Vital Signs Temp Pulse Pulse Resp BP BP BP 09/01/22 02:30 09/01/22 05:02 09/01/22 04:08 36.0 C L 09/01/22 03:56 112 H 22 100/64 09/01/22 02:31 107/72 09/01/22 02:12 113 H 20 89/73 L 09/01/22 00:13 108 H 18 08/31/22 22:56 37.1 C 118 H 22 98/78 L 08/31/22 21:01 36.6 C 132 H 22 110/83 08/31/22 19:54 08/31/22 19:49 105 H 18 114/87 08/31/22 19:00 108 H 21 103/78 08/31/22 18:33 107 H 21 101/77 08/31/22 17:50 113 H 23 08/31/22 17:42 130 H 22 08/31/22 17:42 107/76 08/31/22 17:40 128 H 21 08/31/22 17:30 123 H 17 08/31/22 17:30 115/84 08/31/22 17:20 128 H 19 08/31/22 17:44 131 H 107/76 Pulse Ox O2 Del Method O2 Flow Rate 09/01/22 02:30 Nasal Cannula 5 09/01/22 05:02 BiPAP 09/01/22 04:08 09/01/22 03:56 95 Nasal Cannula 5 09/01/22 02:31 95 Nasal Cannula 5 09/01/22 02:12 Nasal Cannula 2 09/01/22 00:13 Nasal Cannula 2 08/31/22 22:56 94 Nasal Cannula 2 08/31/22 21:01 93 Room Air 08/31/22 19:54 Room Air 08/31/22 19:49 93 Room Air 08/31/22 19:00 94 Room Air 08/31/22 18:33 93 Room Air 08/31/22 17:50 97 08/31/22 17:42 100 08/31/22 17:42 08/31/22 17:40 99 08/31/22 17:30 99 08/31/22 17:30 08/31/22 17:20 99 08/31/22 17:44 Laboratory Results Abnormal lab results 08/31/22 08/31/22 08/31/22 Range/Units 15:41 20:29 21:46 WBC (4.8-10.8) K/ul RBC (4.20-5.40) M/uL Hgb (12.0-16.0) g/dl Hct (37.0-47.0) % Glucose 157 H (70-99(Fasting)) mg/dl POC Glucose 194 H (70-99) mg/dl AST 11 L (13-39) U/L Troponin I High Sens 14.8 H 1109.8 H* D (0-14) pg/ml 09/01/22 09/01/22 09/01/22 Range/Units 01:10 04:01 04:58 WBC 14.70 H (4.8-10.8) K/ul RBC 5.61 H (4.20-5.40) M/uL Hgb 16.7 H D (12.0-16.0) g/dl Hct 50.2 H (37.0-47.0) % Glucose (70-99(Fasting)) mg/dl POC Glucose 226 H (70-99) mg/dl AST (13-39) U/L Troponin I High Sens 2289.6 H* D (0-14) pg/ml Diagnostic Findings Chest X-Ray 08/31/22 15:25 XR chest 1V portable CLINICAL HISTORY: Chest pain, nonspecific TECHNIQUE: Single frontal radiograph of the chest was obtained. Comparison: Comparison is made to chest radiograph 09/21/2021 FINDINGS: No lines and tubes are seen. Calcified aortic knob is seen. Prominence and cephalization of the vasculature is seen. Atelectasis is noted in the left lung base. A prominent hiatal hernia is seen. IMPRESSION: 1. Mild pulmonary edema. 2. Additional findings as above. ACT 112: Negative or not required by law. Electronically signed by: Александр Fernandez M.D. 08/31/2022 5:10 PM Chest CTA 08/31/22 17:16 CT angio chest PE protocol CT DOSE: 715.82 mGy.cm HISTORY: 66 years-old Female with Chest pain, PE. Acute chest pain with shortness of breath TECHNIQUE: Multiple CTA images of the chest were obtained after the intravenous administration of 117 ml Optiray. Coronal and sagittal MIPS were obtained from the axial data set and were submitted for review. All measurements were obtained according to NASCET criteria. A dose lowering technique was utilized adhering to the principles of ALARA. COMPARISON: Chest CT 09/21/2021 FINDINGS: CTA: Heart is normal in size. Extensive coronary artery calcifications. Suboptimal evaluation of the pulmonary arterial tree secondary to contrast bolus timing. No central pulmonary emboli identified. CT CHEST: No thyroid nodule identified. Mild nonspecific paratracheal lymphadenopathy with lymph nodes measuring up to 1.1 cm, stable from prior. No pneumothorax, pleural effusion, airspace consolidation or overt pulmonary edema. Large hiatal hernia with mild left basilar atelectasis versus scarring. Central airways are patent. No acute process of the imaged upper abdomen. Unremarkable soft tissues. No acute fracture identified. IMPRESSION: 1. Limited exam secondary to contrast bolus timing with near nondiagnostic evaluation of the pulmonary arterial tree. No central pulmonary emboli identified. 2. Large hiatal hernia with intrathoracic stomach is unchanged. 3. No pleural effusion or airspace consolidation to suggest pneumonia. ACT 112: Negative or not required by law. The above report was generated using voice recognition software. It may contain grammatical, syntax or spelling errors. Electronically signed by: Tomas Moreno M.D. 08/31/2022 6:52 PM Most previous CXR interprted by md 09/01/2022 with acute onset bilateral pulmonary edema, hiatal hernia on left as well and blunting of left diaphragm possible pleural effusion . Cardiomegaly, no pneumothorax noted Medications Administered Home Medications amitriptyline 100 mg tablet 100 mg PO HS 11/09/18 [History Confirmed 08/31/22] atorvastatin 20 mg tablet 20 mg PO HS 11/09/18 [History Confirmed 08/31/22] furosemide 20 mg tablet (Lasix) 20 mg PO 2XWK 11/09/18 [History Confirmed 08/31/22] insulin glargine 100 unit/mL subcutaneous solution (Lantus U-100 Insulin) 40 unit subcut HS 11/09/18 [History Confirmed 08/31/22] levothyroxine 100 mcg tablet 100 mcg PO DAILYBB 11/09/18 [History Confirmed 0 08/31/22] metformin 500 mg tablet 500 mg PO BIDM 11/09/18 [History Confirmed 08/31/22] omeprazole 20 mg capsule,delayed release 20 mg PO QAM 02/25/20 [History Confirmed 08/31/22] Oxygen Home 02/03/22 [History Confirmed 08/31/22] empagliflozin 10 mg tablet (Jardiance) 10 mg PO DAILY 02/03/22 [History Confirmed 08/31/22] insulin lispro 100 unit/mL subcutaneous pen 1 sliding scale dose subcut USEASDI RECTD 02/03/22 [History Confirmed 08/31/22] lisinopril 10 mg tablet 5 mg PO QAM 02/03/22 [History Confirmed 08/31/22] metoprolol succinate 50 mg tablet,extended release 24 hr (Toprol XL) 75 mg PO DAILY 02/03/22 [History Confirmed 08/31/22] alendronate 70 mg tablet 70 mg PO WK 08/31/22 [History Confirmed 08/31/22] Active Medications Acetaminophen (Acetaminophen 325 Mg Tab) 650 mg PO Q4H PRN PRN Reason: Moderate Pain (Scale 4, 5, 6) Stop: 09/30/22 20:38 Last Admin: 08/31/22 21:31 Dose: 650 mg Amitriptyline HCl (Amitriptyline Hcl 100 Mg Tab) 100 mg PO HS RUFINO Stop: 09/30/22 20:59 Last Admin: 08/31/22 21:30 Dose: 100 mg Atorvastatin Calcium (Atorvastatin 20 Mg Tab) 20 mg PO HS RUFINO Stop: 09/30/22 20:59 Last Admin: 08/31/22 21:30 Dose: 20 mg Dextrose (Dextrose 50% 50 Ml Syringe) 25 - 50 ml IV UD PRN; Protocol PRN Reason: Hypoglycemia Protocol Stop: 09/30/22 20:38 Glucagon (Glucagon For Inj 1 Mg Vial) 1 mg SQ UD PRN; Protocol PRN Reason: Hypoglycemia Protocol Stop: 09/30/22 20:38 Glucose (Glucose 10 Tab/Tube) 4 - 8 tab PO UD PRN; Protocol PRN Reason: Hypoglycemia Treatment Stop: 09/30/22 20:38 Glucose (Glucose 40% Gel 15 Gm Tube) 15 - 30 gm PO UD PRN; Protocol PRN Reason: Hypoglycemia Protocol Stop: 09/30/22 20:38 Heparin Sodium/Dextrose (Heparin Sodium/Dextrose) 25,000 units in 500 mls @ 20 mls/hr IV .Q24H RUFINO; Protocol Stop: 09/30/22 17:29 Last Titration: 09/01/22 02:48 Dose: 1,000 units/hr, 20 mls/hr Famotidine 20 mg/ Syringe 5 mls @ 2.5 mls/min IV BID RUFINO Stop: 09/30/22 20:59 Last Admin: 08/31/22 21:31 Dose: 2.5 mls/min Insulin Aspart (Insulin Aspart Per Unit Charge) 0 units SC ACHS RUFINO Stop: 09/30/22 20:59 Last Admin: 08/31/22 21:24 Dose: 2 units Insulin Glargine (Lantus Per Unit Charge) 40 units SQ HS [facility] Stop: 09/30/22 20:59 Last Admin: 08/31/22 21:25 Dose: 40 units Levothyroxine Sodium (Levothyroxine Sodium 100 Mcg Tablet) 100 mcg PO DAILYBB [facility] Stop: 10/01/22 06:29 Lisinopril (Lisinopril 5 Mg Tab) 5 mg PO QAM [facility] Stop: 10/01/22 08:59 Metoprolol Succinate (Metoprolol Succ 25mg Ext Rel Tab) 75 mg PO DAILY [facility] Stop: 10/01/22 08:59 Miscellaneous (Carbohydrates For Hypoglycemia ) 15 - 30 gm PO UD PRN PRN Reason: Hypoglycemia Protocol Stop: 09/30/22 20:38 Ondansetron HCl (Ondansetron Inj 2 Mg/Ml 2 Ml Vial) 4 mg IV Q4H PRN PRN Reason: Nausea And Vomiting Stop: 09/30/22 20:38 Pantoprazole Sodium (Pantoprazole 40 Mg Tab) 40 mg PO QAM [facility] Stop: 10/01/22 08:59 ECG Additional Comments: Sinus tachycardia Left axis deviation Low voltage QRS Septal infarct (cited on or before 31-AUG-2022) Abnormal ECG When compared with ECG of 31-AUG-2022 23:28, (unconfirmed) Nonspecific T wave abnormality, worse in Anterior leads Coding Level of Care Code 97466 CRITICAL CARE 1ST 30-74M Diagnoses Chest pain R07.9 Elevated troponin R77.8 CKD (chronic kidney disease), stage III N18.30 Congestive heart failure I50.9 Hypothyroidism E03.9 PAT (paroxysmal atrial tachycardia) I47.1 Respiratory failure J96.90
[2022-09-01] MEDS ORDERED: AMIODARONE 360MG / 200ML D5W (CATH LAB USE ONLY) IV ONE (05:58)
[2022-09-01] MEDS ORDERED: AMIODARONE 150MG / 100ML D5W (CATH LAB USE ONLY) IV ONE (06:01)
--- NOTE | 2022-09-01 06:19 | Communication Note ---
Date of Service: September 01, 2022 Patient had cardiac arrest during cath- Arrived with CPR in progress as arrest occurred during procedure. ACLS algorithm for bradycardia/PEA. - Patient was already with dopamine infusing, received EPI x3, NAHCO3 x2, CACL x1. NO return of circulation. Efforts were terminated at 0603 as TOD - Admitting hospitalist notified, home refrigeration systems installer was present for cardiac arrest. David TURCIOS ([facility])
[2022-09-01] MEDS ORDERED: LEVOTHYROXINE SODIUM 100 MCG TABLET PO SCH (06:30)
--- NOTE | 2022-09-01 06:37 | Cardiac Catheterization ---
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 Cardiac Status Respiratory distress, hypoxia requiring BiPAP, elevated troponin CAD Presenation: Non STEMI Coronary Anatomy RCA (% Stenosis): Normal (No angiographically significant disease) Diagnostic Physicians Name: Prudencio Alba MD, PhD Closure Device Percutaneous Entry Location: Radial Closure Device: None-Manual Hold Recommendations: None Cardiac Cath Procedure Full Procedure Date September 01, 2022 Pre-Procedure Diagnosis Pre-Procedure Diagnosis: Non STEMI AUC Score AUC Score: 07 Post-Procedure Diagnosis Post-Procedure Diagnosis: Mild CAD Procedure(s) Performed Procedure(s) Performed: Coronary Angiography Assessment Expert Prudencio Alba MD, PhD Estimated Blood Loss Estimated Blood Loss: 5 ml Medication(s) Medication(s): Dopamine, Fentanyl, Heparin and Lidocaine 1% Summary of Findings Brief description: Patient was brought to the cardiac catheterization suite where she was shaved and prepped in a sterile fashion. She was on BiPAP and borderline hypotensive. She had no significant chest pain at that time. Mild tachycardia noted on the monitor. She received 25 mcg IV fentanyl for sedation. Soft tissues of the right wrist were anesthetized using 2 mL of 1% Xylocaine. The right radial artery was accessed using modified Seldinger technique. A 6 Tamazight radial artery glide sheath was placed. We did not utilize any antispasmodic's because of her relatively low blood pressure. A 5 Tamazight [place] 4 diagnostic catheter was advanced. It was utilized to cannulate the right coronary artery. Right coronary angiography was performed in orthogonal views. However, we could not get the catheter to engage the left main coronary. It was therefore removed and a 5 Tamazight JL 3.5 diagnostic catheter was advanced. Patient was provided IV heparin. The patient's blood pressure continued to drop and she was started on dopamine. We were still unable to engage the left main with the JL 3.5 catheter and it was therefore removed. Plan was to obtain femoral artery access in an attempt to engage the left coronary system. However, patient became pulseless and CPR was initiated (PEA). She developed bradycardia (had been sinus tachycardia) and a "CODE BLUE" was called. CPR continued with the patient receiving administrations of epinephrine and bicarbonate. She also received calcium gluconate. She continued with PEA arrest. She was never intubated per her wishes. We were unable to obtain any blood pressure despite invasive monitoring and eventually the patient was pronounced . RCA: Large caliber and prominently dominant. Diffuse mild calcification and mild stenosis of less than 20 to 30% in the mid to distal vessel. Vessel becomes a large and long caliber PDA providing many inferoseptal branches. It has mild luminal irregularities. Left main trunk: This vessel was never selectively engaged. It did appear to be patent on nonselective test injections. It had severe calcification which extended to the LAD and circumflex. Hemodynamics Rest Ao:: 112/86 mmHg Final Ao: 0/0 mmHg LV: Not obtained Recommendations Recommendations: None Radiation Exposure (mGy) 797 mGy, 5.1 minutes fluoroscopy time Contrast (mls) 25 ML Anesthesia 25 mcg fentanyl Procedural Complication(s) Disposition ICU I attest to the content of the Intraoperative Record and any orders documented therein. Any exceptions are noted below. [facility] Card Cath Procedure Codes Cardiac Catheterization Procedure 1: Cardiovascular Cath Procedures: 65165 Coronaries Therapeutic Services & Ancillary Procedure 1: Cardiovascular Tx and Anc Procedures: 08972 Code Blue/CPR Moderate Sedation Procedure 1: Sedation/Anesthesia: 06379 Mod Sedation by the same physician;Init15 Min Child Age 5 & Up PG Care Time/CCT Total # of Minutes Spent Total Time Spent with Patient: Total time spent is greater than 50% in coordination of care (as documented) at patient's floor/unit and/or counseling patient:
--- NOTE | 2022-09-01 06:42 | Cardiology Consultation ---
Date of Consultation September 01, 2022 Assessment & Plan (1) Respiratory failure: Unclear etiology. Based on the chest x-ray there seems to be at least some component of significant congestive heart failure. Although initially this was more limited and she did receive IV fluids for hypotension during this admission which may have worsened her CHF but did improve her blood pressure. White blood cell count was normal. Unfortunately, the CTA done to evaluate for pulmonary embolism was not very helpful other than to say there appeared to be no proximal PA embolism/clot. D-dimer was never performed to exclude clot. (2) Elevated troponin: Unclear if this is a type I or type II non-ST elevation LA. She had EKG evidence of old inferior and septal LA but no evidence of acute ST elevation LA. The right coronary artery was without any significant disease. We were unable to selectively cannulate the left main coronary artery but customer support executive test views attempting to engage the coronary did not show occlusive left main disease. There was no staining in the left coronary system but was significant calcification. My suspicion is that she has significant chronic disease in the left coronary system and that while in respiratory distress/hypoxic and hypotensive with tachycardia she was experiencing type II myocardial ischemia. (3) PAT (paroxysmal atrial tachycardia): Unclear if the patient received the adenosine as recommended by Dr. Galvin. However, she was in sinus tachycardia when I saw her, no longer in PAT. Plan Unfortunately the patient is with PEA arrest of unknown etiology. History of Present Illness Reason for Consultation: Elevated troponin Attending Physician: Di Nathan MD History of Present Illness 66-year-old female whom I am asked to see for elevated troponin. Patient presented yesterday evening with shortness of breath, palpitations, tachycardia, and burning chest discomfort. Chest discomfort started at 11 AM. I was contacted around 6 PM by the emergency department regarding her symptoms and subtle nondiagnostic EKG changes. At that time, her troponin was just above the 14.0 cutoff for abnormal. She did not meet criteria for ST elevation LA and followed with [facility] cardiology. I recommended admission, consider heparin drip, [facility] cardiology consultation, and pending their evaluation if appropriate we would consider catheterization during this hospitalization. As it turns out, patient has recent diagnosis of frequent/extensive PAT. No prior catheterization or abnormal stress test. No prior myocardial infarction. Previous echo performed here showed diastolic dysfunction but normal EF and no significant valvular pathology. Evidently after treatment was initiated per cardiology recommendations the patient did relatively well but then her troponin became significantly abnormal. She has sinus tachycardia and her respiratory status worsened. Eventually I was notified of her decline and Dr. Galvin ([facility] cardiology) was called in to see the patient. I also came to see the patient at the bedside. She was now requiring BiPAP and had sinus tachycardia on the monitor. There was no ST elevations. Her chest x-ray showed interval worsening of bilateral opacities likely pulmonary edema. She continued with epigastric burning. She appeared very ill and after discussion with Dr. Galvin, Dr. Olson, critical care medicine (patient was planned for transfer to ICU), decision was made to proceed to the cardiac catheterization suite to exclude acute coronary syndrome and treat if present. We initiated cardiac catheterization and she was hemodynamically tenuous on arrival. She was also requiring BiPAP but states that she had no chest pain. Coronary angiography was initiated via the right radial artery access and the right coronary system was w ithout significant disease. She had significant vasospasm and hypotension. Decision was made to attempt femoral access as we were unable to adequately manipulate the catheter to engage the left main coronary. Unfortunately, patient continued with worsening hypotension and then suffered pulseless electrical activity (PEA arrest). We initiated CPR and called a CODE BLUE. At that point, the curator horticultural museum took over the code and we continued with resuscitative measures. However, we were never able to reestablish a blood pressure/pulse. Despite use of dopamine, epinephrine, bicarbonate, and calcium gluconate patient never had spontaneous circulation, continued with PEA arrest, and had progressive bradycardia. She was therefore pronounced . Allergies Allergy/AdvReac Type Severity Reaction Status Date / Time adhesive tape Allergy Intermediate large welts Verified 02/03/22 11:12 doxycycline Allergy Intermediate Hives Verified 02/03/22 11:12 lactose Allergy Intermediate Gastrointestinal Verified 02/03/22 11:12 Upset lorazepam Allergy Intermediate elevated Verified 02/03/22 11:12 BS, elevated BP, Dry Heaves metronidazole Allergy Intermediate Hives Verified 02/03/22 11:12 naproxen Allergy Intermediate Hives Verified 02/03/22 11:12 Home Medications Medication Instructions Recorded Confirmed Type amitriptyline 100 mg tablet 100 mg PO HS 11/09/18 08/31/22 History atorvastatin 20 mg tablet 20 mg PO HS 11/09/18 08/31/22 History furosemide 20 mg tablet (Lasix) 20 mg PO 2XWK 11/09/18 08/31/22 History insulin glargine 100 unit/mL 40 unit subcut HS 11/09/18 08/31/22 History subcutaneous solution (Lantus U-100 Insulin) levothyroxine 100 mcg tablet 100 mcg PO DAILYBB 11/09/18 08/31/22 History metformin 500 mg tablet 500 mg PO BIDM 11/09/18 08/31/22 History omeprazole 20 mg capsule,delayed 20 mg PO QAM 02/25/20 08/31/22 History release Oxygen Home 02/03/22 08/31/22 History empagliflozin 10 mg tablet 10 mg PO DAILY 02/03/22 08/31/22 History (Jardiance) insulin lispro 100 unit/mL 1 sliding scale dose subcut 02/03/22 08/31/22 History subcutaneous pen USEASDIRECTD lisinopril 10 mg tablet 5 mg PO QAM 02/03/22 08/31/22 History metoprolol succinate 50 mg 75 mg PO DAILY 02/03/22 08/31/22 History tablet,extended release 24 hr (Toprol XL) alendronate 70 mg tablet 70 mg PO WK 08/31/22 08/31/22 History Patient History Medical History Anemia Atypical chest pain Chronic diarrhea reason for colonoscopy Congestive heart failure Depression Diabetes mellitus, type 2 Diabetes type 2, controlled Diastolic CHF, chronic Dyslipidemia Fatty liver Gastric ulcer GERD (gastroesophageal reflux disease) Hiatal hernia Hypertension Hypertension Hypothyroidism Hypothyroidism Migraine On home oxygen therapy 2L at hs via N/C Osteoarthritis Osteoporosis Sleep apnea 2L at hs via N/C Urinary retention Surgical History History of colonoscopy History of dilatation and curettage History of esophagogastroduodenoscopy (EGD) History of hysterectomy with unilateral oophorectomy History of surgical removal of ganglion cyst right wrist History of tonsillectomy History of tooth extraction all upper teeth removed/most of lower teeth removed History of ventral hernia repair x2 S/P cholecystectomy Family History Father Family history of diabetes mellitus Mother Family history of diabetes mellitus Other No family history of adverse response to anesthesia Social History Smoking Status: Never smoker Second Hand Exposure: No; Do You Dip or Chew Tobacco: No; Tobacco Cessation Education Requested by Patient: No Hx Alcohol Use: No Hx Substance Use: No Preferred Language: Central African Communication Ability: Effective Strategy Consultant Required: No Beliefs That Will Affect Care: None marital status: Single Current Living Situation: Family Current Living Situation Comment: Sister and [id number] How many Children do You have: 0 Other Information That Helps Us Care for You: No Feels Safe at Home: Yes Safety Concerns: Feels Safe At This Time Assistive Devices: Oxygen - at Night Review of Systems 2 Review of Systems: Negative except as per HPI Physical Exam Constitutional: Obese, pale, ill-appearing female in clear respiratory distress. Eyes: Extraocular muscles intact ENMT: Sclera anicteric Neck: Thick, no JVD appreciated Respiratory: Course breath sounds bilaterally with diffuse crackles. Poor air movement. Using accessory muscles to breathe. On BiPAP. Cardiovascular: Regular rhythm with a tachycardic rate. Sinus tachycardia with first-degree AV block on the monitor. Heart sounds are distant. I do not appreciate any murmurs. No lower extremity edema. Neurologic: Cognition is intact. Speech is limited by the BiPAP. She does not appear to have any focal deficits. She does move all extremities voluntarily. Psychiatric: A+Ox3, euthymic affect (Appears anxious) Results & Data Vital Signs (Past 12 Hours) Vital Signs Temp Pulse Pulse Resp BP BP Pulse Ox 09/01/22 05:10 111 H 29 H 99 09/01/22 02:30 09/01/22 05:02 09/01/22 04:08 36.0 C L 09/01/22 03:56 112 H 22 100/64 95 09/01/22 02:31 107/72 95 09/01/22 02:12 113 H 20 89/73 L 09/01/22 00:13 108 H 18 08/31/22 22:56 37.1 C 118 H 22 98/78 L 94 08/31/22 21:01 36.6 C 132 H 22 110/83 93 08/31/22 19:54 08/31/22 19:49 105 H 18 114/87 93 08/31/22 19:00 108 H 21 103/78 94 O2 Del Method O2 Flow Rate FiO2 09/01/22 05:10 40 09/01/22 02:30 Nasal Cannula 5 09/01/22 05:02 BiPAP 09/01/22 04:08 09/01/22 03:56 Nasal Cannula 5 09/01/22 02:31 Nasal Cannula 5 09/01/22 02:12 Nasal Cannula 2 09/01/22 00:13 Nasal Cannula 2 08/31/22 22:56 Nasal Cannula 2 08/31/22 21:01 Room Air 08/31/22 19:54 Room Air 08/31/22 19:49 Room Air 08/31/22 19:00 Room Air PG Care Time/CCT Total # of Minutes Spent Total Time Spent with Patient: Total time spent is greater than 50% in coordination of care (as documented) at patient's floor/unit and/or counseling patient: Critical Care Time: Yes Total Critical Care Time: 45 45 minutes critical care time was spent in the review of records, evaluation of the patient, examination of the patient, discussion with the patient and the ca re team, formulation and implementation of a plan of care with all associated documentation. This is exclusive of the time spent for the procedure and CPR. Coding Level of Care Code 56370 IN/OBS CONSULT LVL 5,80M Diagnoses Respiratory failure J96.90 Elevated troponin R77.8 PAT (paroxysmal atrial tachycardia) I47.1 Additional Codes Critical Care Time - Critical Care Time: Yes ([id number])
--- NOTE | 2022-09-01 08:07 | XRay Report ---
XR chest 1V portable CLINICAL HISTORY: sob TECHNIQUE: Single frontal radiograph of the chest was obtained. Comparison: Comparison is made to chest radiograph 08/31/2022 FINDINGS: No lines and tubes are seen. Cardiomegaly is noted. The aortic arch is calcified. Bilateral airspace opacities are seen, right greater than left. No evidence of pleural effusion or pneumothorax. IMPRESSION: Multifocal airspace opacities may represent atelectasis, pneumonia, and/or aspiration. ACT 112: Negative or not required by law. Electronically signed by: Александр Fernandez M.D. 09/01/2022 8:06 AM
[2022-09-01] MEDS ORDERED: lisinopril 5 MG TAB PO SCH (09:00)
[2022-09-01] MEDS ORDERED: PANTOprazole 40 MG TAB PO SCH (09:00)
[2022-09-01] MEDS ORDERED: METOPROLOL SUCC 25MG EXT REL TAB PO SCH (09:00)
--- NOTE | 2022-09-01 09:34 | Communication Note ---
Date of Service: September 01, 2022 Last night when patient came to floor from Er her heart rates in 110's. Po Lopressor was given as ordered. Iv adenosine was not given. Patient was having b urning sensations in the chest. She has hiatal hernia and she wanted to try GI cocktail which was given. Second set of troponin was elevated to 1000. Ordered ekg showing sinus tachycardia with rate of 110.Her chest burning sensations seems improving. Patient was already on iv heparin. Bp was soft and heat rate in 110. Gave a bolus of 500cc fluids. Second set of troponin came in . Got call that patient was requiring oxygen. Saw the patient . Has mild wheezing on exam. Ordered cxr and gave a dose of Lasix iv 20mg as BP was 107/70 at that time. Still having some burning pain in chest. CXr showed pul. edema/infiltrates. Called cardiology as patient still having chest pain and elevated troponin and cxr findings and requiring oxygen. repeat ekg showed sinus tachycardia. No st elevations.Cardiology came and saw the patient. Interventional cardiology was also notified. ICU notified for respiratory status. Was placed on bipap and another dose of iv lasix given and patient resp status on bipap seemed better. Was transferred to floating labor gang supervisor. During cath patient coded . Seems became hypotensive, bradycardia and went into PEA. Code was initiated but unfortunately patient at 6:05am. Per cardiac cath notes right coronary without significant disease. Left main was not cannulated but orderly test images didnot show left main occlusive disease.Etiology of demise unclear. Possible NStEMI and PUL Edema or Multifocal pneumonia with sepsis.Family notified. Family did not want to see the patient. Sister who is the primary contact Miss.Judy Nava said she will come and take the patient stuff but does not want to see the patient and she also does not want autopsy.
--- NOTE | 2022-09-01 09:59 | Death Pronouncement Note ---
Date of Service September 01, 2022 Pronouncement Note Admission Date August 31, 2022 Date and Time of Date of : 09/01/22 Time of : 06:05 Additional Data Confirmation of : no pulse, no respirations, no heart sounds and pupils fixed and dilated Pronouncement Performed By: Attending Physician Family: contacted Attending physician: Di Nathan MD
--- NOTE | 2022-09-01 10:42 | Electrocardiogram Report ---
Test Reason : Blood Pressure : / mmHG Vent. Rate : 119 BPM Atrial Rate : 040 BPM P-R Int : 000 ms QRS Dur : 068 ms QT Int : 326 ms P-R-T Axes : 000 -40 235 degrees QTc Int : 458 ms Poor data quality, interpretation may be adversely affected Probably sinus tachycardia Left axis deviation Low voltage QRS Marked ST abnormality, possible inferior subendocardial injury Marked ST abnormality, possible anterior subendocardial injury Abnormal ECG When compared with ECG of 31-AUG-2022 16:11, (unconfirmed) ST segment changes are new Confirmed by Herman Sumner ([id number]) on 09/01/2022 10:42:28 AM Referred By: REFERRED SELF Confirmed By:Wilmer Sumner
--- NOTE | 2022-09-01 10:42 | Electrocardiogram Report ---
Test Reason : Blood Pressure : / mmHG Vent. Rate : 123 BPM Atrial Rate : 123 BPM P-R Int : 084 ms QRS Dur : 076 ms QT Int : 328 ms P-R-T Axes : 000 -32 072 degrees QTc Int : 469 ms Poor data quality, interpretation may be adversely affected Sinus tachycardia with Premature supraventricular complexes Left axis deviation Low voltage QRS Nonspecific ST abnormality Abnormal ECG When compared with ECG of 31-AUG-2022 15:34, (unconfirmed) Nonspecific T wave abnormality, worse in Anterior leads Confirmed by Herman Sumner ([id number]) on 09/01/2022 10:41:32 AM Referred By: REFERRED SELF Confirmed By:Wilmer Sumner
--- NOTE | 2022-09-01 10:43 | Electrocardiogram Report ---
Test Reason : Blood Pressure : / mmHG Vent. Rate : 122 BPM Atrial Rate : 129 BPM P-R Int : 136 ms QRS Dur : 062 ms QT Int : 330 ms P-R-T Axes : 000 -36 029 degrees QTc Int : 470 ms Sinus tachycardia with Premature atrial complexes with Aberrant conduction and PVCs Left axis deviation Low voltage QRS Minor ST segment depressions Abnormal ECG Confirmed by Herman Sumner ([id number]) on 09/01/2022 10:43:27 AM Referred By: Confirmed By:Wilmer Sumner
--- NOTE | 2022-09-01 10:43 | Electrocardiogram Report ---
Test Reason : Blood Pressure : / mmHG Vent. Rate : 125 BPM Atrial Rate : 125 BPM P-R Int : 240 ms QRS Dur : 084 ms QT Int : 332 ms P-R-T Axes : 019 -28 196 degrees QTc Int : 479 ms Sinus tachycardia with 1st degree A-V block Low voltage QRS Septal infarct (cited on or before 31-AUG-2022) Marked ST abnormality, possible anterior subendocardial injury Abnormal ECG When compared with ECG of 31-AUG-2022 16:22, (unconfirmed) Confirmed by Herman Sumner ([id number]) on 09/01/2022 10:42:37 AM Referred By: REFERRED SELF Confirmed By:Wilmer Sumner
--- NOTE | 2022-09-01 10:44 | Electrocardiogram Report ---
Test Reason : Blood Pressure : / mmHG Vent. Rate : 122 BPM Atrial Rate : 122 BPM P-R Int : 266 ms QRS Dur : 074 ms QT Int : 324 ms P-R-T Axes : 072 -31 179 degrees QTc Int : 461 ms Sinus tachycardia with 1st degree A-V block with Fusion complexes Left axis deviation Low voltage QRS Abnormal ECG When compared with ECG of 31-AUG-2022 16:33, (unconfirmed) Fusion complexes are now Present Confirmed by Herman Sumner ([id number]) on 09/01/2022 10:43:54 AM Referred By: REFERRED SELF Confirmed By:Wilmer Sumner
--- NOTE | 2022-09-01 10:52 | Electrocardiogram Report ---
Test Reason : Blood Pressure : / mmHG Vent. Rate : 110 BPM Atrial Rate : 110 BPM P-R Int : 190 ms QRS Dur : 090 ms QT Int : 342 ms P-R-T Axes : 047 -33 105 degrees QTc Int : 462 ms Sinus tachycardia Left axis deviation Low voltage QRS Abnormal ECG When compared with ECG of 31-AUG-2022 16:41, (unconfirmed) Fusion complexes are no longer Present IL interval has decreased Confirmed by Herman Sumner ([id number]) on 09/01/2022 10:52:11 AM Referred By: REFERRED SELF Confirmed By:Wilmer Sumner
--- NOTE | 2022-09-01 10:57 | Electrocardiogram Report ---
Test Reason : Blood Pressure : / mmHG Vent. Rate : 111 BPM Atrial Rate : 111 BPM P-R Int : 186 ms QRS Dur : 092 ms QT Int : 332 ms P-R-T Axes : 062 -31 107 degrees QTc Int : 451 ms Sinus tachycardia Left axis deviation Low voltage QRS Poor R wave progression, consider anterior SD vs. lead placement vs. LVH Abnormal ECG When compared with ECG of 31-AUG-2022 23:28, (unconfirmed) Nonspecific T wave abnormality, worse in Anterior leads Confirmed by Herman Sumner ([id number]) on 09/01/2022 10:57:31 AM Referred By: REFERRED SELF Confirmed By:Wilmer Sumner
--- NOTE | 2022-09-01 10:59 | Electrocardiogram Report ---
Test Reason : Blood Pressure : / mmHG Vent. Rate : 123 BPM Atrial Rate : 123 BPM P-R Int : 132 ms QRS Dur : 080 ms QT Int : 318 ms P-R-T Axes : 000 -31 195 degrees QTc Int : 455 ms Poor data quality, interpretation may be adversely affected Sinus tachycardia Left axis deviation Low voltage QRS Marked ST abnormality, possible inferior subendocardial injury Marked ST abnormality, possible anterior subendocardial injury Abnormal ECG When compared with ECG of 31-AUG-2022 15:40, (unconfirmed) Premature supraventricular complexes are no longer Present ST more depressed Anterolateral leads Inverted T waves have replaced nonspecific T wave abnormality in Anterior leads Confirmed by Herman Sumner ([id number]) on 09/01/2022 10:58:46 AM Referred By: REFERRED SELF Confirmed By:Wilmer Sumner
--- NOTE | 2022-09-04 15:57 | Discharge Summary ---
Date of Service September 01, 2022 Admission HPI Per Admitting Provider This is a 66-year-old female with PMHx of nonsustained V. tach, HTN, HLD, diastolic CHF, DM type II, obesity hypoventilation syndrome, fatty liver disease, GERD, rosacea, acquired hypothyroidism, history of migraine, CKD stage III who presents to the hospital with intermittent chest pain. Chest complaints have been ongoing since last (4 days ago) with symptoms including burning, heaviness, intermittent palpitations and generalized ill feeling. This occurs with walking and with rest, and does not seem to notice a triggering factor. She has never quite felt like this before. Patient denies any previous cardiac history where she required intervention or cardiac cath. Her metoprolol succinate was recently increased in the past week up to 75 mg daily, and she underwent a echocardiogram last week which was reviewed by her boom conveyor operator. She follows with [facility] as an outpatient. Of note she takes Lasix 20 mg on Mondays and Saturdays, and did take it this morning along with her other home meds. She has had some worsening shortness of breath but denies that it coincides with her chest pain. She has been sleeping with 2 or 3 pillows and admits to orthopnea when lying flat. She wears 2 L O2 at bedtime, but none during the day. Denies any recent cough, congestion, sputum production. Of note she admits to having diarrhea 48 hours ago which lasted for 1 day, and resolved. Nobody else in the household had similar symptoms. Her sister and [id number], whom the patient lives with, are present at bedside who helps support the history. Principal Diagnosis Paroxysmal Atrial Tachycardia Cardiac Arrest NSTEMI Acute hypoxic respiratory failure Acute diastolic CHF Discharge Exam See Note on 09/01 Discharge Data Allergies Allergy/AdvReac Type Severity Reaction Status Date / Time adhesive tape Allergy Intermediate large welts Verified 02/03/22 11:12 doxycycline Allergy Intermediate Hives Verified 02/03/22 11:12 lactose Allergy Intermediate Gastrointestinal Verified 02/03/22 11:12 Upset lorazepam Allergy Intermediate elevated Verified 02/03/22 11:12 BS, elevated BP, Dry Heaves metronidazole Allergy Intermediate Hives Verified 02/03/22 11:12 naproxen Allergy Intermediate Hives Verified 02/03/22 11:12 Consultations 08/31/22 17:57 ED Decision to Admit Stat 08/31/22 19:45 Consult Cardiology Routine 09/01/22 04:42 Consult Cardiology Stat Procedures Performed Operation Date: 09/01/22 05:15 Actual Procedures p Cath, Coronaries ONLY (no LV) - Prudencio Alba MD, PhD s Cineradiography w/Routine Exam - Prudencio Alba MD, PhD Ordered Studies 08/31/22 17:16 CT angio chest PE protocol Stat 09/01/22 05:06 CL Cath Imgs for PACS use only Routine Hospital Course (1) PAT (paroxysmal atrial tachycardia): (2) Chest pain: (3) Hypertension: (4) Hypothyroidism: (5) Dyslipidemia: (6) Congestive heart failure: . (7) Diabetes mellitus, type 2: (8) CKD (chronic kidney disease), stage III: Plan Ms Manju Mulligan is a 66 year old female with PMHx as listed in H&P presents to the hospital with substernal chest pain noted to have paroxysmal atrial tachycardia on admission. EKG on admission noted with ST depressions on lateral leads. High sensitivity troponin at time of presentation was 14. Her case was discussed by ER physician with Cardiology on presentation. She was started on a heparin drip and admitted to the hospital for further management. Overnight, she developed respiratory distress and was transferred to the ICU. She later went to cardiac chemical laboratory chief and during catheterization she became bradycardic and went into cardiac arrest. She was pronounced at 605am. Family was notified and declined autopsy. Total Time Total Time Spent Total Time Spent (In Minutes): NA Discharge Plan Discharge Items Patient Disposition: Other Date/Time: 09/01/22 06:05
== END 2022-09-01 08:54 | disposition expired ==
LOC: ED 15:28 → 2E 18:36 → 1E 09-01 05:31
PROC: CLB.CCO (2022-09-01 05:15)